=== PATIENT | female | born 1960 | race Two or more races ===

== ENCOUNTER → 2020-11-19 10:19 | Outpatient (BNVA) | payer OTHER, SELFPAY | PROVIDERS: PCP Internal Medicine Critical Care Medicine; Visit Provider Hospitalist | DX: Z76.89 Persons encountering health services in other specified circumstances (principal) ==

== ENCOUNTER 2021-01-18 14:33 | Inpatient (IN) | payer OTHER, SELFPAY ==
--- NOTE | ~2021-01-18 | CT_ITS ---
EXAMINATION: CT ABDOMEN AND PELVIS WITHOUT CONTRAST CLINICAL INFORMATION: Right flank pain. COMPARISON: Ultrasound kidneys 06/15/[address] abdomen 09/19/2018. TECHNIQUE: Multidetector volumetric imaging was performed from the superior aspect of the liver through the pubic symphysis. Sagittal and coronal reformatted images were obtained on the technologist's workstation. This CT examination was performed using dose optimization techniques as appropriate, variously including the following: *Automated exposure control *Adjustment of mA and/or kV according to patient size (this includes techniques or standardized protocols for targeted exams where dose is matched to indication/reason for exam; i.e. extremities or head) *Use of iterative reconstruction technique DLP: 749 mGy-cm FINDINGS: LUNG BASES: The lung bases are clear. The heart size is normal.. LIVER, GALLBLADDER, AND BILIARY TREE: The liver is normal in size, shape, and attenuation. No focal hepatic lesion or biliary ductal dilatation is present. The gallbladder is unremarkable with no evidence of radiopaque gallstones, gallbladder wall thickening, or obvious pericholecystic inflammatory changes. PANCREAS: Unremarkable. SPLEEN: Unremarkable. ADRENAL GLANDS: Unremarkable. KIDNEYS AND URETERS: The kidneys are normal in size, shape, and attenuation. There is bilateral multiple small radiopaque calculi in the range of 2 to 3 mm in the upper mid and lower pole right kidney and mid and lower pole left kidney. There is a 4 mm right distal ureter calculi with mild hydroureteronephrosis. The left ureter is normal. BLADDER: The bladder is decompressed. GASTROINTESTINAL TRACT: There is scattered stool, diverticuli and gas seen throughout the colon without distention. The small bowel loops are normal caliber. Appendix is normal caliber. ABDOMINAL WALL: There is a small umbilical hernia containing fat. LYMPH NODES: Normal. VASCULAR: Unremarkable. PELVIC VISCERA: The uterus is anteverted. There is 2.7 cm solid lesion with surrounding hypoechoic circumferential area likely a polyp within the endometrial canal. A submucosal fibroid is not excluded. It is almost same size as previous study. OSSEOUS STRUCTURES: There are degenerative disc changes and spondylosis throughout lumbar spine. No acute fracture or lytic process seen. There is moderate spondylosis/bridging osteophyte at L2-L3 and L3-L4 disc levels. CT/CT abdomen pelvis wo con IMPRESSION: Bilateral left or lithiasis. There is a 4 mm right UVJ obstructive stone with hydroureteronephrosis. Small umbilical hernia containing fat. Stable uterine lesion likely endometrial polyp or a submucosal fibroid. Correlate with history sonogram if clinically indicated.
--- NOTE | ~2021-01-18 | FL_ITS ---
EXAMINATION: XR FLUOROSCOPY WITH IMAGES CLINICAL INFORMATION: Urinary tract calculi COMPARISON: CT abdomen and pelvis noncontrast 01/18/2021 TECHNIQUE: Fluoroscopy performed by Dr. Stanley Duran. Fluoroscopy time: 0.47 minutes Total dose: 15.79 mGy Images: 1 FINDINGS: There is a stent in the right ureter and bladder. FL/FL guidance in OR IMPRESSION: Fluoroscopy for urologic procedure.
[2021-01-18 14:51] VITALS: BP 151/81; PULSE 83; RESP 18; TEMP 36.9; O2SAT 97; BMI 39.8
[2021-01-18] MEDS: ondansetron HCL 4 MG/2 ML VIAL IVPUSH (15:16)
[2021-01-18] MEDS: HYDROmorphone HCl 1 MG/ML SYRINGE IVPUSH ×2 (15:16→17:41)
[2021-01-18] MEDS: 0.9 % Sodium Chloride 1,000 ML 999 ML IV (15:16)
[2021-01-18 15:17] LABS: Basophils Absolute Auto 0.1 X10*3/uL (0.0-0.2); Basophils Percent Auto 0.9 % (0-2); Eosinophils Absolute Auto 0.5 X10*3/uL (0.0-0.4); Eosinophils Percent Auto 6.3 % (0-4); Hematocrit 38.9 % (37-47); Hemoglobin 12.8 g/dl (12.0-16.0); Imm Gran Abs Auto 0.01 X10*3/uL (0.00-0.03); Imm Gran Pct Auto 0.1 % (0.0-0.4); Lymphocytes Absolute Auto 3.6 X10*3/uL (1.2-4.9); Lymphocytes Percent Auto 43.9 % (20-40); MANUAL DIFF FLAG NO; Mean Corpuscular HGB Conc 32.9 g/dl (31.0-35.0); Mean Corpuscular Hemoglobin 30.7 pg (27.0-33.0); Mean Corpuscular Volume 93.3 fL (80-98); Mean Platelet Volume 10.2 fL (9.4-12.3); Monocytes Absolute Auto 0.9 X10*3/uL (0.1-1.2); Monocytes Percent Auto 10.5 % (2-11); Neutrophils Absolute Auto 3.1 X10*3/uL (2.0-8.3); Neutrophils Percent Auto 38.3 % (45-73); Platelet Count 331 X10*3/uL (160-400); Red Blood Count 4.17 X10*6/uL (4.20-5.50); Red Cell Distribution Width 13.8 % (11.0-16.0); White Blood Count 8.1 X10*3/uL (4.8-10.8)
--- NOTE | 2021-01-18 15:18 | ED_ITS ---
HPI - General Adult General Chief complaint: General Medical Stated complaint: flank pain Time Seen by Provider: 01/18/21 14:47 Source: patient Mode of arrival: ambulatory History of Present Illness HPI narrative: 60 y.o. F with PMH of asthma, KEVIN, obesity, renal stones presenting to the ED with right flank pain since noon. Pt. states she developed right flank pain since noon and progressively worsening. Pt. states pain is pulsating. She report similar feeling pain with her prior renal stones. SHe had a BM today. Hx of prior delivery and stent placement for her renal stone. SHe denies fevers, CP, SOB, vomiting, diarrhea, dysuria, hematuria. Location: abdomen (right flank ) Radiation: non-radiation Severity: severe Quality: other (pulsating ) Pain Consistency: constant Treatments prior to arrival: none Related Data Home Medications Medication Instructions Recorded Confirmed albuterol sulfate 90 mcg/actuation 2 puff INHALATION Q4H PRN 11/19/20 11/19/20 aerosol inhaler atorvastatin 40 mg tablet 40 mg PO DAILY 11/19/20 11/19/20 fluoxetine 20 mg capsule 60 mg PO DAILY 11/19/20 11/19/20 fluticasone propionate 50 spray INTRANASAL 11/19/20 11/19/20 mcg/actuation nasal spray,suspension hydrochlorothiazide 25 mg tablet 25 mg PO DAILY 11/19/20 11/19/20 levothyroxine 50 mcg tablet 50 mcg PO DAILY 11/19/20 11/19/20 omeprazole 20 mg capsule,delayed 20 mg PO DAILY 11/19/20 11/19/20 release verapamil 100 mg capsule 24hr 100 mg PO BEDTIME 11/19/20 11/19/[address],ext.release Previous Rx's Medication Instructions Recorded fluticasone furoate 200 1 inh INHALATION DAILY #60 ea 09/15/20 mcg-vilanterol 25 mcg/dose inhalation powder modafinil 200 mg tablet 200 mg PO DAILY #30 tab 09/24/20 tiotropium bromide 2.5 2 puff INHALATION DAILY #4 g 11/06/20 mcg/actuation mist for inhalation dexamethasone 6 mg tablet 6 mg PO DAILY 10 Days #10 tab 11/19/20 doxycycline hyclate 100 mg capsule 100 mg PO BID 10 Days #20 cap 11/19/20 Allergies Allergy/AdvReac Type Severity Reaction Status Date / Time acetaminophen [Percocet] Allergy Severe Rash and Verified 11/19/20 18:47 Hives amlodipine Allergy Severe Rash and Verified 11/19/20 18:47 Hives aspirin Allergy Severe Rash and Verified 11/19/20 18:47 Hives benzonatate Allergy Severe Rash and Verified 11/19/20 18:47 Hives fexofenadine Allergy Severe Rash and Verified 11/19/20 18:47 Hives hydroxyzine Allergy Severe Rash and Verified 11/19/20 18:47 Hives lisinopril Allergy Severe Rash and Verified 11/19/20 18:47 Hives meperidine [Demerol] Allergy Severe Rash and Verified 11/19/20 18:47 Hives morphine Allergy Severe Rash and Verified 11/19/20 18:47 Hives naproxen [Aleve] Allergy Severe Rash and Verified 11/19/20 18:47 Hives oxycodone [From PERCOCET] Allergy Severe SWELLING Verified 11/19/20 18:47 penicillin G Allergy Severe Rash and Verified 11/19/20 18:47 Hives Sulfa (Sulfonamide Allergy Severe Rash and Verified 11/19/20 18:47 Antibiotics) Hives valsartan Allergy Severe Rash and Verified 11/19/20 18:47 Hives codeine [CODEINE] Allergy Intermediate RASH Verified 11/19/20 18:47 ibuprofen [From MOTRIN] Allergy Intermediate RASH Verified 11/19/20 18:47 montelukast [From SINGULAIR] Allergy Intermediate HIVES Verified 11/19/20 18:47 sulfamethoxazole Allergy Intermediate HIVES Verified 11/19/20 18:47 [From BACTRIM] tramadol [TRAMADOL] Allergy Intermediate SWELLING, Verified 11/19/20 18:47 RASH loratadine [From CLARITIN] Allergy Mild HIVES Verified 11/19/20 18:47 ranitidine [From ZANTAC] Allergy Mild HIVES Verified 11/19/20 18:47 Hydrocet Allergy Severe Rash and Uncoded 11/19/20 18:47 Hives Lorazepam Allergy Severe Rash and Uncoded 11/19/20 18:47 Hives Zantac Allergy Severe Rash and Uncoded 11/19/20 18:47 Hives Review of Systems Constitutional: Constitutional: Denies fever(s) Eyes: Eyes: Reports no additional eye complaints ENT: Denies dizziness and Denies sore throat Cardiovascular: Cardiovascular: Denies chest pain and Denies dyspnea Respiratory: Respiratory: Denies dyspnea Gastrointestinal: Gastrointestinal: Denies constipation, Denies diarrhea, Reports nausea and Denies vomiting Genitourinary: Genitourinary: Denies hematuria, Denies dysuria and Reports flank pain Musculoskeletal: Musculoskeletal: Reports no additional musculoskeletal complaints Neurologic: Denies dizziness Hematologic/Lymphatic: Hematologic/Lymphatic: Denies easy bleeding and Denies easy bruising Allergic/Immunologic: Allergic/Immunologic: Reports no additional allergic/immunologic complaints [facility] Past Medical History Medical History Asthma COVID-19 KEVIN on CPAP Social History Social History Smoking Status: Never smoker Smoked in Last 30 Days: No Use of substances other than those prescribed or required for medical reasons: No Advance Directives: No Advance Directives Information Provided: Yes Physical Exam Vital Signs: Vital Signs: Last Vital Signs Temp 98.5 F 01/18/21 14:51 Pulse 76 01/18/21 15:47 Resp 18 01/18/21 15:47 BP 136/75 01/18/21 15:47 Pulse Ox 97 01/18/21 14:51 Body Mass Index 39.8 Const: Other: laying supine in the stretcher, appears uncomfortable HENMT: Head: Yes atraumatic Eyes: Pupils: Equal, round and reactive pupils present Neck: Neck: Yes trachea midline and Yes supple Resp: Effort & Inspection: normal respiratory effort and able to speak in com plete sentences Auscultation: clear to auscultation bilaterally Cardio: Rate: regular rate Rhythm: regular rhythm GI: Inspection: No distended and Yes obesity Palpation (GI): Soft to palpation, nontender and no guarding : Other: right flank tenderness Back/Spine/Pelvis: Other: no midline tenderness to thoracic or lumbar spine Skin: Other: warm Rashes: no rashes Neuro: Other: A&O x4 Cranial nerves: Yes Equal, round and reactive pupils present Extrem: General: Yes full ROM Psych: Other: cooperative Course Reevaluation(s) Reevaluation #1: Pt. appears uncomfortable, states the pain is returning. Dilaudid did provide relief for approximately 30 minutes. Since pt. is allergic to many different medications will plan to admit for pain control. Will discuss with urology. Time: 16:15 Reevaluation #2: Spoke with Dr. Duran from urology who is aware pt. will be admitted for pain control, no further recommendations. Time: 16:36 Reevaluation #3: Spoke with DANIELA almendarez, who is the hospitalist who agrees to admit the pt. but would like to get the UA first. Time: 16:41 Additional Reevaluation(s): UA appears to have been cancelled, however I spoke with the lab and faxed down a record (at 17:27) of the UA with micro still pending, shows yellow ruine, negative for nitrates, leuk esterases, 3+ blood. With this UA and no leukocytosis or fever doubt this is an infected stone. Will proceed with an admission. Medical Decision Making MDM Narrative Medical decision making narrative: 60 y.o> F presenting to the ED with right flank pain VS significant for HTN 151/81, not toxic appearing, hemodynamically stable WIll plan for basic labs. WIll check LFTs, lipase. Will check UA for infectious source. Will evaluate CT to r/o renal stone since pt. reports this feels similar. No focal RUQ tenderness to suggest acute cholecystitis, no focal RLQ tenderness to suggest acute appendicitis. No LLQ tenderness to suggest acute diverticulitis. DOubt AAA, no central abdominal pain, will evaluate with CT. No infectious symptoms to suggest gastroenteritis. No report of CP or SOB. No fall or injury to suggest underlying fx or organ injury. WIll provide IV fluids, IV dilaudid since pt. is allergic to many different med ication. Lab Data Result diagrams: 01/18/21 15:11 01/18/21 15:11 Labs: Lab Results 01/18/21 01/18/21 01/18/21 Range/Units 15:11 15:11 16:52 WBC 8.1 (4.8-10.8) X10*3/uL RBC 4.17 L (4.20-5.50) X10*6/uL Hgb 12.8 (12.0-16.0) g/dl Hct 38.9 (37-47) % MCV 93.3 (80-98) fL MCH 30.7 (27.0-33.0) pg MCHC 32.9 (31.0-35.0) g/dl RDW 13.8 (11.0-16.0) % Plt Count 331 (160-400) X10*3/uL MPV 10.2 (9.4-12.3) fL Immature Gran % (Auto) 0.1 (0.0-0.4) % Neut % (Auto) 38.3 L (45-73) % Lymph % (Auto) 43.9 H (20-40) % Jay % (Auto) 10.5 (2-11) % Eos % (Auto) 6.3 H (0-4) % Baso % (Auto) 0.9 (0-2) % Lymph # (Auto) 3.6 (1.2-4.9) X10*3/uL Jay # (Auto) 0.9 (0.1-1.2) X10*3/uL Eos # (Auto) 0.5 H (0.0-0.4) X10*3/uL Baso # (Auto) 0.1 (0.0-0.2) X10*3/uL Abs Immat Gran (auto) 0.01 (0.00-0.03) X10*3/uL Absolute Neuts (auto) 3.1 (2.0-8.3) X10*3/uL Absolute Nucleated RBC 0.000 (0.0-0.012) X10*3/uL Nucleated RBC % (auto) 0.0 (0.0-0.2) /100WBC Sodium 140 (135-145) mmol/L Potassium 3.9 (3.3-5.1) mmol/L Chloride 102 (96-108) mmol/L Carbon Dioxide 29 (22-29) mmol/L Anion Gap 13 (12-20) BUN 17 H (9-16) mg/dL Creatinine 0.81 (0.5-1.4) mg/dL Estim Creat Clear Calc 65.0 Estimated GFR > 60 Random Glucose 97 (60-115) mg/dL Calcium 9.6 (8.4-10.2) mg/dL Total Bilirubin 0.8 (0.0-1.0) mg/dL Direct Bilirubin 0.2 (0.0-0.5) mg/dL AST 40 H (5-31) U/L ALT 62 H (0-31) U/L Alkaline Phosphatase 71 (39-117) U/L Total Protein 6.9 (6.5-8.0) g/dL Albumin 4.1 (3.5-5.0) g/dL Lipase 22 (8-78) U/L Urine Color YELLOW Urine Appearance CLEAR Urine pH 6.5 (5.0-8.0) Ur Specific [place] 1.020 (1.005-1.025) Urine Protein NEG (NEG-TRACE) MG/DL Urine Glucose (UA) NEG (NEG) MG/DL Urine Ketones NEG (NEG) MG/DL Urine Blood 3+ H (NEG) Urine Nitrite NEG (NEG) Ur Leukocyte Esterase NEG (NEG) Discharge Plan Discharge Clinical Impression: Right ureteral stone Patient Disposition: Admitted as Observation
[2021-01-18 15:47] VITALS: BP 136/75; PULSE 76; RESP 18
[2021-01-18 15:50] LABS: Alanine Aminotransferase 62 U/L (0-31); Albumin Level 4.1 g/dL (3.5-5.0); Alkaline Phosphatase 71 U/L (39-117); Anion Gap 13 (12-20); Aspartate Amino Transferase 40 U/L (5-31); Bilirubin Direct 0.2 mg/dL (0.0-0.5); Bilirubin Total 0.8 mg/dL (0.0-1.0); Blood Urea Nitrogen 17 mg/dL (9-16); Calcium 9.6 mg/dL (8.4-10.2); Carbon Dioxide 29 mmol/L (22-29); Chloride 102 mmol/L (96-108); Estimated Glomerular Filt Rate > 60; Glucose Random 97 mg/dL (60-115); Lipase 22 U/L (8-78); Potassium 3.9 mmol/L (3.3-5.1); Sodium 140 mmol/L (135-145); Total Protein 6.9 g/dL (6.5-8.0)
[2021-01-18 17:12] LABS: Glucose Urine UA NEG (NEG); Leukocyte Esterase Urine NEG (NEG); Nitrite Urine NEG (NEG); PH 6.5 (5.0-8.0); Urine Blood 3+ (NEG); Urine Ketones NEG (NEG); Urine Protein NEG (NEG-TRACE)
[2021-01-18 17:14] LABS: Appearance Urine CLEAR; Color Urine YELLOW
[2021-01-18 17:40] LABS: Squamous Epithelial Cell Urine 1+ /LPF; Uric Acid Crystals Urine TRACE /LPF; WBC Urine 0-2 /HPF (0-4)
[2021-01-18] MEDS: Tamsulosin HCL 0.4 MG CAPSULE PO (17:41)
[2021-01-18 17:42] VITALS: BP 155/70; PULSE 82; RESP 20
[2021-01-18 18:16] LABS: COVID-19 Test Negative (Negative)
[2021-01-18 18:40] VITALS: BP 153/85; PULSE 79; RESP 16; TEMP 36.7; O2SAT 97
--- NOTE | 2021-01-18 18:46 | HP_ITS ---
DATE OF SERVICE: 01/18/2021 CHIEF COMPLAINT: Right flank pain and nausea. HISTORY OF PRESENTING ILLNESS: This is a 60-year-old female patient with past medical history significant for moderate persistent asthma, obstructive sleep apnea on CPAP, history of hypothyroidism, hypertension, hyperlipidemia, anxiety, depression, presented to [facility] due to gradually worsening right flank pain that started at noon time today associated with nausea. The patient denies any associated fever, chills, or rigors. She denies any lightheadedness and dizziness. Due to worsening pain, the patient decided to present to the emergency room. In the emergency room, workup including the urinalysis showed 3+ blood, no nitrites, and abdominal and pelvic CAT scan showed 4 mm right UVJ obstructive stone with hydroureteronephrosis. Emergency room physician discussed the case with Urology and recommended to admit the patient for further eval and treatment. The patient is now being admitted to [facility] due to right ureteric stone for IV hydration and pain control. PAST MEDICAL HISTORY: Significant for: 1. Hypothyroidism. 2. History of hypertension. 3. History of obstructive sleep apnea. 4. History of prior renal stone, status post stent placement. 5. History of anxiety and depression. 6. History of GERD. 7. History of moderate persistent asthma. 8. History of obstructive sleep apnea, on CPAP. 9. History of COVID-19 infection in November of 2020. PAST SURGICAL HISTORY: Status post stent placement in the past. SOCIAL HISTORY: The patient never smokes. She socially drinks alcohol. 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 FAMILY HISTORY: The patient's both parents are . No history of premature coronary artery disease in family. MEDICATIONS ON ADMISSION: Albuterol 2 puff inhaler q.4 hours as needed, Lipitor 40 mg at bedtime, fluoxetine 60 mg daily, fluticasone 1 inhalation daily, hydrochlorothiazide 25 mg daily, levothyroxine 50 mcg daily, Modafinil 200 mg by p.o. daily, omeprazole 20 mg daily, Spiriva 2 puff inhaler daily, and verapamil 100 mg p.o. at bedtime. ALLERGIES: THE PATIENT HAS MULTIPLE ALLERGIES INCLUDING TYLENOL, AMLODIPINE, ASPIRIN, BENZONATATE, FEXOFENADINE, HYDROXYZINE, LISINOPRIL, DEMEROL, MORPHINE, NAPROSYN, ALL OF THESE MEDICATIONS CAUSES RASH AND HIVES. THE PATIENT IS ALSO ALLERGIC TO PENICILLIN, SULFA, VALSARTAN, THAT ALSO CAUSES RASH AND HIVES. OXYCODONE CAUSES SWELLING. CODEINE, IBUPROFEN, SINGULAIR, BACTRIM CAUSES HIVES ALONG WITH CLARITIN AND ZANTAC. THE PATIENT IS ALSO ALLERGIC TO HYDROCET, LORAZEPAM, AND ZANTAC THAT ALSO CAUSES RASH AND HIVES. TRAMADOL CAUSES RASH AND SWELLING. REVIEW OF SYSTEMS: [employer]: The patient denies any headache, lightheadedness, or dizziness. CVS: No chest pain or palpitation. RESPIRATORY: Denies shortness of breath, cough, or wheeze. GASTROINTESTINAL: The patient complaining of nausea with no vomiting, no abdominal pain or diarrhea. : No urinary symptoms of urgency or frequency. Rest of all other systems are reviewed and are negative. PHYSICAL EXAMINATION: GENERAL: The patient is sitting comfortably in chair, does not appear to be in acute distress. VITAL SIGNS: Her vitals are BP 155/70 with a pulse of 82, respiratory rate 20, patient is afebrile. HEENT: Pupils equal, round, and reactive to light and accommodation. Extraocular muscles intact. NECK: Supple. No JVD. LUNGS: Clear to auscultation with coarse breath sounds. No wheeze or rhonchi noted. HEART: Regular rate and rhythm. ABDOMEN: Obese, soft, nontender. No CVA tenderness noticed. No right lower quadrant pain or tenderness. No rigidity or guarding noted. . NEURO: Nonfocal. The patient is alert and oriented x3. Speech clear. EXTREMITIES: Without edema. LABORATORY DATA: Showed a WBC 8.1, hematocrit 38.9, and a platelet count of 331. Sodium 140, potassium 3.9, BUN 17, and creatinine of 0.81. AST 40 with an ALT of 62, albumin 4.1. IMAGING STUDIES: As mentioned in the HPI. ASSESSMENT AND PLAN: This is a 60-year-old female patient with multiple medical issues including obstructive sleep apnea on CPAP, chronic persistent asthma, gastroesophageal reflux disease, hyperlipidemia, and hypertension, presented with gradually progressing right flank pain, diagnosed to have 4 mm right UVJ stone with hydroureteronephrosis. 1. Renal colic with 4 mm UVJ stone. The patient will be admitted to medical floor, will be placed on IV fluids and IV Dilaudid for pain control since the patient has multiple drug allergies to morphine, oxycodone, and Ultram. The patient will be kept n.p.o. at a.m. Since if she does not pass the stone, she will require cystoscopy. We will consult Urology, Dr. Rivers. The patient's renal function is stable. We will continue to follow CBC and BMP. 2. History of obstructive sleep apnea. We will continue CPAP. 3. History of hypertension. We will resume home medication. 4. History of chronic persistent asthma. Currently, there is no acute exacerbation. We will continue home inhalers. 5. History of hypothyroidism. Continue Synthroid. 6. Deep vein thrombosis prophylaxis. The patient will be placed on pneumatic compression stockings. 7. Code status: The patient is full code. MD SHANTE Quintero/LUCIA / [id number]
[2021-01-18] MEDS: 0.9 % Sodium Chloride 1,000 ML 100 ML IVCONT (19:50)
[2021-01-18] MEDS: levoFLOXacin/D5W 500 MG/100 ML PIGGYBACK 100 MG IV (19:59)
[2021-01-18] MEDS: diphenhydrAMINE HCL 50 MG/ML VIAL 25 MG IVPUSH (20:21)
[2021-01-18 21:32] VITALS: BP 104/41; PULSE 85; RESP 14; TEMP 36.1; O2SAT 95
[2021-01-18 22:21] VITALS: BP 104/41; PULSE 85
[2021-01-18] MEDS: HYDROmorphone HCl 0.5 MG/0.5 ML SYRINGE IVPUSH (22:22)
[2021-01-18] MEDS: diphenhydrAMINE HCL 25 MG TABLET PO (23:38)
[2021-01-19] VITALS (7 sets, daily range): BP systolic 106–135; BP diastolic 49–73; PULSE 69–90; RESP 18–22; TEMP 36.2–36.9; O2SAT 95–97
[2021-01-19 05:52] LABS: MANUAL DIFF FLAG NO
[2021-01-19 05:56] LABS: Basophils Absolute Auto 0.1 X10*3/uL (0.0-0.2); Basophils Percent Auto 0.9 % (0-2); Eosinophils Absolute Auto 0.5 X10*3/uL (0.0-0.4); Eosinophils Percent Auto 6.6 % (0-4); Hematocrit 34.7 % (37-47); Hemoglobin 11.4 g/dl (12.0-16.0); Imm Gran Abs Auto 0.01 X10*3/uL (0.00-0.03); Imm Gran Pct Auto 0.1 % (0.0-0.4); Lymphocytes Absolute Auto 2.8 X10*3/uL (1.2-4.9); Lymphocytes Percent Auto 35.3 % (20-40); Mean Corpuscular HGB Conc 32.9 g/dl (31.0-35.0); Mean Corpuscular Hemoglobin 31.1 pg (27.0-33.0); Mean Corpuscular Volume 94.8 fL (80-98); Mean Platelet Volume 10.4 fL (9.4-12.3); Monocytes Absolute Auto 0.9 X10*3/uL (0.1-1.2); Monocytes Percent Auto 11.1 % (2-11); Neutrophils Absolute Auto 3.7 X10*3/uL (2.0-8.3); Platelet Count 292 X10*3/uL (160-400); Red Blood Count 3.66 X10*6/uL (4.20-5.50)
[2021-01-19 06:25] LABS: Anion Gap 12 (12-20); Blood Urea Nitrogen 17 mg/dL (9-16); Calcium 8.6 mg/dL (8.4-10.2); Carbon Dioxide 29 mmol/L (22-29); Chloride 104 mmol/L (96-108); Creatinine Clr Calc Pharmacy 70.3; Estimated Glomerular Filt Rate > 60; Glucose Random 134 mg/dL (60-115); Potassium 3.8 mmol/L (3.3-5.1); Sodium 141 mmol/L (135-145)
[2021-01-19] MEDS: 0.9 % Sodium Chloride 1,000 ML 100 ML IVCONT ×2 (06:29→16:57)
[2021-01-19] MEDS: Omeprazole 20 MG CAPSULE.DR PO (06:37)
[2021-01-19] MEDS: diphenhydrAMINE HCL 25 MG TABLET PO ×3 (06:37→20:47)
[2021-01-19] MEDS: HYDROmorphone HCl 0.5 MG/0.5 ML SYRINGE IVPUSH (06:38)
[2021-01-19] MEDS: FLUoxetine HCl 20 MG CAPSULE 60 MG PO (07:51)
[2021-01-19] MEDS: Atorvastatin Calcium 40 MG TABLET PO (07:51)
[2021-01-19] MEDS: Levothyroxine Sodium 50 MCG TABLET PO (07:52)
--- NOTE | 2021-01-19 14:05 | MHC.CM.PN ---
CM MET WITH PT WHO IS BILINGUAL ([place]/CITIZEN OF [place]). 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 PT HAS NO IN HOME SERVICES AND A NEBULIZER FOR DME. 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 PT STATES SHE HAS A HCP NAMING HER CHILDREN HER AGENTS-COPY REQUESTED. PT CONFIRMS HER PCP IS ELDER ESQUIVEL. CURRENT DC PLAN IS HOME WITH NO SERVICES PT WILL SELF ARRANGE TRANSPORTATION
[2021-01-19] MEDS: HYDROmorphone HCl 0.5 MG/0.5 ML SYRINGE 1 MG IVPUSH ×2 (14:23→20:48)
--- NOTE | 2021-01-19 16:35 | P.PNIM_ITS ---
Subjective Subjective Date of Service: 01/19/21 Interval History: Patient complaining of persistent right flank pain has not passed the stone no nausea vomiting no fever chills no other acute issues overnight. ROS General no headache, no dizziness, no fever chills. CVS no chest pain, no palpitation. Respiratory no cough, no shortness of breath Gastrointestinal no nausea, no vomiting, right flank pain Physical Exam Vital Signs: Vital Signs: Last Vital Signs Temp 97.2 F 01/19/21 16:00 Pulse 78 01/19/21 16:00 Resp 20 01/19/21 16:00 BP 120/58 L 01/19/21 16:00 Pulse Ox 95 01/19/21 16:00 Body Mass Index 39.8 General no acute distress. Neck is supple no JVD. CVS regular rate rhythm, Respiratory lungs clear to auscultation, no respiratory distress, no wheeze, no rhonchi. Gastrointestinal abdomen soft, nontender, bowel sounds audible, no guarding , no rigidity, tenderness to palpation right flank. Extremities no edema. Back no CVA tenderness, Neuro nonfocal , speech clear. Skin no rash Objective Data Current Medications Generic Name Dose Route Start Last Admin Trade Name Freq PRN Reason Stop Dose Admin Albuterol Sulfate 2 puff 01/18/21 19:12 Albuterol Sulfate 90 Mcg 8 Gm Inhaler INHALE Q4H PRN wheezing Atorvastatin Calcium 40 mg 01/19/21 09:00 01/19/21 07:51 Atorvastatin Calcium 40 Mg Tablet PO 40 mg DAILY SAL Administration Diphenhydramine HCl 25 mg 01/18/21 19:12 01/19/21 14:21 Diphenhydramine Hcl 25 Mg Tablet PO 25 mg Q6H PRN Administration Itching Docusate Sodium 100 mg 01/18/21 19:12 Docusate Sodium 100 Mg Capsule PO DAILY PRN Constipation Fluoxetine HCl 60 mg 01/19/21 09:00 01/19/21 07:51 Fluoxetine Hcl 20 Mg Capsule PO 60 mg DAILY SAL Administration Fluticasone/Vilanterol 1 puff 01/19/21 09:00 01/19/21 07:42 Fluticasone/Vilanterol 200/25 Blst.W.Dev INHALE Not Given DAILY SAL Hydromorphone HCl 1 mg 01/19/21 10:11 01/19/21 14:23 Hydromorphone Hcl 0.5 Mg/0.5 Ml Syringe IVPUSH 1 mg Q4H PRN Administration Pain, Severe (Pain Scale 7-10) Sodium Chloride 1,000 mls @ 100 mls/hr 01/18/21 19:12 01/19/21 06:29 Ns IVCONT 100 mls/hr .Q10H SAL Administration Levofloxacin 500 mg in 100 mls @ 100 mls/hr 01/18/21 20:00 01/18/21 20:59 Levaquin IV Infused Q24H SAL Infusion Levothyroxine Sodium 50 mcg 01/19/21 09:00 01/19/21 07:52 Levothyroxine Sodium 50 Mcg Tablet PO 50 mcg DAILY SAL Administration Modafinil 200 mg 01/20/21 12:00 Modafinil 100 Mg Tablet PO DAILY [facility] Omeprazole 20 mg 01/19/21 06:30 01/19/21 06:37 Omeprazole 20 Mg Capsule.Dr PO 20 mg DAILY@0630 SAL Administration Ondansetron HCl 4 mg 01/18/21 19:12 Ondansetron Hcl 4 Mg/2 Ml Vial IVPUSH Q8H PRN Nausea and Vomiting Sodium Chloride 3 ml 01/19/21 00:00 01/19/21 07:52 0.9 % Sodium Chloride Flush 3 Ml Syringe IVFLUSH Not Given QSHIFT [facility] Tiotropium Brethren 2 puff 01/19/21 08:00 01/19/21 07:42 Tiotropium Brethren 18 Mcg Cap.W.Dev INHALE Not Given RDAILY [facility] Verapamil HCl 100 mg 01/18/21 21:00 01/18/21 22:21 Verapamil Hcl Sr 100 Mg Cap24h.Pct PO 100 mg BEDTIME SAL Administration Protocol Labs CBC & Chem 7: 01/19/21 05:34 01/19/21 05:34 Assessment and Plan (1) Right ureteral stone: Status: Acute (2) KEVIN on CPAP: Status: Acute (3) Asthma: Status: Acute Assessment and Plan: 60-year-old female patient with multiple medical issues including obstructive sleep apnea on CPAP, chronic persistent asthma, gastroesophagealreflux disease, hyperlipidemia, and hypertension, presented with gradually progressing right flank pain, diagnosed to have 4 mm right UVJ stone with hydroureteronephrosis. 1. Right Renal colic with 4 mm UVJ stone. Persistent right flank pain did not passed stone yet, continue IV fluids and IV Dilaudid for pain, dose of Dilaudid increase, will resume diet patient will undergo cystoscopy tomorrow , will be kept n.p.o. at a.m. will continue to follow CBC and BMP., normal renal function, slight drop in hematocrit likely dilutional, continue IV antibiotic. UA negative. 2. History of obstructive sleep apnea. continue CPAP. 3. History of hypertension. BP stable on home medication verapamil. 4. History of chronic persistent asthma. no acute exacerbation, continue home inhalers. 5. History of hypothyroidism. Continue Synthroid. 6. Deep vein thrombosis prophylaxis. pneumatic compression stockings. 7. Code status: full code.
[2021-01-19] MEDS: levoFLOXacin/D5W 500 MG/100 ML PIGGYBACK 100 MG IV (20:48)
[2021-01-20] VITALS (14 sets, daily range): BP systolic 131–161; BP diastolic 64–81; PULSE 75–91; RESP 12–20; TEMP 36.3–37.2; O2SAT 92–99; BMI 39.8
[2021-01-20] MEDS: HYDROmorphone HCl 0.5 MG/0.5 ML SYRINGE 1 MG IVPUSH ×3 (00:45→21:03)
[2021-01-20] MEDS: 0.9 % Sodium Chloride 1,000 ML 100 ML IVCONT ×2 (02:02→12:02)
[2021-01-20 06:13] LABS: MANUAL DIFF FLAG NO
[2021-01-20 06:19] LABS: Basophils Absolute Auto 0.1 X10*3/uL (0.0-0.2); Basophils Percent Auto 0.7 % (0-2); Eosinophils Absolute Auto 0.6 X10*3/uL (0.0-0.4); Eosinophils Percent Auto 8.1 % (0-4); Hematocrit 35.9 % (37-47); Hemoglobin 11.2 g/dl (12.0-16.0); Imm Gran Abs Auto 0.01 X10*3/uL (0.00-0.03); Imm Gran Pct Auto 0.1 % (0.0-0.4); Lymphocytes Absolute Auto 3.2 X10*3/uL (1.2-4.9); Lymphocytes Percent Auto 45.8 % (20-40); Mean Corpuscular HGB Conc 31.2 g/dl (31.0-35.0); Mean Corpuscular Hemoglobin 30.3 pg (27.0-33.0); Mean Platelet Volume 10.6 fL (9.4-12.3); Monocytes Absolute Auto 0.7 X10*3/uL (0.1-1.2); Monocytes Percent Auto 10.4 % (2-11); Neutrophils Absolute Auto 2.4 X10*3/uL (2.0-8.3); Neutrophils Percent Auto 34.9 % (45-73); Platelet Count 287 X10*3/uL (160-400); Red Cell Distribution Width 14.1 % (11.0-16.0); White Blood Count 6.9 X10*3/uL (4.8-10.8)
[2021-01-20] MEDS: Fluticasone/Vilanterol 200/25 BLST.W.DEV 1 PUFF INHALE (11:16)
--- NOTE | 2021-01-20 13:00 | PM.UROCN ---
History of Present Illness Consult details Consult date: 01/20/21 Narrative: Allyson is a pleasant Panamanian-speaking female Chronic stone former Admit with right-sided flank pain Small 3 mm stone shown and distal right ureteric orifice Initial recommendation to admit for trial of passage Has failed to pass stone Recommend cystoscopy, ureteroscopy, stent placement PMFSH Past Medical History Medical History Asthma COVID-19 KEVIN on CPAP Social History Social History Household Members: Spouse and Family Housing: Apartment Do you presently have visiting nurse or other home services: No Smoking Status: Never smoker Smoked in Last 30 Days: No Second Hand Smoke Exposure: No Use of substances other than those prescribed or required for medical reasons: No Currently Displaying Signs/Symptoms of Drug Intoxication Withdrawal: No Any prior treatment program specific to substance use: No Have you been hit, kicked, punched, or otherwise hurt by someone within the past year? If so, by whom?: No Do you feel safe in your current relationship?: Yes Is there a partner from a previous relationship who is making you feel unsafe now?: No Are you made to feel afraid or neglected: No Advance Directives: No Advance Directives Information Provided: Yes Do you have thoughts of harming others: None Do you have a plan to hurt others: No Plan Recently lost weight without trying: No service: No Current occupational status: employed Meds Allergies Allergy/AdvReac Type Severity Reaction Status Date / Time acetaminophen [Percocet] Allergy Severe Rash and Verified 11/19/20 18:47 Hives amlodipine Allergy Severe Rash and Verified 11/19/20 18:47 Hives aspirin Allergy Severe Rash and Verified 11/19/20 18:47 Hives benzonatate Allergy Severe Rash and Verified 11/19/20 18:47 Hives fexofenadine Allergy Severe Rash and Verified 11/19/20 18:47 Hives hydroxyzine Allergy Severe Rash and Verified 11/19/20 18:47 Hives lisinopril Allergy Severe Rash and Verified 11/19/20 18:47 Hives meperidine [Demerol] Allergy Severe Rash and Verified 11/19/20 18:47 Hives morphine Allergy Severe Rash and Verified 11/19/20 18:47 Hives naproxen [Aleve] Allergy Severe Rash and Verified 11/19/20 18:47 Hives oxycodone [From PERCOCET] Allergy Severe SWELLING Verified 11/19/20 18:47 penicillin G Allergy Severe Rash and Verified 11/19/20 18:47 Hives Sulfa (Sulfonamide Allergy Severe Rash and Verified 11/19/20 18:47 Antibiotics) Hives valsartan Allergy Severe Rash and Verified 11/19/20 18:47 Hives codeine [CODEINE] Allergy Intermediate RASH Verified 11/19/20 18:47 ibuprofen [From MOTRIN] Allergy Intermediate RASH Verified 11/19/20 18:47 montelukast [From SINGULAIR] Allergy Intermediate HIVES Verified 11/19/20 18:47 sulfamethoxazole Allergy Intermediate HIVES Verified 11/19/20 18:47 [From BACTRIM] tramadol [TRAMADOL] Allergy Intermediate SWELLING, Verified 11/19/20 18:47 RASH loratadine [From CLARITIN] Allergy Mild HIVES Verified 11/19/20 18:47 ranitidine [From ZANTAC] Allergy Mild HIVES Verified 11/19/20 18:47 Hydrocet Allergy Severe Rash and Uncoded 11/19/20 18:47 Hives Lorazepam Allergy Severe Rash and Uncoded 11/19/20 18:47 Hives Zantac Allergy Severe Rash and Uncoded 11/19/20 18:47 Hives Active Medications: Current Medications Generic Name Dose Route Start Last Admin Trade Name Freq PRN Reason Stop Dose Admin Albuterol Sulfate 2 puff 01/18/21 19:12 Albuterol Sulfate 90 Mcg 8 Gm Inhaler INHALE Q4H PRN wheezing Atorvastatin Calcium 40 mg 01/19/21 09:00 01/20/21 09:28 Atorvastatin Calcium 40 Mg Tablet PO Not Given DAILY SAL Diphenhydramine HCl 25 mg 01/18/21 19:12 01/19/21 20:47 Diphenhydramine Hcl 25 Mg Tablet PO 25 mg Q6H PRN Administration Itching Docusate Sodium 100 mg 01/18/21 19:12 Docusate Sodium 100 Mg Capsule PO DAILY PRN Constipation Fluoxetine HCl 60 mg 01/19/21 09:00 01/20/21 09:28 Fluoxetine Hcl 20 Mg Capsule PO Not Given DAILY SAL Fluticasone/Vilanterol 1 puff 01/19/21 09:00 01/20/21 11:16 Fluticasone/Vilanterol 200/25 Blst.W.Dev INHALE 1 puff DAILY SAL Administration Hydromorphone HCl 1 mg 01/19/21 10:11 01/20/21 09:21 Hydromorphone Hcl 0.5 Mg/0.5 Ml Syringe IVPUSH 1 mg Q4H PRN Administration Pain, Severe (Pain Scale 7-10) Sodium Chloride 1,000 mls @ 100 mls/hr 01/18/21 19:12 01/20/21 12:02 Ns IVCONT 100 mls/hr .Q10H SAL Administration Levofloxacin 500 mg in 100 mls @ 100 mls/hr 01/18/21 20:00 01/19/21 21:50 Levaquin IV Infused Q24H [facility] Infusion Levothyroxine Sodium 50 mcg 01/19/21 09:00 01/20/21 09:28 Levothyroxine Sodium 50 Mcg Tablet PO Not Given DAILY SAL Modafinil 200 mg 01/20/21 12:00 Modafinil 100 Mg Tablet PO DAILY [facility] Omeprazole 20 mg 01/19/21 06:30 01/20/21 06:09 Omeprazole 20 Mg Capsule.Dr PO Not Given DAILY@0630 [facility] Ondansetron HCl 4 mg 01/18/21 19:12 Ondansetron Hcl 4 Mg/2 Ml Vial IVPUSH Q8H PRN Nausea and Vomiting Sodium Chloride 3 ml 01/19/21 00:00 01/20/21 09:28 0.9 % Sodium Chloride Flush 3 Ml Syringe IVFLUSH Not Given QSHIFT [facility] Tiotropium [place] 2 puff 01/19/21 08:00 01/20/21 11:16 Tiotropium [place] 18 Mcg Cap.W.Dev INHALE 2 puff RDAILY SAL Administration Verapamil HCl 100 mg 01/18/21 21:00 01/19/21 20:47 Verapamil Hcl Sr 100 Mg Cap24h.Pct PO 100 mg BEDTIME SAL Administration Protocol Home Medications Medication Instructions Recorded Confirmed Last Taken Type albuterol sulfate 90 mcg/actuation 2 puff INHALATION Q4H PRN 11/19/20 01/18/21 Unknown History aerosol inhaler atorvastatin 40 mg tablet 40 mg PO DAILY 11/19/20 01/18/21 Unknown History fluoxetine 20 mg capsule 60 mg PO DAILY 11/19/20 01/18/21 Unknown History hydrochlorothiazide 25 mg tablet 25 mg PO DAILY 11/19/20 01/18/21 Unknown History levothyroxine 50 mcg tablet 50 mcg PO DAILY 11/19/20 01/18/21 Unknown History omeprazole 20 mg capsule,delayed 20 mg PO DAILY 11/19/20 01/18/21 Unknown History release verapamil 100 mg capsule 24hr 100 mg PO BEDTIME 11/19/20 01/18/[address],ext.release Physical Exam Vital Signs: Vital Signs: Last Vital Signs Temp 97.4 F 01/20/21 11:01 Pulse 84 01/20/21 11:01 Resp 17 01/20/21 11:01 BP 131/64 01/20/21 11:01 Pulse Ox 93 01/20/21 11:01 Body Mass Index 39.8 Const: General: cooperative, healthy appearing, comfortable and no acute distress Nutritional Appearance: average body habitus Orientation/consciousness: oriented to person, oriented to place and oriented to time Eyes: General: appearance normal, both eyes and all related structures Chest: Chest palpation & inspection: normal inspection of the chest Resp: Effort & Inspection: normal respiratory effort Cardio: Rate: regular rate GI: Inspection: Yes normal to inspection Skin: Hair: normal Neuro: General: oriented to person, oriented to place and oriented to time Extrem: General: Yes normal to inspection Results Labs Result diagrams: 01/20/21 05:53 01/19/21 05:34 Labs: Abnormal lab results 01/20/21 Range/Units 05:53 RBC 3.70 L (4.20-5.50) X10*6/uL Hgb 11.2 L (12.0-16.0) g/dl Hct 35.9 L (37-47) % Neut % (Auto) 34.9 L (45-73) % Lymph % (Auto) 45.8 H (20-40) % Eos % (Auto) 8.1 H (0-4) % Eos # (Auto) 0.6 H (0.0-0.4) X10*3/uL Short CBC 01/20/21 Range/Units 05:53 WBC 6.9 (4.8-10.8) X10*3/uL Hgb 11.2 L (12.0-16.0) g/dl Hct 35.9 L (37-47) % Plt Count 287 (160-400) X10*3/uL Urine 01/18/21 Range/Units 16:52 Urine Color YELLOW Urine Appearance CLEAR Urine pH 6.5 (5.0-8.0) Ur Specific [place] 1.020 (1.005-1.025) Urine Protein NEG (NEG-TRACE) MG/DL Urine Glucose (UA) NEG (NEG) MG/DL All other labs normal. KIDNEYS AND URETERS: The kidneys are normal in size, shape, and attenuation. There is bilateral multiple small radiopaque calculi in the range of 2 to 3 mm in the upper mid and lower pole right kidney and mid and lower pole left kidney. There is a 4 mm right distal ureter calculi with mild hydroureteronephrosis. The left ureter is normal. Assessment and Plan (1) Right ureteral stone: Status: Acute Ureteroscopy We discussed the nature of the decision and reasonable alternatives for performing the above surgery. Interventions include chemical dissolution, ESWL, ureteroscopy with laser lithotripsy and stent placement, PCNL. Options such as medical therapy were discussed. The relative uncertainties and benefits related to each alternate procedure were adequately discussed. General surgical risks including, but not limited to, pain, bleeding, infection, myocardial infarction, pulmonary embolus, deep vein thrombosis and cerebrovascular accident which may result in further hospitalization were discussed. Full disclosure of the procedure as well as all major risks, benefits and complications were discussed including but not limited to damage to the urethra, bladder and kidney infection, damage to the ureter, stent migration or malposition, scarring to the renal pelvis, remnant stone fragments, subsequent stone passage with need for secondary procedures. The overall secondary procedure rate is approximately 10-15%. The success rate of the procedure was discussed. Success of the procedure in the short-term does not necessarily guarantee that long-term success will be maintained. Suitable follow up will need to be maintained. The patient showed understanding of discussion and wishes to proceed with - cystoscopy, retrograde, ureteroscopy, possible lithotripsy/stone basketing and stent on the right side
[2021-01-20] MEDS: levoFLOXacin 500 MG TABLET PO (14:59)
--- NOTE | 2021-01-20 15:44 | HO.PM.IMPN ---
Subjective Subjective Date of Service: 01/20/21 Interval History: Patient complaining of persistent right flank pain is NPO for cystoscopy this afternoon, has not passed stone yet, no acute issues overnight, no hematuria. ROS General no headache, no dizziness, no fever chills. CVS no chest pain, no palpitation. Respiratory no cough, no shortness of breath Gastrointestinal no nausea, no vomiting, right flank pain Physical Exam Vital Signs: Vital Signs: Last Vital Signs Temp 97.4 F 01/20/21 11:01 Pulse 84 01/20/21 11:01 Resp 17 01/20/21 11:01 BP 131/64 01/20/21 11:01 Pulse Ox 93 01/20/21 11:01 Body Mass Index 39.8 General no acute distress. Neck is supple no JVD. CVS regular rate rhythm, Respiratory lungs clear to auscultation, no respiratory distress, no wheeze, no rhonchi. Gastrointestinal abdomen soft, nontender, bowel sounds audible, no guarding , no rigidity, tenderness to palpation right flank. Extremities no edema. Back no CVA tenderness, Neuro nonfocal , speech clear. Skin no rash Objective Data Current Medications Generic Name Dose Route Start Last Admin Trade Name Freq PRN Reason Stop Dose Admin Albuterol Sulfate 2 puff 01/18/21 19:12 Albuterol Sulfate 90 Mcg 8 Gm Inhaler INHALE Q4H PRN wheezing Atorvastatin Calcium 40 mg 01/19/21 09:00 01/20/21 09:28 Atorvastatin Calcium 40 Mg Tablet PO Not Given DAILY SAL Diphenhydramine HCl 25 mg 01/18/21 19:12 01/19/21 20:47 Diphenhydramine Hcl 25 Mg Tablet PO 25 mg Q6H PRN Administration Itching Docusate Sodium 100 mg 01/18/21 19:12 Docusate Sodium 100 Mg Capsule PO DAILY PRN Constipation Fluoxetine HCl 60 mg 01/19/21 09:00 01/20/21 09:28 Fluoxetine Hcl 20 Mg Capsule PO Not Given DAILY SAL Fluticasone/Vilanterol 1 puff 01/19/21 09:00 01/20/21 11:16 Fluticasone/Vilanterol 200/25 Blst.W.Dev INHALE 1 puff DAILY SAL Administration Hydromorphone HCl 1 mg 01/19/21 10:11 01/20/21 09:21 Hydromorphone Hcl 0.5 Mg/0.5 Ml Syringe IVPUSH 1 mg Q4H PRN Administration Pain, Severe (Pain Scale 7-10) Sodium Chloride 1,000 mls @ 100 mls/hr 01/18/21 19:12 01/20/21 12:02 Ns IVCONT 100 mls/hr .Q10H SAL Administration Levofloxacin 500 mg in 100 mls @ 100 mls/hr 01/18/21 20:00 01/19/21 21:50 Levaquin IV Infused Q24H SAL Infusion Levothyroxine Sodium 50 mcg 01/19/21 09:00 01/20/21 09:28 Levothyroxine Sodium 50 Mcg Tablet PO Not Given DAILY [facility] Modafinil 200 mg 01/20/21 12:00 01/20/21 13:27 Modafinil 100 Mg Tablet PO Not Given DAILY [facility] Omeprazole 20 mg 01/19/21 06:30 01/20/21 06:09 Omeprazole 20 Mg Capsule.Dr PO Not Given DAILY@0630 [facility] Ondansetron HCl 4 mg 01/18/21 19:12 Ondansetron Hcl 4 Mg/2 Ml Vial IVPUSH Q8H PRN Nausea and Vomiting Sodium Chloride 3 ml 01/19/21 00:00 01/20/21 09:28 0.9 % Sodium Chloride Flush 3 Ml Syringe IVFLUSH Not Given QSHIFT [facility] Tiotropium [place] 2 puff 01/19/21 08:00 01/20/21 11:16 Tiotropium [place] 18 Mcg Cap.W.Dev INHALE 2 puff RDAILY SAL Administration Verapamil HCl 100 mg 01/18/21 21:00 01/19/21 20:47 Verapamil Hcl Sr 100 Mg Cap24h.Pct PO 100 mg BEDTIME SAL Administration Protocol Labs CBC & Chem 7: 01/20/21 05:53 01/19/21 05:34 Assessment and Plan (1) Right ureteral stone: Status: Acute (2) KEVIN on CPAP: Status: Acute (3) Asthma: Status: Acute Assessment and Plan: 60-year-old female patient with multiple medical issues including obstructive sleep apnea on CPAP, chronic persistent asthma, gastroesophagealreflux disease, hyperlipidemia, and hypertension, presented with gradually progressing right flank pain, diagnosed to have 4 mm right UVJ stone with hydroureteronephrosis. 1. Right Renal colic with 4 mm UVJ stone. Patient has not passed stone yet, has persistent right flank pain continue IV fluids and IV Dilaudid for pain Patient is scheduled for cystoscopy , ureteroscopy and stent placement this afternoon, is n.p.o. UA negative. No hematuria hematocrit is stable. 2. History of obstructive sleep apnea. continue CPAP. 3. History of hypertension. BP stable on home medication verapamil. 4. History of chronic persistent asthma. no acute exacerbation, continue home inhalers. Stable oxygenation 93 on room air. 5. History of hypothyroidism. Continue Synthroid. 6. Deep vein thrombosis prophylaxis. pneumatic compression stockings. 7. Code status: full code.
--- NOTE | 2021-01-20 15:50 | HO.ANESPROP2 ---
[facility] Active Problems Active Problems: All Active Problems (Updated 01/18/21 @ 17:37 by DANIELA Hayward) Right ureteral stone (Acute) KEVIN on CPAP (Acute) Asthma (Acute) COVID-19 (Acute) Past Medical History Medical History Asthma COVID-19 KEVIN on CPAP Social History Social History Household Members: Spouse and Family Housing: Apartment Do you presently have visiting nurse or other home services: No Smoking Status: Never smoker Smoked in Last 30 Days: No Second Hand Smoke Exposure: No Use of substances other than those prescribed or required for medical reasons: No Currently Displaying Signs/Symptoms of Drug Intoxication Withdrawal: No Any prior treatment program specific to substance use: No Have you been hit, kicked, punched, or otherwise hurt by someone within the past year? If so, by whom?: No Do you feel safe in your current relationship?: Yes Is there a partner from a previous relationship who is making you feel unsafe now?: No Are you made to feel afraid or neglected: No Advance Directives: No Advance Directives Information Provided: Yes Do you have thoughts of harming others: None Do you have a plan to hurt others: No Plan Recently lost weight without trying: No service: No Current occupational status: employed Meds Allergies Allergy/AdvReac Type Severity Reaction Status Date / Time acetaminophen [Percocet] Allergy Severe Rash and Verified 11/19/20 18:47 Hives amlodipine Allergy Severe Rash and Verified 11/19/20 18:47 Hives aspirin Allergy Severe Rash and Verified 11/19/20 18:47 Hives benzonatate Allergy Severe Rash and Verified 11/19/20 18:47 Hives fexofenadine Allergy Severe Rash and Verified 11/19/20 18:47 Hives hydroxyzine Allergy Severe Rash and Verified 11/19/20 18:47 Hives lisinopril Allergy Severe Rash and Verified 11/19/20 18:47 Hives meperidine [Demerol] Allergy Severe Rash and Verified 11/19/20 18:47 Hives morphine Allergy Severe Rash and Verified 11/19/20 18:47 Hives naproxen [Aleve] Allergy Severe Rash and Verified 11/19/20 18:47 Hives oxycodone [From PERCOCET] Allergy Severe SWELLING Verified 11/19/20 18:47 penicillin G Allergy Severe Rash and Verified 11/19/20 18:47 Hives Sulfa (Sulfonamide Allergy Severe Rash and Verified 11/19/20 18:47 Antibiotics) Hives valsartan Allergy Severe Rash and Verified 11/19/20 18:47 Hives codeine [CODEINE] Allergy Intermediate RASH Verified 11/19/20 18:47 ibuprofen [From MOTRIN] Allergy Intermediate RASH Verified 11/19/20 18:47 montelukast [From SINGULAIR] Allergy Intermediate HIVES Verified 11/19/20 18:47 sulfamethoxazole Allergy Intermediate HIVES Verified 11/19/20 18:47 [From BACTRIM] tramadol [TRAMADOL] Allergy Intermediate SWELLING, Verified 11/19/20 18:47 RASH loratadine [From CLARITIN] Allergy Mild HIVES Verified 11/19/20 18:47 ranitidine [From ZANTAC] Allergy Mild HIVES Verified 11/19/20 18:47 Hydrocet Allergy Severe Rash and Uncoded 11/19/20 18:47 Hives Lorazepam Allergy Severe Rash and Uncoded 11/19/20 18:47 Hives Zantac Allergy Severe Rash and Uncoded 11/19/20 18:47 Hives Active Medications: Current Medications Generic Name Dose Route Start Last Admin Trade Name Freq PRN Reason Stop Dose Admin Albuterol Sulfate 2 puff 01/18/21 19:12 Albuterol Sulfate 90 Mcg 8 Gm Inhaler INHALE Q4H PRN wheezing Atorvastatin Calcium 40 mg 01/19/21 09:00 01/20/21 09:28 Atorvastatin Calcium 40 Mg Tablet PO Not Given DAILY SAL Diphenhydramine HCl 25 mg 01/18/21 19:12 01/19/21 20:47 Diphenhydramine Hcl 25 Mg Tablet PO 25 mg Q6H PRN Administration Itching Docusate Sodium 100 mg 01/18/21 19:12 Docusate Sodium 100 Mg Capsule PO DAILY PRN Constipation Fluoxetine HCl 60 mg 01/19/21 09:00 01/20/21 09:28 Fluoxetine Hcl 20 Mg Capsule PO Not Given DAILY SAL Fluticasone/Vilanterol 1 puff 01/19/21 09:00 01/20/21 11:16 Fluticasone/Vilanterol 200/25 Blst.W.Dev INHALE 1 puff DAILY SAL Administration Hydromorphone HCl 1 mg 01/19/21 10:11 01/20/21 09:21 Hydromorphone Hcl 0.5 Mg/0.5 Ml Syringe IVPUSH 1 mg Q4H PRN Administration Pain, Severe (Pain Scale 7-10) Sodium Chloride 1,000 mls @ 100 mls/hr 01/18/21 19:12 01/20/21 12:02 Ns IVCONT 100 mls/hr .Q10H SAL Administration Levofloxacin 500 mg in 100 mls @ 100 mls/hr 01/18/21 20:00 01/19/21 21:50 Levaquin IV Infused Q24H SAL Infusion Levothyroxine Sodium 50 mcg 01/19/21 09:00 01/20/21 09:28 Levothyroxine Sodium 50 Mcg Tablet PO Not Given DAILY SAL Modafinil 200 mg 01/20/21 12:00 01/20/21 13:27 Modafinil 100 Mg Tablet PO Not Given DAILY [facility] Omeprazole 20 mg 01/19/21 06:30 01/20/21 06:09 Omeprazole 20 Mg Capsule.Dr PO Not Given DAILY@0630 [facility] Ondansetron HCl 4 mg 01/18/21 19:12 Ondansetron Hcl 4 Mg/2 Ml Vial IVPUSH Q8H PRN Nausea and Vomiting Sodium Chloride 3 ml 01/19/21 00:00 01/20/21 09:28 0.9 % Sodium Chloride Flush 3 Ml Syringe IVFLUSH Not Given QSHIFT [facility] Tiotropium [place] 2 puff 01/19/21 08:00 01/20/21 11:16 Tiotropium [place] 18 Mcg Cap.W.Dev INHALE 2 puff RDAILY [facility] Administration Verapamil HCl 100 mg 01/18/21 21:00 01/19/21 20:47 Verapamil Hcl Sr 100 Mg Cap24h.Pct PO 100 mg BEDTIME SAL Administration Protocol Home Medications Medication Instructions Recorded Confirmed Last Taken Type albuterol sulfate 90 mcg/actuation 2 puff INHALATION Q4H PRN 11/19/20 01/18/21 Unknown History aerosol inhaler atorvastatin 40 mg tablet 40 mg PO DAILY 11/19/20 01/18/21 Unknown History fluoxetine 20 mg capsule 60 mg PO DAILY 11/19/20 01/18/21 Unknown History hydrochlorothiazide 25 mg tablet 25 mg PO DAILY 11/19/20 01/18/21 Unknown History levothyroxine 50 mcg tablet 50 mcg PO DAILY 11/19/20 01/18/21 Unknown History omeprazole 20 mg capsule,delayed 20 mg PO DAILY 11/19/20 01/18/21 Unknown History release verapamil 100 mg capsule 24hr 100 mg PO BEDTIME 11/19/20 01/18/[address],ext.release Exam Exam Date and Time: January 20, 2021 1550 Height,Weight and Vital Signs: Height 4 ft 9 in Weight 83.461 kg Last Vital Signs Temp 97.4 F 01/20/21 11:01 Pulse 84 01/20/21 11:01 Resp 17 01/20/21 11:01 BP 131/64 01/20/21 11:01 Pulse Ox 93 01/20/21 11:01 Pertinent Lab Results Pertinent Lab Results: Laboratory Tests 01/18/21 01/18/21 01/18/21 15:11 15:11 16:52 WBC 8.1 RBC 4.17 L Hgb 12.8 Hct 38.9 MCV 93.3 MCH 30.7 MCHC 32.9 RDW 13.8 Plt Count 331 MPV 10.2 Immature Gran % (Auto) 0.1 Neut % (Auto) 38.3 L Lymph % (Auto) 43.9 H [place] % (Auto) 10.5 Eos % (Auto) 6.3 H Baso % (Auto) 0.9 Lymph # (Auto) 3.6 [place] # (Auto) 0.9 Eos # (Auto) 0.5 H Baso # (Auto) 0.1 Abs Immat Gran (auto) 0.01 Absolute Neuts (auto) 3.1 Absolute Nucleated RBC 0.000 Nucleated RBC % (auto) 0.0 Sodium 140 Potassium 3.9 Chloride 102 Carbon Dioxide 29 Anion Gap 13 BUN 17 H Creatinine 0.81 Estim Creat Clear Calc 65.0 Estimated GFR > 60 Random Glucose 97 Calcium 9.6 Total Bilirubin 0.8 Direct Bilirubin 0.2 AST 40 H ALT 62 H Alkaline Phosphatase 71 Total Protein 6.9 Albumin 4.1 Lipase 22 Urine Color YELLOW Urine Appearance CLEAR Urine pH 6.5 Ur Specific [place] 1.020 Urine Protein NEG Urine Glucose (UA) NEG Urine Ketones NEG Urine Blood 3+ H Urine Nitrite NEG Ur Leukocyte Esterase NEG Urine RBC 10-14 H Urine WBC 0-2 Ur Squamous Epith Cells 1+ Uric Acid Crystals TRACE Urine Bacteria NONE COVID-19 (HONEY) COVID-19 Clin Com 01/18/21 01/19/21 01/19/21 17:55 05:34 05:34 WBC 8.0 RBC 3.66 L Hgb 11.4 L Hct 34.7 L MCV 94.8 MCH 31.1 MCHC 32.9 RDW 14.0 Plt Count 292 MPV 10.4 Immature Gran % (Auto) 0.1 Neut % (Auto) 46.0 Lymph % (Auto) 35.3 [place] % (Auto) 11.1 H Eos % (Auto) 6.6 H Baso % (Auto) 0.9 Lymph # (Auto) 2.8 [place] # (Auto) 0.9 Eos # (Auto) 0.5 H Baso # (Auto) 0.1 Abs Immat Gran (auto) 0.01 Absolute Neuts (auto) 3.7 Absolute Nucleated RBC 0.000 Nucleated RBC % (auto) 0.0 Sodium 141 Potassium 3.8 Chloride 104 Carbon Dioxide 29 Anion Gap 12 BUN 17 H Creatinine 0.75 Estim Creat Clear Calc 70.3 Estimated GFR > 60 Random Glucose 134 H D Calcium 8.6 D Total Bilirubin Direct Bilirubin AST ALT Alkaline Phosphatase Total Protein Albumin Lipase Urine Color Urine Appearance Urine pH Ur Specific [place] Urine Protein Urine Glucose (UA) Urine Ketones Urine Blood Urine Nitrite Ur Leukocyte Esterase Urine RBC Urine WBC Ur Squamous Epith Cells Uric Acid Crystals Urine Bacteria COVID-19 (HONEY) Negative COVID-19 Clin Com See Note 01/20/21 05:53 WBC 6.9 RBC 3.70 L Hgb 11.2 L Hct 35.9 L MCV 97.0 MCH 30.3 MCHC 31.2 RDW 14.1 Plt Count 287 MPV 10.6 Immature Gran % (Auto) 0.1 Neut % (Auto) 34.9 L Lymph % (Auto) 45.8 H [place] % (Auto) 10.4 Eos % (Auto) 8.1 H Baso % (Auto) 0.7 Lymph # (Auto) 3.2 [place] # (Auto) 0.7 Eos # (Auto) 0.6 H Baso # (Auto) 0.1 Abs Immat Gran (auto) 0.01 Absolute Neuts (auto) 2.4 Absolute Nucleated RBC 0.000 Nucleated RBC % (auto) 0.0 Sodium Potassium Chloride Carbon Dioxide Anion Gap BUN Creatinine Estim Creat Clear Calc Estimated GFR Random Glucose Calcium Total Bilirubin Direct Bilirubin AST ALT Alkaline Phosphatase Total Protein Albumin Lipase Urine Color Urine Appearance Urine pH Ur Specific [place] Urine Protein Urine Glucose (UA) Urine Ketones Urine Blood Urine Nitrite Ur Leukocyte Esterase Urine RBC Urine WBC Ur Squamous Epith Cells Uric Acid Crystals Urine Bacteria COVID-19 ([facility]ONEY) COVID-19 Clin Com Airway Mallampati Class: III TM Dist: >3cm Neck ROM: Full Heart: RRR Lungs: CTA
--- NOTE | 2021-01-20 16:10 | MHC.SHP ---
Pre-Procedural Eval Section A The patient is an INPATIENT: Yes Changes since office visit: No Cold of Flu in the past 2 weeks, No New Medical Problems, No Changes in Medication and No Patient answered all questions The History & Physical has been completed within 30 days and I have reviewed it.: Yes Section B Chief Complaint: right obstructing stone/hyronephrosis Allergies: Allergies Allergy/AdvReac Type Severity Reaction Status Date / Time acetaminophen [Percocet] Allergy Severe Rash and Verified 11/19/20 18:47 Hives amlodipine Allergy Severe Rash and Verified 11/19/20 18:47 Hives aspirin Allergy Severe Rash and Verified 11/19/20 18:47 Hives benzonatate Allergy Severe Rash and Verified 11/19/20 18:47 Hives fexofenadine Allergy Severe Rash and Verified 11/19/20 18:47 Hives hydroxyzine Allergy Severe Rash and Verified 11/19/20 18:47 Hives lisinopril Allergy Severe Rash and Verified 11/19/20 18:47 Hives meperidine [Demerol] Allergy Severe Rash and Verified 11/19/20 18:47 Hives morphine Allergy Severe Rash and Verified 11/19/20 18:47 Hives naproxen [Aleve] Allergy Severe Rash and Verified 11/19/20 18:47 Hives oxycodone [From PERCOCET] Allergy Severe SWELLING Verified 11/19/20 18:47 penicillin G Allergy Severe Rash and Verified 11/19/20 18:47 Hives Sulfa (Sulfonamide Allergy Severe Rash and Verified 11/19/20 18:47 Antibiotics) Hives valsartan Allergy Severe Rash and Verified 11/19/20 18:47 Hives codeine [CODEINE] Allergy Intermediate RASH Verified 11/19/20 18:47 ibuprofen [From MOTRIN] Allergy Intermediate RASH Verified 11/19/20 18:47 montelukast [From SINGULAIR] Allergy Intermediate HIVES Verified 11/19/20 18:47 sulfamethoxazole Allergy Intermediate HIVES Verified 11/19/20 18:47 [From BACTRIM] tramadol [TRAMADOL] Allergy Intermediate SWELLING, Verified 11/19/20 18:47 RASH loratadine [From CLARITIN] Allergy Mild HIVES Verified 11/19/20 18:47 ranitidine [From ZANTAC] Allergy Mild HIVES Verified 11/19/20 18:47 Hydrocet Allergy Severe Rash and Uncoded 11/19/20 18:47 Hives Lorazepam Allergy Severe Rash and Uncoded 11/19/20 18:47 Hives Zantac Allergy Severe Rash and Uncoded 11/19/20 18:47 Hives Plan Diagnosis/Plan: Unchanged (Right retrograde, ureteroscopy, laser lithotripsy stent) I have reviewed the history and physical and performed a pertinent physical examination on my patient. No changes have occurred unless specified.
--- NOTE | 2021-01-20 16:45 | W.PM.OPN ---
Operative Note Operative Note Date of Service: 01/20/21 Narrative: PreOperative Diagnosis: Distal right ureteric stone Post Operative Diagnosis: Distal right ureteric edema Procedure: - right cystoscopy, retrograde - ureteroscopy, - right stent placement Surgeon: Dr Stanley Duran Anesthesia: General Indications for procedure: This is a 60-year-old female. Brought through the emergency room with persistent right flank pain. CT scan showed 3 mm stone in the distal right ureter with mild to moderate hydroureteronephrosis. Phone consultation the hospital patient tells me she still has pain on the right side. Previously required procedures on left side. Says she does not passed stones well. Says she would require intervention. Based on the location of the stone this would be ureteroscopy. Risks and benefits were discussed. Procedure: After informed consent was verified patient was brought to the operating placed in supine position. Anesthesia was administered per protocol. Patient was placed in modified dorsal lithotomy position and prepped and draped in a sterile fashion. Safety pause time-out and side of surgery confirmed. Antibiotics confirmed. Twenty-two Filipino cystoscope inserted per urethra. Mild swelling noticed of the right ureteric orifice. Retrograde examination performed. No definitive filling defects seen. Sensor guidewire placed Rigid ureteral scope then the used. This was navigated alongside the wire. No stone found. Ureter examined up to the mid ureteric level. Edema seen around the right ureteric orifice which may have been the cause of her discomfort. Decision made to place 6 Filipino by 22 cm double-J ureteric stent. This was placed without difficulty under combination of fluoroscopic and direct visualization. Patient was extubated in operating room and transferred in stable condition to the recovery area. Pathology: None Drains: 6 Filipino ureteric stent
--- NOTE | 2021-01-20 16:51 | PM.OP ---
Brief Operative Note Date of Service: 01/20/21 Pre-op diagnosis: Distal right ureteric stone Post-op diagnosis: other (Distal right ureteric edema) Procedure: Cystoscopy, retrograde, ureteroscopy, stent Implants: Right stent Surgeon: Stanley Duran MD Anesthesia: GLMA Estimated blood loss (mL): 0 Pathology: none sent Condition: stable Disposition: floor
[2021-01-20] MEDS: levoFLOXacin/D5W 500 MG/100 ML PIGGYBACK 100 MG IV (21:05)
[2021-01-21 03:06] VITALS: BP 162/62; PULSE 78; RESP 18; TEMP 36.9; O2SAT 92
[2021-01-21] MEDS: HYDROmorphone HCl 0.5 MG/0.5 ML SYRINGE 1 MG IVPUSH (03:30)
[2021-01-21] MEDS: 0.9 % Sodium Chloride 1,000 ML 100 ML IVCONT (03:30)
[2021-01-21] MEDS: Omeprazole 20 MG CAPSULE.DR PO (05:43)
[2021-01-21 07:54] VITALS: BP 137/74; PULSE 92; RESP 18; TEMP 37.4; O2SAT 93
[2021-01-21] MEDS: Atorvastatin Calcium 40 MG TABLET PO (08:37)
[2021-01-21] MEDS: Levothyroxine Sodium 50 MCG TABLET PO (08:37)
[2021-01-21] MEDS: modafiniL 100 MG TABLET 200 MG PO (08:37)
[2021-01-21] MEDS: FLUoxetine HCl 20 MG CAPSULE 60 MG PO (08:38)
[2021-01-21] MEDS: Fluticasone/Vilanterol 200/25 BLST.W.DEV 1 PUFF INHALE (09:05)
[2021-01-21 09:08] VITALS: PULSE 87; O2SAT 98
[2021-01-21] MEDS: traMADoL HCL 50 MG TABLET PO (09:51)
--- NOTE | 2021-01-21 10:37 | P.DS_ITS ---
DS: Providers Provider Date of Service: 01/21/21 Date of admission: 01/18/21 18:01 Primary care physician: Inge Gordon MD DS: Diagnosis Discharge Diagnosis (1) Right ureteral stone: Status: Acute (2) KEVIN on CPAP: Status: Acute (3) Asthma: Status: Acute DS: Medications Discharge Medications Home Medications: Home Medications Medication Instructions Recorded Confirmed albuterol sulfate 90 mcg/actuation 2 puff INHALATION Q4H PRN 11/19/20 01/18/21 aerosol inhaler atorvastatin 40 mg tablet 40 mg PO DAILY 11/19/20 01/18/21 fluoxetine 20 mg capsule 60 mg PO DAILY 11/19/20 01/18/21 hydrochlorothiazide 25 mg tablet 25 mg PO DAILY 11/19/20 01/18/21 levothyroxine 50 mcg tablet 50 mcg PO DAILY 11/19/20 01/18/21 omeprazole 20 mg capsule,delayed 20 mg PO DAILY 11/19/20 01/18/21 release verapamil 100 mg capsule 24hr 100 mg PO BEDTIME 11/19/20 01/18/[address],ext.release Previous Rx's Medication Instructions Recorded fluticasone furoate 200 1 inh INHALATION DAILY #60 ea 09/15/20 mcg-vilanterol 25 mcg/dose inhalation powder modafinil 200 mg tablet 200 mg PO DAILY #30 tab 09/24/20 tiotropium bromide 2.5 2 puff INHALATION DAILY #4 g 11/06/20 mcg/actuation mist for inhalation DS: Summary Hospital Course Hospital Course: History of presenting illness CHIEF COMPLAINT: Right flank pain and nausea. HISTORY OF PRESENTING ILLNESS: This is a 60-year-old female patient with past medical history significant for moderate persistent asthma, obstructive sleep apnea on CPAP, history of hypothyroidism, hypertension, hyperlipidemia, anxiety, depression, presented to [facility] due to gradually worsening right flank pain that started at noon time today associated with nausea. The patient denies any associated fever, chills, or rigors. She denies any lightheadedness and dizziness. Due to worsening pain, the patient decided to present to the emergency room. In the emergency room, workup including the urinalysis showed 3+ blood, no nitrites, and abdominal and pelvic CAT scan showed 4 mm right UVJ obstructive stone with hydroureteronephrosis. Emergency room physician discussed the case with Urology and recommended to admit the patient for further eval and treatment. The patient is now being admitted to [facility] due to right ureteric stone for IV hydration and pain control. PAST MEDICAL HISTORY: Significant for: 1. Hypothyroidism. 2. History of hypertension. 3. History of obstructive sleep apnea. 4. History of prior renal stone, status post stent placement. 5. History of anxiety and depression. 6. History of GERD. 7. History of moderate persistent asthma. 8. History of obstructive sleep apnea, on CPAP. 9. History of COVID-19 infection in November of 2020. PAST SURGICAL HISTORY: Status post stent placement in the past. Hospital course 60-year-old female patient with multiple medical issues including obstructive sleep apnea on CPAP, chronic persistent asthma, gastroesophagealreflux disease, hyperlipidemia, and hypertension, presented with gradually progressing right flank pain, diagnosed to have 4 mm right UVJ stone with hydroureteronephrosis. 1. Patient admitted with Right Renal colic with 4 mm UVJ stone and treated with IV fluids and analgesics subsequently was seen by Dr. Stanley Duran and underwent cystoscopy on 01/20 No stone was noted but patient was noted to have edema of the right ureteric orifice causing the symptoms a stent has been placed, postprocedure patient is feeling better tolerating diet no nausea vomiting therefore being discharged home to have outpatient follow-up with Urology in next 6-8 weeks, patient urinalysis was negative and kidney function was within normal range. 2. History of obstructive sleep apnea. continue CPAP. 3. History of hypertension. Continue home medication verapamil and hydrochlorothiazide. 4. History of chronic persistent asthma. no acute exacerbation, continue home inhalers, oxygenation remains stable. 5. History of hypothyroidism. Continue Synthroid. 6. Obesity likely contributing to hypertension and obstructive sleep apnea, weight reduction recommended. Time Spent with Patient Time attestation: Total time spent providing and/or coordinating discharge services: Discharge coordination time: Greater than 30 minutes Physical Exam Vital Signs: Vital Signs: Last Vital Signs Temp 99.3 F 01/21/21 07:54 Pulse 92 01/21/21 07:54 Resp 18 01/21/21 07:54 BP 137/74 01/21/21 07:54 Pulse Ox 93 01/21/21 07:54 Body Mass Index 39.8 General no acute distress. Neck is supple no JVD. CVS regular rate rhythm, Respiratory lungs clear to auscultation, no respiratory distress, no wheeze, no rhonchi. Gastrointestinal abdomen soft, nontender, bowel sounds audible, no guarding , no rigidity Extremities no edema. Back no CVA tenderness, Neuro nonfocal , speech clear. Skin no rash Discharge Plan Discharge Patient Disposition: Home, Self-Care Referrals: Inge Gordon MD [Primary Care Provider] - 1 Week (Please call and schedule a follow up appointment.) Discharge Medications: Continued Breo Ellipta 200-25 mcg/dose blister with device 1 inh inhalation DAILY Qty: 60 RF: 3 modafinil 200 mg tablet 200 mg PO DAILY Qty: 30 RF: 3 Spiriva Respimat 2.5 mcg/actuation mist 2 puff inhalation DAILY Qty: 4 RF: 3 fluoxetine 20 mg capsule 60 mg PO DAILY RF: 0 hydrochlorothiazide 25 mg tablet 25 mg PO DAILY RF: 0 verapamil 100 mg capsule, [address] 100 mg PO BEDTIME RF: 0 omeprazole 20 mg capsule,delayed release(DR/EC) 20 mg PO DAILY RF: 0 levothyroxine 50 mcg tablet 50 mcg PO DAILY RF: 0 atorvastatin 40 mg tablet 40 mg PO DAILY RF: 0 albuterol sulfate 90 mcg/actuation HFA aerosol inhaler 2 puff inhalation Q4H PRN (Reason: wheezing) RF: 0 Discharge Orders: Discharge Order (Routine); Ordered 01/21/21 Ordered By: Gagandeep Tatum Diet: low fat, low cholesterol Activity on Discharge: As tolerated Stand Alone Forms: Patient Portal Discharge page Care Plan Goals: Continue all home medication Health Concerns: Right ureteral orifice edema status post stent placement Plan of Treatment: Outpatient follow-up with Urology Dr. Duran in 4-6 weeks, outpatient follow-up with PCP
--- NOTE | 2021-01-21 10:45 | MHC.CM.PN ---
NURSE ADVANCE SEAL DELIVERY SYSTEM MAINTAINER NOTE ELECTRONIC MEDICAL RECORD [id number] ALONG WITH CASE DISCUSSED WITH STAFF NURSE AND ON MULTIPLE DISCIP[LAINRY ROUNDS PATIENT WILL BE DISCHARGED HOME TODAY NO SERVICES (PER HOSPITALIST NO VNA IS NEEDED) PCP GABBIE KEYES PATIENT INSTRUCTED TO CALL FOR POST DISCHARGE FOLLOW UP TRANSPORTATION PATIENT WILL SELF ARRANGE
--- NOTE | 2021-01-21 12:17 | HO.POSTANES ---
Post Anesthesia Evaluation Post Anesthesia Evaluation Vital Signs: Vital Signs Temp Pulse Resp BP Pulse Ox 01/21/21 07:54 99.3 F 92 18 137/74 93 01/21/21 03:06 98.4 F 78 18 162/62 H 92 Anesthesia: General Mental Status: Awake Pain Control: Satisfactory Nausea/Vomiting: None Hydration: Adequate Anesthesia-Related Issues: No Anes. Related Issues
== END 2021-01-21 11:23 | disposition home or self-care (01) | DRG 465 ==
LOC: HO.ED 17:37 → HO.EDOVER 18:13 → HO.S3 20:31
PROVIDERS: Physician Assistant Medical; Urology; Admitting Provider Hospitalist; Emergency Provider Emergency Medicine; PCP Internal Medicine Critical Care Medicine; Visit Provider Hospitalist
PROC: 0T768DZ Dilation of Right Ureter with Intraluminal Device, Via Natural or Artificial Opening Endoscopic (ICD-10-PCS; principal; 2021-01-20 16:00)
DX: N20.1 Calculus of ureter (principal); E03.9 Hypothyroidism, unspecified; J45.909 Unspecified asthma, uncomplicated; G47.33 Obstructive sleep apnea (adult) (pediatric); Z87.442 Personal history of urinary calculi; Z86.16 Personal history of COVID-19; Z20.822 Contact with and (suspected) exposure to COVID-19; Z99.89 Dependence on other enabling machines and devices; Z79.52 Long term (current) use of systemic steroids; Z88.2 Allergy status to sulfonamides; Z88.5 Allergy status to narcotic agent; Z88.6 Allergy status to analgesic agent; Z79.890 Hormone replacement therapy; Z79.899 Other long term (current) drug therapy
CPT/HCPCS: 36415; 74176; 80048; 80076; 81001; 83690; 85025; 87635; 96374; 96375; 99285; C1769; C2617; J1170; J1200; J1885; J1956; J2250; J2405; J3010; Q0163; Q9967

== ENCOUNTER 2021-01-23 11:22 | Emergency (ER) | payer OTHER, SELFPAY ==
--- NOTE | ~2021-01-23 | US_ITS ---
EXAMINATION: US VENOUS ULTRASOUND WITH DOPPLER LOWER EXTREMITY, BILATERAL CLINICAL INFORMATION: Bilateral leg swelling COMPARISON: None TECHNIQUE: Ultrasound of the deep veins is performed from the hip to the calf with compression sonography and color and pulse Doppler assessment. Spectral analysis with color-flow imaging is performed. FINDINGS: RIGHT: There is normal venous compression and respiratory variation and augmented flow. The visualized common femoral vein, superficial femoral vein, profunda femoral vein, popliteal vein, and the trifurcation region shows no evidence of deep venous thrombosis. There is no significant popliteal fossa cyst. LEFT: There is normal venous compression and respiratory variation and augmented flow. The visualized common femoral vein, superficial femoral vein, profunda femoral vein, popliteal vein, and the trifurcation region shows no evidence of deep venous thrombosis. There is no significant popliteal fossa cyst. US/US venous duplex LE BI IMPRESSION: No DVT demonstrated in the bilateral lower extremity.
[2021-01-23 11:26] VITALS: BP 179/92; PULSE 91; RESP 20; TEMP 36.6; O2SAT 97; BMI 42.0
--- NOTE | 2021-01-23 12:17 | ED.GENADULT ---
HPI - General Adult General Chief complaint: General Medical Stated complaint: BOTH LEG SWELLING AND PAIN Time Seen by Provider: 01/23/21 11:59 Source: patient Mode of arrival: ambulatory Limitations: no limitations History of Present Illness HPI narrative: 60-year-old female who presents emergency department for evaluation of right flank pain, nausea and bilateral lower extremity swelling. The patient was recently admitted on 01/18/2021 for right flank pain secondary to a 4 mm UVJ. The patient had a right ureteral stent placed and discharged from the hospital on 01/21/2021. The patient states that since getting home, she has continued to have right flank pain. She describes the pain as an intermittent, throbbing pain which is associated with nausea but no vomiting. The pain is 9/10 at its worse and is 9/10 at the time in the emergency department. She states that she has also noticed swelling of both her lower extremities which is gotten progressively worse over the past 3 days. She denies any pain in her lower extremities. She believes that she may have had a fever when she got home from the hospital but has not had any fever or chills since then. She denies chest pain, shortness of breath, dyspnea on exertion, dysuria. She believes that she has a normal urine output. The patient did have COVID-19 and she has received both of her maternal vaccines in November of 2020 Related Data Home Medications Medication Instructions Recorded Confirmed albuterol sulfate 90 mcg/actuation 2 puff INHALATION Q4H PRN 11/19/20 01/18/21 aerosol inhaler atorvastatin 40 mg tablet 40 mg PO DAILY 11/19/20 01/18/21 fluoxetine 20 mg capsule 60 mg PO DAILY 11/19/20 01/18/21 hydrochlorothiazide 25 mg tablet 25 mg PO DAILY 11/19/20 01/18/21 levothyroxine 50 mcg tablet 50 mcg PO DAILY 11/19/20 01/18/21 omeprazole 20 mg capsule,delayed 20 mg PO DAILY 11/19/20 01/18/21 release verapamil 100 mg capsule 24hr 100 mg PO BEDTIME 11/19/20 01/18/[address],ext.release Previous Rx's Medication Instructions Recorded fluticasone furoate 200 1 inh INHALATION DAILY #60 ea 09/15/20 mcg-vilanterol 25 mcg/dose inhalation powder modafinil 200 mg tablet 200 mg PO DAILY #30 tab 09/24/20 tiotropium bromide 2.5 2 puff INHALATION DAILY #4 g 11/06/20 mcg/actuation mist for inhalation hydromorphone [Dilaudid] 2 mg PO Q6H PRN #16 tab 01/23/21 Allergies Allergy/AdvReac Type Severity Reaction Status Date / Time acetaminophen [Percocet] Allergy Severe Rash and Verified 11/19/20 18:47 Hives amlodipine Allergy Severe Rash and Verified 11/19/20 18:47 Hives aspirin Allergy Severe Rash and Verified 11/19/20 18:47 Hives benzonatate Allergy Severe Rash and Verified 11/19/20 18:47 Hives fexofenadine Allergy Severe Rash and Verified 11/19/20 18:47 Hives hydroxyzine Allergy Severe Rash and Verified 11/19/20 18:47 Hives lisinopril Allergy Severe Rash and Verified 11/19/20 18:47 Hives meperidine [Demerol] Allergy Severe Rash and Verified 11/19/20 18:47 Hives morphine Allergy Severe Rash and Verified 11/19/20 18:47 Hives naproxen [Aleve] Allergy Severe Rash and Verified 11/19/20 18:47 Hives oxycodone [From PERCOCET] Allergy Severe SWELLING Verified 11/19/20 18:47 penicillin G Allergy Severe Rash and Verified 11/19/20 18:47 Hives Sulfa (Sulfonamide Allergy Severe Rash and Verified 11/19/20 18:47 Antibiotics) Hives valsartan Allergy Severe Rash and Verified 11/19/20 18:47 Hives codeine [CODEINE] Allergy Intermediate RASH Verified 11/19/20 18:47 ibuprofen [From MOTRIN] Allergy Intermediate RASH Verified 11/19/20 18:47 montelukast [From SINGULAIR] Allergy Intermediate HIVES Verified 11/19/20 18:47 sulfamethoxazole Allergy Intermediate HIVES Verified 11/19/20 18:47 [From BACTRIM] tramadol [TRAMADOL] Allergy Intermediate SWELLING, Verified 11/19/20 18:47 RASH loratadine [From CLARITIN] Allergy Mild HIVES Verified 11/19/20 18:47 ranitidine [From ZANTAC] Allergy Mild HIVES Verified 11/19/20 18:47 Hydrocet Allergy Severe Rash and Uncoded 11/19/20 18:47 Hives Lorazepam Allergy Severe Rash and Uncoded 11/19/20 18:47 Hives Zantac Allergy Severe Rash and Uncoded 11/19/20 18:47 Hives PMFSH Past Medical History Medical History Asthma COVID-19 KEVIN on CPAP Social History Social History Household Members: Spouse and Family Housing: Apartment Smoking Status: Never smoker Second Hand Smoke Exposure: No Advance Directives: No Advance Directives Information Provided: No service: No Current occupational status: employed Physical Exam Vital Signs: Vital Signs: Last Vital Signs Temp 97.8 F 01/23/21 11:26 Pulse 69 01/23/21 12:52 Resp 18 01/23/21 12:52 BP 141/63 H 01/23/21 12:52 Pulse Ox 96 01/23/21 12:52 Body Mass Index 42.0 Course Course Course Narrative: 60-year-old female with a history of right ureteral stone status post stent placement discharged from the hospital on 01/22/2020 who returns to the emergency department for evaluation of right flank pain nausea and bilateral lower extremity leg swelling. I did order a laboratory evaluation on this patient and bilateral lower extremity Doppler ultrasounds to rule out DVT. Patient's pain was treated with Dilaudid 1 mg IV. 1456: The patient is feeling significantly better after receiving the Dilaudid, she states she is pain free. Doppler ultrasound revealed no DVT. The patient's lower extremity swelling is most likely secondary to fluid overload and I did discuss this with the patient. The patient was discharged home with printed instructions on peripheral edema. She was given a prescription for Dilaudid to help her pain. The patient was advised to keep her appointment with her urologist and return to emergency department if her symptoms get worse or she develops any new symptoms that are concerning to her. Medical Decision Making Lab Data Result diagrams: 01/23/21 12:29 01/23/21 12:29 Labs: Lab Results 01/23/21 01/23/21 01/23/21 Range/Units 12:29 12:29 12:29 WBC 8.0 (4.8-10.8) X10*3/uL RBC 4.16 L (4.20-5.50) X10*6/uL Hgb 12.9 (12.0-16.0) g/dl Hct 38.6 (37-47) % MCV 92.8 (80-98) fL MCH 31.0 (27.0-33.0) pg MCHC 33.4 (31.0-35.0) g/dl RDW 14.0 (11.0-16.0) % Plt Count 358 (160-400) X10*3/uL MPV 10.4 (9.4-12.3) fL Immature Gran % (Auto) 0.2 (0.0-0.4) % Neut % (Auto) 45.7 (45-73) % Lymph % (Auto) 36.0 (20-40) % Elliott % (Auto) 8.7 (2-11) % Eos % (Auto) 8.7 H (0-4) % Baso % (Auto) 0.7 (0-2) % Lymph # (Auto) 2.9 (1.2-4.9) X10*3/uL Elliott # (Auto) 0.7 (0.1-1.2) X10*3/uL Eos # (Auto) 0.7 H (0.0-0.4) X10*3/uL Baso # (Auto) 0.1 (0.0-0.2) X10*3/uL Abs Immat Gran (auto) 0.02 (0.00-0.03) X10*3/uL Absolute Neuts (auto) 3.7 (2.0-8.3) X10*3/uL Absolute Nucleated RBC 0.000 (0.0-0.012) X10*3/uL Nucleated RBC % (auto) 0.0 (0.0-0.2) /100WBC Sodium 143 (135-145) mmol/L Potassium 3.6 (3.3-5.1) mmol/L Chloride 102 (96-108) mmol/L Carbon Dioxide 33 H (22-29) mmol/L Anion Gap 12 (12-20) BUN 10 (9-16) mg/dL Creatinine 0.70 (0.5-1.4) mg/dL Estim Creat Clear Calc 77.7 Estimated GFR > 60 Random Glucose 136 H (60-115) mg/dL Calcium 9.8 D (8.4-10.2) mg/dL Total Bilirubin 0.7 (0.0-1.0) mg/dL AST 45 H (5-31) U/L ALT 47 H (0-31) U/L Alkaline Phosphatase 70 (39-117) U/L Total Protein 6.9 (6.5-8.0) g/dL Albumin 4.2 (3.5-5.0) g/dL Lipase 17 (8-78) U/L Urine Color YELLOW Urine Appearance HAZY Urine pH 7.5 (5.0-8.0) Ur Specific [place] 1.015 (1.005-1.025) Urine Protein NEG (NEG-TRACE) MG/DL Urine Glucose (UA) NEG (NEG) MG/DL Urine Ketones NEG (NEG) MG/DL Urine Blood 3+ H (NEG) Urine Nitrite NEG (NEG) Ur Leukocyte Esterase NEG (NEG) Urine RBC 50-75 H (0) /HPF Urine WBC 1-4 (0-4) /HPF Ur Squamous Epith Cells 1+ /LPF Urine Bacteria NONE /LPF Discharge Plan Discharge Clinical Impression: Acute right flank pain, Renal colic on right side, Edema, peripheral Patient Disposition: Home, Self-Care Instructions: Edema (ED) Additional Instructions: Your blood work was unremarkable, your kidney function is normal. Your urinalysis revealed no evidence for an infection which is reassuring. The Doppler ultrasound of your lower extremities revealed no blood clots. This swelling of your legs is secondary to being fluid overloaded, probably from the fluid that she got in the hospital and from the fact that she have not been moving around and walking very much. Keep your legs elevated. This will help reduce the swelling. Only drink fluid when you thirsty. Restricting amount of fluid the drink , will help the swelling go away faster. Take Dilaudid 2 mg pills, 1 pill every 6 hours as needed for pain. When you taking Dilaudid, take Benadryl 25 mg orally. These medications will make you sleepy, do not drive or work while taking these medications. Dilaudid is a narcotic medication and can be addicting, if you are worried about addiction, do not get this prescription filled or you can ask the pharmacy for a partial fill of the medications. Follow-up with your doctor in 2 days. Please return to the emergency department if your symptoms get worse or if you develop any symptoms that are concerning to you. Prescriptions: New hydromorphone [Dilaudid] 2 mg tablet 2 mg PO Q6H PRN (Reason: pain) Qty: 16 RF: 0 No Action Breo Ellipta 200-25 mcg/dose blister with device 1 inh inhalation DAILY Qty: 60 RF: 3 modafinil 200 mg tablet 200 mg PO DAILY Qty: 30 RF: 3 Spiriva Respimat 2.5 mcg/actuation mist 2 puff inhalation DAILY Qty: 4 RF: 3 fluoxetine 20 mg capsule 60 mg PO DAILY RF: 0 hydrochlorothiazide 25 mg tablet 25 mg PO DAILY RF: 0 verapamil 100 mg capsule, [address] 100 mg PO BEDTIME RF: 0 omeprazole 20 mg capsule,delayed release(DR/EC) 20 mg PO DAILY RF: 0 levothyroxine 50 mcg tablet 50 mcg PO DAILY RF: 0 atorvastatin 40 mg tablet 40 mg PO DAILY RF: 0 albuterol sulfate 90 mcg/actuation HFA aerosol inhaler 2 puff inhalation Q4H PRN (Reason: wheezing) RF: 0
[2021-01-23 12:41] LABS: MANUAL DIFF FLAG NO
[2021-01-23] MEDS: HYDROmorphone HCl 1 MG/ML SYRINGE IVPUSH (12:43)
[2021-01-23] MEDS: diphenhydrAMINE HCL 50 MG/ML VIAL 25 MG IVPUSH ×2 (12:43→15:24)
[2021-01-23 12:52] VITALS: BP 141/63; PULSE 69; RESP 18; O2SAT 96
[2021-01-23 12:54] LABS: Glucose Urine UA NEG (NEG); Leukocyte Esterase Urine NEG (NEG); Nitrite Urine NEG (NEG); PH 7.5 (5.0-8.0); Specific Gravity - Urine 1.015 (1.005-1.025); Urine Blood 3+ (NEG); Urine Ketones NEG (NEG); Urine Protein NEG (NEG-TRACE)
[2021-01-23 12:55] LABS: Appearance Urine HAZY; Color Urine YELLOW
[2021-01-23 13:03] LABS: Basophils Absolute Auto 0.1 X10*3/uL (0.0-0.2); Basophils Percent Auto 0.7 % (0-2); Eosinophils Absolute Auto 0.7 X10*3/uL (0.0-0.4); Eosinophils Percent Auto 8.7 % (0-4); Hematocrit 38.6 % (37-47); Hemoglobin 12.9 g/dl (12.0-16.0); Imm Gran Abs Auto 0.02 X10*3/uL (0.00-0.03); Imm Gran Pct Auto 0.2 % (0.0-0.4); Lymphocytes Absolute Auto 2.9 X10*3/uL (1.2-4.9); Mean Corpuscular HGB Conc 33.4 g/dl (31.0-35.0); Mean Corpuscular Volume 92.8 fL (80-98); Mean Platelet Volume 10.4 fL (9.4-12.3); Monocytes Absolute Auto 0.7 X10*3/uL (0.1-1.2); Monocytes Percent Auto 8.7 % (2-11); Neutrophils Absolute Auto 3.7 X10*3/uL (2.0-8.3); Neutrophils Percent Auto 45.7 % (45-73); Platelet Count 358 X10*3/uL (160-400); Red Blood Count 4.16 X10*6/uL (4.20-5.50)
[2021-01-23 13:05] LABS: Alanine Aminotransferase 47 U/L (0-31); Albumin Level 4.2 g/dL (3.5-5.0); Alkaline Phosphatase 70 U/L (39-117); Anion Gap 12 (12-20); Aspartate Amino Transferase 45 U/L (5-31); Bilirubin Total 0.7 mg/dL (0.0-1.0); Blood Urea Nitrogen 10 mg/dL (9-16); Calcium 9.8 mg/dL (8.4-10.2); Carbon Dioxide 33 mmol/L (22-29); Chloride 102 mmol/L (96-108); Creatinine Clr Calc Pharmacy 77.7; Estimated Glomerular Filt Rate > 60; Glucose Random 136 mg/dL (60-115); Lipase 17 U/L (8-78); Potassium 3.6 mmol/L (3.3-5.1); RBC Urine 50-75 /HPF (0); Sodium 143 mmol/L (135-145); Squamous Epithelial Cell Urine 1+ /LPF; Total Protein 6.9 g/dL (6.5-8.0)
== END 2021-01-23 15:33 | disposition home or self-care (01) ==
PROVIDERS: Emergency Provider Emergency Medicine Emergency Medical Services; PCP Internal Medicine
DX: R60.0 Localized edema (principal); N23 Unspecified renal colic; M79.662 Pain in left lower leg; M79.661 Pain in right lower leg; Z86.16 Personal history of COVID-19; Z87.442 Personal history of urinary calculi
CPT/HCPCS: 36415; 80053; 81001; 83690; 85025; 93970; 96374; 96375; 96376; 99283; 99284; J1170; J1200

== ENCOUNTER → 2021-01-27 08:46 | Outpatient (BNVA) | payer OTHER, SELFPAY | PROVIDERS: PCP Internal Medicine Critical Care Medicine; Visit Provider Urology | DX: N20.1 Calculus of ureter (principal) | CPT/HCPCS: 52310; 99212 ==

== ENCOUNTER → 2021-04-09 09:34 | Outpatient (BNVA) | payer OTHER, SELFPAY | PROVIDERS: PCP Internal Medicine; Visit Provider Hospitalist | DX: G47.33 Obstructive sleep apnea (adult) (pediatric) (principal); G47.10 Hypersomnia, unspecified; G47.30 Sleep apnea, unspecified; J45.40 Moderate persistent asthma, uncomplicated; J44.9 Chronic obstructive pulmonary disease, unspecified; Z99.89 Dependence on other enabling machines and devices | CPT/HCPCS: 99212 ==

== ENCOUNTER 2021-04-21 12:18 | Outpatient (REF) | payer OTHER, SELFPAY ==
--- NOTE | ~2021-04-21 | XR_ITS ---
EXAMINATION: XR ABDOMEN KUB CLINICAL INDICATION: Ureteral stone COMPARISON: Previous CT of the abdomen and pelvis January 2021 and renal ultrasound the same day TECHNIQUE: AP view of the abdomen. FINDINGS: There are small bilateral renal stones. No calcifications projecting over the expected course of the ureters are seen. There is a stable small right pelvic calcification probably representing a calcified phlebolith. Bowel gas pattern is normal. There are degenerative changes of the spine and left hip joint. XR/XR KUB IMPRESSION: Small bilateral renal stones.
--- NOTE | ~2021-04-21 | US_ITS ---
EXAMINATION: US RETROPERITONEAL LIMITED (RENAL ONLY) CLINICAL INFORMATION: Calculus of kidney. COMPARISON: KUB dated 04/21/2021 and 11/08/2018. CT abdomen and pelvis without contrast dated 01/18/2021. Renals only ultrasounds dated 06/15/2019 and 11/21/2018. TECHNIQUE: Real-time imaging of the kidneys. FINDINGS: RIGHT KIDNEY: 10.0 x 4.5 x 5.5 cm (SAG x AP x TRV). The kidney is normal in size, contour, and echogenicity. Renal cortical thickness is normal. No focal parenchymal lesions or hydronephrosis. There is an nonobstructive echogenic stone upper pole measuring 0.14 x 0.16 x 0.18 cm. LEFT KIDNEY: 11.4 x 4.7 x 4.8 cm (SAG x AP x TRV). The kidney is normal in size, contour, and echogenicity. Renal cortical thickness is normal. There is a nonobstructive echogenic stone lower pole measuring 0.17 x 0.24 x 0.19 cm. There is mild hydronephrosis. US/US renal BI IMPRESSION: Nonobstructive echogenic stones upper pole right kidney and lower pole left kidney. There is mild left hydronephrosis. On previous CT 01/18/2021, there were bilateral radiopaque renal calculi.
== END 2021-04-21 12:19 | disposition home or self-care (01) ==
LOC: HO.US 12:18
PROVIDERS: Visit Provider Urology
DX: N20.0 Calculus of kidney (principal); N20.1 Calculus of ureter
CPT/HCPCS: 74018; 76775

== ENCOUNTER → 2021-04-30 12:32 | Outpatient (BNVA) | payer OTHER, SELFPAY | PROVIDERS: PCP Internal Medicine; Visit Provider Urology | DX: N20.0 Calculus of kidney (principal) | CPT/HCPCS: 99212 ==

== ENCOUNTER → 2021-05-07 09:43 | Outpatient (BNVA) | payer OTHER, SELFPAY | PROVIDERS: PCP Internal Medicine; Visit Provider Hospitalist | DX: J44.9 Chronic obstructive pulmonary disease, unspecified (principal); G47.10 Hypersomnia, unspecified; G47.33 Obstructive sleep apnea (adult) (pediatric); Z99.89 Dependence on other enabling machines and devices | CPT/HCPCS: 99212 ==

== ENCOUNTER → 2021-09-15 10:44 | Outpatient (BNVA) | payer OTHER, SELFPAY | PROVIDERS: PCP Internal Medicine; Visit Provider Hospitalist | DX: G47.10 Hypersomnia, unspecified (principal); G47.30 Sleep apnea, unspecified; G47.33 Obstructive sleep apnea (adult) (pediatric); J44.9 Chronic obstructive pulmonary disease, unspecified; Z99.89 Dependence on other enabling machines and devices | CPT/HCPCS: 99212 ==

== ENCOUNTER 2021-10-22 10:59 | Outpatient (REF) | payer OTHER, SELFPAY ==
--- NOTE | ~2021-10-22 | US_ITS ---
EXAMINATION: US RETROPERITONEAL LIMITED (RENAL ONLY) CLINICAL INFORMATION: Calculus of kidney. COMPARISON: KUB 04/21/2021 and 11/08/2018. Renal ultrasound 04/21/2021 and 06/15/2019. CT abdomen and pelvis 01/18/2021. TECHNIQUE: Real-time imaging of the kidneys. FINDINGS: RIGHT KIDNEY: 10.3 x 4.1 x 5.8 cm (SAG x AP x TRV). The kidney is normal in size, contour, and echogenicity. Renal cortical thickness is normal. No focal parenchymal lesions or hydronephrosis. Multiple nonobstructing renal calculi, the largest of which is at the lower pole and measures 0.5 x 0.4 x 0.4 cm. LEFT KIDNEY: 11.0 x 4.8 x 5.0 cm (SAG x AP x TRV). The kidney is normal in size, contour, and echogenicity. Renal cortical thickness is normal. No focal parenchymal lesions. 2 small nonobstructing renal calculi are seen, the largest of which measures 0.3 x 0.3 x 0.2 cm. Similar-appearing mild pelviectasis. US/US renal BI IMPRESSION: 1. Similar-appearing left-sided mild pelviectasis. 2. Bilateral tiny nonobstructing renal calculi, similar to the prior ultrasound.
== END 2021-10-22 11:00 | disposition home or self-care (01) ==
LOC: HO.HMGCX 10:59
PROVIDERS: PCP Internal Medicine; Visit Provider Urology
DX: N20.0 Calculus of kidney (principal)
CPT/HCPCS: 76775

== ENCOUNTER → 2021-10-27 10:29 | Outpatient (BNVA) | payer OTHER, SELFPAY | PROVIDERS: PCP Internal Medicine; Visit Provider Nurse Practitioner Family | DX: M47.27 Other spondylosis with radiculopathy, lumbosacral region (principal); M53.9 Dorsopathy, unspecified | CPT/HCPCS: 99202 ==

== ENCOUNTER → 2021-10-29 10:35 | Outpatient (BNVA) | payer OTHER, SELFPAY | PROVIDERS: PCP Internal Medicine; Visit Provider Urology ==

== ENCOUNTER 2021-12-04 10:12 | Outpatient (REF) | payer OTHER, SELFPAY ==
--- NOTE | ~2021-12-04 | MR_ITS ---
EXAMINATION: MR LUMBAR SPINE WITHOUT CONTRAST CLINICAL INFORMATION: Back pain. COMPARISON: None TECHNIQUE: MRI of the lumbar spine was obtained using routine sequences without contrast. FINDINGS: VERTEBRAL BODIES AND PARASPINAL STRUCTURES: The marrow signal is within normal limits. Multilevel anterior endplate spurring noted at the lower thoracic and mid lumbar levels. There are no compression fractures or significant disc space narrowing. Mild endplate edematous changes noted at the L3-L4 level. The paraspinal soft tissues are unremarkable. The imaged bony pelvis appears normal. CONUS MEDULLARIS AND CAUDA EQUINA: Normal, terminating at the level of L1. No lower cord signal abnormality is seen. The cauda equina nerve roots are normal. SPINAL LEVELS: L1-L2: No disc pathology. Mild facet arthrosis, more so on the right side without central canal stenosis or foraminal narrowing. L2-L3: Focal left paracentral disc protrusion contacting the left L3 nerve root in the subarticular zone. Mild facet arthropathy and slight narrowing of the central canal with an underlying disc bulge and endplate spurring. Mild left foraminal narrowing. Lateralized bulging disc and endplate spurring impress upon the extraforaminal right L2 nerve root. L3-L4: Broad-based disc bulge and shallow right paracentral disc protrusion with hypertrophic facet arthropathy resulting in mild central canal stenosis. Disc protrusion contacts the right L4 nerve root in the subarticular zone. Osseous spurring and bulging disc result in mild right and moderate left foraminal encroachment. Bulging disc contacts the extraforaminal L3 nerve roots bilaterally. L4-L5: Diffuse disc bulge and moderate facet arthropathy with mild central canal stenosis. Facet spurring distorts the exiting left L4 nerve root with significant encroachment. Moderate right foraminal narrowing. L5-S1: Disc bulge and endplate spurring present with hypertrophic facet arthropathy. No central canal stenosis. Facet spurring abuts the left S1 nerve root. Moderate right foraminal narrowing with disc abutting the exiting right L5 nerve root. Broad-based left posterolateral disc protrusion and facet spurring with severe left foraminal encroachment and compression of the exiting left L5 nerve root. MR/MR lumbar spine wo con IMPRESSION: Multilevel, multifactorial degenerative disc disease and facet arthropathy. No high-grade central canal stenosis. Left paracentral disc protrusion at L2-L3 contacting the left L3 nerve root. Mild narrowing of the central canal with lateralized bulging disc and endplate spurring impressing upon the right L2 nerve root. Diffuse disc bulge and right paracentral disc protrusion with facet arthropathy at L3-L4 resulting in mild central canal stenosis. Disc contacts the right L4 nerve root in the subarticular zone. Moderate left foraminal narrowing. Diffuse bulging disc abutting both L3 nerve roots laterally. Facet spurring distorting the exiting left L4 nerve root at the L4-L5 level with severe left foraminal encroachment. Moderate right foraminal narrowing and mild central canal stenosis. Broad-based left posterolateral disc protrusion and facet spurring at L5-S1 with severe left foraminal encroachment and compression of the left L5 nerve root.
== END 2021-12-04 10:13 | disposition home or self-care (01) ==
LOC: HO.MRI 10:12
PROVIDERS: Visit Provider Nurse Practitioner Family
DX: M47.27 Other spondylosis with radiculopathy, lumbosacral region (principal); M53.9 Dorsopathy, unspecified
CPT/HCPCS: 72148

== ENCOUNTER → 2021-12-16 09:46 | Outpatient (BNVA) | payer OTHER, SELFPAY | PROVIDERS: PCP Internal Medicine; Visit Provider Nurse Practitioner Family | DX: M47.27 Other spondylosis with radiculopathy, lumbosacral region (principal); M53.9 Dorsopathy, unspecified | CPT/HCPCS: 99212 ==

== ENCOUNTER 2022-01-19 10:48 | Outpatient (REF) | payer OTHER, SELFPAY ==
--- NOTE | 2022-01-19 17:25 | PFT_ITS ---
INDICATION: Dyspnea. SPIROMETRY: FEV1 to FVC of 82% with an FEV1 of 1.64 L, which is 90% predicted. FVC of 2.01 L, which is 84% predicted. No significant response to bronchodilators noted. To note, the FEF 25/75 decreased to 72% consistent with history of asthma. LUNG VOLUMES: Total lung capacity 85% predicted with an expiratory reserve volume of 26% predicted. DIFFUSION CAPACITY: DLCO 112% predicted. COMPARISONS: None available. INTERPRETATION: No obstructive nor restrictive ventilatory defects identified. No significant response to bronchodilators noted again. Again, there is evidence of small airways disease, likely from asthma. Lung volumes are within normal limits except for decrease in the expiratory reserve volume secondary to an elevated BMI and diffusing capacity is within normal limits. Clinical correlation warranted. Holland Arias MD MR/MODL / [id number]
== END 2022-01-19 10:49 | disposition home or self-care (01) ==
LOC: HO.RESP 10:48
PROVIDERS: PCP Internal Medicine; Visit Provider Hospitalist
DX: J44.9 Chronic obstructive pulmonary disease, unspecified (principal)
CPT/HCPCS: 94060; 94727; 94729; 99212

== ENCOUNTER 2022-03-11 13:31 | Outpatient (REF) | payer OTHER, SELFPAY ==
--- NOTE | ~2022-03-11 | US_ITS ---
EXAMINATION: US RETROPERITONEAL LIMITED (RENAL ONLY) CLINICAL INFORMATION: Calculus of kidney. COMPARISON: US retroperitoneal limited (renal only) 10/22/2021, 04/21/2021 06/15/2019 and 11/21/2018. XR abdomen KUB 04/21/2021 and 11/08/2018. CT abdomen and pelvis 01/18/2021. TECHNIQUE: Real-time imaging of the kidneys. FINDINGS: RIGHT KIDNEY: 10.2 x 4.7 x 5.2 cm (SAG x AP x TRV). The kidney is normal in size, contour, and echogenicity. Renal cortical thickness is normal. No focal parenchymal lesions or hydronephrosis. There is a 0.3 cm calculus in the lower pole and 2 calculi in the upper pole measuring 0.2 cm and 0.4 cm. This calculi do not appear to be significantly changed compared to last ultrasound of 10/22/2021. LEFT KIDNEY: 10.9 x 4.7 x 4.3 cm (SAG x AP x TRV). The kidney is normal in size, contour, and echogenicity. Renal cortical thickness is normal. A 0.3 cm calculus in the mid kidney and 0.3 cm calculus in the lower pole are noted. A simple cortical cyst is noted in the lower pole measuring 0.6 x 0.4 x 0.6 cm. Mild fullness of the left renal pelvis and lower pole collecting system is a stable finding since previous ultrasound of 06/15/2019. US/US renal BI IMPRESSION: Multiple bilateral renal calculi as described above. No right hydronephrosis. Mild prominence of the left renal pelvis and lower pole collecting system is a stable finding since previous ultrasound of 06/15/2019.
== END 2022-03-11 13:32 | disposition home or self-care (01) ==
LOC: HO.US 13:31
PROVIDERS: Visit Provider Urology
DX: N20.0 Calculus of kidney (principal)
CPT/HCPCS: 76775

== ENCOUNTER 2022-04-12 07:02 | Emergency (ER) | payer OTHER, SELFPAY ==
--- NOTE | ~2022-04-12 | XR_ITS ---
EXAMINATION: XR CHEST CLINICAL INFORMATION: Cough and shortness of breath COMPARISON: Chest x-ray 05/14/2020 TECHNIQUE: 2 views of the chest were obtained. FINDINGS: The cardiac silhouette is mildly enlarged. Atherosclerotic aortic arch. The lungs are well aerated. There is no lobar consolidation. No pleural effusion or pneumothorax. Moderate degenerative changes of the spine. XR/XR chest 2V IMPRESSION: No acute pulmonary pathology.
[2022-04-12 07:08] VITALS: BP 175/88; PULSE 100; RESP 20; TEMP 36.8; O2SAT 97; BMI 36.9
[2022-04-12 08:12] LABS: Influenza A PCR NEGATIVE (Negative); Influenza B PCR NEGATIVE (Negative); Resp Syncy Virus RNA Qual PCR NEGATIVE (Negative); SARS COV2 PCR INHOUSE NEGATIVE (Negative)
--- NOTE | 2022-04-12 08:54 | ED_ITS ---
HPI - General Adult General Chief complaint: Upper Respiratory Symptoms Stated complaint: cough, back pain, cold symptoms Time Seen by Provider: 04/12/22 08:54 Source: patient Mode of arrival: ambulatory History of Present Illness HPI narrative: 61-year-old female with history of asthma presents with body aches, fevers, cough and congestion at home and feels like she may flu or COVID. Related Data Home Medications Medication Instructions Recorded Confirmed albuterol sulfate 90 mcg/actuation 2 puff INHALATION Q4H PRN 11/19/20 12/16/21 aerosol inhaler atorvastatin 40 mg tablet 40 mg PO DAILY 11/19/20 12/16/21 hydrochlorothiazide 25 mg tablet 25 mg PO DAILY 11/19/20 12/16/21 levothyroxine 50 mcg tablet 50 mcg PO DAILY 11/19/20 12/16/21 omeprazole 20 mg capsule,delayed 20 mg PO DAILY 11/19/20 12/16/21 release verapamil 100 mg capsule 24hr 100 mg PO BEDTIME 11/19/20 12/16/[address],ext.release duloxetine 30 mg capsule,delayed 30 mg PO DAILY 04/30/21 12/16/21 release Previous Rx's Medication Instructions Recorded beclomethasone dipropionate 80 1 inh INHALATION BID 30 Days #10.6 04/09/21 mcg/actuation HFA breath activated g aerosol (Qvar RediHaler) benzonatate 200 mg capsule 200 mg PO BID PRN 30 Days #60 cap 05/07/21 roflumilast 500 mcg tablet 500 mcg PO DAILY 30 Days #30 tab 05/07/21 (Daliresp) allopurinol 100 mg tablet 100 mg PO DAILY #90 tab 10/29/21 pyridoxine (vitamin B6) 100 mg 100 mg PO DAILY #90 tab 10/29/21 tablet fluticasone furoate 200 1 inh INHALATION DAILY #60 ea 03/26/22 mcg-vilanterol 25 mcg/dose inhalation powder (Breo Ellipta) tiotropium bromide 2.5 2 puff INHALATION DAILY #4 g 03/26/22 mcg/actuation mist for inhalation (Spiriva Respimat) modafinil 200 mg tablet 200 mg PO DAILY #30 tab 03/29/22 Allergies Allergy/AdvReac Type Severity Reaction Status Date / Time acetaminophen [Percocet] Allergy Severe Rash and Verified 01/19/22 11:36 Hives amlodipine Allergy Severe Rash and Verified 01/19/22 11:36 Hives aspirin Allergy Severe Rash and Verified 01/19/22 11:36 Hives benzonatate Allergy Severe Rash and Verified 01/19/22 11:36 Hives fexofenadine Allergy Severe Rash and Verified 01/19/22 11:36 Hives hydroxyzine Allergy Severe Rash and Verified 01/19/22 11:36 Hives lisinopril Allergy Severe Rash and Verified 01/19/22 11:36 Hives meperidine [Demerol] Allergy Severe Rash and Verified 01/19/22 11:36 Hives morphine Allergy Severe Rash and Verified 01/19/22 11:36 Hives naproxen [Aleve] Allergy Severe Rash and Verified 01/19/22 11:36 Hives oxycodone [From PERCOCET] Allergy Severe SWELLING Verified 01/19/22 11:36 penicillin G Allergy Severe Rash and Verified 01/19/22 11:36 Hives Sulfa (Sulfonamide Allergy Severe Rash and Verified 01/19/22 11:36 Antibiotics) Hives valsartan Allergy Severe Rash and Verified 01/19/22 11:36 Hives codeine [CODEINE] Allergy Intermediate RASH Verified 01/19/22 11:36 ibuprofen [From MOTRIN] Allergy Intermediate RASH Verified 01/19/22 11:36 montelukast [From SINGULAIR] Allergy Intermediate HIVES Verified 01/19/22 11:36 sulfamethoxazole Allergy Intermediate HIVES Verified 01/19/22 11:36 [From BACTRIM] tramadol [TRAMADOL] Allergy Intermediate SWELLING, Verified 01/19/22 11:36 RASH loratadine [From CLARITIN] Allergy Mild HIVES Verified 01/19/22 11:36 ranitidine [From ZANTAC] Allergy Mild HIVES Verified 01/19/22 11:36 Hydrocet Allergy Severe Rash and Uncoded 01/19/22 11:36 Hives Lorazepam Allergy Severe Rash and Uncoded 01/19/22 11:36 Hives Review of Systems Review of Systems: Pertinent positives and negatives as stated in HPI 10 point review of systems is otherwise negative. PMFSH Past Medical History Source: nursing notes reviewed Medical History Asthma Asthma Asthma-COPD overlap syndrome COVID-19 Hypersomnia with sleep apnea KEVIN on CPAP Social History Social History Household Members: Spouse and Family Housing: Apartment Are you a primary healthcare technician to a significant other at home: No Do you presently have visiting nurse or other home services: No Alcohol intake: current Alcohol intake frequency: holidays/special occasions only Patient Tobacco Use Status: Never used Tobacco Second Hand Smoke Exposure: No Use of substances other than those prescribed or required for medical reasons: No Advance Directives: No Advance Directives Information Provided: Yes Patient : No service: No Current occupational status: employed Physical Exam ED Vital Signs: Vital Signs - 24 hr 04/12/22 07:08 04/12/22 09:03 04/12/22 09:05 Temperature 98.2 F 99.4 F Pulse Rate 100 83 Respiratory Rate 20 18 Blood Pressure 175/88 H 140/84 H Pulse Oximetry 97 97 97 04/12/22 09:30 04/12/22 13:21 04/12/22 13:36 Temperature Pulse Rate 78 84 86 Respiratory Rate 11 L 14 12 Blood Pressure 130/71 129/68 Pulse Oximetry 95 96 BMI result Body Mass Index 36.9 VITAL SIGNS: Reviewed. GENERAL: Elevated BMI, Well developed, well nourished, in no acute distress. HEAD: Normocephalic/atraumatic EYES: PERRLA, EOMI EARS: Ext canals without abnormality, TMs non-bulging and non-erythematous NOSE: Nares patent bilateral OROPHARYNX: no oral lesions noted, posterior pharynx clear and non-erythematous without noted tonsillar enlargement/erythema/exudates NECK: Supple, no adenopathy LUNGS: Good inspiratory effort, coarse rhonchi noted with scattered expiratory wheeze. SpO2<97> CARDIOVASCULAR: Regular rate and rhythm without noted murmurs ABDOMEN: Soft, non-tender, non-distended with bowel sounds. MUSCULOSKELETAL: No tenderness, deformities, or effusions noted on gross inspection. EXTREMITIES: No cyanosis, clubbing or edema. SKIN: Inspection of the skin reveals no rashes NEUROLOGIC: Alert and oriented x 4. Strength and sensation to light touch were grossly intact x 4. Course Course Course Narrative: 61-year-old female with history and clinical presentation suggestive of possible viral syndrome, asthma, possible pneumonia. On review of all investigations chest x-ray is within normal limits, viral testing is negative and patient is known to be allergic to Tylenol as well as ibuprofen but states that she can tolerate this medication as long as she is treated with Benadryl as well. Patient received steroids, albuterol treatment. On re-evaluation patient complains of body aches and will be treated with Tylenol and ibuprofen as well as Benadryl. Basic labs were ordered as well. Review of all investigations without acute findings to further explain patient's presentation on re-evaluation she reports some improvement. She was encouraged to continue with Tylenol and ibuprofen at home with Benadryl. Medical Decision Making Lab Data Result diagrams: 04/12/22 11:45 04/12/22 11:45 Labs: Lab Results 04/12/22 04/12/22 04/12/22 Range/Units 07:11 11:45 11:45 WBC 8.6 (4.8-10.8) X10*3/uL RBC 4.24 (4.20-5.50) X10*6/uL Hgb 12.6 (12.0-16.0) g/dl Hct 38.9 (37.0-47.0) % MCV 91.7 (80.0-98.0) fL MCH 29.7 (27.0-33.0) pg MCHC 32.4 (31.0-35.0) g/dl RDW 14.1 (11.0-16.0) % Plt Count 357 (160-400) X10*3/uL MPV 9.6 (9.4-12.3) fL Immature Gran % (Auto) 0.3 (0.0-0.4) % Neut % (Auto) 73.2 H (45-73) % Lymph % (Auto) 19.6 L (20-40) % [place] % (Auto) 3.9 (2-11) % Eos % (Auto) 2.4 (0-4) % Baso % (Auto) 0.6 (0-2) % Lymph # (Auto) 1.7 (1.2-4.9) X10*3/uL [place] # (Auto) 0.3 (0.1-1.2) X10*3/uL Eos # (Auto) 0.2 (0.0-0.4) X10*3/uL Baso # (Auto) 0.1 (0.0-0.2) X10*3/uL Abs Immat Gran (auto) 0.03 (0.00-0.03) X10*3/uL Absolute Neuts (auto) 6.3 (2.0-8.3) x10*3/uL Absolute Nucleated RBC 0.000 (0.0-0.012) X10*3/uL Nucleated RBC % (auto) 0.0 (0.0-0.2) /100WBC Sodium 143 (135-145) mmol/L Potassium 3.6 (3.3-5.1) mmol/L Chloride 104 (96-108) mmol/L Carbon Dioxide 27 (22-29) mmol/L Anion Gap 16 (12-20) BUN 12 (9-16) mg/dL Creatinine 0.72 (0.5-1.4) mg/dL Estim Creat Clear Calc 75.6 Estimated GFR > 60 Random Glucose 129 H (60-115) mg/dL Calcium 9.6 (8.4-10.2) mg/dL Total Bilirubin 0.5 (0.0-1.0) mg/dL AST 50 H (5-31) U/L ALT 58 H (0-31) U/L Alkaline Phosphatase 95 D (39-117) U/L Troponin I High Sens (<3.5-17.0) ng/L B-Natriuretic Peptide (<100) pg/mL Total Protein 7.1 (6.5-8.0) g/dL Albumin 4.1 (3.5-5.0) g/dL Influenza Type A (PCR) NEGATIVE (Negative) Influenza Type B (PCR) NEGATIVE (Negative) RSV RNA Qual (PCR) NEGATIVE (Negative) SARS-CoV-2 RNA (RT-PCR) NEGATIVE (Negative) 04/12/22 Range/Units 11:45 WBC (4.8-10.8) X10*3/uL RBC (4.20-5.50) X10*6/uL Hgb (12.0-16.0) g/dl Hct (37.0-47.0) % MCV (80.0-98.0) fL MCH (27.0-33.0) pg MCHC (31.0-35.0) g/dl RDW (11.0-16.0) % Plt Count (160-400) X10*3/uL MPV (9.4-12.3) fL Immature Gran % (Auto) (0.0-0.4) % Neut % (Auto) (45-73) % Lymph % (Auto) (20-40) % [place] % (Auto) (2-11) % Eos % (Auto) (0-4) % Baso % (Auto) (0-2) % Lymph # (Auto) (1.2-4.9) X10*3/uL [place] # (Auto) (0.1-1.2) X10*3/uL Eos # (Auto) (0.0-0.4) X10*3/uL Baso # (Auto) (0.0-0.2) X10*3/uL Abs Immat Gran (auto) (0.00-0.03) X10*3/uL Absolute Neuts (auto) (2.0-8.3) x10*3/uL Absolute Nucleated RBC (0.0-0.012) X10*3/uL Nucleated RBC % (auto) (0.0-0.2) /100WBC Sodium (135-145) mmol/L Potassium (3.3-5.1) mmol/L Chloride (96-108) mmol/L Carbon Dioxide (22-29) mmol/L Anion Gap (12-20) BUN (9-16) mg/dL Creatinine (0.5-1.4) mg/dL Estim Creat Clear Calc Estimated GFR Random Glucose (60-115) mg/dL Calcium (8.4-10.2) mg/dL Total Bilirubin (0.0-1.0) mg/dL AST (5-31) U/L ALT (0-31) U/L Alkaline Phosphatase (39-117) U/L Troponin I High Sens 3.7 (<3.5-17.0) ng/L B-Natriuretic Peptide < 10 (<100) pg/mL Total Protein (6.5-8.0) g/dL Albumin (3.5-5.0) g/dL Influenza Type A (PCR) (Negative) Influenza Type B (PCR) (Negative) RSV RNA Qual (PCR) (Negative) SARS-CoV-2 RNA (RT-PCR) (Negative) ECG Data Attestation: I personally reviewed and interpreted this ECG as follows: Prior ECG tracings: available for review Interpretation: Normal sinus rhythm, RBBB, HR-80, no STEMI, ID within normal limits. Discharge Plan Discharge Clinical Impression: Viral syndrome, Asthma Patient Disposition: Home, Self-Care Instructions: Asthma (ED), Viral Syndrome (ED) Additional Instructions: 1. Reanudar todos los medicamentos caseros seg?n lo prescrito. 2. Le recomiendo que tome Tylenol ibuprofeno junto con Benadryl para controlar los jaen corporales y la fiebre. 3. Yoly un seguimiento con dang proveedor de atenci?n primaria llamando a la oficina esta ma?art. Regrese a la daquan de emergencias si los s?ntomas empeoran. Prescriptions: No Action pyridoxine (vitamin B6) 100 mg tablet 100 mg PO DAILY Qty: 90 1RF Breo Ellipta 200-25 mcg/dose blister with device 1 inh inhalation DAILY Qty: 60 3RF Spiriva Respimat 2.5 mcg/actuation mist 2 puff inhalation DAILY Qty: 4 3RF modafinil 200 mg tablet 200 mg PO DAILY Qty: 30 3RF hydrochlorothiazide 25 mg tablet 25 mg PO DAILY 0RF verapamil 100 mg capsule, [address] 100 mg PO BEDTIME 0RF omeprazole 20 mg capsule,delayed release(DR/EC) 20 mg PO DAILY 0RF levothyroxine 50 mcg tablet 50 mcg PO DAILY 0RF atorvastatin 40 mg tablet 40 mg PO DAILY 0RF albuterol sulfate 90 mcg/actuation HFA aerosol inhaler 2 puff inhalation Q4H PRN (Reason: wheezing) 0RF allopurinol 100 mg tablet 100 mg PO DAILY Qty: 90 3RF duloxetine 30 mg capsule,delayed release(DR/EC) 30 mg PO DAILY 0RF Qvar RediHaler 80 mcg/actuation HFA aerosol breath activated 1 inh inhalation BID 30 Days Qty: 10.6 3RF benzonatate 200 mg capsule 200 mg PO BID PRN (Reason: cough) 30 Days Qty: 60 6RF Daliresp 500 mcg tablet 500 mcg PO DAILY 30 Days Qty: 30 12RF Referrals: Janine Villeda MD [Primary Care Provider] -
[2022-04-12 09:03] VITALS: BP 140/84; PULSE 83; RESP 18; TEMP 37.4; O2SAT 97
[2022-04-12 09:05] VITALS: O2SAT 97
[2022-04-12] MEDS: Albuterol Sulfate (0.083%) 2.5 MG/3 ML VIAL.NEB 10 MG INHALE (09:27)
[2022-04-12 09:30] VITALS: PULSE 78; RESP 11; O2SAT 96
[2022-04-12] MEDS: methylPREDNISolone Sod Succ 125 MG/2 ML VIAL IVPUSH (09:59)
[2022-04-12] MEDS: Ketorolac Tromethamine 30 MG/ML VIAL 15 MG IVPUSH (11:41)
[2022-04-12] MEDS: diphenhydrAMINE HCL 50 MG/ML VIAL 25 MG IVPUSH (11:42)
[2022-04-12] MEDS: Acetaminophen 325 MG TABLET 975 MG PO (11:42)
[2022-04-12 11:50] LABS: MANUAL DIFF FLAG NO
[2022-04-12 11:53] LABS: Basophils Absolute Auto 0.1 X10*3/uL (0.0-0.2); Basophils Percent Auto 0.6 % (0-2); Eosinophils Absolute Auto 0.2 X10*3/uL (0.0-0.4); Eosinophils Percent Auto 2.4 % (0-4); Hematocrit 38.9 % (37.0-47.0); Hemoglobin 12.6 g/dl (12.0-16.0); Imm Gran Abs Auto 0.03 X10*3/uL (0.00-0.03); Imm Gran Pct Auto 0.3 % (0.0-0.4); Lymphocytes Absolute Auto 1.7 X10*3/uL (1.2-4.9); Lymphocytes Percent Auto 19.6 % (20-40); Mean Corpuscular HGB Conc 32.4 g/dl (31.0-35.0); Mean Corpuscular Hemoglobin 29.7 pg (27.0-33.0); Mean Corpuscular Volume 91.7 fL (80.0-98.0); Mean Platelet Volume 9.6 fL (9.4-12.3); Monocytes Absolute Auto 0.3 X10*3/uL (0.1-1.2); Monocytes Percent Auto 3.9 % (2-11); Neutrophils Absolute Auto 6.3 x10*3/uL (2.0-8.3); Neutrophils Percent Auto 73.2 % (45-73); Platelet Count 357 X10*3/uL (160-400); Red Blood Count 4.24 X10*6/uL (4.20-5.50); Red Cell Distribution Width 14.1 % (11.0-16.0); White Blood Count 8.6 X10*3/uL (4.8-10.8)
[2022-04-12 12:17] LABS: Alanine Aminotransferase 58 U/L (0-31); Albumin Level 4.1 g/dL (3.5-5.0); Alkaline Phosphatase 95 U/L (39-117); Anion Gap 16 (12-20); Aspartate Amino Transferase 50 U/L (5-31); Bilirubin Total 0.5 mg/dL (0.0-1.0); Blood Urea Nitrogen 12 mg/dL (9-16); Calcium 9.6 mg/dL (8.4-10.2); Carbon Dioxide 27 mmol/L (22-29); Chloride 104 mmol/L (96-108); Creatinine Clr Calc Pharmacy 75.6; Estimated Glomerular Filt Rate > 60; Glucose Random 129 mg/dL (60-115); Potassium 3.6 mmol/L (3.3-5.1); Sodium 143 mmol/L (135-145); Total Protein 7.1 g/dL (6.5-8.0)
[2022-04-12 13:21] VITALS: BP 130/71; PULSE 84; RESP 14; O2SAT 95
--- NOTE | 2022-04-12 13:23 | ECG_ITS ---
Test Reason : WEAKNESS Blood Pressure : / mmHG Vent. Rate : 080 BPM Atrial Rate : 080 BPM P-R Int : 154 ms QRS Dur : 132 ms QT Int : 444 ms P-R-T Axes : 053 039 060 degrees QTc Int : 512 ms Normal sinus rhythm Right bundle branch block Abnormal ECG When compared with ECG of 14-MAY-2020 19:00, No significant change was found Referred By: Mariella Darden Electronically Signed By:JASKARAN PARSONS
[2022-04-12 13:36] VITALS: BP 129/68; PULSE 86; RESP 12; O2SAT 96
[2022-04-12 13:42] LABS: B Type Natriuretic Peptide < 10 pg/mL (<100); Troponin-I High Sensitivity 3.7 ng/L (<3.5-17.0)
== END 2022-04-12 14:28 | disposition home or self-care (01) ==
PROVIDERS: Emergency Provider Student in an Organized Health Care Education/Training Program; PCP Internal Medicine
DX: B34.9 Viral infection, unspecified (principal); J45.909 Unspecified asthma, uncomplicated; Z20.822 Contact with and (suspected) exposure to COVID-19; R50.9 Fever, unspecified
CPT/HCPCS: 0241U; 36415; 71046; 80053; 83880; 84484; 85025; 93005; 94640; 94644; 96374; 96375; 99284; 99285; J1200; J1885; J2930

== ENCOUNTER → 2022-04-14 13:04 | Outpatient (BNVA) | payer OTHER, SELFPAY | PROVIDERS: PCP Internal Medicine; Visit Provider Internal Medicine Pulmonary Disease | DX: J45.40 Moderate persistent asthma, uncomplicated (principal) | CPT/HCPCS: 99212 ==

== ENCOUNTER 2022-04-16 14:03 | Inpatient (IN) | payer OTHER, SELFPAY ==
--- NOTE | ~2022-04-16 | XR_ITS ---
EXAMINATION: XR CHEST CLINICAL INFORMATION: Asthma COMPARISON: 04/12/2022 TECHNIQUE: Frontal view of the chest was obtained. FINDINGS: There is a small area of opacity in the mid to upper lung zone laterally on the left. Findings suggest small area of atelectasis or infiltrate. Underlying nodularity cannot be excluded Otherwise the lung chapin are felt to be comparable to previous. There is no effusion. The cardiac silhouette is within normal limits. The hilar regions do not appear pathologically enlarged. XR/XR chest 1V IMPRESSION: Mild left upper lung lateral opacity may represent a small area of atelectasis or infiltrate. Follow-up films are recommended after treatment to assess for resolution and establish this patient's baseline. 4-6 weeks film.
[2022-04-16 14:10] VITALS: BP 157/94; PULSE 110; RESP 18; TEMP 36.9; O2SAT 96; BMI 35.5
[2022-04-16 18:42] VITALS: BP 144/91; PULSE 96; RESP 20; O2SAT 97
--- NOTE | 2022-04-16 19:08 | ED_ITS ---
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 She still notes cough, wheezing, resolved fevers but feels no better and states her breathing and wheezing is not improving despite 2 days of treatment. MD complaint: asthma attack , shortness of breath and wheezing Onset (ago): day(s) (5) Severity: moderate and worse than usual Context: recent URI Associated symptoms: productive cough and fever Asthma History: childhood onset Treatments Prior to Arrival: inhaled bronchodilator and other (oral steroids, zpak) Related Data Home Medications Medication Instructions Recorded Confirmed albuterol sulfate 90 mcg/actuation 2 puff inhalation Q4H PRN wheezing 11/19/20 04/16/22 aerosol inhaler atorvastatin 40 mg tablet 40 mg PO DAILY 11/19/20 04/16/22 hydrochlorothiazide 25 mg tablet 25 mg PO DAILY 11/19/20 04/16/22 levothyroxine 50 mcg tablet 50 mcg PO DAILY 11/19/20 04/16/22 omeprazole 20 mg capsule,delayed 20 mg PO DAILY 11/19/20 04/16/22 release verapamil 100 mg capsule 24hr 100 mg PO BEDTIME 11/19/20 04/16/[address],ext.release duloxetine 30 mg capsule,delayed 30 mg PO DAILY 04/30/21 04/16/22 release azithromycin 250 mg tablet 250 mg PO DAILY 04/16/22 04/16/22 loratadine 10 mg tablet 1 tab PO DAILY 04/16/22 04/16/22 Previous Rx's Medication Instructions Recorded beclomethasone dipropionate 80 1 inh inhalation BID 30 days #10.6 04/09/21 mcg/actuation HFA breath activated grams aerosol (Qvar RediHaler) benzonatate 200 mg capsule 200 mg PO BID PRN cough 30 days 05/07/21 #60 caps roflumilast 500 mcg tablet 500 mcg PO DAILY 30 days #30 tabs 05/07/21 (Daliresp) allopurinol 100 mg tablet 100 mg PO DAILY #90 tabs 10/29/21 pyridoxine (vitamin B6) 100 mg 100 mg PO DAILY #90 tabs 10/29/21 tablet fluticasone furoate 200 1 inh inhalation DAILY #60 ea 03/26/22 mcg-vilanterol 25 mcg/dose inhalation powder (Breo Ellipta) tiotropium bromide 2.5 2 puff inhalation DAILY #4 grams 03/26/22 mcg/actuation mist for inhalation (Spiriva Respimat) modafinil 200 mg tablet 200 mg PO DAILY #30 tabs 03/29/22 ipratropium 0.5 mg-albuterol 3 mg 3 ml inhalation Q6-8H PRN wheezing 04/14/22 (2.5 mg base)/3 mL nebulization 30 days #180 mL soln methylprednisolone 32 mg tablet 32 mg PO DAILY 7 days #7 tabs 04/14/22 Allergies Allergy/AdvReac Type Severity Reaction Status Date / Time acetaminophen [Percocet] Allergy Severe Rash and Verified 04/16/22 14:10 Hives amlodipine Allergy Severe Rash and Verified 04/16/22 14:10 Hives aspirin Allergy Severe Rash and Verified 04/16/22 14:10 Hives benzonatate Allergy Severe Rash and Verified 04/16/22 14:10 Hives fexofenadine Allergy Severe Rash and Verified 04/16/22 14:10 Hives hydroxyzine Allergy Severe Rash and Verified 04/16/22 14:10 Hives lisinopril Allergy Severe Rash and Verified 04/16/22 14:10 Hives meperidine [Demerol] Allergy Severe Rash and Verified 04/16/22 14:10 Hives morphine Allergy Severe Rash and Verified 04/16/22 14:10 Hives naproxen [Aleve] Allergy Severe Rash and Verified 04/16/22 14:10 Hives oxycodone [From PERCOCET] Allergy Severe SWELLING Verified 04/16/22 14:10 penicillin G Allergy Severe Rash and Verified 04/16/22 14:10 Hives Sulfa (Sulfonamide Allergy Severe Rash and Verified 04/16/22 14:10 Antibiotics) Hives valsartan Allergy Severe Rash and Verified 04/16/22 14:10 Hives codeine [CODEINE] Allergy Intermediate RASH Verified 04/16/22 14:10 ibuprofen [From MOTRIN] Allergy Intermediate RASH Verified 04/16/22 14:10 montelukast [From SINGULAIR] Allergy Intermediate HIVES Verified 04/16/22 14:10 sulfamethoxazole Allergy Intermediate HIVES Verified 04/16/22 14:10 [From BACTRIM] tramadol [TRAMADOL] Allergy Intermediate SWELLING, Verified 04/16/22 14:10 RASH loratadine [From CLARITIN] Allergy Mild HIVES Verified 04/16/22 14:10 ranitidine [From ZANTAC] Allergy Mild HIVES Verified 04/16/22 14:10 Hydrocet Allergy Severe Rash and Uncoded 04/16/22 14:10 Hives Lorazepam Allergy Severe Rash and Uncoded 04/16/22 14:10 Hives Review of Systems 2 Review of Systems: Constitutional : pos Fever, pos Chills ENT/Mouth : No sore throat, No Rhinorrhea, No Swallowing Difficulty Eyes: No Eye Pain, No Swelling, No Redness Cardiovascular : No Chest Pain, positive SOB, No Orthopnea, positive Edema Respiratory : pos Cough, pos Sputum, pos Wheezing, positive dyspnea Gastrointestinal : No Nausea, No Vomiting, No Diarrhea, No abdominal Pain, No Hematochezia, No Melena Genitourinary : No Dysuria, No Urinary Frequency, No Hematuria Musculoskeletal : No joint pain, pos Myalgias Skin : No Skin Lesions, No rash Neuro : No Weakness, No Numbness, No Dizziness, No Headache Psych : No Anxiety/Panic, No Depression Heme/Lymph: No Bruising, No Lymphadenopathy Endocrine : No Polyuria, No Polydipsia All other systems reviewed and are negative PMFSH Past Medical History Attestation statement: The following information was validated with the patient. Medical History Asthma Asthma Asthma-COPD overlap syndrome COVID-19 Hypersomnia with sleep apnea KEVIN on CPAP Social History Social History Household Members: Spouse and Family Housing: Apartment Are you a primary acute care clinical nurse specialist to a significant other at home: No Do you presently have visiting nurse or other home services: No Alcohol intake: current Alcohol intake frequency: holidays/special occasions only Patient Tobacco Use Status: Never used Tobacco Second Hand Smoke Exposure: No Advance Directives: Yes Advance Directives Information Provided: Yes Advance Directives on File: No service: No Current occupational status: employed Physical Exam Vital Signs: Vital Signs: Last Vital Signs Temp 99.1 F 04/16/22 20:47 Pulse 82 04/16/22 22:31 Resp 18 04/16/22 20:47 BP 155/68 H 04/16/22 20:47 Pulse Ox 96 04/16/22 22:31 O2 Del Method 04/16/22 22:31 BMI result Body Mass Index 35.5 Appearance: Alert. Oriented X3. No acute distress. Eyes: Pupils equal, round and reactive to light. ENT: Pharynx normal. Neck: Normal inspection. Neck supple. CVS: Normal heart rate and rhythm. Pulses normal. Respiratory: No respiratory distress. Breath sounds very coarse with diffuse wheezing noted Abdomen: Soft and non-tender. Skin: Skin warm and dry. Normal skin color. Normal skin turgor. Extremities: No lower extremity edema. No calf ttp Neuro: Oriented X 3. No motor deficit. No sensory deficit. Course Course Course Narrative: still tight and wheezy at this time, planned admit lactic acid increased due to albuterol use and not due to infection or severe sepsis MDM - Asthma MDM Narrative Medical decision making narrative: 61 yo female with hx of asthma, KEVIN, COPD overlap here with 5 days of cough, fevers, on steroids and zpak x 48 hours with worsening symptoms and wheezing - at this time will obtain labs, CXR shows JS pneumonia - culture lactic acid - IV rocephin/doxy. IV steroids/magnesium and 5mg neb ordered - if no improvement will admit for inpatient management Lab Data Result diagrams: 04/16/22 19:27 04/16/22 19:27 Labs: Lab Results 04/16/22 04/16/22 04/16/22 Range/Units 19:27 19:27 19:27 WBC 12.9 H (4.8-10.8) X10*3/uL RBC 4.64 (4.20-5.50) X10*6/uL Hgb 13.9 (12.0-16.0) g/dl Hct 41.7 (37.0-47.0) % MCV 89.9 (80.0-98.0) fL MCH 30.0 (27.0-33.0) pg MCHC 33.3 (31.0-35.0) g/dl RDW 13.6 (11.0-16.0) % Plt Count 475 H D (160-400) X10*3/uL MPV 9.5 (9.4-12.3) fL Immature Gran % (Auto) 0.6 H (0.0-0.4) % Neut % (Auto) 71.1 (45-73) % Lymph % (Auto) 24.7 (20-40) % [place] % (Auto) 3.5 (2-11) % Eos % (Auto) 0.0 (0-4) % Baso % (Auto) 0.1 (0-2) % Lymph # (Auto) 3.2 (1.2-4.9) X10*3/uL [place] # (Auto) 0.5 (0.1-1.2) X10*3/uL Eos # (Auto) 0.0 (0.0-0.4) X10*3/uL Baso # (Auto) 0.0 (0.0-0.2) X10*3/uL Abs Immat Gran (auto) 0.08 H (0.00-0.03) X10*3/uL Absolute Neuts (auto) 9.1 H (2.0-8.3) x10*3/uL Absolute Nucleated RBC 0.000 (0.0-0.012) X10*3/uL Nucleated RBC % (auto) 0.0 (0.0-0.2) /100WBC Sodium 141 (135-145) mmol/L Potassium 4.4 D (3.3-5.1) mmol/L Chloride 104 (96-108) mmol/L Carbon Dioxide 25 (22-29) mmol/L Anion Gap 16 (12-20) BUN 17 H (9-16) mg/dL Creatinine 0.75 (0.5-1.4) mg/dL Estim Creat Clear Calc 74.0 Estimated GFR > 60 Random Glucose 150 H (60-115) mg/dL Lactic Acid (0.5-2.0) mmol/L Calcium 10.6 H D (8.4-10.2) mg/dL Total Bilirubin 0.5 (0.0-1.0) mg/dL Direct Bilirubin 0.2 (0.0-0.5) mg/dL AST 48 H (5-31) U/L ALT 82 H (0-31) U/L Alkaline Phosphatase 108 (39-117) U/L Total Protein 7.9 (6.5-8.0) g/dL Albumin 4.5 (3.5-5.0) g/dL Lipase 20 (8-78) U/L COVID-19 (HONEY) Negative (Negative) COVID-19 Clin Com See Note 04/16/22 Range/Units 19:27 WBC (4.8-10.8) X10*3/uL RBC (4.20-5.50) X10*6/uL Hgb (12.0-16.0) g/dl Hct (37.0-47.0) % MCV (80.0-98.0) fL MCH (27.0-33.0) pg MCHC (31.0-35.0) g/dl RDW (11.0-16.0) % Plt Count (160-400) X10*3/uL MPV (9.4-12.3) fL Immature Gran % (Auto) (0.0-0.4) % Neut % (Auto) (45-73) % Lymph % (Auto) (20-40) % [place] % (Auto) (2-11) % Eos % (Auto) (0-4) % Baso % (Auto) (0-2) % Lymph # (Auto) (1.2-4.9) X10*3/uL [place] # (Auto) (0.1-1.2) X10*3/uL Eos # (Auto) (0.0-0.4) X10*3/uL Baso # (Auto) (0.0-0.2) X10*3/uL Abs Immat Gran (auto) (0.00-0.03) X10*3/uL Absolute Neuts (auto) (2.0-8.3) x10*3/uL Absolute Nucleated RBC (0.0-0.012) X10*3/uL Nucleated RBC % (auto) (0.0-0.2) /100WBC Sodium (135-145) mmol/L Potassium (3.3-5.1) mmol/L Chloride (96-108) mmol/L Carbon Dioxide (22-29) mmol/L Anion Gap (12-20) BUN (9-16) mg/dL Creatinine (0.5-1.4) mg/dL Estim Creat Clear Calc Estimated GFR Random Glucose (60-115) mg/dL Lactic Acid 2.1 H* (0.5-2.0) mmol/L Calcium (8.4-10.2) mg/dL Total Bilirubin (0.0-1.0) mg/dL Direct Bilirubin (0.0-0.5) mg/dL AST (5-31) U/L ALT (0-31) U/L Alkaline Phosphatase (39-117) U/L Total Protein (6.5-8.0) g/dL Albumin (3.5-5.0) g/dL Lipase (8-78) U/L COVID-19 (HONEY) (Negative) COVID-19 Clin Com Discharge Plan Discharge Clinical Impression: Asthma with acute exacerbation, Pneumonia, Acidosis, lactic Patient Disposition: Admitted As Inpatient
[2022-04-16] MEDS: Albuterol Sulfate (0.083%) 2.5 MG/3 ML VIAL.NEB 5 MG INHALE (19:23)
[2022-04-16 19:24] VITALS: PULSE 85; RESP 16; O2SAT 95
[2022-04-16 19:34] LABS: MANUAL DIFF FLAG NO
[2022-04-16 19:38] LABS: Basophils Percent Auto 0.1 % (0-2); Hematocrit 41.7 % (37.0-47.0); Hemoglobin 13.9 g/dl (12.0-16.0); Imm Gran Abs Auto 0.08 X10*3/uL (0.00-0.03); Imm Gran Pct Auto 0.6 % (0.0-0.4); Lymphocytes Absolute Auto 3.2 X10*3/uL (1.2-4.9); Lymphocytes Percent Auto 24.7 % (20-40); Mean Corpuscular HGB Conc 33.3 g/dl (31.0-35.0); Mean Corpuscular Volume 89.9 fL (80.0-98.0); Mean Platelet Volume 9.5 fL (9.4-12.3); Monocytes Absolute Auto 0.5 X10*3/uL (0.1-1.2); Monocytes Percent Auto 3.5 % (2-11); Neutrophils Absolute Auto 9.1 x10*3/uL (2.0-8.3); Neutrophils Percent Auto 71.1 % (45-73); Platelet Count 475 X10*3/uL (160-400); Red Blood Count 4.64 X10*6/uL (4.20-5.50); Red Cell Distribution Width 13.6 % (11.0-16.0); White Blood Count 12.9 X10*3/uL (4.8-10.8)
[2022-04-16 19:49] LABS: COVID-19 Test Negative (Negative); IDNOW Serial# 16C4AD1C
[2022-04-16 19:53] LABS: Alanine Aminotransferase 82 U/L (0-31); Albumin Level 4.5 g/dL (3.5-5.0); Alkaline Phosphatase 108 U/L (39-117); Anion Gap 16 (12-20); Aspartate Amino Transferase 48 U/L (5-31); Bilirubin Direct 0.2 mg/dL (0.0-0.5); Bilirubin Total 0.5 mg/dL (0.0-1.0); Blood Urea Nitrogen 17 mg/dL (9-16); Calcium 10.6 mg/dL (8.4-10.2); Carbon Dioxide 25 mmol/L (22-29); Chloride 104 mmol/L (96-108); Estimated Glomerular Filt Rate > 60; Glucose Random 150 mg/dL (60-115); Lactic Acid 2.1 mmol/L (0.5-2.0); Lipase 20 U/L (8-78); Potassium 4.4 mmol/L (3.3-5.1); Sodium 141 mmol/L (135-145); Total Protein 7.9 g/dL (6.5-8.0)
--- NOTE | 2022-04-16 20:00 | PC.NURSE ---
20G IV inserted in right AC
--- NOTE | 2022-04-16 20:12 | PHA.MEDREC ---
Pharmacy Consult ? Medication Reconciliation Pharmacy has completed the medication reconciliation. Patient confirmed medications. Ana Luisa Bateman, MeiD
[2022-04-16 20:47] VITALS: BP 155/68; PULSE 91; RESP 18; TEMP 37.3; O2SAT 99
[2022-04-16] MEDS: Magnesium Sulfate/H2O 2 GM/50 ML PIGGYBACK IV (20:48)
[2022-04-16] MEDS: methylPREDNISolone Sod Succ 125 MG/2 ML VIAL IVPUSH (21:20)
[2022-04-16] MEDS: 0.9 % Sodium Chloride 500 ML IV (21:24)
[2022-04-16 21:31] LABS: Reflex Lactate? Lactic Acid Added
[2022-04-16] MEDS: cefTRIAXone sodium 1 GM in 0.9 % Sodium Chloride 50 ML IV (22:22)
[2022-04-16 22:31] VITALS: PULSE 82; O2SAT 96
--- NOTE | 2022-04-16 23:06 | P.HPHOSP_ITS ---
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 She was given methylprednisone and Z-Vijay. But she continued to have the symptoms hence decided to come to the ER today with the chief complaint of worsening shortness of breath. Patient reports that she feels congested in the chest, has been having coughing, posttussive abdominal discomfort; mentioned that she is not able to bring up any phlegm; reports subjective chills. Denies any chest pain or palpitations. Denies any nausea vomiting or diarrhea. Review of all other systems is negative except mentioned above ER course: Per ER team noted to have bilateral wheezing; saturating 97%; not in respiratory distress; chest x-ray showed left upper lobe pneumonia; patient was given IV Rocephin and doxycycline. Also received IV Solu-Medrol and magnesium. Admitted to the hospital for further management PMFSH Medical History Asthma Asthma Asthma-COPD overlap syndrome COVID-19 Hypersomnia with sleep apnea KEVIN on CPAP Social History Household Members: Spouse and Family Housing: Apartment Are you a primary child care nurse to a significant other at home: No Do you presently have visiting nurse or other home services: No Alcohol intake: current Alcohol intake frequency: holidays/special occasions only Patient Tobacco Use Status: Never used Tobacco Second Hand Smoke Exposure: No Advance Directives: Yes Advance Directives Information Provided: Yes Advance Directives on File: No service: No Current occupational status: employed Meds Allergies Allergy/AdvReac Type Severity Reaction Status Date / Time acetaminophen [Percocet] Allergy Severe Rash and Verified 04/16/22 14:10 Hives amlodipine Allergy Severe Rash and Verified 04/16/22 14:10 Hives aspirin Allergy Severe Rash and Verified 04/16/22 14:10 Hives benzonatate Allergy Severe Rash and Verified 04/16/22 14:10 Hives fexofenadine Allergy Severe Rash and Verified 04/16/22 14:10 Hives hydroxyzine Allergy Severe Rash and Verified 04/16/22 14:10 Hives lisinopril Allergy Severe Rash and Verified 04/16/22 14:10 Hives meperidine [Demerol] Allergy Severe Rash and Verified 04/16/22 14:10 Hives morphine Allergy Severe Rash and Verified 04/16/22 14:10 Hives naproxen [Aleve] Allergy Severe Rash and Verified 04/16/22 14:10 Hives oxycodone [From PERCOCET] Allergy Severe SWELLING Verified 04/16/22 14:10 penicillin G Allergy Severe Rash and Verified 04/16/22 14:10 Hives Sulfa (Sulfonamide Allergy Severe Rash and Verified 04/16/22 14:10 Antibiotics) Hives valsartan Allergy Severe Rash and Verified 04/16/22 14:10 Hives codeine [CODEINE] Allergy Intermediate RASH Verified 04/16/22 14:10 ibuprofen [From MOTRIN] Allergy Intermediate RASH Verified 04/16/22 14:10 montelukast [From SINGULAIR] Allergy Intermediate HIVES Verified 04/16/22 14:10 sulfamethoxazole Allergy Intermediate HIVES Verified 04/16/22 14:10 [From BACTRIM] tramadol [TRAMADOL] Allergy Intermediate SWELLING, Verified 04/16/22 14:10 RASH loratadine [From CLARITIN] Allergy Mild HIVES Verified 04/16/22 14:10 ranitidine [From ZANTAC] Allergy Mild HIVES Verified 04/16/22 14:10 Hydrocet Allergy Severe Rash and Uncoded 04/16/22 14:10 Hives Lorazepam Allergy Severe Rash and Uncoded 04/16/22 14:10 Hives Active Medications: Current Medications Albuterol/Ipratropium (Albuterol/Iprat 2.5/0.5mg 3 Ml Ampul.Neb) 3 ml INHALE R Q4H WHILE AWAKE SAL Albuterol/Ipratropium (Albuterol/Iprat 2.5/0.5mg 3 Ml Ampul.Neb) 3 ml INHALE RQ4H PRN PRN Reason: Shortness of Breath/Wheezing Doxycycline Hyclate (Doxycycline Hyclate 100 Mg Tablet) 100 mg PO Q12H SAL Enoxaparin Sodium (Enoxaparin Sodium 40 Mg/0.4 Ml Syringe) 40 mg SUBCUT Q24H [facility] Ceftriaxone Sodium 1 gm/ (Sodium Chloride) 100 mls @ 200 mls/hr IV Q24H [facility] Melatonin (Melatonin 3 Mg Tablet) 6 mg PO BEDTIME PRN PRN Reason: Insomnia Methylprednisolone Sodium Succinate (Methylprednisolone Sod Succ 40 Mg/Ml Vial) 40 mg IVPUSH Q6H [facility] Pharmacy Consult (Consult Rx Perform Med Rec) 1 each MISCELLANE ONCE PRN PRN Reason: Consult order Senna (Sennosides 8.6 Mg Tablet) 17.2 mg PO BEDTIME PRN PRN Reason: Constipation Sodium Chloride (0.9 % Sodium Chloride Flush 3 Ml Syringe) 3 ml IVFLUSH QSHIFT [facility] Home Medications Medication Instructions Recorded Confirmed Last Taken Type albuterol sulfate 90 mcg/actuation 2 puff inhalation Q4H PRN wheezing 11/19/20 04/16/22 Unknown History aerosol inhaler atorvastatin 40 mg tablet 40 mg PO DAILY 11/19/20 04/16/22 04/16/22 History hydrochlorothiazide 25 mg tablet 25 mg PO DAILY 11/19/20 04/16/22 04/16/22 History levothyroxine 50 mcg tablet 50 mcg PO DAILY 11/19/20 04/16/22 04/16/22 History omeprazole 20 mg capsule,delayed 20 mg PO DAILY 11/19/20 04/16/22 04/16/22 History release verapamil 100 mg capsule 24hr 100 mg PO BEDTIME 11/19/20 04/16/22 04/15/[address],ext.release duloxetine 30 mg capsule,delayed 30 mg PO DAILY 04/30/21 04/16/22 04/16/22 History release azithromycin 250 mg tablet 250 mg PO DAILY 04/16/22 04/16/22 04/16/22 History loratadine 10 mg tablet 1 tab PO DAILY 04/16/22 04/16/22 04/16/22 History Physical Exam Vital Signs and Narrative: Vital Signs: Last Vital Signs Temp 99.1 F 04/16/22 20:47 Pulse 82 04/16/22 22:31 Resp 18 04/16/22 20:47 BP 155/68 H 04/16/22 20:47 Pulse Ox 96 04/16/22 22:31 O2 Del Method 06/10/22 22:31 BMI result Body Mass Index 35.5 Gen: Appears be in no acute distress; breathing comfortably on room air. Speaks in full sentences. HEENT: NCAT, Moist mucosa. Pulmonary: Coarse breath sounds with bilateral wheezing noted. CVS: Normal S1-S2 Abdomen: BS+, Soft, Nontender Extremities: Warm well perfused Neuro: Alert and awake. Results Labs CBC and Chem 7: 04/16/22 19:27 04/16/22 19:27 Labs: Laboratory Results - last 24 hr 04/16/22 04/16/22 04/16/22 19:27 19:27 19:27 MCV 89.9 MCH 30.0 MCHC 33.3 RDW 13.6 Plt Count 475 H D MPV 9.5 Immature Gran % (Auto) 0.6 H Neut % (Auto) 71.1 Lymph % (Auto) 24.7 [place] % (Auto) 3.5 Eos % (Auto) 0.0 Baso % (Auto) 0.1 Lymph # (Auto) 3.2 [place] # (Auto) 0.5 Eos # (Auto) 0.0 Baso # (Auto) 0.0 Abs Immat Gran (auto) 0.08 H Absolute Neuts (auto) 9.1 H Absolute Nucleated RBC 0.000 Nucleated RBC % (auto) 0.0 Anion Gap 16 Estim Creat Clear Calc 74.0 Estimated GFR > 60 Random Glucose 150 H Lactic Acid Calcium 10.6 H D Total Bilirubin 0.5 Direct Bilirubin 0.2 AST 48 H ALT 82 H Alkaline Phosphatase 108 Total Protein 7.9 Albumin 4.5 Lipase 20 COVID-19 (HONEY) Negative COVID-19 Clin Com See Note 04/16/22 19:27 MCV MCH MCHC RDW Plt Count MPV Immature Gran % (Auto) Neut % (Auto) Lymph % (Auto) [place] % (Auto) Eos % (Auto) Baso % (Auto) Lymph # (Auto) [place] # (Auto) Eos # (Auto) Baso # (Auto) Abs Immat Gran (auto) Absolute Neuts (auto) Absolute Nucleated RBC Nucleated RBC % (auto) Anion Gap Estim Creat Clear Calc Estimated GFR Random Glucose Lactic Acid 2.1 H* Calcium Total Bilirubin Direct Bilirubin AST ALT Alkaline Phosphatase Total Protein Albumin Lipase COVID-19 (HONEY) COVID-19 Clin Com Imaging Radiologist's Impressions: Impressions Chest X-Ray 04/16/22 14:22 IMPRESSION: Mild left upper lung lateral opacity may represent a small area of atelectasis or infiltrate. Follow-up films are recommended after treatment to assess for resolution and establish this patient's baseline. 4-6 weeks film. Assessment and Plan (1) Asthma with acute exacerbation: Qualifiers: Asthma persistence: persistent Asthma severity: moderate Qualified Code(s): J45.41 - Moderate persistent asthma with (acute) exacerbation Status: Acute (2) Pneumonia: Qualifiers: Laterality: left Lung location: upper lobe of lung Pneumonia type: due to unspecified organism Qualified Code(s): J18.9 - Pneumonia, unspecified organism Status: Acute Plan 61-year-old female with a past medical history hypertension, hyperlipidemia, gout, KEVIN on CPAP, asthma/COPD-not on home oxygen, GERD, hypothyroidism; presented to the hospital with a chief complaint of cough and shortness of breath. Noted to be in acute asthma exacerbation/pneumonia. Patient failed outpatient therapy. Admitted for further management. Acute asthma exacerbation: Will give the patient on Solu-Medrol IV q.i.d. DuoNeb standing and p.r.n. Continue home inhalers Supplemental oxygen p.r.n. Will consult patient's primary machined parts metal sprayer. Pneumonia: Patient was on Z-Vijay as outpatient. With no significant improvement. Chest x-ray showed left upper lobe pneumonia. Will give the patient on IV ceftriaxone and doxycycline. History of hypertension/hyperlipidemia: Hold home hydrochlorothiazide for now. Continue home statin. History of hypothyroidism: Continue home levothyroxine History of KEVIN: Continue home CPAP DVT prophylaxis: Lovenox Code status: Full code Quality Stroke Does the patient have a stroke diagnosis?: No VTE Prior VTE?: No VTE Risk Level:: Medical - moderate - high VTE Device Contraindication: Treatment Not Indicated VTE Drug Contraindication: N/A - Med Ordered
[2022-04-16] MEDS: Doxycycline Hyclate 100 MG in 0.9 % Sodium Chloride 250 ML 166.67 MG IV (23:30)
[2022-04-16 23:41] LABS: ~Lactic Acid-LAB USE ONLY 3.4 mmol/L (0.5-2.0)
[2022-04-17] VITALS (11 sets, daily range): BP systolic 124–156; BP diastolic 58–81; PULSE 75–107; RESP 16–20; TEMP 36.1–37.1; O2SAT 95–99
[2022-04-17] MEDS: Enoxaparin Sodium 40 MG/0.4 ML SYRINGE SUBCUT ×2 (00:37→20:17)
--- NOTE | 2022-04-17 00:45 | PC.NURSE ---
This RN did not administer Doxycycline to this Pt at 23:30 on 04/16. This med was administered by the RN who had this Pt prior to this RN Janey Le
[2022-04-17 01:24] LABS: Reflex Lactate? 2 Y
[2022-04-17 02:06] LABS: ~Lactic Acid-LAB USE ONLY 3.6 mmol/L (0.5-2.0)
[2022-04-17] MEDS: 0.9 % Sodium Chloride 1,000 ML 50 ML IVCONT ×2 (02:31→20:15)
[2022-04-17] MEDS: Levothyroxine Sodium 50 MCG TABLET PO (05:36)
[2022-04-17] MEDS: methylPREDNISolone Sod Succ 40 MG/ML VIAL IVPUSH ×3 (05:36→18:03)
[2022-04-17 06:22] LABS: MANUAL DIFF FLAG NO
[2022-04-17 06:36] LABS: Basophils Percent Auto 0.1 % (0-2); Hematocrit 39.6 % (37.0-47.0); Hemoglobin 13.2 g/dl (12.0-16.0); Imm Gran Abs Auto 0.15 X10*3/uL (0.00-0.03); Lymphocytes Absolute Auto 3.7 X10*3/uL (1.2-4.9); Lymphocytes Percent Auto 25.5 % (20-40); Mean Corpuscular HGB Conc 33.3 g/dl (31.0-35.0); Mean Corpuscular Hemoglobin 30.3 pg (27.0-33.0); Mean Corpuscular Volume 90.8 fL (80.0-98.0); Mean Platelet Volume 9.7 fL (9.4-12.3); Monocytes Absolute Auto 0.4 X10*3/uL (0.1-1.2); Monocytes Percent Auto 2.7 % (2-11); Neutrophils Absolute Auto 10.3 x10*3/uL (2.0-8.3); Neutrophils Percent Auto 70.7 % (45-73); Platelet Count 487 X10*3/uL (160-400); Red Blood Count 4.36 X10*6/uL (4.20-5.50); Red Cell Distribution Width 13.7 % (11.0-16.0); White Blood Count 14.6 X10*3/uL (4.8-10.8)
[2022-04-17 06:58] LABS: Anion Gap 12 (12-20); Blood Urea Nitrogen 17 mg/dL (9-16); Calcium 9.9 mg/dL (8.4-10.2); Carbon Dioxide 24 mmol/L (22-29); Chloride 108 mmol/L (96-108); Creatinine Clr Calc Pharmacy 76.1; Estimated Glomerular Filt Rate > 60; Glucose Random 147 mg/dL (60-115); Potassium 4.3 mmol/L (3.3-5.1); Sodium 140 mmol/L (135-145)
[2022-04-17] MEDS: Albuterol/Iprat 2.5/0.5MG 3 ML AMPUL.NEB INHALE ×4 (08:40→19:50)
[2022-04-17] MEDS: Omeprazole 20 MG CAPSULE.DR PO (09:09)
[2022-04-17] MEDS: modafiniL 100 MG TABLET 200 MG PO (09:09)
[2022-04-17] MEDS: hydroCHLOROthiazide 25 MG TABLET PO (09:09)
[2022-04-17] MEDS: Atorvastatin Calcium 40 MG TABLET PO (09:09)
[2022-04-17] MEDS: DULoxetine HCl 30 MG CAPSULE.DR PO (09:09)
[2022-04-17] MEDS: allopurinoL 100 MG TABLET PO (09:09)
--- NOTE | 2022-04-17 10:33 | HO.PM.IMPN ---
Subjective Subjective Date of Service: 04/17/22 Review of Systems Follow up asthma exacerbation Still feeling some shortness of breath with wheezing and dry cough Out of bed to the bathroom Physical Exam Vital Signs: Vital Signs: Last Vital Signs Temp 97.7 F 04/17/22 07:57 Pulse 76 04/17/22 08:42 Resp 18 04/17/22 08:42 BP 140/81 H 04/17/22 07:57 Pulse Ox 95 04/17/22 07:57 O2 Del Method 04/17/22 07:57 BMI result Body Mass Index 35.5 Appearing in no acute distress lung sounds expiratory wheezing heart regular rate rhythm, clear S1, S2 positive bowel sounds, abdomen is soft, nontender neuro patient is alert x3, no focal deficits Objective Data Active Medications Albuterol Sulfate (Albuterol Sulfate 90 Mcg 8 Gm Inhaler) 2 puff INHALE Q4H PRN PRN Reason: wheezing Albuterol/Ipratropium (Albuterol/Iprat 2.5/0.5mg 3 Ml Ampul.Neb) 3 ml INHALE RQ4H WHILE AWAKE [facility] Last Admin: 04/17/22 08:40 Dose: 3 ml Documented By: STEPHANIE Albuterol/Ipratropium (Albuterol/Iprat 2.5/0.5mg 3 Ml Ampul.Neb) 3 ml INHALE RQ4H PRN PRN Reason: Shortness of Breath/Wheezing Allopurinol (Allopurinol 100 Mg Tablet) 100 mg PO DAILY [facility] Last Admin: 04/17/22 09:09 Dose: 100 mg Documented By: SHELDON Atorvastatin Calcium (Atorvastatin Calcium 40 Mg Tablet) 40 mg PO DAILY [facility] Last Admin: 04/17/22 09:09 Dose: 40 mg Documented By: SHELDON Benzonatate (Benzonatate 100 Mg Capsule) 200 mg PO BID PRN PRN Reason: cough Doxycycline Hyclate (Doxycycline Hyclate 100 Mg Tablet) 100 mg PO Q12H [facility] Last Admin: 04/17/22 09:09 Dose: 100 mg Documented By: SHELDON Duloxetine HCl (Duloxetine Hcl 30 Mg Capsule.) 30 mg PO DAILY [facility] Last Admin: 04/17/22 09:09 Dose: 30 mg Documented By: SHELDON Enoxaparin Sodium (Enoxaparin Sodium 40 Mg/0.4 Ml Syringe) 40 mg SUBCUT BEDTIME [facility] Last Admin: 04/17/22 00:37 Dose: 40 mg Documented By: BRADEN Fluticasone/Vilanterol (Fluticasone/Vilanterol 200/25 Blst.W.Dev) 1 puff INHALE DAILY [facility] Last Admin: 04/17/22 08:40 Dose: Not Given Documented By: STEPHANIE Non-Admin Reason: Med Not Available Hydrochlorothiazide (Hydrochlorothiazide 25 Mg Tablet) 25 mg PO DAILY [facility]; Protocol Last Admin: 04/17/22 09:09 Dose: 25 mg Documented By: SHELDON Ceftriaxone Sodium 1 gm/ (Sodium Chloride) 100 mls @ 200 mls/hr IV Q24H [facility] Sodium Chloride (Ns) 1,000 mls @ 50 mls/hr IVCONT .Q20H [facility] Last Admin: 04/17/22 02:31 Dose: 50 mls/hr Documented By: SARAH Levothyroxine Sodium (Levothyroxine Sodium 50 Mcg Tablet) 50 mcg PO DAILY@0630 [facility] Last Admin: 04/17/22 05:36 Dose: 50 mcg Documented By: SARAH Melatonin (Melatonin 3 Mg Tablet) 6 mg PO BEDTIME PRN PRN Reason: Insomnia Methylprednisolone Sodium Succinate (Methylprednisolone Sod Succ 40 Mg/Ml Vial) 40 mg IVPUSH Q6H [facility] Last Admin: 04/17/22 05:36 Dose: 40 mg Documented By: SARAH Modafinil (Modafinil 100 Mg Tablet) 200 mg PO DAILY [facility] Last Admin: 04/17/22 09:09 Dose: 200 mg Documented By: SHELDON Non-Formulary Medication (Roflumilast [Daliresp]) 500 mcg PO DAILY [facility] Omeprazole (Omeprazole 20 Mg Capsule.Dr) 20 mg PO DAILY [facility] Last Admin: 04/17/22 09:09 Dose: 20 mg Documented By: SHELDON Pharmacy Consult (Consult Rx Perform Med Rec) 1 each MISCELLANE ONCE PRN PRN Reason: Consult order Senna (Sennosides 8.6 Mg Tablet) 17.2 mg PO BEDTIME PRN PRN Reason: Constipation Sodium Chloride (0.9 % Sodium Chloride Flush 3 Ml Syringe) 3 ml IVFLUSH QSHIFT [facility] Last Admin: 04/17/22 09:09 Dose: Not Given Documented By: SHELDON Non-Admin Reason: IV Running Verapamil HCl (Verapamil Hcl Sr 100 Mg Cap24h.Pct) 100 mg PO BEDTIME [facility]; Protocol Labs CBC & Chem 7: 04/17/22 05:52 04/17/22 05:52 Labs: Laboratory Results - last 24 hr 04/16/22 04/16/22 04/16/22 19:27 19:27 19:27 MCV 89.9 MCH 30.0 MCHC 33.3 RDW 13.6 Plt Count 475 H D MPV 9.5 Immature Gran % (Auto) 0.6 H Neut % (Auto) 71.1 Lymph % (Auto) 24.7 Lea % (Auto) 3.5 Eos % (Auto) 0.0 Baso % (Auto) 0.1 Lymph # (Auto) 3.2 Lea # (Auto) 0.5 Eos # (Auto) 0.0 Baso # (Auto) 0.0 Abs Immat Gran (auto) 0.08 H Absolute Neuts (auto) 9.1 H Absolute Nucleated RBC 0.000 Nucleated RBC % (auto) 0.0 Anion Gap 16 Estim Creat Clear Calc 74.0 Estimated GFR > 60 Random Glucose 150 H Lactic Acid Lactic Acid F/U @ 2Hr Lactic Acid F/U @ 4Hr Calcium 10.6 H D Total Bilirubin 0.5 Direct Bilirubin 0.2 AST 48 H ALT 82 H Alkaline Phosphatase 108 Total Protein 7.9 Albumin 4.5 Lipase 20 COVID-19 ([facility]) Negative COVID-19 Clin Com See Note 04/16/22 04/16/22 04/17/22 19:27 23:18 01:37 MCV MCH MCHC RDW Plt Count MPV Immature Gran % (Auto) Neut % (Auto) Lymph % (Auto) Lea % (Auto) Eos % (Auto) Baso % (Auto) Lymph # (Auto) Lea # (Auto) Eos # (Auto) Baso # (Auto) Abs Immat Gran (auto) Absolute Neuts (auto) Absolute Nucleated RBC Nucleated RBC % (auto) Anion Gap Estim Creat Clear Calc Estimated GFR Random Glucose Lactic Acid 2.1 H* Lactic Acid F/U @ 2Hr 3.4 H* Lactic Acid F/U @ 4Hr 3.6 H* Calcium Total Bilirubin Direct Bilirubin AST ALT Alkaline Phosphatase Total Protein Albumin Lipase COVID-19 ([facility]) COVID-19 [employer] 04/17/22 04/17/22 05:52 05:52 MCV 90.8 MCH 30.3 MCHC 33.3 RDW 13.7 Plt Count 487 H MPV 9.7 Immature Gran % (Auto) 1.0 H Neut % (Auto) 70.7 Lymph % (Auto) 25.5 Lea % (Auto) 2.7 Eos % (Auto) 0.0 Baso % (Auto) 0.1 Lymph # (Auto) 3.7 Lea # (Auto) 0.4 Eos # (Auto) 0.0 Baso # (Auto) 0.0 Abs Immat Gran (auto) 0.15 H Absolute Neuts (auto) 10.3 H Absolute Nucleated RBC 0.000 Nucleated RBC % (auto) 0.0 Anion Gap 12 Estim Creat Clear Calc 76.1 Estimated GFR > 60 Random Glucose 147 H Lactic Acid Lactic Acid F/U @ 2Hr Lactic Acid F/U @ 4Hr Calcium 9.9 D Total Bilirubin Direct Bilirubin AST ALT Alkaline Phosphatase Total Protein Albumin Lipase COVID-19 ([facility]) COVID-19 Clin Com Assessment and Plan (1) Right ureteral stone: Status: Resolved (2) KEVIN on CPAP: Status: Acute (3) Asthma: Status: Inactive Plan 61-year-old female with a past medical history hypertension, hyperlipidemia, gout, KEVIN on CPAP, asthma/COPD-not on home oxygen, GERD, hypothyroidism; presented to the hospital with a chief complaint of cough and shortness of breath.? Noted to be in acute asthma exacerbation/pneumonia.? Patient failed outpatient therapy.? Admitted for further management.? Acute asthma exacerbation Solu-Medrol IV q.i.d. DuoNeb standing and p.r.n. Continue home inhalers Supplemental oxygen p.r.n. Mucinex for dry cough Pneumonia Patient was on Z-Vijay as outpatient.? With no significant improvement.? Chest x-ray showed left upper lobe pneumonia.? IV ceftriaxone and doxycycline.? History of hypertension/hyperlipidemia Hold home hydrochlorothiazide for now.? Continue home statin. History of hypothyroidism Continue home levothyroxine History of KEVIN Continue home CPAP Obesity. BMI 35.5 Discussed importance of weight management as this may be contributing to worsening of other comorbidities DVT prophylaxis:? Lovenox Attending Dr. Roche Code status: Full code Continue hospitalization for treatment of acute asthma exacerbation necessitating IV steroids and scheduled updraft treatments Quality Stroke Does the patient have a stroke diagnosis?: No VTE Prior VTE?: No VTE Risk Level:: Medical - moderate - high VTE Device Contraindication: Treatment Not Indicated VTE Drug Contraindication: N/A - Med Ordered
--- NOTE | 2022-04-17 14:07 | MHC.CM.PN ---
Addendum entered by Sumi Gonsales 04/17/22 14:14: COPY OF HCP REQUESTED FOR MEDICAL RECORD Original Note: PATIENT LIVES WITH FAMILY. 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 SHE DOES HAVE INHALERS AND A CPAP SHE WAS HOPING TO DC TODAY BUT IS AWARE OF RECOMMENDATIONS TO STAY. PATIENT IS ASKING FOR A RETURN TO WORK NOTE AT DISCHARGE. CASE MANAGEMENT FOLLOWING
[2022-04-17] MEDS: guaiFENesin LA 600 MG TAB.ER.12H PO (16:13)
[2022-04-17] MEDS: cefTRIAXone sodium 1 GM in 0.9 % Sodium Chloride 100 ML IV (20:15)
[2022-04-18] VITALS (10 sets, daily range): BP systolic 128–144; BP diastolic 62–70; PULSE 68–100; RESP 15–20; TEMP 36.2–37; O2SAT 93–98
[2022-04-18] MEDS: methylPREDNISolone Sod Succ 40 MG/ML VIAL IVPUSH ×5 (00:37→23:58)
[2022-04-18] MEDS: Levothyroxine Sodium 50 MCG TABLET PO (05:37)
[2022-04-18] MEDS: Albuterol/Iprat 2.5/0.5MG 3 ML AMPUL.NEB INHALE ×4 (08:11→19:40)
[2022-04-18] MEDS: Fluticasone/Vilanterol 200/25 BLST.W.DEV 1 PUFF INHALE (08:11)
[2022-04-18] MEDS: DULoxetine HCl 30 MG CAPSULE.DR PO (08:59)
[2022-04-18] MEDS: modafiniL 100 MG TABLET 200 MG PO (08:59)
[2022-04-18] MEDS: hydroCHLOROthiazide 25 MG TABLET PO (08:59)
[2022-04-18] MEDS: guaiFENesin LA 600 MG TAB.ER.12H PO (08:59)
[2022-04-18] MEDS: Omeprazole 20 MG CAPSULE.DR PO (08:59)
[2022-04-18] MEDS: allopurinoL 100 MG TABLET PO (08:59)
[2022-04-18] MEDS: Atorvastatin Calcium 40 MG TABLET PO (08:59)
--- NOTE | 2022-04-18 09:14 | P.PNIM_ITS ---
Subjective Subjective Date of Service: 04/18/22 Review of Systems Follow up asthma exacerbation Still feeling some shortness of breath with wheezing and dry cough Now with nasal congestion and watery eyes Out of bed to the bathroom Physical Exam Vital Signs: Vital Signs: Last Vital Signs Temp 98.2 F 04/18/22 07:35 Pulse 94 04/18/22 08:13 Resp 20 04/18/22 08:13 BP 139/70 04/18/22 07:35 Pulse Ox 97 04/18/22 07:35 O2 Del Method 04/18/22 07:35 BMI result Body Mass Index 35.5 Appearing in no acute distress lung sounds are clear to auscultation heart regular rate rhythm, clear S1, S2 positive bowel sounds, abdomen is soft, nontender neuro patient is alert x3, no focal deficits Objective Data Active Medications Acetaminophen (Acetaminophen 325 Mg Tablet) 650 mg PO Q6H PRN PRN Reason: headache Albuterol Sulfate (Albuterol Sulfate 90 Mcg 8 Gm Inhaler) 2 puff INHALE Q4H PRN PRN Reason: wheezing Albuterol/Ipratropium (Albuterol/Iprat 2.5/0.5mg 3 Ml Ampul.Neb) 3 ml INHALE RQ4H WHILE AWAKE [facility] Last Admin: 04/18/22 08:11 Dose: 3 ml Documented By: LUCIA Albuterol/Ipratropium (Albuterol/Iprat 2.5/0.5mg 3 Ml Ampul.Neb) 3 ml INHALE RQ4H PRN PRN Reason: Shortness of Breath/Wheezing Allopurinol (Allopurinol 100 Mg Tablet) 100 mg PO DAILY [facility] Last Admin: 04/18/22 08:59 Dose: 100 mg Documented By: SHELDON Atorvastatin Calcium (Atorvastatin Calcium 40 Mg Tablet) 40 mg PO DAILY [facility] Last Admin: 04/18/22 08:59 Dose: 40 mg Documented By: SHELDON Benzonatate (Benzonatate 100 Mg Capsule) 200 mg PO BID PRN PRN Reason: cough Doxycycline Hyclate (Doxycycline Hyclate 100 Mg Tablet) 100 mg PO Q12H [facility] Last Admin: 04/18/22 08:59 Dose: 100 mg Documented By: SHELDON Duloxetine HCl (Duloxetine Hcl 30 Mg Capsule.) 30 mg PO DAILY [facility] Last Admin: 04/18/22 08:59 Dose: 30 mg Documented By: SHELDON Enoxaparin Sodium (Enoxaparin Sodium 40 Mg/0.4 Ml Syringe) 40 mg SUBCUT BEDTIME [facility] Last Admin: 04/17/22 20:17 Dose: 40 mg Documented By: SARAH Fluticasone/Vilanterol (Fluticasone/Vilanterol 200/25 Blst.W.Dev) 1 puff INHALE DAILY [facility] Last Admin: 04/18/22 08:11 Dose: 1 puff Documented By: LUCIA Guaifenesin (Guaifenesin La 600 Mg Tab.Er.12h) 600 mg PO BID [facility] Last Admin: 04/18/22 08:59 Dose: 600 mg Documented By: SHELDON Hydrochlorothiazide (Hydrochlorothiazide 25 Mg Tablet) 25 mg PO DAILY [facility]; Protocol Last Admin: 04/18/22 08:59 Dose: 25 mg Documented By: SHELDON Ceftriaxone Sodium 1 gm/ (Sodium Chloride) 100 mls @ 200 mls/hr IV Q24H [facility] Last Infusion: 04/17/22 20:47 Dose: 0 mls/hr Documented By: SARAH Sodium Chloride (Ns) 1,000 mls @ 50 mls/hr IVCONT .Q20H [facility] Last Admin: 04/17/22 20:15 Dose: 50 mls/hr Documented By: SARAH Levothyroxine Sodium (Levothyroxine Sodium 50 Mcg Tablet) 50 mcg PO DAILY@0630 [facility] Last Admin: 04/18/22 05:37 Dose: 50 mcg Documented By: SARAH Melatonin (Melatonin 3 Mg Tablet) 6 mg PO BEDTIME PRN PRN Reason: Insomnia Methylprednisolone Sodium Succinate (Methylprednisolone Sod Succ 40 Mg/Ml Vial) 40 mg IVPUSH Q6H [facility] Last Admin: 04/18/22 05:37 Dose: 40 mg Documented By: SARAH Modafinil (Modafinil 100 Mg Tablet) 200 mg PO DAILY [facility] Last Admin: 04/18/22 08:59 Dose: 200 mg Documented By: SHELDON Non-Formulary Medication (Roflumilast [Daliresp]) 500 mcg PO DAILY [facility] Omeprazole (Omeprazole 20 Mg Capsule.) 20 mg PO DAILY [facility] Last Admin: 04/18/22 08:59 Dose: 20 mg Documented By: SHELDON Pharmacy Consult (Consult Rx Perform Med Rec) 1 each MISCELLANE ONCE PRN PRN Reason: Consult order Senna (Sennosides 8.6 Mg Tablet) 17.2 mg PO BEDTIME PRN PRN Reason: Constipation Sodium Chloride (0.9 % Sodium Chloride Flush 3 Ml Syringe) 3 ml IVFLUSH QSHIFT [facility] Last Admin: 04/18/22 08:55 Dose: Not Given Documented By: SHELDON Non-Admin Reason: IV Running Verapamil HCl (Verapamil Hcl Sr 100 Mg Cap24h.Pct) 100 mg PO BEDTIME [facility]; Protocol Last Admin: 04/17/22 20:17 Dose: 100 mg Documented By: SARAH Labs CBC & Chem 7: 04/17/22 05:52 04/17/22 05:52 Microbiology Microbiology Results: Microbiology 04/16/22 20:03 Blood Culture - Preliminary Blood - Venous No growth after 24 hours. 04/16/22 19:27 Blood Culture - Preliminary Blood - Venous No growth after 24 hours. Assessment and Plan (1) Right ureteral stone: Status: Resolved (2) KEVIN on CPAP: Status: Acute (3) Asthma: Status: Inactive Plan 61-year-old female with a past medical history hypertension, hyperlipidemia, gout, KEVIN on CPAP, asthma/COPD-not on home oxygen, GERD, hypothyroidism; pres ented to the hospital with a chief complaint of cough and shortness of breath.? Noted to be in acute asthma exacerbation/pneumonia.? Patient failed outpatient therapy.? Admitted for further management.? Acute asthma exacerbation slowly improving Solu-Medrol IV q.i.d. DuoNeb standing and p.r.n. Continue home inhalers Supplemental oxygen p.r.n. Mucinex for dry cough more congestion today, check RPP CAP Chest x-ray showed left upper lobe pneumonia.? IV ceftriaxone and doxycycline.? History of hypertension/hyperlipidemia Hold home hydrochlorothiazide for now due to soft BP Continue home statin. History of hypothyroidism Continue home levothyroxine History of KEVIN Continue home CPAP Obesity. BMI 35.5 Discussed importance of weight management as this may be contributing to worsening of other comorbidities DVT prophylaxis:? Lovenox Attending Dr. Mlapah Code status: Full code Continue hospitalization for treatment of acute asthma exacerbation necessitating IV steroids and scheduled updraft treatments Quality Stroke Does the patient have a stroke diagnosis?: No VTE Prior VTE?: No VTE Risk Level:: Medical - moderate - high VTE Device Contraindication: Treatment Not Indicated VTE Drug Contraindication: N/A - Med Ordered
[2022-04-18] MEDS: Acetaminophen 325 MG TABLET 650 MG PO (13:00)
[2022-04-18] MEDS: diphenhydrAMINE HCL 25 MG TABLET PO (13:00)
[2022-04-18 14:30] LABS: Adenovirus PCR Not Detected (Not Detect.); Bordetella parapertussis PCR Not Detected (Not Detect.); Bordetella pertussis PCR Not Detected (Not Detect.); Chlamydia pneumoniae PCR Not Detected (Not Detect.); Coronavirus 229E PCR Not Detected (Not Detect.); Coronavirus HKU1 PCR Not Detected (Not Detect.); Human metapneumovirus PCR Detected (Not Detect.)
[2022-04-18 14:31] LABS: Coronavirus NL63 PCR Not Detected (Not Detect.); Coronavirus OC43 PCR Not Detected (Not Detect.); Influenza A PCR Not Detected (Not Detect.); Influenza B PCR Not Detected (Not Detect.); Mycoplasma pneumoniae PCR Not Detected (Not Detect.); Parainfluenza 1 PCR Not Detected (Not Detect.); Parainfluenza 2 PCR Not Detected (Not Detect.); Parainfluenza 3 PCR Not Detected (Not Detect.); Parainfluenza 4 PCR Not Detected (Not Detect.); RSV PCR Not Detected (Not Detect.); Rhino/Enterovirus PCR Not Detected (Not Detect.); SARS-CoV-2 PCR Not Detected (Not Detect.)
[2022-04-18] MEDS: 0.9 % Sodium Chloride 1,000 ML 50 ML IVCONT (19:03)
[2022-04-18] MEDS: Enoxaparin Sodium 40 MG/0.4 ML SYRINGE SUBCUT (21:48)
[2022-04-18] MEDS: guaiFENesin LA 600 MG TAB.ER.12H 1200 MG PO (21:49)
[2022-04-18] MEDS: cefTRIAXone sodium 1 GM in 0.9 % Sodium Chloride 100 ML IV (21:55)
[2022-04-18] MEDS: 0.9 % Sodium Chloride Flush 3 ML SYRINGE IVFLUSH (23:58)
[2022-04-19] VITALS (10 sets, daily range): BP systolic 131–161; BP diastolic 65–82; PULSE 72–111; RESP 14–20; TEMP 35.9–37.2; O2SAT 95–99
[2022-04-19] MEDS: methylPREDNISolone Sod Succ 40 MG/ML VIAL IVPUSH ×4 (05:48→23:55)
[2022-04-19] MEDS: Levothyroxine Sodium 50 MCG TABLET PO (05:48)
[2022-04-19] MEDS: Fluticasone/Vilanterol 200/25 BLST.W.DEV 1 PUFF INHALE (08:16)
[2022-04-19] MEDS: Albuterol/Iprat 2.5/0.5MG 3 ML AMPUL.NEB INHALE ×4 (08:16→20:06)
[2022-04-19] MEDS: modafiniL 100 MG TABLET 200 MG PO (08:51)
[2022-04-19] MEDS: hydroCHLOROthiazide 25 MG TABLET PO (08:51)
[2022-04-19] MEDS: guaiFENesin LA 600 MG TAB.ER.12H 1200 MG PO ×2 (08:51→20:50)
[2022-04-19] MEDS: Atorvastatin Calcium 40 MG TABLET PO (08:51)
[2022-04-19] MEDS: allopurinoL 100 MG TABLET PO (08:52)
[2022-04-19] MEDS: Omeprazole 20 MG CAPSULE.DR PO (08:52)
[2022-04-19] MEDS: DULoxetine HCl 30 MG CAPSULE.DR PO (08:52)
[2022-04-19] MEDS: 0.9 % Sodium Chloride Flush 3 ML SYRINGE IVFLUSH ×3 (08:55→23:51)
[2022-04-19] MEDS: Benzonatate 100 MG CAPSULE 200 MG PO ×2 (09:11→20:52)
--- NOTE | 2022-04-19 10:03 | P.PNIM_ITS ---
Subjective Subjective Date of Service: 04/19/22 Review of Systems Follow up asthma exacerbation Still feeling some shortness of breath with wheezing and dry cough Now with nasal congestion and watery eyes Out of bed to the bathroom Physical Exam Vital Signs: Vital Signs: Last Vital Signs Temp 97.9 F 04/19/22 08:00 Pulse 77 04/19/22 08:16 Resp 18 04/19/22 08:16 BP 142/77 H 04/19/22 08:00 Pulse Ox 97 04/19/22 08:00 O2 Del Method 04/19/22 08:00 BMI result Body Mass Index 35.5 Appearing in no acute distress lung sounds dim heart regular rate rhythm, clear S1, S2 positive bowel sounds, abdomen is soft, nontender neuro patient is alert x3, no focal deficits Objective Data Active Medications Acetaminophen (Acetaminophen 325 Mg Tablet) 650 mg PO Q6H PRN PRN Reason: headache Last Admin: 04/18/22 13:00 Dose: 650 mg Documented By: SHELDON Albuterol Sulfate (Albuterol Sulfate 90 Mcg 8 Gm Inhaler) 2 puff INHALE Q4H PRN PRN Reason: wheezing Albuterol/Ipratropium (Albuterol/Iprat 2.5/0.5mg 3 Ml Ampul.Neb) 3 ml INHALE RQ4H WHILE AWAKE [facility] Last Admin: 04/19/22 08:16 Dose: 3 ml Documented By: MARILIA Albuterol/Ipratropium (Albuterol/Iprat 2.5/0.5mg 3 Ml Ampul.Neb) 3 ml INHALE RQ4H PRN PRN Reason: Shortness of Breath/Wheezing Allopurinol (Allopurinol 100 Mg Tablet) 100 mg PO DAILY [facility] Last Admin: 04/19/22 08:52 Dose: 100 mg Documented By: JAMES Atorvastatin Calcium (Atorvastatin Calcium 40 Mg Tablet) 40 mg PO DAILY [facility] Last Admin: 04/19/22 08:51 Dose: 40 mg Documented By: JAMES Benzonatate (Benzonatate 100 Mg Capsule) 200 mg PO BID PRN PRN Reason: cough Last Admin: 04/19/22 09:11 Dose: 200 mg Documented By: JAMES Diphenhydramine HCl (Diphenhydramine Hcl 25 Mg Tablet) 25 mg PO Q4H PRN PRN Reason: allergy Last Admin: 04/18/22 13:00 Dose: 25 mg Documented By: SHELDON Doxycycline Hyclate (Doxycycline Hyclate 100 Mg Tablet) 100 mg PO Q12H [facility] Last Admin: 04/19/22 08:52 Dose: 100 mg Documented By: JAMES Duloxetine HCl (Duloxetine Hcl 30 Mg Capsule.Dr) 30 mg PO DAILY [facility] Last Admin: 04/19/22 08:52 Dose: 30 mg Documented By: JAMES Enoxaparin Sodium (Enoxaparin Sodium 40 Mg/0.4 Ml Syringe) 40 mg SUBCUT BEDTIME [facility] Last Admin: 04/18/22 21:48 Dose: 40 mg Documented By: LUX Fluticasone/Vilanterol (Fluticasone/Vilanterol 200/25 Blst.W.Dev) 1 puff INHALE DAILY [facility] Last Admin: 04/19/22 08:16 Dose: 1 puff Documented By: MARILIA Guaifenesin (Guaifenesin La 600 Mg Tab.Er.12h) 1,200 mg PO BID [facility] Last Admin: 04/19/22 08:51 Dose: 1,200 mg Documented By: JAMES Hydrochlorothiazide (Hydrochlorothiazide 25 Mg Tablet) 25 mg PO DAILY [facility]; Protocol Last Admin: 04/19/22 08:51 Dose: 25 mg Documented By: JAMES Ceftriaxone Sodium 1 gm/ (Sodium Chloride) 100 mls @ 200 mls/hr IV Q24H [facility] Last Infusion: 04/18/22 22:58 Dose: 0 mls/hr Documented By: LUX Levothyroxine Sodium (Levothyroxine Sodium 50 Mcg Tablet) 50 mcg PO DAILY@0630 [facility] Last Admin: 04/19/22 05:48 Dose: 50 mcg Documented By: REGINA Melatonin (Melatonin 3 Mg Tablet) 6 mg PO BEDTIME PRN PRN Reason: Insomnia Methylprednisolone Sodium Succinate (Methylprednisolone Sod Succ 40 Mg/Ml Vial) 40 mg IVPUSH Q6H [facility] Last Admin: 04/19/22 05:48 Dose: 40 mg Documented By: REGINA Modafinil (Modafinil 100 Mg Tablet) 200 mg PO DAILY [facility] Last Admin: 04/19/22 08:51 Dose: 200 mg Documented By: JAMES Non-Formulary Medication (Roflumilast [Daliresp]) 500 mcg PO DAILY [facility] Omeprazole (Omeprazole 20 Mg Capsule.Dr) 20 mg PO DAILY [facility] Last Admin: 04/19/22 08:52 Dose: 20 mg Documented By: JAMES Pharmacy Consult (Consult Rx Perform Med Rec) 1 each MISCELLANE ONCE PRN PRN Reason: Consult order Senna (Sennosides 8.6 Mg Tablet) 17.2 mg PO BEDTIME PRN PRN Reason: Constipation Sodium Chloride (0.9 % Sodium Chloride Flush 3 Ml Syringe) 3 ml IVFLUSH QSHIFT [facility] Last Admin: 04/19/22 08:55 Dose: 3 ml Documented By: JAMES Verapamil HCl (Verapamil Hcl Sr 100 Mg Cap24h.Pct) 100 mg PO BEDTIME [facility]; Protocol Last Admin: 04/18/22 21:49 Dose: 100 mg Documented By: LUX Labs CBC & Chem 7: 04/17/22 05:52 04/17/22 05:52 Labs: Laboratory Results - last 24 hr 04/18/22 13:00 Respiratory Panel [facility] See Note Adenovirus (Rapid PCR) Not Detected B.pert (TEM-PCR) Not Detected B.parapertussis DNA PCR Not Detected C. pneumoniae DNA (PCR) Not Detected Coronavirus OC43 (PCR) Not Detected Coronavirus HKU1 (PCR) Not Detected Coronavirus 229E (PCR) Not Detected Coronavirus NL63 (PCR) Not Detected Human Metapneumovir PCR Detected A Influenza A (RT-PCR) Not Detected Influenza B (RT-PCR) Not Detected M. pneumoniae (PCR) Not Detected Parainfluenza 1 (PCR) Not Detected Parainfluenza 2 (PCR) Not Detected Parainfluenza 3 (PCR) Not Detected Parainfluenza 4 (PCR) Not Detected RSV (PCR) Not Detected Entero/Rhino (PCR) Not Detected SARS-CoV-2 RNA (RT-PCR) Not Detected Microbiology Microbiology Results: Microbiology 04/16/22 20:03 Blood Culture - Preliminary Blood - Venous No growth after 48 hours. 04/16/22 19:27 Blood Culture - Preliminary Blood - Venous No growth after 48 hours. Assessment and Plan (1) Right ureteral stone: Status: Resolved (2) KEVIN on CPAP: Status: Acute (3) Asthma: Status: Inactive Plan 61-year-old female with a past medical history hypertension, hyperlipidemia, gout, KEVIN on CPAP, asthma/COPD-not on home oxygen, GERD, hypothyroidism; presented to the hospital with a chief complaint of cough and shortness of breath.? Noted to be in acute asthma exacerbation/pneumonia.? Patient failed o utpatient therapy.? Admitted for further management.? Acute asthma exacerbation slowly improving Solu-Medrol IV q.i.d., change to prednisone tomorrow DuoNeb standing and p.r.n. Continue home inhalers Supplemental oxygen p.r.n. Mucinex for dry cough RPP showed human metapneumovirus CAP Chest x-ray showed left upper lobe pneumonia.? IV ceftriaxone and doxycycline.? neg blood cx after 48hrs History of hypertension/hyperlipidemia Hold home hydrochlorothiazide for now due to soft BP Continue home statin. History of hypothyroidism Continue home levothyroxine History of KEVIN Continue home CPAP Obesity. BMI 35.5 Discussed importance of weight management as this may be contributing to wors ening of other comorbidities DVT prophylaxis:? Lovenox Attending Dr. Lakhani Code status: Full code Continue hospitalization for treatment of acute asthma exacerbation necessitating IV steroids and scheduled updraft treatments Quality Stroke Does the patient have a stroke diagnosis?: No VTE Prior VTE?: No VTE Risk Level:: Medical - moderate - high VTE Device Contraindication: Treatment Not Indicated VTE Drug Contraindication: N/A - Med Ordered
--- NOTE | 2022-04-19 13:27 | P.CDIC_ITS ---
CDI Concurrent Query Documentation Clarification: PHYSICIAN'S DOCUMENTATION REQUEST Date of Query: 04/19/22 1328 Patient Name: Allyson Salamanca Admit Date: 04/16/22 Dear Doctor, Please review the following and provide your response in the progress notes. Clinical Indicators: The diagnosis of asthma was documented in the record on 04/16/22. Additional clinical indicators from the record include: Risk Factors/Clinical Indicators/Treatments Childhood onset Asthma, chest congestion Asthma with Acute Exac Based on the above, please clarify in the Progress Notes further specificity regarding the type and acuity of the asthma: Type: * Mild intermittent - less than 2x/week * Mild persistent - more than 2x/week but not daily * Moderate persistent - daily and may restrict physical activity * Severe persistent - throughout the day with frequent attacks, limiting activities * Exercise induced * Chronic obstructive asthma and indicate if with acute lower respiratory infection * Asthma with underlying COPD and indicate if with acute lower respiratory infection * Other ? please specify * Unable to determine Acuity: * With acute exacerbation * With status asthmaticus * Uncomplicated * Unable to determine Use of terms such as suspected, likely, concern for, or probable (associated with a specific diagnosis that is being evaluated, monitored, or treated as if it exists) are acceptable and can be coded in the inpatient setting, when documented at the time of discharge. Thank you, Suha Phelps RN Extension: [phone] Please use your independent medical judgment in providing your response. THIS QUERY IS PART OF THE PERMANENT MEDICAL RECORD Other Diagnosis: mild interm
--- NOTE | 2022-04-19 13:27 | MHC.CDI.CONC ---
CDI Concurrent Query Documentation Clarification: PHYSICIAN'S DOCUMENTATION REQUEST Date of Query: 04/19/22 1328 Patient Name: Allyson Salamanca Admit Date: 04/16/22 Dear Doctor, Please review the following and provide your response in the progress notes. Clinical Indicators: The diagnosis of asthma was documented in the record on 04/16/22. Additional clinical indicators from the record include: Risk Factors/Clinical Indicators/Treatments Childhood onset Asthma, chest congestion Asthma with Acute Exac Based on the above, please clarify in the Progress Notes further specificity regarding the type and acuity of the asthma: Type: Mild intermittent - less than 2x/week Mild persistent - more than 2x/week but not daily Moderate persistent - daily and may restrict physical activity Severe persistent - throughout the day with frequent attacks, limiting activities Exercise induced Chronic obstructive asthma and indicate if with acute lower respiratory infection Asthma with underlying COPD and indicate if with acute lower respiratory infection Other ? please specify Unable to determine Acuity: With acute exacerbation With status asthmaticus Uncomplicated Unable to determine Use of terms such as suspected, likely, concern for, or probable (associated with a specific diagnosis that is being evaluated, monitored, or treated as if it exists) are acceptable and can be coded in the inpatient setting, when documented at the time of discharge. Thank you, Suha Phelps RN Extension: [phone] Please use your independent medical judgment in providing your response. THIS QUERY IS PART OF THE PERMANENT MEDICAL RECORD Other Diagnosis: mild interm
[2022-04-19] MEDS: Enoxaparin Sodium 40 MG/0.4 ML SYRINGE SUBCUT (20:50)
[2022-04-19] MEDS: cefTRIAXone sodium 1 GM in 0.9 % Sodium Chloride 100 ML IV (20:51)
[2022-04-20 04:00] VITALS: BP 153/77; PULSE 72; RESP 20; TEMP 36.8; O2SAT 96
[2022-04-20] MEDS: Levothyroxine Sodium 50 MCG TABLET PO (05:43)
[2022-04-20] MEDS: methylPREDNISolone Sod Succ 40 MG/ML VIAL IVPUSH (05:43)
[2022-04-20] MEDS: Fluticasone/Vilanterol 200/25 BLST.W.DEV 1 PUFF INHALE (08:04)
[2022-04-20] MEDS: Albuterol/Iprat 2.5/0.5MG 3 ML AMPUL.NEB INHALE (08:04)
--- NOTE | 2022-04-20 08:05 | PM.DS ---
DS: Providers Provider Date of Service: 04/20/22 Date of admission: 04/16/22 22:59 Primary care physician: Janine Villeda MD Attending physician on discharge: Chau Lakhani Discharging clinician: Alis Arias DS: Diagnosis Discharge Diagnosis (1) Right ureteral stone: Status: Resolved (2) KEVIN on CPAP: Status: Acute (3) Asthma: DS: Summary Hospital Course Hospital Course: HP as per admitting provider 61-year-old female with a past medical history of asthma/COPD, KEVIN on CPAP presented to the hospital initially on 04/12 with viral syndrome and concern for asthma exacerbation; subsequently patient was discharged from the ER; 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 She was given methylprednisone and Z-Vijay.? But she continued to have the symptoms hence decided to come to the ER today with the chief complaint of worsening shortness of breath.?Patient reports that she feels congested in the chest, has been having coughing, posttussive abdominal discomfort; mentioned that she is not able to bring up any phlegm; reports subjective chills.?Denies any chest pain or palpitations.?Denies any nausea vomiting or diarrhea.?Review of all other systems is negative except mentioned above ER course: Per ER team noted to have bilateral wheezing; saturating 97%; not in respiratory distress; chest x-ray showed left upper lobe pneumonia; patient was given IV Rocephin and doxycycline.? Also received IV Solu-Medrol and magnesium.? Admitted to the hospital for further management Acute asthma exacerbation Treated with Solu-Medrol IV q.i.d., DuoNeb standing and p.r.n. home inhalers continued Supplemental oxygen p.r.n. Mucinex for dry cough RPP showed human metapneumovirus Home with prednisone taper CAP Chest x-ray showed left upper lobe pneumonia.? Treated with IV ceftriaxone and doxycycline.? neg blood cx after 48hrs completed course of abx History of hypertension/hyperlipidemia Continue home medications History of hypothyroidism Continue home levothyroxine History of KEVIN Continue home CPAP Obesity.? BMI 35.5 Discussed importance of weight management as this may be contributing to worsening of other comorbidities Time Spent with Patient Time attestation: Total time spent providing and/or coordinating discharge services: Discharge coordination time: Greater than 30 minutes Quality: Safe Use of Opioids Does Pt have an Active Cancer Diagnosis on the Problem List?: No Quality: Stroke Does the patient have a stroke diagnosis?: No Physical Exam Vital Signs: Vital Signs: Last Vital Signs Temp 98.3 F 04/20/22 04:00 Pulse 72 04/20/22 04:00 Resp 20 04/20/22 04:00 BP 153/77 H 04/20/22 04:00 Pulse Ox 96 04/20/22 04:00 O2 Del Method 04/20/22 04:00 BMI result Body Mass Index 35.5 Appearing in no acute distress head is normocephalic atraumatic eyes pupils are PERRLA sclera is anicteric mouth throat mucous membranes are intact and moist neck is supple no lymphadenopathy, no JVD noted lung sounds are clear to auscultation heart regular rate rhythm, clear S1, S2 positive bowel sounds, abdomen is soft, nontender neuro patient is alert x3, no focal deficits DS: Data Data Completed and Pending Completed studies during hospitalization [Text1]: Procedures Dilation of Right Ureter with Intraluminal Device, Via Natural or Artificial Opening Endoscopic (01/18/21) Fluoroscopy of Right Kidney, Ureter and Bladder (01/18/21) Labs on day of discharge: Preliminary micro results at discharge 04/16/22 20:03 Blood Culture - Preliminary Blood - Venous No growth after 48 hours. 04/16/22 19:27 Blood Culture - Preliminary Blood - Venous No growth after 48 hours. Discharge Plan Discharge Anticipated Discharge Date/Time: 04/20/22 08:05 Patient Disposition: Home, Self-Care Discharge Diagnosis: Acute asthma exacerbation CAP Referrals: Janine Villeda MD [Primary Care Provider] - 1 Week Discharge Medications: New prednisone 10 mg tablet See Taper PO DAILY Qty: 30 0RF Taper: Prednisone 40 mg daily for 3 Days and 0 Hour 30 mg daily for 3 Days and 0 Hour 20 mg daily for 3 Days and 0 Hour 10 mg daily for 3 Days and 0 Hour Continued pyridoxine (vitamin B6) 100 mg tablet 100 mg PO DAILY Qty: 90 1RF Breo Ellipta 200-25 mcg/dose blister with device 1 inh inhalation DAILY Qty: 60 3RF Spiriva Respimat 2.5 mcg/actuation mist 2 puff inhalation DAILY Qty: 4 3RF modafinil 200 mg tablet 200 mg PO DAILY Qty: 30 3RF loratadine 10 mg tablet 1 tab PO DAILY hydrochlorothiazide 25 mg tablet 25 mg PO DAILY verapamil 100 mg capsule, [address] 100 mg PO BEDTIME omeprazole 20 mg capsule,delayed release(DR/EC) 20 mg PO DAILY levothyroxine 50 mcg tablet 50 mcg PO DAILY atorvastatin 40 mg tablet 40 mg PO DAILY albuterol sulfate 90 mcg/actuation HFA aerosol inhaler 2 puff inhalation Q4H PRN (Reason: wheezing) allopurinol 100 mg tablet 100 mg PO DAILY Qty: 90 3RF duloxetine 30 mg capsule,delayed release(DR/EC) 30 mg PO DAILY Qvar RediHaler 80 mcg/actuation HFA aerosol breath activated 1 inh inhalation BID 30 Days Qty: 10.6 3RF benzonatate 200 mg capsule 200 mg PO BID PRN (Reason: cough) 30 Days Qty: 60 6RF Daliresp 500 mcg tablet 500 mcg PO DAILY 30 Days Qty: 30 12RF ipratropium-albuterol 0.5 mg-3 mg(2.5 mg base)/3 mL solution for nebulization 3 ml inhalation Q6-8H PRN (Reason: wheezing) 30 Days Qty: 180 6RF methylprednisolone 32 mg tablet 32 mg PO DAILY 7 Days Qty: 7 0RF Discontinued azithromycin 250 mg tablet 250 mg PO DAILY Rx Instructions: For 250 mg dose pack: take 500 mg today (day 1), then 250 mg for 4 days (days 2-5) PO Diet: advance to usual diet Activity on Discharge: As tolerated Stand Alone Forms: Patient Portal Discharge page Care Plan Goals: Resolution of symptoms Health Concerns: Acute asthma exacerbation CAP Plan of Treatment: Follow up with your primary care provider as needed take all medications as prescribed Assessment: See discharge summary
[2022-04-20 08:07] VITALS: PULSE 68; RESP 20; O2SAT 96
[2022-04-20] MEDS: hydroCHLOROthiazide 25 MG TABLET PO (08:46)
[2022-04-20] MEDS: DULoxetine HCl 30 MG CAPSULE.DR PO (08:46)
[2022-04-20] MEDS: modafiniL 100 MG TABLET 200 MG PO (08:46)
[2022-04-20] MEDS: Omeprazole 20 MG CAPSULE.DR PO (08:46)
[2022-04-20] MEDS: Benzonatate 100 MG CAPSULE 200 MG PO (08:46)
[2022-04-20] MEDS: guaiFENesin LA 600 MG TAB.ER.12H 1200 MG PO (08:46)
[2022-04-20] MEDS: Atorvastatin Calcium 40 MG TABLET PO (08:46)
[2022-04-20] MEDS: 0.9 % Sodium Chloride Flush 3 ML SYRINGE IVFLUSH (08:47)
[2022-04-20] MEDS: allopurinoL 100 MG TABLET PO (08:47)
--- NOTE | 2022-04-20 11:13 | MHC.CM.PN ---
PATIENT IS DC HOME WITH FAMILY. RN AWARE OF PLAN
== END 2022-04-20 10:49 | disposition home or self-care (01) | DRG 139 ==
LOC: HO.ED 20:02 → HO.EDOVER 23:07 → HO.S3 04-17 00:14
PROVIDERS: Admitting Provider Hospitalist; Emergency Provider Emergency Medicine; PCP Internal Medicine; Responsible Provider Nurse Practitioner Acute Care; Visit Provider Family Medicine
DX: J12.3 Human metapneumovirus pneumonia (principal); E87.2 Acidosis; J45.41 Moderate persistent asthma with (acute) exacerbation; N20.1 Calculus of ureter; I10 Essential (primary) hypertension; E03.9 Hypothyroidism, unspecified; G47.33 Obstructive sleep apnea (adult) (pediatric); E66.9 Obesity, unspecified; Z68.35 Body mass index [BMI] 35.0-35.9, adult; Z20.822 Contact with and (suspected) exposure to COVID-19; Z79.51 Long term (current) use of inhaled steroids; Z88.0 Allergy status to penicillin; Z88.2 Allergy status to sulfonamides; Z88.5 Allergy status to narcotic agent; Z88.6 Allergy status to analgesic agent; Z88.8 Allergy status to other drugs, medicaments and biological substances; Z79.890 Hormone replacement therapy; Z79.899 Other long term (current) drug therapy
CPT/HCPCS: 36415; 71045; 80048; 80076; 83605; 83690; 85025; 87040; 87633; 87635; 94640; 96365; 96366; 96375; 99218; 99285; J0696; J1650; J2920; J2930; J3475; Q0163

== ENCOUNTER → 2022-05-05 09:21 | Outpatient (BNVA) | payer OTHER, SELFPAY | PROVIDERS: PCP Internal Medicine; Visit Provider Urology | DX: N20.0 Calculus of kidney (principal) | CPT/HCPCS: 99212 ==

== ENCOUNTER → 2022-07-16 14:12 | Outpatient (BNVA) | payer OTHER, SELFPAY | PROVIDERS: PCP Internal Medicine; Visit Provider Hospitalist | DX: Z01.811 Encounter for preprocedural respiratory examination (principal); J45.40 Moderate persistent asthma, uncomplicated; G47.10 Hypersomnia, unspecified; G47.33 Obstructive sleep apnea (adult) (pediatric); Z79.899 Other long term (current) drug therapy; Z99.89 Dependence on other enabling machines and devices | CPT/HCPCS: 99212 ==

== ENCOUNTER 2022-10-26 12:44 | Outpatient (REF) | payer OTHER, SELFPAY ==
--- NOTE | ~2022-10-26 | US_ITS ---
EXAMINATION: US RETROPERITONEAL LIMITED (RENAL ONLY) CLINICAL INFORMATION: Calculus of kidney. COMPARISON: Ultrasound retroperitoneal limited (renal only) 03/11/2022 TECHNIQUE: Real-time imaging of the kidneys. FINDINGS: RIGHT KIDNEY: 10.0 x 4.8 x 5.6 cm (SAG x AP x TRV). The kidney is normal in size, contour, and echogenicity. Renal cortical thickness is normal. No focal parenchymal lesions or hydronephrosis. 6 mm nonobstructing upper pole renal stone and 5 mm nonobstructing upper pole renal stone, increased from prior previously 4 mm and 2 mm. A previously seen lower pole stone was not identified. LEFT KIDNEY: 10.0 x 4.0 x 3.9 cm (SAG x AP x TRV). The kidney is normal in size, contour, and echogenicity. Renal cortical thickness is normal. No focal parenchymal lesions or hydronephrosis. 3 mm nonobstructing lower pole renal stone similar to prior previously 3 mm. US/US renal BI IMPRESSION: Bilateral nonobstructing renal stones measuring up to 6 mm in the right upper pole as detailed above..
== END 2022-10-26 12:45 | disposition home or self-care (01) ==
LOC: HO.US 12:44
PROVIDERS: Visit Provider Urology
DX: N20.0 Calculus of kidney (principal)
CPT/HCPCS: 76775

== ENCOUNTER → 2022-11-02 10:23 | Outpatient (BNVA) | payer OTHER, SELFPAY | PROVIDERS: PCP Internal Medicine; Visit Provider Urology | DX: Z13.89 Encounter for screening for other disorder (principal) ==

== ENCOUNTER → 2022-11-16 13:44 | Outpatient (BNVA) | payer OTHER, SELFPAY | PROVIDERS: PCP Internal Medicine; Visit Provider Hospitalist | DX: Z23 Encounter for immunization (principal); G47.30 Sleep apnea, unspecified; J45.40 Moderate persistent asthma, uncomplicated; G47.10 Hypersomnia, unspecified | CPT/HCPCS: 90471; 90677; 99212 ==

== ENCOUNTER 2023-03-28 09:37 | Day surgery (SDC) | payer OTHER, SELFPAY ==
[2023-03-23 09:19] VITALS: BMI 39.2
--- NOTE | 2023-03-25 08:34 | MHC.SHP ---
Pre-Procedural Eval Section A Date of Service: 03/25/23 The patient is an INPATIENT: No Changes since office visit: No Cold of Flu in the past 2 weeks, No New Medical Problems, No Changes in Medication and No Patient answered all questions The History & Physical has been completed within 30 days and I have reviewed it.: Yes Section B Chief Complaint: Age-related nuclear cataract, left eye Allergies: Allergies Allergy/AdvReac Type Severity Reaction Status Date / Time acetaminophen [Percocet] Allergy Severe Rash and Verified 11/16/22 14:07 Hives amlodipine Allergy Severe Rash and Verified 11/16/22 14:07 Hives aspirin Allergy Severe Rash and Verified 11/16/22 14:07 Hives benzonatate Allergy Severe Rash and Verified 11/16/22 14:07 Hives fexofenadine Allergy Severe Rash and Verified 11/16/22 14:07 Hives hydroxyzine Allergy Severe Rash and Verified 11/16/22 14:07 Hives lisinopril Allergy Severe Rash and Verified 11/16/22 14:07 Hives meperidine [Demerol] Allergy Severe Rash and Verified 11/16/22 14:07 Hives morphine Allergy Severe Rash and Verified 11/16/22 14:07 Hives naproxen [Aleve] Allergy Severe Rash and Verified 11/16/22 14:07 Hives oxycodone [From PERCOCET] Allergy Severe SWELLING Verified 11/16/22 14:07 penicillin G Allergy Severe Rash and Verified 11/16/22 14:07 Hives Sulfa (Sulfonamide Allergy Severe Rash and Verified 11/16/22 14:07 Antibiotics) Hives valsartan Allergy Severe Rash and Verified 11/16/22 14:07 Hives codeine [CODEINE] Allergy Intermediate RASH Verified 11/16/22 14:07 ibuprofen [From MOTRIN] Allergy Intermediate RASH Verified 11/16/22 14:07 montelukast [From SINGULAIR] Allergy Intermediate HIVES Verified 11/16/22 14:07 sulfamethoxazole Allergy Intermediate HIVES Verified 11/16/22 14:07 [From BACTRIM] tramadol [TRAMADOL] Allergy Intermediate SWELLING, Verified 11/16/22 14:07 RASH loratadine [From CLARITIN] Allergy Mild HIVES Verified 11/16/22 14:07 ranitidine [From ZANTAC] Allergy Mild HIVES Verified 11/16/22 14:07 diphenhydramine Allergy Swelling Verified 03/23/23 09:14 [From Tylenol PM] fluticasone furoate Allergy Unknown Verified 03/23/23 09:13 [From Trelegy Ellipta] umeclidinium Allergy Unknown Verified 03/23/23 09:13 [From Trelegy Ellipta] vilanterol Allergy Unknown Verified 03/23/23 09:13 [From Trelegy Ellipta] Hydrocet Allergy Severe Rash and Uncoded 11/16/22 14:07 Hives Lorazepam Allergy Severe Rash and Uncoded 11/16/22 14:07 Hives Plan Diagnosis/Plan: Unchanged I have reviewed the history and physical and performed a pertinent physical examination on my patient. No changes have occurred unless specified. Time Spent With Patient Time: Total time managing care of this patient today ____ minutes.
--- NOTE | 2023-03-25 09:42 | HO.ANESPROP2 ---
HPI - Anesthesia Eval Consult details Narrative: 62yo F for Left Cataract Extraction IOL Insertion PCP cleared No previous cataract PMFSH Active Problems Active Problems: All Active Problems (Updated 03/23/23 @ 08:33 by Migdalia Castellon RN) Bilateral nephrolithiasis (Acute) Spondylosis of lumbosacral spine with radiculopathy (Acute) Multilevel degenerative disc disease (Acute) Pre-op chest exam (Acute) Asthma (Acute) Hypersomnia with sleep apnea (Acute) Asthma-COPD overlap syndrome (Acute) COVID-19 (Acute) Past Medical History Medical History (Updated 03/23/23 @ 08:33 by Migdalia Castellon RN) Abnormal LFTs (liver function tests) Anxiety Asthma Asthma-COPD overlap syndrome COVID-19 Diabetes GERD (gastroesophageal reflux disease) HTN (hypertension) Hx of ectopic Hypersomnia with sleep apnea Hypothyroidism Kidney stone Lumbar radiculopathy Microalbuminuria Microhematuria Mixed hyperlipidemia Multiple pulmonary nodules WADE (nonalcoholic steatohepatitis) KEVIN on CPAP Surgical History Surgical History (Updated 03/23/23 @ 08:38 by Migdalia Castellon RN) H/O colonoscopy History of ankle surgery History of back surgery History of placement of ear tubes History of surgical removal of ganglion cyst Hx of bilateral breast reduction surgery Hx of section Hx of endoscopy Social History Social History Household Members: Family Housing: Apartment Are you a primary care support representative to a significant other at home: No Do you presently have visiting nurse or other home services: No Alcohol intake: current Alcohol intake frequency: does not drink Patient Tobacco Use Status: Never used Tobacco Second Hand Smoke Exposure: No Are you DNR?: No Advance Directives: No Advance Directives Information Provided: Yes Advance Directives Date on File: 04/17/22 Nutrition Risks: No Nutritional Risk service: No Current occupational status: employed Meds Allergies Allergy/AdvReac Type Severity Reaction Status Date / Time acetaminophen [Percocet] Allergy Severe Rash and Verified 11/16/22 14:07 Hives amlodipine Allergy Severe Rash and Verified 11/16/22 14:07 Hives aspirin Allergy Severe Rash and Verified 11/16/22 14:07 Hives benzonatate Allergy Severe Rash and Verified 11/16/22 14:07 Hives fexofenadine Allergy Severe Rash and Verified 11/16/22 14:07 Hives hydroxyzine Allergy Severe Rash and Verified 11/16/22 14:07 Hives lisinopril Allergy Severe Rash and Verified 11/16/22 14:07 Hives meperidine [Demerol] Allergy Severe Rash and Verified 11/16/22 14:07 Hives morphine Allergy Severe Rash and Verified 11/16/22 14:07 Hives naproxen [Aleve] Allergy Severe Rash and Verified 11/16/22 14:07 Hives oxycodone [From PERCOCET] Allergy Severe SWELLING Verified 11/16/22 14:07 penicillin G Allergy Severe Rash and Verified 11/16/22 14:07 Hives Sulfa (Sulfonamide Allergy Severe Rash and Verified 11/16/22 14:07 Antibiotics) Hives valsartan Allergy Severe Rash and Verified 11/16/22 14:07 Hives codeine [CODEINE] Allergy Intermediate RASH Verified 11/16/22 14:07 ibuprofen [From MOTRIN] Allergy Intermediate RASH Verified 11/16/22 14:07 montelukast [From SINGULAIR] Allergy Intermediate HIVES Verified 11/16/22 14:07 sulfamethoxazole Allergy Intermediate HIVES Verified 11/16/22 14:07 [From BACTRIM] tramadol [TRAMADOL] Allergy Intermediate SWELLING, Verified 11/16/22 14:07 RASH loratadine [From CLARITIN] Allergy Mild HIVES Verified 11/16/22 14:07 ranitidine [From ZANTAC] Allergy Mild HIVES Verified 11/16/22 14:07 diphenhydramine Allergy Swelling Verified 03/23/23 09:14 [From Tylenol PM] fluticasone furoate Allergy Unknown Verified 03/23/23 09:13 [From Trelegy Ellipta] umeclidinium Allergy Unknown Verified 03/23/23 09:13 [From Trelegy Ellipta] vilanterol Allergy Unknown Verified 03/23/23 09:13 [From Trelegy Ellipta] Hydrocet Allergy Severe Rash and Uncoded 11/16/22 14:07 Hives Lorazepam Allergy Severe Rash and Uncoded 11/16/22 14:07 Hives Home Medications Medication Instructions Recorded Confirmed Last Taken Type atorvastatin 40 mg tablet 40 mg PO DAILY 11/19/20 03/23/23 04/16/22 History hydrochlorothiazide 25 mg tablet 25 mg PO DAILY 11/19/20 03/23/23 04/16/22 History levothyroxine 50 mcg tablet 50 mcg PO DAILY 11/19/20 03/23/23 04/16/22 History omeprazole 20 mg capsule,delayed 20 mg PO DAILY 11/19/20 03/23/23 04/16/22 History release verapamil 100 mg capsule 24hr 100 mg PO BEDTIME 11/19/20 03/23/23 04/15/[address],ext[address]release duloxetine 30 mg capsule,delayed 30 mg PO DAILY 04/30/21 03/23/23 04/16/22 History release nebulizers 11/16/22 Unknown History albuterol sulfate 2.5 mg/3 mL 1 inhalation Q4-5H PRN Wheezing 03/23/23 Unknown History (0.083 %) solution for nebulization albuterol sulfate 90 mcg/actuation 2 puff inhalation Q4-6H PRN 03/23/23 03/23/23 Unknown History aerosol inhaler (ProAir HFA) Wheezing budesonide 0.5 mg/2 mL suspension 0.5 mg inhalation DAILY 03/23/23 03/23/23 Unknown History for nebulization fluticasone 113 mcg-salmeterol 14 1 inh inhalation BID 03/23/23 03/23/23 Unknown History mcg/actuation breath activated powdr (AirDuo RespiClick) loratadine 10 mg tablet 10 mg PO DAILY 03/23/23 03/23/23 Unknown History roflumilast 500 mcg tablet 500 mcg PO Q OTHER DAY 03/23/23 03/23/23 Unknown History (Barbara) Exam Exam Date and Time: March 25, 2023 0942 Height,Weight and Vital Signs: Height 4 ft 9 in Weight 82.1 kg Assessment and Plan Assessment Anesthesia Assessment: Chart Reviewed
[2023-03-28 10:33] VITALS: BP 138/79; PULSE 78; RESP 20; TEMP 36.2; O2SAT 97
[2023-03-28] MEDS: Tropicamide 1 % Ophth Sol 3 ML BTL 1 DROP EYE-LEFT ×3 (10:37→10:38)
[2023-03-28] MEDS: Cyclopentolate 1 % Ophth Sol 2 ML DRPBTL 1 DROP EYE-LEFT ×3 (10:37→10:38)
[2023-03-28] MEDS: Tetracaine HCl/PF 0.5% Oph Sol 4 ML DROPS 1 DROP EYE-LEFT (10:37)
[2023-03-28] MEDS: Phenylephrine HCL 2.5% Oph SoL 2 ML BOTTLE 1 DROP EYE-LEFT ×3 (10:37→10:38)
[2023-03-28] MEDS: Lactated Ringers 500 ML 50 ML IV (10:37)
[2023-03-28] MEDS: Ketorolac Tromethamine 0.5% Op 5 ML DROPS 1 DROP EYE-LEFT ×3 (10:38→10:40)
--- NOTE | 2023-03-28 12:12 | HO.PNOPHT ---
Ophthalmology Procedure Procedure Date of Service: 03/28/23 Ophthalmology Viscoelastic: Healbyron Ramost Dual Pack Pro Ophthalmology Lenses: TECKHALIF [id number] (22.5) Procedure Notes: PREOPERATIVE DIAGNOSIS: Decreased visual acuity left eye secondary to cataract POSTOPERATIVE DIAGNOSIS: Same PROCEDURE: Left cataract extraction with intraocular lens insertion SURGEON: Gregorio Wilson M.D. ANESTHESIA: Topical/MAC ESTIMATED BLOOD LOSS: None COMPLICATIONS: None After obtaining informed consent, the patient was brought to the operation room suite and placed in the supine position. After adequate sedation per anesthesia, topical drops of Tetracaine were given to the left eye. The eye was then prepped and draped in the usual sterile fashion. The operating room microscope was then positioned over the operative eye and a lid speculum placed. A paracentesis was created. Viscoelastic was then instilled into the anterior chamber. A three plane incision was then created temporally, utilizing a 2.85 mm keratome. Capsulotomy forceps were then utilized to create a circular tear capsulotomy. Hydrodissection and hydrodelineation were carried out until adequate mobilization of the nucleus occurred. Phacoemulsification was then utilized to remove the dense central nucleus followed by removal of the cortical material utilizing the automated aspiration irrigation unit. Viscoat elastic was instilled into the posterior capsular bag followed by placement of a posterior chamber intraocular lens without difficulty. The residual Viscoat elastic was then removed utilizing the automated IA machine. The wound was check and found to be watertight. The patient tolerated the procedure well and the lid speculum was removed. Intracameral injection of Vigamox 0.1 mL followed by a subtenon injection of Kenalog-40 0.2 mL were administered. The patient will be seen in the a.m.
[2023-03-28 12:41] VITALS: BP 156/80; PULSE 72; RESP 16; TEMP 37; O2SAT 98
== END 2023-03-28 12:54 | disposition home or self-care (01) ==
PROVIDERS: PCP Internal Medicine; Visit Provider Ophthalmology
PROC: (CPT 66985; principal; 2023-03-28 12:40)
DX: H25.12 Age-related nuclear cataract, left eye (principal); H54.7 Unspecified visual loss; J45.40 Moderate persistent asthma, uncomplicated; H35.033 Hypertensive retinopathy, bilateral; I10 Essential (primary) hypertension; E11.36 Type 2 diabetes mellitus with diabetic cataract; E78.2 Mixed hyperlipidemia; G47.10 Hypersomnia, unspecified; F41.9 Anxiety disorder, unspecified; R80.9 Proteinuria, unspecified; G47.33 Obstructive sleep apnea (adult) (pediatric); Z79.899 Other long term (current) drug therapy; Z99.89 Dependence on other enabling machines and devices; Z79.51 Long term (current) use of inhaled steroids
CPT/HCPCS: 66984; J2250; J3301; V2632

== ENCOUNTER 2023-04-29 09:06 | Outpatient (REF) | payer OTHER, SELFPAY ==
--- NOTE | ~2023-04-29 | XR_ITS ---
EXAMINATION: XR ABDOMEN KUB CLINICAL INDICATION: Calculus of kidney COMPARISON: Renal ultrasound 10/29/2022, x-ray abdomen 04/24/2021 TECHNIQUE: 2 AP views of the abdomen. FINDINGS: Nonobstructive bowel gas pattern. Moderate amount of stool in the colon. Degenerative changes in the imaged thoracolumbar spine. Small pelvic calcifications are likely phleboliths. Multiple small calcifications project over the right kidney measuring up to 3 mm. Multiple tiny calcifications projecting over the left kidney measuring up to 2 mm. Visualization of bilateral kidneys is limited due to overlying bowel. XR/XR KUB IMPRESSION: Bilateral renal calculi.
== END 2023-04-29 09:07 | disposition home or self-care (01) ==
LOC: HO.XRAY 09:06
PROVIDERS: PCP Internal Medicine; Visit Provider Urology
DX: N20.0 Calculus of kidney (principal)
CPT/HCPCS: 74018

== ENCOUNTER 2023-05-17 13:30 | Outpatient (AMB) | payer OTHER, SELFPAY ==
--- NOTE | 2023-05-17 13:56 | MHC.OFFVIS ---
Intake Vital Signs 05/17/23 13:57 Height 4 ft 9 in Weight 180 lb 15.992 oz BMI 39.2 Pulse 81 Pulse Source Pulse Oximeter Pulse Oximetry (%) 96 Oxygen Delivery Method Room Air Intake Visit Reasons: COPD Passenger Service Manager Required: No Allergies acetaminophen [Percocet] Allergy (Severe, Verified 05/17/23 13:58) Rash and Hives amlodipine Allergy (Severe, Verified 05/17/23 13:58) Rash and Hives aspirin Allergy (Severe, Verified 05/17/23 13:58) Rash and Hives benzonatate Allergy (Severe, Verified 05/17/23 13:58) Rash and Hives fexofenadine Allergy (Severe, Verified 05/17/23 13:58) Rash and Hives hydroxyzine Allergy (Severe, Verified 05/17/23 13:58) Rash and Hives lisinopril Allergy (Severe, Verified 05/17/23 13:58) Rash and Hives meperidine [Demerol] Allergy (Severe, Verified 05/17/23 13:58) Rash and Hives morphine Allergy (Severe, Verified 05/17/23 13:58) Rash and Hives naproxen [Aleve] Allergy (Severe, Verified 05/17/23 13:58) Rash and Hives oxycodone [From PERCOCET] Allergy (Severe, Verified 05/17/23 13:58) SWELLING penicillin G Allergy (Severe, Verified 05/17/23 13:58) Rash and Hives Sulfa (Sulfonamide Antibiotics) Allergy (Severe, Verified 05/17/23 13:58) Rash and Hives valsartan Allergy (Severe, Verified 05/17/23 13:58) Rash and Hives codeine [CODEINE] Allergy (Intermediate, Verified 05/17/23 13:58) RASH ibuprofen [From MOTRIN] Allergy (Intermediate, Verified 05/17/23 13:58) RASH montelukast [From SINGULAIR] Allergy (Intermediate, Verified 05/17/23 13:58) HIVES sulfamethoxazole [From BACTRIM] Allergy (Intermediate, Verified 05/17/23 13:58) HIVES tramadol [TRAMADOL] Allergy (Intermediate, Verified 05/17/23 13:58) SWELLING, RASH loratadine [From CLARITIN] Allergy (Mild, Verified 05/17/23 13:58) HIVES ranitidine [From ZANTAC] Allergy (Mild, Verified 05/17/23 13:58) HIVES diphenhydramine [From Tylenol PM] Allergy (Verified 05/17/23 13:58) Swelling fluticasone furoate [From Trelegy Ellipta] Allergy (Verified 05/17/23 13:58) Unknown umeclidinium [From Trelegy Ellipta] Allergy (Verified 05/17/23 13:58) Unknown vilanterol [From Trelegy Ellipta] Allergy (Verified 05/17/23 13:58) Unknown Hydrocet Allergy (Severe, Uncoded 05/17/23 13:58) Rash and Hives Lorazepam Allergy (Severe, Uncoded 05/17/23 13:58) Rash and Hives HPI HPI Comments History of Present Illness Details The patient is a 62-year-old woman with known moderate persistent asthma and obstructive sleep apnea on CPAP. pt says the cough is worse at night and she has to take out her emergency inhaler. pt continues to take inhalers as usual. Her cough tends to be dry and worse at night time. Moderate severity. Denies any reflux symptoms. Denies any significant postnasal drip or nasal congestion at this time. In the meantime she has been using the CPAP. The CPAP therapy continues to be effective in beneficial. She does get supplies through [facility]. Will send another prescription to [facility] to make sure that she is getting the proper mask which is the P 10. 11/16/2022 the patient is here for a pulmonary follow-up visit. The patient overall has been doing well. She still have episodes of chest tightness and wheezing. Has been having to use her rescue inhaler more than twice a week. She also continues with her respiratory regimen. Denies any sick contacts. She has been on Breo and also Spiriva. I do believe that she will do better on Trelegy inhaler. I will request that at the pharmacy. Like to maximize her respiratory therapy with the synergistic affect. In addition to that she should continue with her allergy medicine. She continues uses CPAP. CPAP therapy continues to be affecting beneficial. She also benefits from using the gabapentin at nighttime. This has been helpful. She should continue for now. She is also using Provigil in the morning. Will going to see about trying to decrease the dose to 100 once she completes her current prescription. If the patient has complaints of daytime drowsiness with the lower dose she will call and I will resend the higher dose to the pharmacy. I am hopeful that we can try to simplify her medical regimen at this time. 05/17/2023 the patient is here for pulmonary follow-up visit. Recently she did have a brief exacerbation. She did call the office. We did send her prednisone antibiotics and she did recover. She has been having difficulties getting her inhalers. Initially she had a reaction to the Trelegy so she stopped it. She has to get Breo. I do believe that we can send her Symbicort instead as it may be more effective for her. In the meantime she continues uses CPAP at nighttime. CPAP therapy continues to be affecting beneficial. She does use it for more than 4 hours a night. She also is dependent on the modafinil. This has been very effective for her. We are hoping to decrease her dose down to 100 mg but for some reason she is still on 200 mg. Will decrease it during the next visit. [facility] Medical History (Updated 03/23/23 @ 08:33 by Migdalia Castellon RN) Abnormal LFTs (liver function tests) Anxiety Asthma Asthma-COPD overlap syndrome COVID-19 Diabetes GERD (gastroesophageal reflux disease) HTN (hypertension) Hx of ectopic Hypersomnia with sleep apnea Hypothyroidism Kidney stone Lumbar radiculopathy Microalbuminuria Microhematuria Mixed hyperlipidemia Multiple pulmonary nodules WADE (nonalcoholic steatohepatitis) KEVIN on CPAP Surgical History (Updated 03/23/23 @ 08:38 by Migdalia Castellon RN) H/O colonoscopy History of ankle surgery History of back surgery History of placement of ear tubes History of surgical removal of ganglion cyst Hx of bilateral breast reduction surgery Hx of section Hx of endoscopy Social History Household Members: Family Housing: Apartment Are you a primary district manager primary care sales to a significant other at home: No Do you presently have visiting nurse or other home services: No Alcohol intake: current Alcohol intake frequency: does not drink Patient Tobacco Use Status: Never used Tobacco Second Hand Smoke Exposure: No Advance Directives Date on File: 04/17/22 service: No Current occupational status: employed Review of Systems Const Denies chills and Denies fever(s) ENT Denies change in voice, Denies lip swelling, Denies mouth pain, Reports nasal congestion, Reports nasal discharge and Denies tongue swelling Card Reports no additional complaints, Denies syncope and Reports dyspnea on exertion Resp Reports cough, Reports dyspnea on exertion and Reports wheezing GI Denies abdominal pain and Denies heartburn Musc Reports back pain Neuro Denies syncope Paul/Lymph Denies easy bleeding and Denies lymphadenopathy Aller/Immun Denies lip swelling, Denies tongue swelling and Reports wheezing Physical Exam Vital Signs: Last Vital Signs Pulse 81 05/17/23 13:57 Pulse Ox 96 05/17/23 13:57 Oxygen Delivery Method Room Air 05/17/23 13:57 BMI result Body Mass Index 39.2 Const General: alert Neck Neck: Yes normal visual inspection, Yes full ROM and Yes no lymphadenopathy Chest Chest palpation & inspection: normal inspection of the chest Resp Auscultation: no wheezes and diminished lung sounds Cardio Rate: regular rate Rhythm: regular rhythm Heart sounds: S1 normal heart sound present and S2 normal heart sound present GI Palpation (GI): Soft to palpation and nontender Auscultation: normal bowel sounds Skin General skin exam: rashes and/or lesions noted Assessment & Plan Assessment & Plan (1) Hypersomnia with sleep apnea: Code(s): G47.10 - Hypersomnia, unspecified; G47.30 - Sleep apnea, unspecified (2) Asthma: Code(s): J45.909 - Unspecified asthma, uncomplicated Qualifiers: Asthma complication type: uncomplicated Asthma persistence: persistent Asthma severity: moderate Qualified Code(s): J45.40 - Moderate persistent asthma, uncomplicated Plan stopped Trelegy 200-adverse reaction Continue Daliresp 500 mcg daily continue Gabapentin for sleep continue CPAP therapy continue Provigil 200, plan to decrease dose during the next visit CXR follow-up in 6-8 months Orders: Orders XR chest 2V Today J45.909 - Unspecified asthma, uncomplicated Medications: New budesonide-formoterol 160-4.5 mcg/actuation (Symbicort) 2 puffs inhalation BID 30 days 10.2 grams 11RF J44.9 - Chronic obstructive pulmonary disease, unspecified Changed From albuterol sulfate 90 mcg/actuation (ProAir HFA) 2 puffs inhalation Q4-6H PRN Wheezing To albuterol sulfate 90 mcg/actuation (ProAir HFA) 2 puffs inhalation Q4-6H 30 days PRN 8.5 grams 11RF Wheezing Refilled modafinil 200 mg PO DAILY 90 days 90 tabs 3RF Discontinued roflumilast 500 mcg PO DAILY 30 days 30 tabs 12RF fluticasone furoate-vilanterol 200-25 mcg/dose (Breo Ellipta) Discontinued Reason: Doctor's Order 1 inh inhalation DAILY 30 days 60 ea 11RF Coding Level of Care Code Est Pt Level 4 (80697) Diagnoses Hypersomnia with sleep apnea G47.10; G47.30 Asthma J45.40 Asthma complication type: uncomplicated Asthma persistence: persistent Asthma severity: moderate Time Spent (min) 18
[2023-05-17 13:57] VITALS: PULSE 81; O2SAT 96; BMI 39.2
== END 2023-05-17 14:12 | disposition home or self-care (01) ==
PROVIDERS: PCP Internal Medicine; Visit Provider Hospitalist
DX: G47.10 Hypersomnia, unspecified (principal); G47.30 Sleep apnea, unspecified; J45.40 Moderate persistent asthma, uncomplicated
CPT/HCPCS: 99214

== ENCOUNTER → 2023-05-17 13:30 | Outpatient (BNVA) | payer OTHER, SELFPAY | PROVIDERS: PCP Internal Medicine; Visit Provider Hospitalist | DX: J45.40 Moderate persistent asthma, uncomplicated (principal); G47.10 Hypersomnia, unspecified; G47.30 Sleep apnea, unspecified; Z79.899 Other long term (current) drug therapy; Z99.89 Dependence on other enabling machines and devices | CPT/HCPCS: 99212 ==

== ENCOUNTER 2023-06-02 09:40 | Outpatient (REF) | payer OTHER, SELFPAY ==
--- NOTE | ~2023-06-02 | XR_ITS ---
EXAMINATION: XR CHEST CLINICAL INFORMATION: Asthma COMPARISON: 04/16/2022 TECHNIQUE: 2 views of the chest were obtained. FINDINGS: Heart, mediastinum and pulmonary vessels within normal limits. Stable vague left mid/upper peripheral opacity, likely scarring/atelectasis. No consolidations or effusions. Flowing osteophytes and demineralization. XR/XR chest 2V IMPRESSION: No acute cardiopulmonary disease or interval change.
== END 2023-06-02 09:41 | disposition home or self-care (01) ==
LOC: HO.XRAY 09:40
PROVIDERS: PCP Internal Medicine; Visit Provider Hospitalist
DX: J45.909 Unspecified asthma, uncomplicated (principal)
CPT/HCPCS: 71046

== ENCOUNTER 2023-08-03 10:33 | Outpatient (AMB) | payer OTHER, SELFPAY ==
--- NOTE | 2023-08-03 11:13 | MHC.OFFVIS ---
Intake Intake Visit Reasons: 6M KUB(set) Intake Note: Patient is Present for Follow Up Ultrasound Urology Medication: Vitamins B6 Antibiotic Allergies: Sulfa, Penicillin, Blood Thinners:None Pharmacy: [facility] Allergies acetaminophen [Percocet] Allergy (Severe, Verified 08/03/23 11:18) Rash and Hives amlodipine Allergy (Severe, Verified 08/03/23 11:18) Rash and Hives aspirin Allergy (Severe, Verified 08/03/23 11:18) Rash and Hives benzonatate Allergy (Severe, Verified 08/03/23 11:18) Rash and Hives fexofenadine Allergy (Severe, Verified 08/03/23 11:18) Rash and Hives hydroxyzine Allergy (Severe, Verified 08/03/23 11:18) Rash and Hives lisinopril Allergy (Severe, Verified 08/03/23 11:18) Rash and Hives meperidine [Demerol] Allergy (Severe, Verified 08/03/23 11:18) Rash and Hives morphine Allergy (Severe, Verified 08/03/23 11:18) Rash and Hives naproxen [Aleve] Allergy (Severe, Verified 08/03/23 11:18) Rash and Hives oxycodone [From PERCOCET] Allergy (Severe, Verified 08/03/23 11:18) SWELLING penicillin G Allergy (Severe, Verified 08/03/23 11:18) Rash and Hives Sulfa (Sulfonamide Antibiotics) Allergy (Severe, Verified 08/03/23 11:18) Rash and Hives valsartan Allergy (Severe, Verified 08/03/23 11:18) Rash and Hives codeine [CODEINE] Allergy (Intermediate, Verified 08/03/23 11:18) RASH ibuprofen [From MOTRIN] Allergy (Intermediate, Verified 08/03/23 11:18) RASH montelukast [From SINGULAIR] Allergy (Intermediate, Verified 08/03/23 11:18) HIVES sulfamethoxazole [From BACTRIM] Allergy (Intermediate, Verified 08/03/23 11:18) HIVES tramadol [TRAMADOL] Allergy (Intermediate, Verified 08/03/23 11:18) SWELLING, RASH loratadine [From CLARITIN] Allergy (Mild, Verified 08/03/23 11:18) HIVES ranitidine [From ZANTAC] Allergy (Mild, Verified 08/03/23 11:18) HIVES diphenhydramine [From Tylenol PM] Allergy (Verified 08/03/23 11:18) Swelling fluticasone furoate [From Trelegy Ellipta] Allergy (Verified 08/03/23 11:18) Unknown umeclidinium [From Trelegy Ellipta] Allergy (Verified 08/03/23 11:18) Unknown vilanterol [From Trelegy Ellipta] Allergy (Verified 08/03/23 11:18) Unknown Hydrocet Allergy (Severe, Uncoded 08/03/23 11:18) Rash and Hives Lorazepam Allergy (Severe, Uncoded 08/03/23 11:18) Rash and Hives Medication List - Last Reconciled 08/03/23 by Stanley Duran MD albuterol sulfate 1 inhalation Q4-5H PRN albuterol sulfate 90 mcg/actuation (ProAir HFA) 2 puffs inhalation Q4-6H PRN 30 days allopurinol 100 mg PO DAILY atorvastatin 40 mg PO DAILY azithromycin 500 mg PO DAILY 3 days budesonide 0.5 mg inhalation DAILY budesonide-formoterol 160-4.5 mcg/actuation (Symbicort) 2 puffs inhalation BID 30 days duloxetine 30 mg PO DAILY fexofenadine 180 mg PO DAILY gabapentin 300 mg PO BEDTIME 30 days hydrochlorothiazide 25 mg PO DAILY ipratropium-albuterol 0.5 mg-3 mg(2.5 mg base)/3 mL 3 mL inhalation Q6-8H PRN 30 days levothyroxine 50 mcg PO DAILY loratadine 10 mg PO DAILY modafinil 200 mg PO DAILY 90 days nebulizers As directed omeprazole 20 mg PO DAILY prednisone 20 mg PO DAILY 10 days pyridoxine (vitamin B6) 50 mg PO DAILY 90 days roflumilast (Daliresp) 500 mcg PO DAILY tiotropium bromide 2.5 mcg/actuation (Spiriva Respimat) 2 puffs inhalation DAILY 30 days verapamil ER 100 mg PO BEDTIME HPI HPI Comments History of Present Illness Details Allyson is a pleasant female. She is a patient of Dr. Villeda. She seen for the following urologic condition - nephrolithiasis Small stones bilateral on KUB Minimal change since last visit Continue with allopurinol and vitamin B6 Six month follow-up renal ultrasound Reported as borderline calcium Had borderline PTH last year Repeat lab work in 6 months Nephrolithiasis They are here for - ongoing evaluation of recurrence stones Urolithiasis was diagnosed - a number of years ago The patient previously had kidney stones whose composition w - unknown Laboratory investigations include - January 2021 calcium 9.8, 04/28 Ca 9.9 Mg 2.5, PTH 68 Vit D 11, 04/28 Ca 9.9 24 Hour urine evaluation - none on file Prior treatment(s) include - January 2021 right ureteroscopy Prior imaging includes - January [address] - stone protocol 4 mm distal right ureteric stone, bilateral 2-3 mm nephrolithiasis - 04/27 renal ultrasound 2 mm stone bilateral - 10/27 renal ultrasound bilateral 2 mm stones, 04/28 renal ultrasound small stones bilateral, 10/28 renal ultrasound 5 mm stone x2 on right side, left 3 mm - 04/29 KUB small stones bilateral UA today shows - Current therapeutic plan will be -continue fluid intake with lemon water, imaging surveillance, allopurinol and vitamin B6 PFSH Medical History (Updated 03/23/23 @ 08:33 by Migdalia Castellon RN) Hx of ectopic Multiple pulmonary nodules Kidney stone Microhematuria WADE (nonalcoholic steatohepatitis) Abnormal LFTs (liver function tests) Hypothyroidism Mixed hyperlipidemia Lumbar radiculopathy GERD (gastroesophageal reflux disease) HTN (hypertension) Microalbuminuria Anxiety Diabetes Asthma 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 KEVIN on CPAP COVID-19 Surgical History (Updated 03/23/23 @ 08:38 by Migdalia Castellon RN) Hx of endoscopy History of back surgery History of surgical removal of ganglion cyst Hx of bilateral breast reduction surgery History of placement of ear tubes H/O colonoscopy Hx of section History of ankle surgery Social History Household Members: Family Housing: Apartment Are you a primary career technical counselor to a significant other at home: No Do you presently have visiting nurse or other home services: No Alcohol intake: current Alcohol intake frequency: does not drink Patient Tobacco Use Status: Never used Tobacco Second Hand Smoke Exposure: No Advance Directives Date on File: 04/17/22 service: No Current occupational status: employed Review of Systems Const Denies chills and Denies fever(s) Card Reports no additional complaints and Denies syncope Resp Denies cough GI Denies abdominal pain and Denies heartburn Reports as per HPI and Denies change in libido Neuro Denies syncope Psych Denies change in libido Endo Denies change in libido Physical Exam Const General: cooperative, healthy appearing, comfortable and no acute distress Orientation/consciousness: patient oriented x3 HEENT Face and sinus: Yes normal facial exam Mouth: moist mucous membranes Neck Neck: Yes normal visual inspection, Yes full ROM and Yes trachea midline Chest Chest palpation & inspection: normal inspection of the chest Resp Effort & Inspection: normal respiratory effort, able to speak in complete sentences and no respiratory distress GI Inspection: Yes normal to inspection Back/Spine/Pelvis Cervical Spine: normal cervical lordosis Thoracic/Lumbar Spine: thoracic and lumbar spine normal to inspection Skin General skin exam: no rashes or lesions noted Neuro General: patient oriented x3, gait normal, tone normal and moves all extremities Extrem General: Yes normal to inspection and Yes capillary refill normal Assessment & Plan Assessment & Plan (1) Asthma: Code(s): J45.909 - Unspecified asthma, uncomplicated Qualifiers: Asthma severity: moderate Asthma persistence: persistent Asthma complication type: uncomplicated Qualified Code(s): J45.40 - Moderate persistent asthma, uncomplicated Plan Six month imaging and labs Orders: Orders US renal BI 6 Months N20.0 - Calculus of kidney Calcium 6 Months N20.0 - Calculus of kidney Magnesium 6 Months N20.0 - Calculus of kidney PTHI 6 Months N20.0 - Calculus of kidney Uric Acid 6 Months N20.0 - Calculus of kidney Vitamin D 25-OH Total 6 Months N20.0 - Calculus of kidney Patient Instructions: Imaging studies, laboratory and physical exam results were discussed and reviewed in detail. No major barriers to patient understanding were identified. An opportunity to ask questions regarding the treatment plan was provided. All questions were answered. The patient expressed understanding and agreement with the above treatment plan. The patient is aware they should contact our office by phone for worsening of their current condition or the appearance of new urologic symptoms. Compliance is encouraged with any medications and followup testing that is ordered. It is a privilege to participate in the urologic care of your patient. If you have any questions or concerns regarding treatment for the above conditions, or other urologic issues, please do not hesitate to contact me. The office telephone contact is [phone]. This note is constructed using voice recognition software. While every effort has been made to ensure accuracy brewery worker errors may have been included. Yours sincerely, Dr Stanley Duran MD, [facility] - Urology Providers of Expert, Compassionate Care for the Genitourinary System Coding Level of Care Code Est Pt Level 4 (19143) Diagnoses Moderate persistent asthma without complication J45.40 Asthma severity: moderate Asthma persistence: persistent Asthma complication type: uncomplicated
== END 2023-08-03 11:32 | disposition home or self-care (01) ==
PROVIDERS: PCP Internal Medicine; Visit Provider Urology
DX: J45.40 Moderate persistent asthma, uncomplicated (principal)
CPT/HCPCS: 99214

== ENCOUNTER → 2023-08-03 10:33 | Outpatient (BNVA) | payer OTHER, SELFPAY | PROVIDERS: Visit Provider Urology | DX: N20.0 Calculus of kidney (principal); R80.9 Proteinuria, unspecified; R31.29 Other microscopic hematuria; J45.40 Moderate persistent asthma, uncomplicated | CPT/HCPCS: 99212 ==

== ENCOUNTER 2023-09-26 14:09 | Outpatient (AMB) | payer OTHER, SELFPAY ==
--- NOTE | 2023-09-26 14:25 | MHC.OFFVIS ---
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 Required: No Allergies acetaminophen [Percocet] Allergy (Severe, Verified 09/26/23 14:27) Rash and Hives amlodipine Allergy (Severe, Verified 09/26/23 14:27) Rash and Hives aspirin Allergy (Severe, Verified 09/26/23 14:27) Rash and Hives benzonatate Allergy (Severe, Verified 09/26/23 14:27) Rash and Hives fexofenadine Allergy (Severe, Verified 09/26/23 14:27) Rash and Hives hydroxyzine Allergy (Severe, Verified 09/26/23 14:27) Rash and Hives lisinopril Allergy (Severe, Verified 09/26/23 14:27) Rash and Hives meperidine [Demerol] Allergy (Severe, Verified 09/26/23 14:27) Rash and Hives morphine Allergy (Severe, Verified 09/26/23 14:27) Rash and Hives naproxen [Aleve] Allergy (Severe, Verified 09/26/23 14:27) Rash and Hives oxycodone [From PERCOCET] Allergy (Severe, Verified 09/26/23 14:27) SWELLING penicillin G Allergy (Severe, Verified 09/26/23 14:27) Rash and Hives Sulfa (Sulfonamide Antibiotics) Allergy (Severe, Verified 09/26/23 14:27) Rash and Hives valsartan Allergy (Severe, Verified 09/26/23 14:27) Rash and Hives codeine [CODEINE] Allergy (Intermediate, Verified 09/26/23 14:27) RASH ibuprofen [From MOTRIN] Allergy (Intermediate, Verified 09/26/23 14:27) RASH montelukast [From SINGULAIR] Allergy (Intermediate, Verified 09/26/23 14:27) HIVES sulfamethoxazole [From BACTRIM] Allergy (Intermediate, Verified 09/26/23 14:27) HIVES tramadol [TRAMADOL] Allergy (Intermediate, Verified 09/26/23 14:27) SWELLING, RASH loratadine [From CLARITIN] Allergy (Mild, Verified 09/26/23 14:27) HIVES ranitidine [From ZANTAC] Allergy (Mild, Verified 09/26/23 14:27) HIVES diphenhydramine [From Tylenol PM] Allergy (Verified 09/26/23 14:27) Swelling fluticasone furoate [From Trelegy Ellipta] Allergy (Verified 09/26/23 14:27) Unknown umeclidinium [From Trelegy Ellipta] Allergy (Verified 09/26/23 14:27) Unknown vilanterol [From Trelegy Ellipta] Allergy (Verified 09/26/23 14:27) Unknown Hydrocet Allergy (Severe, Uncoded 09/26/23 14:27) Rash and Hives Lorazepam Allergy (Severe, Uncoded 09/26/23 14:27) Rash and Hives HPI HPI Comments History of Present Illness Details The patient is a 63-year-old woman with known moderate persistent asthma and obstructive sleep apnea on CPAP. pt says the cough is worse at night and she has to take out her emergency inhaler. pt continues to take inhalers as usual. Her cough tends to be dry and worse at night time. Moderate severity. Denies any reflux symptoms. Denies any significant postnasal drip or nasal congestion at this time. In the meantime she has been using the CPAP. The CPAP therapy continues to be effective in beneficial. She does get supplies through [facility]. Will send another prescription to [facility] to make sure that she is getting the proper mask which is the P 10. 11/16/2022 the patient is here for a pulmonary follow-up visit. The patient overall has been doing well. She still have episodes of chest tightness and wheezing. Has been having to use her rescue inhaler more than twice a week. She also continues with her respiratory regimen. Denies any sick contacts. She has been on Breo and also Spiriva. I do believe that she will do better on Trelegy inhaler. I will request that at the pharmacy. Like to maximize her respiratory therapy with the synergistic affect. In addition to that she should continue with her allergy medicine. She continues uses CPAP. CPAP therapy continues to be affecting beneficial. She also benefits from using the gabapentin at nighttime. This has been helpful. She should continue for now. She is also using Provigil in the morning. Will going to see about trying to decrease the dose to 100 once she completes her current prescription. If the patient has complaints of daytime drowsiness with the lower dose she will call and I will resend the higher dose to the pharmacy. I am hopeful that we can try to simplify her medical regimen at this time. 05/17/2023 the patient is here for pulmonary follow-up visit. Recently she did have a brief exacerbation. She did call the office. We did send her prednisone antibiotics and she did recover. She has been having difficulties getting her inhalers. Initially she had a reaction to the Trelegy so she stopped it. She has to get Breo. I do believe that we can send her Symbicort instead as it may be more effective for her. In the meantime she continues uses CPAP at nighttime. CPAP therapy continues to be affecting beneficial. She does use it for more than 4 hours a night. She also is dependent on the modafinil. This has been very effective for her. We are hoping to decrease her dose down to 100 mg but for some reason she is still on 200 mg. Will decrease it during the next visit. 09/26/2023 the patient is here for a pulmonary follow-up visit. the patient is doing well from a respiratory status. She is responding well to the current respiratory regimen. She is been off prednisone since we last spoke. The patient continues on the Symbicort inhaler. This has been affecting beneficial. Has not had to use her rescue inhaler. She continues also on Daliresp. This also has improved her chronic bronchitis. She is been on modafinil now for some time at the 200 mg dose. The patient is is feeling better so it is a good opportunity to try to decrease the medication down to 100 mg. The patient becomes more symptomatic she can always call we can increase it. I did request that she can try for a month to make sure she gives enough time to try to adjust to the lower dose. She is not using her CPAP. She is sleeping with positional therapy on her side. She denies any significant daytime drowsiness. Casanova score is low elevated it over 24. she is working on weight loss. She continues to lose weight and hopefully will consider repeating the sleep study in the near future to make sure that she does not need her CPAP. [facility], [facility] Medical History (Updated 03/23/23 @ 08:33 by Migdalia Castellon RN) Hx of ectopic Multiple pulmonary nodules Kidney stone Microhematuria WADE (nonalcoholic steatohepatitis) Abnormal LFTs (liver function tests) Hypothyroidism Mixed hyperlipidemia Lumbar radiculopathy GERD (gastroesophageal reflux disease) HTN (hypertension) Microalbuminuria Anxiety Diabetes Asthma 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 KEVIN on CPAP COVID-19 Surgical History (Updated 03/23/23 @ 08:38 by Migdalia Castellon RN) Hx of endoscopy History of back surgery History of surgical removal of ganglion cyst Hx of bilateral breast reduction surgery History of placement of ear tubes H/O colonoscopy Hx of section History of ankle surgery Social History Household Members: Family Housing: Apartment Are you a primary healthcare social worker to a significant other at home: No Do you presently have visiting nurse or other home services: No Alcohol intake: current Alcohol intake frequency: does not drink Patient Tobacco Use Status: Never used Tobacco Second Hand Smoke Exposure: No Advance Directives Date on File: 04/17/22 service: No Current occupational status: employed Review of Systems Const Denies chills, Denies daytime sleepiness, Denies fever(s) and Reports weight loss ENT Denies change in voice, Denies lip swelling, Denies mouth pain, Reports nasal congestion, Reports nasal discharge and Denies tongue swelling Card Reports no additional complaints, Denies syncope and Reports dyspnea on exertion Resp Reports cough, Reports dyspnea on exertion and Denies wheezing GI Denies abdominal pain and Denies heartburn Musc Reports back pain Neuro Denies syncope Paul/Lymph Denies easy bleeding and Denies lymphadenopathy Aller/Immun Denies lip swelling, Denies tongue swelling and Denies wheezing Physical Exam Vital Signs: Last Vital Signs Pulse 81 09/26/23 14:26 Pulse Ox 97 09/26/23 14:26 Oxygen Delivery Method Room Air 09/26/23 14:26 BMI result Body Mass Index 38.1 Const General: alert Neck Neck: Yes normal visual inspection, Yes full ROM and Yes no lymphadenopathy Chest Chest palpation & inspection: normal inspection of the chest Resp Auscultation: no wheezes and diminished lung sounds Cardio Rate: regular rate Rhythm: regular rhythm Heart sounds: S1 normal heart sound present and S2 normal heart sound present GI Palpation (GI): Soft to palpation and nontender Auscultation: normal bowel sounds Skin General skin exam: rashes and/or lesions noted Assessment & Plan Assessment & Plan (1) Hypersomnia with sleep apnea: Code(s): G47.10 - Hypersomnia, unspecified; G47.30 - Sleep apnea, unspecified (2) Asthma: Code(s): J45.909 - Unspecified asthma, uncomplicated Qualifiers: Asthma complication type: uncomplicated Asthma persistence: persistent Asthma severity: moderate Qualified Code(s): J45.40 - Moderate persistent asthma, uncomplicated Plan Continue Daliresp 500 mcg daily continue Gabapentin for sleep holding CPAP therapy, positional therapy ?repeat home sleep study decrease Provigil 100mg follow-up in 6-8 months Medications: New modafinil 100 mg PO DAILY 30 days 30 tabs 3RF Coding Level of Care Code Est Pt Level 4 (96133) Diagnoses Hypersomnia with sleep apnea G47.10; G47.30 Moderate persistent asthma without complication J45.40 Asthma complication type: uncomplicated Asthma persistence: persistent Asthma severity: moderate Time Spent (min) 16
[2023-09-26 14:26] VITALS: PULSE 81; O2SAT 97; BMI 38.1
== END 2023-09-26 14:48 | disposition home or self-care (01) ==
PROVIDERS: PCP Internal Medicine; Visit Provider Hospitalist
DX: G47.10 Hypersomnia, unspecified (principal); G47.30 Sleep apnea, unspecified; J45.40 Moderate persistent asthma, uncomplicated
CPT/HCPCS: 99214

== ENCOUNTER → 2023-09-26 14:09 | Outpatient (BNVA) | payer OTHER, SELFPAY | PROVIDERS: PCP Internal Medicine; Visit Provider Hospitalist | DX: J45.40 Moderate persistent asthma, uncomplicated (principal); G47.10 Hypersomnia, unspecified; G47.30 Sleep apnea, unspecified | CPT/HCPCS: 99212 ==

== ENCOUNTER 2024-01-26 10:07 | Outpatient (AMB) | payer OTHER, SELFPAY ==
--- NOTE | 2024-01-26 10:07 | A.OFFVIS_ITS ---
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 Allergies acetaminophen [Percocet] Allergy (Severe, Verified 01/26/24 10:11) Rash and Hives amlodipine Allergy (Severe, Verified 01/26/24 10:11) Rash and Hives aspirin Allergy (Severe, Verified 01/26/24 10:11) Rash and Hives benzonatate Allergy (Severe, Verified 01/26/24 10:11) Rash and Hives fexofenadine Allergy (Severe, Verified 01/26/24 10:11) Rash and Hives hydrocodone Allergy (Severe, Verified 01/26/24 10:11) Rash and Hives hydroxyzine Allergy (Severe, Verified 01/26/24 10:11) Rash and Hives lisinopril Allergy (Severe, Verified 01/26/24 10:11) Rash and Hives lorazepam Allergy (Severe, Verified 01/26/24 10:11) Rash and Hives meperidine [Demerol] Allergy (Severe, Verified 01/26/24 10:11) Rash and Hives morphine Allergy (Severe, Verified 01/26/24 10:11) Rash and Hives naproxen [Aleve] Allergy (Severe, Verified 01/26/24 10:11) Rash and Hives oxycodone [From PERCOCET] Allergy (Severe, Verified 01/26/24 10:11) SWELLING penicillin G Allergy (Severe, Verified 01/26/24 10:11) Rash and Hives Sulfa (Sulfonamide Antibiotics) Allergy (Severe, Verified 01/26/24 10:11) Rash and Hives valsartan Allergy (Severe, Verified 01/26/24 10:11) Rash and Hives codeine [CODEINE] Allergy (Intermediate, Verified 01/26/24 10:11) RASH ibuprofen [From MOTRIN] Allergy (Intermediate, Verified 01/26/24 10:11) RASH montelukast [From SINGULAIR] Allergy (Intermediate, Verified 01/26/24 10:11) HIVES sulfamethoxazole [From BACTRIM] Allergy (Intermediate, Verified 01/26/24 10:11) HIVES tramadol [TRAMADOL] Allergy (Intermediate, Verified 01/26/24 10:11) SWELLING, RASH loratadine [From CLARITIN] Allergy (Mild, Verified 01/26/24 10:11) HIVES ranitidine [From ZANTAC] Allergy (Mild, Verified 01/26/24 10:11) HIVES diphenhydramine [From Tylenol PM] Allergy (Verified 01/26/24 10:11) Swelling fluticasone furoate [From Trelegy Ellipta] Allergy (Verified 01/26/24 10:11) Unknown umeclidinium [From Trelegy Ellipta] Allergy (Verified 01/26/24 10:11) Unknown vilanterol [From Trelegy Ellipta] Allergy (Verified 01/26/24 10:11) Unknown HPI Comments Details: Allyson is a pleasant female. She is a patient of Dr. Villeda. She see n for the following urologic condition - nephrolithiasis Telemedicine Evaluation 15 min Consultation Doximity Desirae Video attaempted Minimal change since last visit Continue with allopurinol and vitamin B6 Twelve months follow-up renal ultrasound Nephrolithiasis They are here for - ongoing evaluation of recurrence stones Urolithiasis was diagnosed - a number of years ago The patient previously had kidney stones whose composition w - unknown Laboratory investigations include - January 2021 calcium 9.8, 04/28 Ca 9.9 Mg 2.5, PTH 68 Vit D 11, 04/28 Ca 9.9 24 Hour urine evaluation - none on file Prior treatment(s) include - January 2021 right ureteroscopy Prior imaging includes - January [address] - stone protocol 4 mm distal right ureteric stone, bilateral 2 -3 mm nephrolithiasis - 04/27 renal ultrasound 2 mm stone bilateral - 10/27 renal ultrasound bilateral 2 mm stones, 04/28 renal ultrasound small stones bilateral, 10/28 renal ultrasound 5 mm stone x2 on right side, left 3 mm - 04/29 KUB small stones bilateral UA today shows - Current therapeutic plan will be -continue fluid intake with lemon water, imaging surveillance, allopurinol and vitamin B6 PFSH Medical History Hx of ectopic Multiple pulmonary nodules Kidney stone Microhematuria WADE (nonalcoholic steatohepatitis) Abnormal LFTs (liver function tests) Hypothyroidism Mixed hyperlipidemia Lumbar radiculopathy GERD (gastroesophageal reflux disease) HTN (hypertension) Microalbuminuria Anxiety Diabetes Asthma 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 sleeping Patient Tobacco Use Status: Never used Tobacco Second Hand Smoke Exposure: No Advance Directives Date on File: 04/17/22 service: No Current occupational status: employed Review of Systems Const All systems reviewed & are unremarkable except as noted in HPI and below Reports no additional complaints Resp Reports no additional complaints GI Reports no additional complaints Reports as per HPI Musc Reports no additional complaints Physical Exam Telemedicine evaluation Appropriate responses Regular breathing rate and rhythm HEENT Head: Yes normal to inspection Ears: hearing grossly normal bilaterally Eyes General: appearance normal, both eyes and all related structures Neck Neck: Yes normal visual inspection Chest Chest palpation & inspection: normal inspection of the chest Resp Effort & Inspection: normal respiratory effort and able to speak in complete sentences Telehealth Telehealth Location of provider rendering services: practice address Location of patient: address on file Patient Identification confirmed using: Name, : Yes Telehealth method: video Patient verbally consented to treatment: Yes Patient verbally consented to billing insurance company: Yes Patient informed of any privacy concerns related to visit: Yes Assessment & Plan Assessment & Plan (1) Bilateral nephrolithiasis: Code(s): N20.0 - Calculus of kidney Category: Medical Plan 12 month follow-up imaging Orders: Orders US renal BI 12 Months N20.0 - Calculus of kidney Medications: Refilled allopurinol 100 mg PO DAILY 90 tabs 3RF N20.1 - Calculus of ureter, N20.0 - Calculus of kidney pyridoxine (vitamin B6) 50 mg PO DAILY 90 tabs 3RF 90 days N20.0 - Calculus of kidney Patient Instructions: Imaging studies, laboratory and physical exam results were discussed and reviewed in detail. No major barriers to patient understanding were identified. An opportunity to ask questions regarding the treatment plan was provided. All questions were answered. The patient expressed understanding and agreement with the above treatment plan. The patient is aware they should contact our office by phone for worsening of their current condition or the appearance of new urologic symptoms. Compliance is encouraged with any medications and followup testing that is ordered. It is a privilege to participate in the urologic care of your patient. If you have any questions or concerns regarding treatment for the above conditions, or other urologic issues, please do not hesitate to contact me. The office telephone contact is [phone]. This note is constructed using voice recognition software. While every effort has been made to ensure accuracy manager of construction errors may have been included. Yours sincerely, Dr Stanley Duran MD, [facility] - Urology Providers of Expert, Compassionate Care for the Genitourinary System
== END 2024-01-26 12:08 | disposition home or self-care (01) ==
LOC: HO.HUSH 10:07
PROVIDERS: PCP Internal Medicine; Visit Provider Urology
DX: N20.0 Calculus of kidney (principal)
CPT/HCPCS: 99213

== ENCOUNTER → 2024-01-26 10:07 | Outpatient (BNVA) | payer OTHER, SELFPAY | PROVIDERS: PCP Internal Medicine; Visit Provider Urology ==

== ENCOUNTER 2024-03-22 13:45 | Outpatient (AMB) | payer OTHER, SELFPAY ==
--- NOTE | 2024-03-22 13:54 | A.OFFVIS_ITS ---
Vital Signs 03/22/24 13:55 Height 4 ft 9 in Weight 169 lb BMI 36.6 Pulse 86 Pulse Source Pulse Oximeter Pulse Oximetry (%) 96 Oxygen Delivery Method Room Air Intake Visit Reasons: COPD Scientific Research Associate Required: No Allergies acetaminophen [Percocet] Allergy (Severe, Verified 03/22/24 13:56) Rash and Hives amlodipine Allergy (Severe, Verified 03/22/24 13:56) Rash and Hives aspirin Allergy (Severe, Verified 03/22/24 13:56) Rash and Hives benzonatate Allergy (Severe, Verified 03/22/24 13:56) Rash and Hives fexofenadine Allergy (Severe, Verified 03/22/24 13:56) Rash and Hives hydrocodone Allergy (Severe, Verified 03/22/24 13:56) Rash and Hives hydroxyzine Allergy (Severe, Verified 03/22/24 13:56) Rash and Hives lisinopril Allergy (Severe, Verified 03/22/24 13:56) Rash and Hives lorazepam Allergy (Severe, Verified 03/22/24 13:56) Rash and Hives meperidine [Demerol] Allergy (Severe, Verified 03/22/24 13:56) Rash and Hives morphine Allergy (Severe, Verified 03/22/24 13:56) Rash and Hives naproxen [Aleve] Allergy (Severe, Verified 03/22/24 13:56) Rash and Hives oxycodone [From PERCOCET] Allergy (Severe, Verified 03/22/24 13:56) SWELLING penicillin G Allergy (Severe, Verified 03/22/24 13:56) Rash and Hives Sulfa (Sulfonamide Antibiotics) Allergy (Severe, Verified 03/22/24 13:56) Rash and Hives valsartan Allergy (Severe, Verified 03/22/24 13:56) Rash and Hives codeine [CODEINE] Allergy (Intermediate, Verified 03/22/24 13:56) RASH ibuprofen [From MOTRIN] Allergy (Intermediate, Verified 03/22/24 13:56) RASH montelukast [From SINGULAIR] Allergy (Intermediate, Verified 03/22/24 13:56) HIVES sulfamethoxazole [From BACTRIM] Allergy (Intermediate, Verified 03/22/24 13:56) HIVES tramadol [TRAMADOL] Allergy (Intermediate, Verified 03/22/24 13:56) SWELLING, RASH loratadine [From CLARITIN] Allergy (Mild, Verified 03/22/24 13:56) HIVES ranitidine [From ZANTAC] Allergy (Mild, Verified 03/22/24 13:56) HIVES diphenhydramine [From Tylenol PM] Allergy (Verified 03/22/24 13:56) Swelling fluticasone furoate [From Trelegy Ellipta] Allergy (Verified 03/22/24 13:56) Unknown umeclidinium [From Trelegy Ellipta] Allergy (Verified 03/22/24 13:56) Unknown vilanterol [From Trelegy Ellipta] Allergy (Verified 03/22/24 13:56) Unknown HPI Comments Details: The patient is a 63-year-old woman with known moderate persistent asthma and obstructive sleep apnea on CPAP. pt says the cough is worse at night and she has to take out her emergency inhaler. pt continues to take inhalers as usual. Her cough tends to be dry and worse at night time. Moderate severity. Denies any reflux symptoms. Denies any significant postnasal drip or nasal congestion at this time. In the meantime she has been using the CPAP. The CPAP therapy continues to be effective in beneficial. She does get supplies through [facility]. Will send another prescription to [facility] to make sure that she is getting the proper mask which is the P 10. 11/16/2022 the patient is here for a pulmonary follow-up visit. The patient overall has been doing well. She still have episodes of chest tightness and wheezing. Has been having to use her rescue inhaler more than twice a week. She also continues with her respiratory regimen. Denies any sick contacts. She has been on Breo and also Spiriva. I do believe that she will do better on Trelegy inhaler. I will request that at the pharmacy. Like to maximize her respiratory therapy with the synergistic affect. In addition to that she should continue with her allergy medicine. She continues uses CPAP. CPAP therapy continues to be affecting beneficial. She also benefits from using the gabapentin at nighttime. This has been helpful. She should continue for now. She is also using Provigil in the morning. Will going to see about trying to decrease the dose to 100 once she completes her current prescription. If the patient has complaints of daytime drowsiness with the lower dose she will call and I will resend the higher dose to the pharmacy. I am hopeful that we can try to simplify her medical regimen at this time. 05/17/2023 the patient is here for pulmonary follow-up visit. Recently she did have a brief exacerbation. She did call the office. We did send her prednisone antibiotics and she did recover. She has been having difficulties getting her inhalers. Initially she had a reaction to the Trelegy so she stopped it. She has to get Breo. I do believe that we can send her Symbicort instead as it may be more effective for her. In the meantime she continues uses CPAP at nighttime. CPAP therapy continues to be affecting beneficial. She does use it for more than 4 hours a night. She also is dependent on the modafinil. This has been very effective for her. We are hoping to decrease her dose down to 100 mg but for some reason she is still on 200 mg. Will decrease it during the next visit. 09/26/2023 the patient is here for a pulmonary follow-up visit. the patient is doing well from a respiratory status. She is responding well to the current respiratory regimen. She is been off prednisone since we last spoke. The patient continues on the Symbicort inhaler. This has been affecting beneficial. Has not had to use her rescue inhaler. She continues also on Daliresp. This also has improved her chronic bronchitis. She is been on modafinil now for some time at the 200 mg dose. The patient is is feeling better so it is a good opportunity to try to decrease the medication down to 100 mg. The patient becomes more symptomatic she can always call we can increase it. I did request that she can try for a month to make sure she gives enough time to try to adjust to the lower dose. She is not using her CPAP. She is sleeping with positional therapy on her side. She denies any significant daytime drowsiness. [place] score is low elevated it over 24. she is working on weight loss. She continues to lose weight and hopefully will consider repeating the sleep study in the near future to make sure that she does not need her CPAP.\ 03/22/2024 the patient is here for a pulmonary follow-up visit. She is struggles with breathing. She has had issues with asthma symptoms and she feels is related to stress. She has been having to use her rescue inhaler more regularly. In addition to that she has been having hard time sleeping. She has been using her CPAP at nighttime. It has been helpful. Although right now she has not getting supplies from the [facility]. She will need another sleep study. She will consider that in the future. Right now her elevated [place] score is at 11/24. She does respond to the Provigil. We did try to decrease it down to the 100 mg dose but she became more symptomatic. Therefore, will go ahead and increase it again to 200 mg dose. The patient also is having significant stress because of her apartment situation. She has a 2 bedroom apartment for her . She does need a separate room because of her significant asthma and sleep apnea. Will provide her a letter to document the necessity. Specially with worsening respiratory symptoms she needs that separate space. [facility] Medical History Hx of ectopic Multiple pulmonary nodules Kidney stone Microhematuria WADE (nonalcoholic steatohepatitis) Abnormal LFTs (liver function tests) Hypothyroidism Mixed hyperlipidemia Lumbar radiculopathy GERD (gastroesophageal reflux disease) HTN (hypertension) Microalbuminuria Anxiety Diabetes Asthma 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 KEVIN on CPAP COVID-19 Surgical History Hx of endoscopy History of back surgery History of surgical removal of ganglion cyst Hx of bilateral breast reduction surgery History of placement of ear tubes H/O colonoscopy Hx of section History of ankle surgery Social History Household Members: Family Housing: Apartment Are you a primary long term acute care registered nurse to a significant other at home: No Do you presently have visiting nurse or other home services: No Alcohol intake: current Alcohol intake frequency: does not drink Comment: Pt. sleeping Patient Tobacco Use Status: Never used Tobacco Second Hand Smoke Exposure: No Advance Directives Date on File: 04/17/22 service: No Current occupational status: employed Review of Systems Const Denies chills, Denies daytime sleepiness, Denies fever(s) and Reports weight loss ENT Denies change in voice, Denies lip swelling, Denies mouth pain, Reports nasal congestion, Reports nasal discharge and Denies tongue swelling Card Reports no additional complaints, Denies syncope and Reports dyspnea on exertion Resp Reports cough, Reports dyspnea on exertion and Denies wheezing GI Denies abdominal pain and Denies heartburn Musc Reports back pain Neuro Denies syncope Paul/Lymph Denies easy bleeding and Denies lymphadenopathy Aller/Immun Denies lip swelling, Denies tongue swelling and Denies wheezing Physical Exam Vital Signs: Last Vital Signs Pulse 86 03/22/24 13:55 Pulse Ox 96 03/22/24 13:55 Oxygen Delivery Method Room Air 03/22/24 13:55 BMI result Body Mass Index 36.6 Const General: alert Neck Neck: Yes normal visual inspection, Yes full ROM and Yes no lymphadenopathy Chest Chest palpation & inspection: normal inspection of the chest Resp Auscultation: no wheezes and diminished lung sounds Cardio Rate: regular rate Rhythm: regular rhythm Heart sounds: S1 normal heart sound present and S2 normal heart sound present GI Palpation (GI): Soft to palpation and nontender Auscultation: normal bowel sounds Skin General skin exam: rashes and/or lesions noted Assessment & Plan Assessment & Plan (1) Hypersomnia with sleep apnea: Code(s): G47.10 - Hypersomnia, unspecified; G47.30 - Sleep apnea, unspecified Category: Medical (2) Asthma: Code(s): J45.909 - Unspecified asthma, uncomplicated Category: Medical Qualifiers: Asthma complication type: uncomplicated Asthma persistence: persistent Asthma severity: moderate Qualified Code(s): J45.40 - Moderate persistent asthma, uncomplicated Plan Continue Daliresp 500 mcg daily continue Gabapentin for sleep using CPAP therapy, positional therapy ?repeat home sleep study continue Provigil 200mg daily follow-up in 6-8 months Medications: Discontinued modafinil Discontinued Reason: Doctor's Order 100 mg PO DAILY 30 days 30 tabs 3RF Coding Level of Care Code Est Pt Level 4 (55430) Diagnoses Hypersomnia with sleep apnea G47.10; G47.30 Moderate persistent asthma without complication J45.40 Asthma complication type: uncomplicated Asthma persistence: persistent Asthma severity: moderate Time Spent (min) 17
[2024-03-22 13:55] VITALS: PULSE 86; O2SAT 96; BMI 36.6
== END 2024-03-22 14:13 | disposition home or self-care (01) ==
PROVIDERS: PCP Internal Medicine; Visit Provider Hospitalist
DX: G47.10 Hypersomnia, unspecified (principal); G47.30 Sleep apnea, unspecified; J45.40 Moderate persistent asthma, uncomplicated
CPT/HCPCS: 99214

== ENCOUNTER → 2024-03-22 13:45 | Outpatient (BNVA) | payer OTHER, SELFPAY | PROVIDERS: PCP Internal Medicine; Visit Provider Hospitalist | DX: G47.10 Hypersomnia, unspecified (principal); G47.30 Sleep apnea, unspecified; J45.40 Moderate persistent asthma, uncomplicated | CPT/HCPCS: 99212 ==

== ENCOUNTER 2024-04-10 09:55 | Outpatient (AMB) | payer OTHER, SELFPAY ==
[2024-04-10 10:02] VITALS: PULSE 92; O2SAT 98; BMI 36.5
--- NOTE | 2024-04-10 10:02 | A.OFFVIS_ITS ---
Vital Signs 04/10/24 10:02 Height 4 ft 9 in Weight 168 lb 13.985 oz BMI 36.5 Pulse 92 Pulse Source Pulse Oximeter Pulse Oximetry (%) 98 Oxygen Delivery Method Room Air Intake Visit Reasons: Asthma Sandblaster Supervisor Required: No Allergies acetaminophen [Percocet] Allergy (Severe, Verified 04/10/24 10:03) Rash and Hives amlodipine Allergy (Severe, Verified 04/10/24 10:03) Rash and Hives aspirin Allergy (Severe, Verified 04/10/24 10:03) Rash and Hives benzonatate Allergy (Severe, Verified 04/10/24 10:03) Rash and Hives fexofenadine Allergy (Severe, Verified 04/10/24 10:03) Rash and Hives hydrocodone Allergy (Severe, Verified 04/10/24 10:03) Rash and Hives hydroxyzine Allergy (Severe, Verified 04/10/24 10:03) Rash and Hives lisinopril Allergy (Severe, Verified 04/10/24 10:03) Rash and Hives lorazepam Allergy (Severe, Verified 04/10/24 10:03) Rash and Hives meperidine [Demerol] Allergy (Severe, Verified 04/10/24 10:03) Rash and Hives morphine Allergy (Severe, Verified 04/10/24 10:03) Rash and Hives naproxen [Aleve] Allergy (Severe, Verified 04/10/24 10:03) Rash and Hives oxycodone [From PERCOCET] Allergy (Severe, Verified 04/10/24 10:03) SWELLING penicillin G Allergy (Severe, Verified 04/10/24 10:03) Rash and Hives Sulfa (Sulfonamide Antibiotics) Allergy (Severe, Verified 04/10/24 10:03) Rash and Hives valsartan Allergy (Severe, Verified 04/10/24 10:03) Rash and Hives codeine [CODEINE] Allergy (Intermediate, Verified 04/10/24 10:03) RASH ibuprofen [From MOTRIN] Allergy (Intermediate, Verified 04/10/24 10:03) RASH montelukast [From SINGULAIR] Allergy (Intermediate, Verified 04/10/24 10:03) HIVES sulfamethoxazole [From BACTRIM] Allergy (Intermediate, Verified 04/10/24 10:03) HIVES tramadol [TRAMADOL] Allergy (Intermediate, Verified 04/10/24 10:03) SWELLING, RASH loratadine [From CLARITIN] Allergy (Mild, Verified 04/10/24 10:03) HIVES ranitidine [From ZANTAC] Allergy (Mild, Verified 04/10/24 10:03) HIVES diphenhydramine [From Tylenol PM] Allergy (Verified 04/10/24 10:03) Swelling fluticasone furoate [From Trelegy Ellipta] Allergy (Verified 04/10/24 10:03) Unknown umeclidinium [From Trelegy Ellipta] Allergy (Verified 04/10/24 10:03) Unknown vilanterol [From Trelegy Ellipta] Allergy (Verified 04/10/24 10:03) Unknown HPI Comments Details: The patient is a 63-year-old woman with known moderate persistent asthma and obstructive sleep apnea on CPAP. pt says the cough is worse at night and she has to take out her emergency inhaler. pt continues to take inhalers as usual. Her cough tends to be dry and worse at night time. Moderate severity. Denies any reflux symptoms. Denies any significant postnasal drip or nasal congestion at this time. In the meantime she has been using the CPAP. The CPAP therapy continues to be effective in beneficial. She does get supplies through [facility]. Will send another prescription to [facility] to make sure that she is getting the proper mask which is the P 10. 11/16/2022 the patient is here for a pulmonary follow-up visit. The patient overall has been doing well. She still have episodes of chest tightness and wheezing. Has been having to use her rescue inhaler more than twice a week. She also continues with her respiratory regimen. Denies any sick contacts. She has been on Breo and also Spiriva. I do believe that she will do better on Trelegy inhaler. I will request that at the pharmacy. Like to maximize her respiratory therapy with the synergistic affect. In addition to that she should continue with her allergy medicine. She continues uses CPAP. CPAP therapy continues to be affecting beneficial. She also benefits from using the gabapentin at nighttime. This has been helpful. She should continue for now. She is also using Provigil in the morning. Will going to see about trying to decrease the dose to 100 once she completes her current prescription. If the patient has complaints of daytime drowsiness with the lower dose she will call and I will resend the higher dose to the pharmacy. I am hopeful that we can try to simplify her medical regimen at this time. 05/17/2023 the patient is here for pulmonary follow-up visit. Recently she did have a brief exacerbation. She did call the office. We did send her prednisone antibiotics and she did recover. She has been having difficulties getting her inhalers. Initially she had a reaction to the Trelegy so she stopped it. She has to get Breo. I do believe that we can send her Symbicort instead as it may be more effective for her. In the meantime she continues uses CPAP at nighttime. CPAP therapy continues to be affecting beneficial. She does use it for more than 4 hours a night. She also is dependent on the modafinil. This has been very effective for her. We are hoping to decrease her dose down to 100 mg but for some reason she is still on 200 mg. Will decrease it during the next visit. 09/26/2023 the patient is here for a pulmonary follow-up visit. the patient is doing well from a respiratory status. She is responding well to the current respiratory regimen. She is been off prednisone since we last spoke. The patient continues on the Symbicort inhaler. This has been affecting beneficial. Has not had to use her rescue inhaler. She continues also on Daliresp. This also has improved her chronic bronchitis. She is been on modafinil now for some time at the 200 mg dose. The patient is is feeling better so it is a good opportunity to try to decrease the medication down to 100 mg. The patient becomes more symptomatic she can always call we william mariee. I did request that she can try for a month to make sure she gives enough time to try to adjust to the lower dose. She is not using her CPAP. She is sleeping with positional therapy on her side. She denies any significant daytime drowsiness. [place] score is low elevated it over 24. she is working on weight loss. She continues to lose weight and hopefully will consider repeating the sleep study in the near future to make sure that she does not need her CPAP.\ 03/22/2024 the patient is here for a pulmonary follow-up visit. She is struggles with breathing. She has had issues with asthma symptoms and she feels is related to stress. She has been having to use her rescue inhaler more regularly. In addition to that she has been having hard time sleeping. She has been using her CPAP at nighttime. It has been helpful. Although right now she has not getting supplies from the [facility]. She will need another sleep study. She will consider that in the future. Right now her elevated [place] score is at 11/24. She does respond to the Provigil. We did try to decrease it down to the 100 mg dose but she became more symptomatic. Therefore, will go ahead and increase it again to 200 mg dose. The patient also is having significant stress because of her apartment situation. She has a 2 bedroom apartment for her . She does need a separate room because of her significant asthma and sleep apnea. Will provide her a letter to document the necessity. Specially with worsening respiratory symptoms she needs that separate space. 04/10/2024 the patient is here for a sick visit. The patient started developing worsening respiratory symptoms for last week. Krishna of chest tightness she had then taking her inhalers and respiratory therapy to see if she could improve her symptoms. However seem to be getting worse. Moderate severity. She has congested cough but difficult to expectorate. She feels significant chest tightness. She did call we did call in a prescription for prednisone 40 mg that she started yesterday. The patient denies any fevers or chills. Not sure about sick contacts. She has significant wheezing on examination. We did give her Solu-Medrol 125 mg IM x1. She is going to start antibiotics and also continue the prednisone taper. If the patient does not improve she has to call the office. If she worsens she needs to go to the hospital. Meantime she continues use her respiratory therapy as prescribed. [facility] Medical History Hx of ectopic Multiple pulmonary nodules Kidney stone Microhematuria WADE (nonalcoholic steatohepatitis) Abnormal LFTs (liver function tests) Hypothyroidism Mixed hyperlipidemia Lumbar radiculopathy GERD (gastroesophageal reflux disease) HTN (hypertension) Microalbuminuria Anxiety Diabetes Asthma 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 KEVIN on CPAP COVID-19 Surgical History Hx of endoscopy History of back surgery History of surgical removal of ganglion cyst Hx of bilateral breast reduction surgery History of placement of ear tubes H/O colonoscopy Hx of section History of ankle surgery Social History Household Members: Family Housing: Apartment Are you a primary care management specialist to a significant other at home: No Do you presently have visiting nurse or other home services: No Alcohol intake: current Alcohol intake frequency: does not drink Comment: Pt. sleeping Patient Tobacco Use Status: Never used Tobacco Second Hand Smoke Exposure: No Advance Directives Date on File: 04/17/22 service: No Current occupational status: employed Review of Systems Const Denies chills, Denies daytime sleepiness, Reports fatigue, Denies fever(s) and Reports weight loss ENT Denies change in voice, Denies lip swelling, Denies mouth pain, Reports nasal c ongestion, Reports nasal discharge and Denies tongue swelling Card Reports no additional complaints, Denies syncope and Reports dyspnea on exertion Resp Reports chest congestion, Reports cough, Reports dyspnea on exertion and Reports wheezing GI Denies abdominal pain and Denies heartburn Musc Reports back pain Neuro Denies syncope Endo Reports fatigue Paul/Lymph Denies easy bleeding and Denies lymphadenopathy Aller/Immun Denies lip swelling, Denies tongue swelling and Reports wheezing Physical Exam Vital Signs: Last Vital Signs Pulse 92 04/10/24 10:02 Pulse Ox 98 04/10/24 10:02 Oxygen Delivery Method Room Air 04/10/24 10:02 BMI result Body Mass Index 36.5 Const General: alert Neck Neck: Yes normal visual inspection, Yes full ROM and Yes no lymphadenopathy Chest Chest palpation & inspection: normal inspection of the chest Resp Auscultation: wheezes and diminished lung sounds Cardio Rate: regular rate Rhythm: regular rhythm Heart sounds: S1 normal heart sound present and S2 normal heart sound present GI Palpation (GI): Soft to palpation and nontender Auscultation: normal bowel sounds Skin General skin exam: rashes and/or lesions noted Office Meds methylprednisolone sod suc(PF) 125 mg/2 mL solution for injection Performing Provider: Holland Arias MD Performing Location: [facility] Administered by: Gay Parikh LPN on 04/10/24 10:23 Dose Route Admin Location Dispensed Lot Number Expiration Date [facility] Registered Travel Nurse 125 mg IM L deltoid 2 ea [id number] 11/06/25 [id number] [employer] [place] [employer] Comments: 125mg/2ml given in the L deltoid per patient request Assessment & Plan Assessment & Plan (1) Hypersomnia with sleep apnea: Code(s): G47.10 - Hypersomnia, unspecified; G47.30 - Sleep apnea, unspecified Category: Medical (2) Asthma: Code(s): J45.909 - Unspecified asthma, uncomplicated Category: Medical Qualifiers: Asthma severity: moderate Asthma persistence: persistent Asthma complication type: uncomplicated Qualified Code(s): J45.40 - Moderate persistent asthma, uncomplicated Plan solumedrol 125mg IM X1 start Doxycycline prednisone taper Continue Daliresp 500 mcg daily continue Gabapentin for sleep using CPAP therapy, positional therapy ?repeat home sleep study continue Provigil 200mg daily follow-up in 6-8 months Orders: Orders AMB Methylprednisolone Sod Succ Injection Today J44.9 - Chronic obstructive pulmonary disease, unspecified Medications: New doxycycline hyclate 100 mg PO BID 10 days 20 caps 0RF Coding Level of Care Code Est Pt Level 4 (94739) Diagnoses Hypersomnia with sleep apnea G47.10; G47.30 Moderate persistent asthma without complication J45.40 Asthma severity: moderate Asthma persistence: persistent Asthma complication type: uncomplicated Time Spent (min) 16
== END 2024-04-10 10:36 | disposition home or self-care (01) ==
PROVIDERS: PCP Internal Medicine; Visit Provider Hospitalist
DX: G47.10 Hypersomnia, unspecified (principal); G47.30 Sleep apnea, unspecified; J45.40 Moderate persistent asthma, uncomplicated; J44.9 Chronic obstructive pulmonary disease, unspecified
CPT/HCPCS: 99214

== ENCOUNTER → 2024-04-10 09:55 | Outpatient (BNVA) | payer OTHER, SELFPAY | PROVIDERS: PCP Internal Medicine; Visit Provider Hospitalist | DX: G47.10 Hypersomnia, unspecified (principal); G47.30 Sleep apnea, unspecified; J45.40 Moderate persistent asthma, uncomplicated | CPT/HCPCS: 96372; 99212; J2919 ==

== ENCOUNTER 2024-05-03 07:41 | Emergency (ER) | payer OTHER, SELFPAY ==
--- NOTE | ~2024-05-03 | CT_ITS ---
EXAMINATION: CT ABDOMEN AND PELVIS WITHOUT CONTRAST CLINICAL INFORMATION: Rule out kidney stone COMPARISON: 01/18/2021 TECHNIQUE: Multidetector volumetric imaging was performed from the superior aspect of the liver through the pubic symphysis. Sagittal and coronal reformatted images were obtained on the technologist's workstation. This CT examination was performed using dose optimization techniques as appropriate, variously including the following: *Automated exposure control *Adjustment of mA and/or kV according to patient size (this includes techniques or standardized protocols for targeted exams where dose is matched to indication/reason for exam; i.e. extremities or head) *Use of iterative reconstruction technique DLP: 472 mGy-cm FINDINGS: LUNG BASES: The visualized lung bases are unremarkable. LIVER, GALLBLADDER, AND BILIARY TREE: The liver is normal in size, shape, and attenuation. No focal hepatic lesion or biliary ductal dilatation is present. The gallbladder is unremarkable with no evidence of radiopaque gallstones, gallbladder wall thickening, or obvious pericholecystic inflammatory changes. PANCREAS: Unremarkable. SPLEEN: Unremarkable. ADRENAL GLANDS: Unremarkable. KIDNEYS AND URETERS: Right kidney revealed multiple punctate calculi mild perinephric stranding but no hydroureteronephrosis left kidney demonstrate less punctate calcifications and no hydroureteronephrosis. BLADDER: Unremarkable. GASTROINTESTINAL TRACT: The small and large bowel are unremarkable. The appendix is not seen. ABDOMINAL WALL: There is fat-containing umbilical hernia. LYMPH NODES: Normal. VASCULAR: Unremarkable. PELVIC VISCERA: There is stable since previous study uterine mass most likely fibroid, correlate with pelvic ultrasound the mass measured 3.1 x 3.1 cm no fluid in cul-de-sac. OSSEOUS STRUCTURES: Unremarkable. CT/CT abdomen pelvis wo IV con IMPRESSION: 1. Bilateral nephrolithiasis without hydroureteronephrosis. 2. Stable uterine mass most likely fibroid. Correlate with pelvic ultrasound 3. Fat-containing umbilical hernia. Fleischner guidelines were followed.
[2024-05-03 07:56] VITALS: BP 145/81; PULSE 87; RESP 7; TEMP 36.6; O2SAT 97; BMI 37.0
--- NOTE | 2024-05-03 08:31 | ECG_ITS ---
Test Reason : EKG ASSESSMENT Blood Pressure : / mmHG Vent. Rate : 085 BPM Atrial Rate : 085 BPM P-R Int : 158 ms QRS Dur : 126 ms QT Int : 416 ms P-R-T Axes : 043 020 021 degrees QTc Int : 495 ms Normal sinus rhythm Right bundle branch block Abnormal ECG When compared with ECG of 12-APR-2022 13:26, Nonspecific T wave abnormality no longer evident in Lateral leads Referred By: Shane Peterson Electronically Signed By:ESTELLE DAVIS MD
--- NOTE | 2024-05-03 08:31 | ED.GENADULT ---
HPI - General Adult General Chief complaint: General Medical Stated complaint: side pain Time Seen by Provider: 05/03/24 08:30 History of Present Illness ED Provider: Kristen OSORIO narrative: 63-year-old female with past medical history of nephrolithiasis, degenerative disc disease, asthma, COPD presenting for right flank pain radiating to her right abdominal lower quadrant. Patient states that she has been experiencing 2-3 days of worsening right flank pain and had difficulty sleeping last night. Pain is worse with movement however she states it is constant and sharp in nature. She denies hematuria, dysuria, fevers, chills, chest pain, shortness of breath. She does endorse nausea however denies vomiting, diarrhea. She thinks that this feels similar to her prior kidney stones however can not completely remember. Onset (ago): day(s) Location: back (Right flank pain) Related Data Home Medications ?Medication ?Instructions ?Recorded ?Confirmed atorvastatin 40 mg tablet 40 mg PO DAILY 11/19/20 08/03/23 hydrochlorothiazide 25 mg tablet 25 mg PO DAILY 11/19/20 08/03/23 levothyroxine 50 mcg tablet 50 mcg PO DAILY 11/19/20 08/03/23 omeprazole 20 mg capsule,delayed 20 mg PO DAILY 11/19/20 08/03/23 release verapamil 100 mg capsule 24hr 100 mg PO BEDTIME 11/19/20 08/03/[address],ext.release duloxetine 30 mg capsule,delayed 30 mg PO DAILY 04/30/21 08/03/23 release nebulizers 11/16/22 08/03/23 albuterol sulfate 2.5 mg/3 mL 1 inhalation Q4-5H PRN Wheezing 03/23/23 08/03/23 (0.083 %) solution for nebulization budesonide 0.5 mg/2 mL suspension 0.5 mg inhalation DAILY 03/23/23 08/03/23 for nebulization loratadine 10 mg tablet 10 mg PO DAILY 03/23/23 08/03/23 fexofenadine 180 mg tablet 180 mg PO DAILY 05/17/23 08/03/23 Previous Rx's ?Medication ?Instructions ?Recorded tiotropium bromide 2.5 2 puff inhalation DAILY 30 days #4 01/05/23 mcg/actuation mist for inhalation grams (Spiriva Respimat) albuterol sulfate 90 mcg/actuation 2 puff inhalation Q4-6H PRN 05/17/23 aerosol inhaler (ProAir HFA) Wheezing 30 days #8.5 grams budesonide-formoterol HFA 160 2 puff inhalation BID 30 days 05/17/23 mcg-4.5 mcg/actuation aerosol #10.2 grams inhaler (Symbicort) gabapentin 300 mg capsule 300 mg PO BEDTIME 30 days #30 caps 09/26/23 allopurinol 100 mg tablet 100 mg PO DAILY #90 tabs 01/26/24 pyridoxine (vitamin B6) 50 mg 50 mg PO DAILY 90 days #90 tabs 01/26/24 tablet roflumilast 500 mcg tablet 500 mcg PO DAILY #90 tabs 03/26/24 modafinil 200 mg tablet 200 mg PO DAILY 90 days #90 tabs 04/03/24 ipratropium 0.5 mg-albuterol 3 mg 3 ml inhalation Q6H PRN wheezing 04/09/24 (2.5 mg base)/3 mL nebulization 30 days #180 mL soln prednisone 20 mg tablet 20 mg PO DAILY 10 days #15 tabs 04/09/24 doxycycline hyclate 100 mg capsule 100 mg PO BID 10 days #20 caps 04/10/24 Allergies Allergy/AdvReac Type Severity Reaction Status Date / Time acetaminophen [Percocet] Allergy Severe Rash and Verified 05/03/24 07:58 Hives amlodipine Allergy Severe Rash and Verified 05/03/24 07:58 Hives aspirin Allergy Severe Rash and Verified 05/03/24 07:58 Hives benzonatate Allergy Severe Rash and Verified 05/03/24 07:58 Hives fexofenadine Allergy Severe Rash and Verified 05/03/24 07:58 Hives hydrocodone Allergy Severe Rash and Verified 05/03/24 07:58 Hives hydroxyzine Allergy Severe Rash and Verified 05/03/24 07:58 Hives lisinopril Allergy Severe Rash and Verified 05/03/24 07:58 Hives lorazepam Allergy Severe Rash and Verified 05/03/24 07:58 Hives meperidine [Demerol] Allergy Severe Rash and Verified 05/03/24 07:58 Hives morphine Allergy Severe Rash and Verified 05/03/24 07:58 Hives naproxen [Aleve] Allergy Severe Rash and Verified 05/03/24 07:58 Hives oxycodone [From PERCOCET] Allergy Severe SWELLING Verified 05/03/24 07:58 penicillin G Allergy Severe Rash and Verified 05/03/24 07:58 Hives Sulfa (Sulfonamide Allergy Severe Rash and Verified 05/03/24 07:58 Antibiotics) Hives valsartan Allergy Severe Rash and Verified 05/03/24 07:58 Hives codeine [CODEINE] Allergy Intermediate RASH Verified 05/03/24 07:58 ibuprofen [From MOTRIN] Allergy Intermediate RASH Verified 05/03/24 07:58 montelukast [From SINGULAIR] Allergy Intermediate HIVES Verified 05/03/24 07:58 sulfamethoxazole Allergy Intermediate HIVES Verified 05/03/24 07:58 [From BACTRIM] tramadol [TRAMADOL] Allergy Intermediate SWELLING, Verified 05/03/24 07:58 RASH loratadine [From CLARITIN] Allergy Mild HIVES Verified 05/03/24 07:58 ranitidine [From ZANTAC] Allergy Mild HIVES Verified 05/03/24 07:58 diphenhydramine Allergy Swelling Verified 05/03/24 07:58 [From Tylenol PM] fluticasone furoate Allergy Unknown Verified 05/03/24 07:58 [From Trelegy Ellipta] umeclidinium Allergy Unknown Verified 05/03/24 07:58 [From Trelegy Ellipta] vilanterol Allergy Unknown Verified 05/03/24 07:58 [From Trelegy Ellipta] PMFSH Past Medical History Medical History Hx of ectopic Multiple pulmonary nodules Kidney stone Microhematuria WADE (nonalcoholic steatohepatitis) Abnormal LFTs (liver function tests) Hypothyroidism Mixed hyperlipidemia Lumbar radiculopathy GERD (gastroesophageal reflux disease) HTN (hypertension) Microalbuminuria Anxiety Diabetes Asthma 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 KEVIN on CPAP COVID-19 Surgical History Hx of endoscopy History of back surgery History of surgical removal of ganglion cyst Hx of bilateral breast reduction surgery History of placement of ear tubes H/O colonoscopy Hx of section History of ankle surgery Social History Social History (Reviewed 03/21/24 @ 10:11 by MEREDITH Agarwal Household Members: Family Housing: Apartment Are you a primary manager care management to a significant other at home: No Do you presently have visiting nurse or other home services: No Alcohol intake: current Alcohol intake frequency: does not drink Comment: Pt. sleeping Patient Tobacco Use Status: Never used Tobacco Second Hand Smoke Exposure: No Advance Directives: Yes Advance Directives Information Provided: Yes Advance Directives on File: No Advance Directives Date on File: 04/17/22 service: No Current occupational status: employed Physical Exam ED Vital Signs: Vital Signs - 24 hr 05/03/24 07:56 05/03/24 08:33 05/03/24 11:26 Temperature 98 F 97.9 F Pulse Rate 87 68 Respiratory Rate 7 L 17 16 Blood Pressure 145/81 H 144/63 H Pulse Oximetry 97 98 Oxygen Delivery Method Room Air Room Air BMI result Body Mass Index 37.0 Appearance: Alert. Oriented X3. No acute distress. Eyes: Pupils equal, round and reactive to light. ENT: Pharynx normal. Neck: Normal inspection. Neck supple. CVS: Normal heart rate and rhythm. Pulses normal. Respiratory: No respiratory distress. Breath sounds normal. Abdomen: Right CVA and Right lower quadrant tenderness to palpation; abdomen otherwise soft, nondistended Skin: Skin warm and dry. Normal skin color. Normal skin turgor. Extremities: No lower extremity edema. No calf ttp Neuro: Oriented X 3. No motor deficit. No sensory deficit. Course Course Course Narrative: Labs, imaging and analgesics ordered On reassessment patient reports improvement in symptoms Medications Administered Discontinued Medications Generic Name Dose Route Start Last Admin Trade Name Deshawn PRN Reason Stop Dose Admin Diphenhydramine HCl 25 mg 05/03/24 09:51 05/03/24 10:05 Diphenhydramine Hcl 50 Mg/Ml Vial IVPUSH 05/03/24 09:52 25 mg ONCE ONE Administration Sodium Chloride 1,000 mls @ 999 mls/hr 05/03/24 09:15 05/03/24 10:45 Ns IV 05/03/24 10:15 0 mls/hr .Q1H1M SAL Infusion Ketorolac Tromethamine 15 mg 05/03/24 09:51 05/03/24 10:16 Ketorolac Tromethamine 15 Mg/Ml Vial IVPUSH 05/03/24 09:52 15 mg ONCE ONE Administration Medical Decision Making Medical Decision Making [facility] Narrative: I am concerned that patient may have a kidney stone as she has history of this and is presenting with symptoms indicative of nephrolithiasis. However considering UTI, pyelonephritis Urine positive for blood Given patient's workup her symptoms are likely secondary to nephrolithiasis. Her CT showed multiple punctate calculi in her right kidney with mild perinephric stranding. I do not believe that this is related to infection. Patient most likely passed stone and perinephric stranding as result of minor local trauma/irritation. She does not have dirty urine nor does she has systemic symptoms. For this reason I do not believe she has pyelonephritis CT abdomen pelvis negative for significant hydro on my read; radiologist's report reads bilateral nephrolithiasis without hydroureteronephrosis, stable uterine mass most likely fibroid Patient's pain is mostly located right flank and her uterine mass is less likely a cause of this however I notified her and recommended outpatient OB visit and ultrasound. I also instructed her to follow up with her urologist gave him return precautions Differential Diagnosis Differential Diagnoses: The differential diagnosis associated with the presentation includes I am concerned with the following diagnoses; nephrolithiasis, UTI, pyelonephritis, muscular pain, diverticulitis Given patient's history and physical exam her symptoms are less likely secondary to SBO/surgical abdomen, ectopic Lab Data 05/03/24 09:01 05/03/24 09:01 Labs: Lab Results 05/03/24 Range/Units 09:01 WBC 9.4 (4.8-10.8) X10*3/uL RBC 4.08 L (4.20-5.50) X10*6/uL Hgb 12.4 (12.0-16.0) g/dl Hct 36.9 L (37.0-47.0) % MCV 90.4 (80.0-98.0) fL MCH 30.4 (27.0-33.0) pg MCHC 33.6 (31.0-35.0) g/dl RDW 14.6 (11.0-16.0) % Plt Count 377 (160-400) X10*3/uL MPV 9.3 L (9.4-12.3) fL Immature Gran % (Auto) 0.2 (0.0-0.4) % Neut % (Auto) 46.9 (45-73) % Lymph % (Auto) 37.1 (20-40) % Kane % (Auto) 9.2 (2-11) % Eos % (Auto) 6.0 H (0-4) % Baso % (Auto) 0.6 (0-2) % Lymph # (Auto) 3.5 (1.2-4.9) X10*3/uL Kane # (Auto) 0.9 (0.1-1.2) X10*3/uL Eos # (Auto) 0.6 H (0.0-0.4) X10*3/uL Baso # (Auto) 0.1 (0.0-0.2) X10*3/uL Abs Immat Gran (auto) 0.02 (0.00-0.03) X10*3/uL Absolute Neuts (auto) 4.4 (2.0-8.3) x10*3/uL Absolute Nucleated RBC 0.000 (0.0-0.012) X10*3/uL Nucleated RBC % (auto) 0.0 (0.0-0.2) /100WBC Sodium 144 (135-145) mmol/L Potassium 3.7 (3.3-5.1) mmol/L Chloride 107 (96-108) mmol/L Carbon Dioxide 26 (22-29) mmol/L Anion Gap 15 (12-20) BUN 12 (9-16) mg/dL Creatinine 0.63 (0.5-1.4) mg/dL Estim Creat Clear Calc 77.1 Estimated GFR > 60 Random Glucose 87 (60-115) mg/dL Lactic Acid 1.2 (0.5-2.0) mmol/L Calcium 10.3 H (8.4-10.2) mg/dL Total Bilirubin 0.4 (0.0-1.0) mg/dL Direct Bilirubin 0.1 (0.0-0.5) mg/dL AST 40 H (5-31) U/L ALT 40 H (0-31) U/L Alkaline Phosphatase 86 (39-117) U/L Total Protein 7.7 (6.5-8.0) g/dL Albumin 4.0 (3.5-5.0) g/dL Lipase 20 (8-78) U/L Urine Color Yellow Urine Appearance Clear Urine pH 6.5 (5.0-9.0) Ur Specific [place] <= 1.005 (1.005-1.025) Urine Protein Negative (Neg-Trace) mg/dL Urine Glucose (UA) Negative (Negative) mg/dL Urine Ketones Negative (Negative) mg/dL Urine Blood Small (1+) H (Negative) Urine Nitrite Negative (Negative) Ur Leukocyte Esterase Negative (Negative) Urine RBC 0-2 (0-2) /HPF Urine WBC 0-5 (0-5) /HPF Ur Squamous Epith Cells 0-2 (0-2) /HPF Urine Bacteria None Seen (None Seen) Hyaline Casts 0-2 (0-2) /LPF Urine Test NEGATIVE (NEGATIVE) Discharge Plan Discharge Clinical Impression: Nephrolithiasis, Acute right flank pain Patient Disposition: Home, Self-Care Instructions: Kidney Stones (ED) Additional Instructions: This is your CT report: IMPRESSION: 1. Bilateral nephrolithiasis without hydroureteronephrosis. 2. Stable uterine mass most likely fibroid. Correlate with pelvic ultrasound 3. Fat-containing umbilical hernia. Please schedule an appointment with your cumulative effects analyst to further evaluate uterine mass that is likely a fibroid. You will most likely need an ultrasound Make sure you remain well hydrated. You can try Lidoderm patches for pain relief Please contact and schedule an appointment with your urologist Dr. Stanley Duran If you develop any new or worsening symptoms such as severe nausea, vomiting, fevers, chills please seek immediate medical attention or return to this emergency department Prescriptions: No Action Spiriva Respimat 2.5 mcg/actuation mist 2 puff inhalation DAILY 30 Days Qty: 4 11RF gabapentin 300 mg capsule 300 mg PO BEDTIME 30 Days Qty: 30 6RF roflumilast 500 mcg tablet 500 mcg PO DAILY Qty: 90 0RF modafinil 200 mg tablet 200 mg PO DAILY 90 Days Qty: 90 3RF ipratropium-albuterol 0.5 mg-3 mg(2.5 mg base)/3 mL solution for nebulization 3 ml inhalation Q6H PRN (Reason: wheezing) 30 Days Qty: 180 6RF prednisone 20 mg tablet 20 mg PO DAILY 10 Days Qty: 15 0RF Rx Instructions: Take 2 tabs daily x 5 days, then 1 tablet daily x 5 days loratadine 10 mg Tablet 10 mg PO DAILY budesonide 0.5 mg/2 mL Suspension For Nebulization 0.5 mg INHALATION DAILY albuterol sulfate [Proventil] 2.5 mg /3 mL (0.083 %) Solution For Nebulization 1 inhalation Q4-5H PRN (Reason: Wheezing) hydrochlorothiazide 25 mg tablet 25 mg PO DAILY verapamil 100 mg capsule, [address] 100 mg PO BEDTIME omeprazole 20 mg capsule,delayed release(DR/EC) 20 mg PO DAILY levothyroxine 50 mcg tablet 50 mcg PO DAILY atorvastatin 40 mg tablet 40 mg PO DAILY duloxetine 30 mg capsule,delayed release(DR/EC) 30 mg PO DAILY (DME) nebulizers Misc See Rx Instructions .Route Rx Instructions: As directed fexofenadine 180 mg tablet 180 mg PO DAILY albuterol sulfate [ProAir HFA] 90 mcg/actuation HFA aerosol inhaler 2 puff INHALATION Q4-6H PRN (Reason: Wheezing) 30 Days Qty: 8.5 11RF budesonide-formoterol [Symbicort] 160-4.5 mcg/actuation HFA aerosol inhaler 2 puff inhalation BID 30 Days Qty: 10.2 11RF doxycycline hyclate 100 mg capsule 100 mg PO BID 10 Days Qty: 20 0RF pyridoxine (vitamin B6) 50 mg tablet 50 mg PO DAILY 90 Days Qty: 90 3RF allopurinol 100 mg tablet 100 mg PO DAILY Qty: 90 3RF Referrals: Stanley Duran MD [Physician] - 1 week (Nephrolithiasis) Print Language: Citizen [place]
[2024-05-03 08:33] VITALS: RESP 17
[2024-05-03 09:16] LABS: MANUAL DIFF FLAG NO
[2024-05-03 09:18] LABS: Basophils Absolute Auto 0.1 X10*3/uL (0.0-0.2); Basophils Percent Auto 0.6 % (0-2); Eosinophils Absolute Auto 0.6 X10*3/uL (0.0-0.4); Hematocrit 36.9 % (37.0-47.0); Hemoglobin 12.4 g/dl (12.0-16.0); Imm Gran Abs Auto 0.02 X10*3/uL (0.00-0.03); Imm Gran Pct Auto 0.2 % (0.0-0.4); Lymphocytes Absolute Auto 3.5 X10*3/uL (1.2-4.9); Lymphocytes Percent Auto 37.1 % (20-40); Mean Corpuscular HGB Conc 33.6 g/dl (31.0-35.0); Mean Corpuscular Hemoglobin 30.4 pg (27.0-33.0); Mean Corpuscular Volume 90.4 fL (80.0-98.0); Mean Platelet Volume 9.3 fL (9.4-12.3); Monocytes Absolute Auto 0.9 X10*3/uL (0.1-1.2); Monocytes Percent Auto 9.2 % (2-11); Neutrophils Absolute Auto 4.4 x10*3/uL (2.0-8.3); Neutrophils Percent Auto 46.9 % (45-73); Platelet Count 377 X10*3/uL (160-400); Red Blood Count 4.08 X10*6/uL (4.20-5.50); Red Cell Distribution Width 14.6 % (11.0-16.0); White Blood Count 9.4 X10*3/uL (4.8-10.8)
[2024-05-03 09:22] LABS: UPreg QC Valid YES; Urine Pregnancy NEGATIVE (NEGATIVE)
[2024-05-03 09:24] LABS: Appearance Urine Clear; Color Urine Yellow; Glucose Urine UA Negative (Negative); Leukocyte Esterase Urine Negative (Negative); Nitrite Urine Negative (Negative); PH 6.5 (5.0-9.0); Specific Gravity - Urine <= 1.005 (1.005-1.025); UMIC TRIGGER UACC YES; Urine Blood Small (1+) (Negative); Urine Ketones Negative (Negative); Urine Protein Negative (Neg-Trace)
[2024-05-03 09:36] LABS: Bacteria Urine None Seen (None Seen); Hyaline Casts Urine 0-2 /LPF (0-2); RBC Urine 0-2 /HPF (0-2); Squamous Epithelial Cell Urine 0-2 /HPF (0-2); WBC Urine 0-5 /HPF (0-5)
[2024-05-03 09:41] LABS: Lactic Acid 1.2 mmol/L (0.5-2.0)
[2024-05-03 09:46] LABS: Alanine Aminotransferase 40 U/L (0-31); Alkaline Phosphatase 86 U/L (39-117); Anion Gap 15 (12-20); Aspartate Amino Transferase 40 U/L (5-31); Bilirubin Direct 0.1 mg/dL (0.0-0.5); Bilirubin Total 0.4 mg/dL (0.0-1.0); Blood Urea Nitrogen 12 mg/dL (9-16); Calcium 10.3 mg/dL (8.4-10.2); Carbon Dioxide 26 mmol/L (22-29); Chloride 107 mmol/L (96-108); Creatinine Clr Calc Pharmacy 77.1; Estimated Glomerular Filt Rate > 60; Glucose Random 87 mg/dL (60-115); Lipase 20 U/L (8-78); Potassium 3.7 mmol/L (3.3-5.1); Sodium 144 mmol/L (135-145); Total Protein 7.7 g/dL (6.5-8.0)
[2024-05-03] MEDS: 0.9 % Sodium Chloride 1,000 ML 999 ML IV (09:49)
[2024-05-03] MEDS: diphenhydrAMINE HCL 50 MG/ML VIAL 25 MG IVPUSH (10:05)
[2024-05-03] MEDS: Ketorolac Tromethamine 15 MG/ML VIAL IVPUSH (10:16)
[2024-05-03 11:26] VITALS: BP 144/63; PULSE 68; RESP 16; TEMP 36.6; O2SAT 98
[2024-05-03 12:35] VITALS: BP 144/63; PULSE 68; RESP 16; TEMP 36.6; O2SAT 98
== END 2024-05-03 12:35 | disposition home or self-care (01) ==
PROVIDERS: Physician Assistant Medical; Emergency Provider Student in an Organized Health Care Education/Training Program; PCP Internal Medicine
DX: N20.0 Calculus of kidney (principal); R10.9 Unspecified abdominal pain; E11.9 Type 2 diabetes mellitus without complications; I10 Essential (primary) hypertension; E78.2 Mixed hyperlipidemia; J45.909 Unspecified asthma, uncomplicated; Z87.442 Personal history of urinary calculi; Z79.02 Long term (current) use of antithrombotics/antiplatelets; Z79.899 Other long term (current) drug therapy
CPT/HCPCS: 36415; 74176; 80048; 80076; 81001; 81025; 83605; 83690; 85025; 93005; 96361; 96374; 96375; 99284; J1200; J1885

== ENCOUNTER → 2024-05-03 08:31 | Outpatient (BNV) | payer OTHER, SELFPAY | PROVIDERS: Emergency Provider Student in an Organized Health Care Education/Training Program; PCP Internal Medicine; Visit Provider Internal Medicine Cardiovascular Disease | DX: R94.31 Abnormal electrocardiogram [ECG] [EKG] (principal) | CPT/HCPCS: 93010 ==

== ENCOUNTER 2024-09-13 13:03 | Outpatient (AMB) | payer OTHER, SELFPAY ==
--- NOTE | 2024-09-13 13:09 | MHC.OFFVIS ---
Vital Signs 09/13/24 13:11 Height 4 ft 9 in Weight 173 lb BMI 37.4 BP 136/70 Blood Pressure Location Lt brachial Position Sitting Pulse 92 Pulse Source Pulse Oximeter Pulse Oximetry (%) 97 Oxygen Delivery Method Room Air Intake Visit Reasons: COPD Recordak Operator Required: No Engine Emission Technician: Engine Emission Technician offered & declined Accompanied by: Self / Same As Patient Allergies acetaminophen [Percocet] Allergy (Severe, Verified 09/13/24 13:15) Rash and Hives amlodipine Allergy (Severe, Verified 09/13/24 13:15) Rash and Hives aspirin Allergy (Severe, Verified 09/13/24 13:15) Rash and Hives benzonatate Allergy (Severe, Verified 09/13/24 13:15) Rash and Hives fexofenadine Allergy (Severe, Verified 09/13/24 13:15) Rash and Hives hydrocodone Allergy (Severe, Verified 09/13/24 13:15) Rash and Hives hydroxyzine Allergy (Severe, Verified 09/13/24 13:15) Rash and Hives lisinopril Allergy (Severe, Verified 09/13/24 13:15) Rash and Hives lorazepam Allergy (Severe, Verified 09/13/24 13:15) Rash and Hives meperidine [Demerol] Allergy (Severe, Verified 09/13/24 13:15) Rash and Hives morphine Allergy (Severe, Verified 09/13/24 13:15) Rash and Hives naproxen [Aleve] Allergy (Severe, Verified 09/13/24 13:15) Rash and Hives oxycodone [From PERCOCET] Allergy (Severe, Verified 09/13/24 13:15) SWELLING penicillin G Allergy (Severe, Verified 09/13/24 13:15) Rash and Hives Sulfa (Sulfonamide Antibiotics) Allergy (Severe, Verified 09/13/24 13:15) Rash and Hives valsartan Allergy (Severe, Verified 09/13/24 13:15) Rash and Hives codeine [CODEINE] Allergy (Intermediate, Verified 05/03/24 07:58) RASH ibuprofen [From MOTRIN] Allergy (Intermediate, Verified 09/13/24 13:15) RASH montelukast [From SINGULAIR] Allergy (Intermediate, Verified 09/13/24 13:15) HIVES sulfamethoxazole [From BACTRIM] Allergy (Intermediate, Verified 09/13/24 13:15) HIVES tramadol [TRAMADOL] Allergy (Intermediate, Verified 09/13/24 13:15) SWELLING, RASH loratadine [From CLARITIN] Allergy (Mild, Verified 09/13/24 13:15) HIVES ranitidine [From ZANTAC] Allergy (Mild, Verified 09/13/24 13:15) HIVES diphenhydramine [From Tylenol PM] Allergy (Verified 09/13/24 13:15) Swelling fluticasone furoate [From Trelegy Ellipta] Allergy (Verified 09/13/24 13:15) Unknown umeclidinium [From Trelegy Ellipta] Allergy (Verified 09/13/24 13:15) Unknown vilanterol [From Trelegy Ellipta] Allergy (Verified 09/13/24 13:15) Unknown Medication List - Last Reconciled 09/13/24 by Jaida Goldman LPN albuterol sulfate 1 inhalation Q4-5H PRN albuterol sulfate 90 mcg/actuation (ProAir HFA) 2 puffs inhalation Q4-6H PRN 30 days allopurinol 100 mg PO DAILY atorvastatin 40 mg PO DAILY budesonide 0.5 mg inhalation DAILY budesonide-formoterol 160-4.5 mcg/actuation (Symbicort) 2 puffs inhalation BID 30 days doxycycline hyclate 100 mg PO BID 10 days duloxetine 30 mg PO DAILY fexofenadine 180 mg PO DAILY gabapentin 300 mg PO BEDTIME 30 days hydrochlorothiazide 25 mg PO DAILY ipratropium-albuterol 0.5 mg-3 mg(2.5 mg base)/3 mL 3 mL inhalation Q6H PRN 30 days levothyroxine 50 mcg PO DAILY loratadine 10 mg PO DAILY modafinil 200 mg PO DAILY 90 days nebulizers As directed omeprazole 20 mg PO DAILY prednisone 20 mg PO DAILY 10 days pyridoxine (vitamin B6) 50 mg PO DAILY 90 days roflumilast 500 mcg PO DAILY tiotropium bromide 2.5 mcg/actuation (Spiriva Respimat) 2 puffs inhalation DAILY 30 days verapamil ER 100 mg PO BEDTIME HPI Comments Details: The patient is a 64-year-old woman with known moderate persistent asthma and obstructive sleep apnea on CPAP. pt says the cough is worse at night and she has to take out her emergency inhaler. pt continues to take inhalers as usual. Her cough tends to be dry and worse at night time. Moderate severity. Denies any reflux symptoms. Denies any significant postnasal drip or nasal congestion at this time. In the meantime she has been using the CPAP. The CPAP therapy continues to be effective in beneficial. She does get supplies through [facility]. Will send another prescription to [facility] to make sure that she is getting the proper mask which is the P 10. 11/16/2022 the patient is here for a pulmonary follow-up visit. The patient overall has been doing well. She still have episodes of chest tightness and wheezing. Has been having to use her rescue inhaler more than twice a week. She also continues with her respiratory regimen. Denies any sick contacts. She has been on Breo and also Spiriva. I do believe that she will do better on Trelegy inhaler. I will request that at the pharmacy. Like to maximize her respiratory therapy with the synergistic affect. In addition to that she should continue with her allergy medicine. She continues uses CPAP. CPAP therapy continues to be affecting beneficial. She also benefits from using the gabapentin at nighttime. This has been helpful. She should continue for now. She is also using Provigil in the morning. Will going to see about trying to decrease the dose to 100 once she completes her current prescription. If the patient has complaints of daytime drowsiness with the lower dose she will call and I will resend the higher dose to the pharmacy. I am hopeful that we can try to simplify her medical regimen at this time. 05/17/2023 the patient is here for pulmonary follow-up visit. Recently she did have a brief exacerbation. She did call the office. We did send her prednisone antibiotics and she did recover. She has been having difficulties getting her inhalers. Initially she had a reaction to the Trelegy so she stopped it. She has to get Breo. I do believe that we can send her Symbicort instead as it may be more effective for her. In the meantime she continues uses CPAP at nighttime. CPAP therapy continues to be affecting beneficial. She does use it for more than 4 hours a night. She also is dependent on the modafinil. This has been very effective for her. We are hoping to decrease her dose down to 100 mg but for some reason she is still on 200 mg. Will decrease it during the next visit. 09/26/2023 the patient is here for a pulmonary follow-up visit. the patient is doing well from a respiratory status. She is responding well to the current respiratory regimen. She is been off prednisone since we last spoke. The patient continues on the Symbicort inhaler. This has been affecting beneficial. Has not had to use her rescue inhaler. She continues also on Daliresp. This also has improved her chronic bronchitis. She is been on modafinil now for some time at the 200 mg dose. The patient is is feeling better so it is a good opportunity to try to decrease the medication down to 100 mg. The patient becomes more symptomatic she can always call we can increase it. I did request that she can try for a month to make sure she gives enough time to try to adjust to the lower dose. She is not using her CPAP. She is sleeping with positional therapy on her side. She denies any significant daytime drowsiness. [place] score is low elevated it over 24. she is working on weight loss. She continues to lose weight and hopefully will consider repeating the sleep study in the near future to make sure that she does not need her CPAP.\ 03/22/2024 the patient is here for a pulmonary follow-up visit. She is struggles with breathing. She has had issues with asthma symptoms and she feels is related to stress. She has been having to use her rescue inhaler more regularly. In addition to that she has been having hard time sleeping. She has been using her CPAP at nighttime. It has been helpful. Although right now she has not getting supplies from the [employer]. She will need another sleep study. She will consider that in the future. Right now her elevated [place] score is at 11/24. She does respond to the Provigil. We did try to decrease it down to the 100 mg dose but she became more symptomatic. Therefore, will go ahead and increase it again to 200 mg dose. The patient also is having significant stress because of her apartment situation. She has a 2 bedroom apartment for her . She does need a separate room because of her significant asthma and sleep apnea. Will provide her a letter to document the necessity. Specially with worsening respiratory symptoms she needs that separate space. 11/10/2023 the patient is here for a sick visit. The patient started developing worsening respiratory symptoms for last week. Krishna of chest tightness she had then taking her inhalers and respiratory therapy to see if she could improve her symptoms. However seem to be getting worse. Moderate severity. She has congested cough but difficult to expectorate. She feels significant chest tightness. She did call we did call in a prescription for prednisone 40 mg that she started yesterday. The patient denies any fevers or chills. Not sure about sick contacts. She has significant wheezing on examination. We did give her Solu-Medrol 125 mg IM x1. She is going to start antibiotics and also continue the prednisone taper. If the patient does not improve she has to call the office. If she worsens she needs to go to the hospital. Meantime she continues use her respiratory therapy as prescribed. 09/13/2024 the patient is here for a pulmonary follow-up visit. The patient overall has been doing okay from a breathing standpoint. The respiratory regimen right now is working well for her. The patient has not required any additional steroids. She also continues to use the Provigil during the daytime this also appears to be working well for her. She is not using her CPAP any longer but she is continuing positional therapy and she is waking up rested which is reassuring. As far as imaging studies she did have a CT scan of the abdomen pelvis which demonstrated normal lung bases. Also had a chest x-ray back in 2022 demonstrating no acute disease. No additional imaging warranted at this time. [facility] Medical History Hx of ectopic Multiple pulmonary nodules Kidney stone Microhematuria WADE (nonalcoholic steatohepatitis) Abnormal LFTs (liver function tests) Hypothyroidism Mixed hyperlipidemia Lumbar radiculopathy GERD (gastroesophageal reflux disease) HTN (hypertension) Microalbuminuria Anxiety Diabetes Asthma 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 KEVIN on CPAP COVID-19 Surgical History Hx of endoscopy History of back surgery History of surgical removal of ganglion cyst Hx of bilateral breast reduction surgery History of placement of ear tubes H/O colonoscopy Hx of section History of ankle surgery Social History (Updated 09/13/24 @ 13:17 by Jaida Goldman LPN) Household Members: Family Housing: Apartment Are you a primary healthcare administrator to a significant other at home: No Do you presently have visiting nurse or other home services: No Alcohol intake: current Alcohol intake frequency: does not drink Comment: Pt. sleeping Patient Tobacco Use Status: Never used Tobacco Second Hand Smoke Exposure: No Advance Directives Date on File: 04/17/22 service: No Current occupational status: employed Review of Systems Const Denies chills, Denies daytime sleepiness, Reports fatigue, Denies fever(s) and Reports weight loss ENT Denies change in voice, Denies lip swelling, Denies mouth pain, Reports nasal congestion, Reports nasal discharge and Denies tongue swelling Card Reports no additional complaints, Denies syncope and Reports dyspnea on exertion Resp Denies chest congestion, Reports cough, Reports dyspnea on exertion and Reports wheezing GI Denies abdominal pain and Denies heartburn Musc Reports back pain Neuro Denies syncope Endo Reports fatigue Paul/Lymph Denies easy bleeding and Denies lymphadenopathy Aller/Immun Denies lip swelling, Denies tongue swelling and Reports wheezing Physical Exam Vital Signs: Last Vital Signs Pulse 92 09/13/24 13:11 BP 136/70 09/13/24 13:11 Pulse Ox 97 09/13/24 13:11 Oxygen Delivery Method Room Air 09/13/24 13:11 BMI result Body Mass Index 37.4 Const General: alert Neck Neck: Yes normal visual inspection, Yes full ROM and Yes no lymphadenopathy Chest Chest palpation & inspection: normal inspection of the chest Resp Effort & Inspection: normal respiratory effort Auscultation: no wheezes and diminished lung sounds Cardio Rate: regular rate Rhythm: regular rhythm Heart sounds: S1 normal heart sound present and S2 normal heart sound present GI Palpation (GI): Soft to palpation and nontender Auscultation: normal bowel sounds Skin General skin exam: rashes and/or lesions noted Assessment & Plan Assessment & Plan (1) Hypersomnia with sleep apnea: Code(s): G47.10 - Hypersomnia, unspecified; G47.30 - Sleep apnea, unspecified Category: Medical (2) Asthma: Code(s): J45.909 - Unspecified asthma, uncomplicated Category: Medical Qualifiers: Asthma complication type: uncomplicated Asthma persistence: persistent Asthma severity: moderate Qualified Code(s): J45.40 - Moderate persistent asthma, uncomplicated Plan Continue Daliresp 500 mcg daily continue Gabapentin for sleep not using CPAP therapy, continue positional therapy ?repeat home sleep study continue Provigil 200mg daily follow-up in 6-8 months Coding Level of Care Code Est Pt Level 4 (26408) Diagnoses Hypersomnia with sleep apnea G47.10; G47.30 Moderate persistent asthma without complication J45.40 Asthma complication type: uncomplicated Asthma persistence: persistent Asthma severity: moderate Time Spent (min) 16
[2024-09-13 13:11] VITALS: BP 136/70; PULSE 92; O2SAT 97; BMI 37.4
== END 2024-09-13 13:34 | disposition home or self-care (01) ==
LOC: HO.HPS 13:03
PROVIDERS: PCP Internal Medicine; Visit Provider Hospitalist
DX: G47.10 Hypersomnia, unspecified (principal); G47.30 Sleep apnea, unspecified; J45.40 Moderate persistent asthma, uncomplicated
CPT/HCPCS: 99214

== ENCOUNTER → 2024-09-13 13:03 | Outpatient (BNVA) | payer OTHER, SELFPAY | PROVIDERS: PCP Internal Medicine; Visit Provider Hospitalist | DX: J45.40 Moderate persistent asthma, uncomplicated (principal); G47.33 Obstructive sleep apnea (adult) (pediatric); G47.30 Sleep apnea, unspecified; G47.10 Hypersomnia, unspecified | CPT/HCPCS: 99212 ==

== ENCOUNTER 2025-01-21 11:18 | Outpatient (REF) | payer MEDICARE, SELFPAY ==
--- NOTE | ~2025-01-21 | US_ITS ---
CLINICAL HISTORY: N20.0 - Calculus of kidney US Renal Comparison: US/CA/SR - US RENAL BI - 10/26/22 12:58 EST Findings: Right kidney normal size and echotexture, 10.8 cm length. Left kidney normal size and echotexture, 10.8 cm length. 4 mm calculus within the upper pole of the right kidney. 3 mm calculus within the lower pole of the left kidney. Possible additional tiny calculi bilaterally. There is mild hydronephrosis of the left kidney. There is no hydronephrosis of the right kidney. IMPRESSION: 1. Small nonobstructive calculi within the bilateral kidneys. 2. Mild hydronephrosis of the left kidney. Similar appearance on the prior exam. This document has been electronically signed by: Nayeli Abraham MD on 01/22/2025 15:03:19
--- OUTSIDE RECORDS SUMMARY | 2025-01-21 13:29 | XMS_ITS | Clinical Summary ---
Author Organization [address] Address [address] [place] [phone] Phone Care Team Providers Care Hair Baler Name Role Phone Janine Villeda MD Primary Care Provider [phone] Allergies Active Allergy Reactions Criticality Noted Date Comments Amlodipine Itching 03/04/2020 Anx Hives High 07/23/2016 Aspirin Hives,Itching,Swelli n g 12/10/2010 Benzonatate Hives,Wheezing 10/07/2006 Codeine Itching,Rash,Swelling 01/06/2006 Cortisone Rash High 02/05/2022 And prednisone Diphenhydramine-Acetamin ophen Itching,Swelling 05/06/2009 Gjlenqtvmly-Grlslptzw-Zf lanter 01/20/2023 Hydrocodone-Acetaminophe n Itching,Rash,Swelling 01/06/2006 Ibuprofen Itching,Swelling 10/07/2006 Lisinopril Cough,Itching 03/04/2020 Lorazepam Hives 07/23/2016 Meperidine Hcl Hives,Itching 10/07/2006 Montelukast Rash 05/29/2015 Morphine Sulfate Hives,Itching,Swelli n g 12/10/2010 Naproxen Sodium Hives,Itching 10/07/2006 Oxycodone-Acetaminophen Itching,Rash,Swelling 0 01/06/2006 Penicillins Hives,Itching,Swelli n g 12/10/2010 Sulfamethoxazole-Trimeth oprim Hives High 02/17/2016 Tramadol Hcl Itching,Rash,Swelling 01/06/2006 Valsartan Itching 02/08/2020 Medications FREESTYLE LANCETS MISC Test blood sugar once a day prior to breakfast 2 Active blood sugar diagnostic (FreeStyle Lite Strips) test strip Test blood sugar once a day prior to breakfast 2 Active albuterol 2.5 mg /3 mL (0.083 %) nebulizer solution Take 3 mL (2.5 mg total) by nebulization every 4 (four) hours if needed for wheezing. for up to 30 days 9 Active allopurinoL (ZYLOPRIM) 100 mg tablet Take 1 tablet (100 mg total) by mouth 1 (one) time each day. 4 Active budesonide (PULMICORT) 0.5 mg/2 mL nebulizer solution Take 2 mL (0.5 mg total) by nebulization 1 (one) time each day. 9 Active fluticasone propion-salmete roL (AIRDUO RESPICLICK) 113-14 mcg/actuation aerosol powdr breath activated inhaler Inhale 1 puff by mouth 2 (two) times a day. for 30 days 9 Active gabapentin (NEURONTIN) 300 mg capsule Take 1 capsule (300 mg total) by mouth at bedtime. 2 Active ipratropium-alb uteroL (DUONEB) 0.5-2.5 mg/3 mL nebulizer solution Take 3 mL by nebulization. 6 TO 8 HOURS NEEDED FOR WHEEZING 2 Active modafiniL (PROVIGIL) 200 mg tablet Take 1 tablet (200 mg total) by mouth 1 (one) time each day. for 30 days 9 Active pyridoxine (B-6) 100 mg tablet Take 1 tablet (100 mg total) by mouth 1 (one) time each day. 1 Active roflumilast (Daliresp) 500 mcg tablet Take 1 tablet (500 mcg total) by mouth every other day. 1 Active albuterol HFA (PROAIR HFA ; PROVENTIL HFA ; VENTOLIN HFA) 90 mcg/actuation inhaler Inhale 2 puffs by mouth every 6 (six) hours if needed (Cough or Wheezing). 6.7 g 5 Active atorvastatin (LIPITOR) 40 mg tablet TAKE ONE TABLET BY MOUTH DAILY AT BEDTIME 90 tablet 1 5 Active DULoxetine (CYMBALTA) [address] capsule TAKE ONE CAPSULE BY MOUTH EVERY DAY 90 capsule 1 5 Active hydroCHLOROthia zide (HYDRODIURIL) 25 mg tablet TAKE ONE TABLET BY MOUTH EVERY DAY 90 tablet 1 5 Active levothyroxine (SYNTHROID, LEVOTHROID) 50 mcg tablet TAKE ONE TABLET BY MOUTH EVERY MORNING BEFORE BREAKFAST 90 tablet 1 5 Active omeprazole (PriLOSEC) [address] capsule TAKE ONE CAPSULE BY MOUTH EVERY MORNING BEFORE BREAKFAST 90 capsule 1 5 Active verapamil ER (VERELAN PM) 100 mg 24 hr capsule TAKE ONE CAPSULE BY MOUTH DAILY AT BEDTIME 90 capsule 1 5 Active Allergy Relief, loratadine, 10 mg tablet TAKE ONE TABLET BY MOUTH EVERY DAY 90 tablet 1 5 Active Active Problems Problem Noted Date Diagnosed Date Type 2 diabetes mellitus with cataract 3 Anxiety 11/11/2021 History of COVID-19 11/15/2020 Overview (10/09/2024): November 2020 Seasonal allergic rhinitis 03/11/2020 Hypertension 01/24/2020 Microalbuminuria 10/01/2019 Type II diabetes mellitus with renal manifestati ons 06/29/2019 Hypersomnia 06/07/2019 Multiple pulmonary nodules 11/15/2017 Overview (08/24/2024): [facility] (Dr. Arias) Kidney stone 10/11/2013 Microhematuria 10/11/2013 WADE (nonalcoholic steatohepatitis) 03/31/2010 Obstructive sleep apnea 12/04/2009 Overview (08/24/2024): On CPAP; [facility] (Dr. Arias) LFTs abnormal 07/29/2009 Hypothyroidism 04/13/2006 Mixed hyperlipidemia 04/13/2006 Asthma 01/06/2006 Overview (08/24/2024): [facility] (Dr. Arias) Gastroesophageal reflux disease without esophagi tis 01/06/2006 Lumbar radiculopathy 01/06/2006 Overview (10/09/2024): left L5-S1 decompression and foraminotomy. Fatty liver Encounters Date Type Department Care Team Description 01/15/2025 Telephone Adult Medicine [address] [phone] Janine Villeda MD Prior Authorization (verapamil ER (VERELAN PM) 100 mg 24 hr capsule) 11/21/2024 9:45 AM EST Office Visit Adult [address] [phone] Janine Villeda MD Type 2 diabetes mellitus with stage 3 chronic kidney disease, without long-term current use of insulin, unspecified whether stage 3a or 3b CKD (CMS/HCC) (Primary Dx); Primary hypertension; Mild intermittent asthma without complication; Hypothyroidism due to acquired atrophy of thyroid; Mixed hyperlipidemia; Menopause; Skin nodule; Hearing loss, unspecified hearing loss type, unspecified laterality from Last 3 Months Immunizations Name Administration Dates Next Due H1N1 Inj Preservative Free 09/24/2009 Influenza trivalent, 0.5mL, preservative free (Fluarix; FluLaval; Fluzone) ages 6mo and older (Afluria) 3 years and older 08/12/2021,08/12/2016,07/30/2013,09/03,08/11/2011,07/16/2010 Influenza, Unspecified 07/16/2023,09/07/2022, Pfizer (ages 12 & older) Biv alent, COVID-19 09/09/2022 Pfizer SARS-CoV-2 COVID-19, mRNA, LNP-S, preservative free 05/30/2022,09/17/2021,12/02/2020,11/11 Pneumococcal conjugate 20 va lent (Prevnar 20, PCV 20) 2mo and older 11/16/2022 Pneumococcal polysaccharide 23 valent (Pneumovax 23) 2yo and older 06/07/2019,01/24/2014 Td Tetanus diptheria (Tdvax) 7yo and older 10/01/2019 Tdap Tetanus diptheria acell ular pertussis (Boostrix; Adacel) 7yo and older 01/02/2008 Zoster recombinant (Shingrix ) 19yo and older 05/13/2020,01/07/2020 Surgical History Surgery Date Site/Laterality Comments SECTION 1999 : times 3 TYMPANOSTOMY TUBE PLACEMENT Left ear WRIST MASS EXCISION 2010 Left wrist - Rashi Jovel MD - [facility] ANKLE SURGERY 2010 : bilateral ankles - [facility] ECTOPIC SURGERY x2 COLONOSCOPY 10/05/2011 normal; repeat in ten yrs BREAST REDUCTION 2007 Bilateral UPPER GASTROINTESTINAL ENDOSCOPY 08/07/2020 : normal on PPI rx. COLONOSCOPY 12/03/2021 rectal tubular adenoma OTHER SURGICAL HISTORY 07/22/2022 Left L5-S1 decompression, Dr. Pierson CATARACT EXTRACTION Medical History Medical History Date Comments Unspecified asthma(493.90) Pure hypercholesterolemia Mixed hyperlipidemia 04/13/2006 Esophageal reflux Unspecified hypothyroidism 04/13/2006 Chronic back pain 01/06/2006 History of kidney stones Fatty liver HTN (hypertension) Type 2 diabetes mellitus with cataract ([facility]/HCC) 03/16/2023 Type II diabetes mellitus with renal manifestati ons ([facility]/HCC) 06/29/2019 Family History Medical History Relation Name Comments Hypertension Brother s/p stent Stroke Father Heart attack Maternal Grandfather Heart attack Maternal Grandmother Heart attack Mother Hypertension Mother Cataracts Sister Breast cancer Neg Hx Colon cancer Neg Hx Relation Name Status Comments Brother Alive Father Maternal Grandfather Maternal Grandmother Mother Paternal Grandfather unknown Paternal Grandmother unknown Sister Alive Social History Tobacco Use Types Packs/Day Years Used Date Smoking Tobacco: Never Smokeless Tobacco: Never Tobacco Cessation:Counseling Given: Not Answered Alcohol Use Standard Drinks/Week Comments Not Currently 0 (1 standard drink = 0.6 oz pur e alcohol) Comments Unknown Sex and Gender Information Value Date Recorded Sex Assigned at Not on file Legal Sex Female 1:02 AM EST Gender Identity Not on file Sexual Orientation Not on file Obstetrics History Last Filed Vital Signs Vital Sign Reading Time Taken Comments Blood Pressure 126/68 11/21/2024 9:43 AM EST Pulse 91 11/21/2024 9:43 AM EST Temperature 36.3 ??C (97.4 ??F) 11/21/2024 9:43 AM ES T Respiratory Rate 16 11/21/2024 9:43 AM EST Oxygen Saturation 99% 11/21/2024 9:43 AM EST Inhaled Oxygen Concentration - - Weight 81.8 kg (180 lb 6.4 oz) 11/21/2024 9:43 A M EST Height 146.7 cm (4' 9.75 ) 11/21/2024 9:43 AM ES T Body Mass Index 38.03 11/21/2024 9:43 AM EST Plan of Treatment Upcoming Encounters Date Type Department Care Team (Late st Contact Info) Description 03/07/2025 10:00 AM EDT Appointment Bone Density - [address] [phone] 05/21/2025 8:15 AM EDT Office Visit Adult [facility] - [address] [phone] Janine Villeda MD [address] [place] [address] 05/30/2025 1:00 PM EDT Appointment Radiology Department - [address] [phone] Health Maintenance Due Date Last Done Comments Diabetes: Annual Foot Exam 1970 Cervical Cancer Screening: Pap Smear 06/23/2020 06/23/2017, 06/23/2017 Medicare Annual Wellness Visit 10/16/2022 Osteoporosis Screening (Bone Density Screening) 10/16/2022 Social Influencers of Health Screening 10/16/2022 COVID-19 Vaccine ( season) 2024 09/09/2022, 05/30/2022, 09/17/2021, Additional history exists Falls Risk Assessment 2024 Depression Screening 05/17/2025 05/17/2024 Diabetes: Blood Sugar Control Test (HGBA1C) 05/21/2025 11/21/2024, 05/17/2024, 05/17/2024 Diabetes: Annual Retina Eye Exam 06/05/2025 06/05/2024 Diabetes: Annual Urine Albumin-Creatinine Ratio (uACR) 11/21/2025 11/21/2024, 09/15/2023 Diabetes: Annual GFR (Glomerular Filtration Rate) 11/21/2025 11/21/2024, 05/17/2024, 05/17/2024 Hypertension/CHF/CAD Annual BMP Blood Test 11/21/2025 11/21/2024, 05/17/2024, 05/17/2024 Breast Cancer Screening 05/24/2026 05/24/20 24, 05/24/2024, 02/10/2023, Additional history exists Colorectal Cancer Screening: Colonoscopy 12/03/2026 12/03/2021 DTaP,Tdap,and Td Vaccines (3 - Td or Tdap) 10/01/2029 10/01/2019, 01/02/2008 Cholesterol Screening (Lipid Panel) 11/21/2029 11/21/2024, 09/15/2023 Zoster Vaccines Completed 05/13/2020, 01/07/2020 Hepatitis C Screening Completed 11/28/2020 Pneumococcal Vaccine: 50+ Years Completed 11/16/2022, 06/07/2019, 01/24/2014 Pneumococcal Vaccine: Pediatrics (0 to 5 Years) and At-Risk Patients (6 to 64 Years) Completed 11/16/2022, 06/07/2019, 01/24/2014 Influenza Vaccine Completed 08/01/2024, , 07/16/2023, Additional history exists RSV Immunization Patients 60+ Years Old Completed 10/03/2024 HIB Vaccines Aged Out No longer eligi ble based on patient's age to complete this topic HPV Vaccines Aged Out No longer eligi ble based on patient's age to complete this topic Hepatitis A Vaccines Aged Out No long er eligible based on patient's age to complete this topic Hepatitis B Vaccines Aged Out No long er eligible based on patient's age to complete this topic IPV Vaccines Aged Out No longer eligi ble based on patient's age to complete this topic MMR Vaccines Aged Out No longer eligi ble based on patient's age to complete this topic Meningococcal ACWY Vaccine Aged Out N o longer eligible based on patient's age to complete this topic Meningococcal B Vacine Aged Out No lo nger eligible based on patient's age to complete this topic RSV Immunization Patients Under 20 months Aged Out No longer eligible based on patient's age to complete this topic Varicella Vaccines Aged Out No longer eligible based on patient's age to complete this topic Procedures Procedure Name Priority Date/Time Associated Diagnosis Comments COMPREHENSIVE METABOLIC PANEL Routine 11/21/2024 10:15 AM EST Type 2 diabetes mellitus with stage 3 chronic kidney disease, without long-term current use of insulin, unspecified whether stage 3a or 3b CKD (CMS/HCC) Primary hypertension HEMOGLOBIN A1C Routine 11/21/2024 10:15 AM EST Type 2 diabetes mellitus with stage 3 chronic kidney disease, without long-term current use of insulin, unspecified whether stage 3a or 3b CKD (CMS/HCC) LIPID PANEL WITH REFLEX TO DIRECT LDL Routine 11/21/2024 10:15 AM EST Mixed hyperlipidemia MICROALBUMIN CREATININE URINE RATIO Routine 11/21/2024 10:15 AM EST Type 2 diabetes mellitus with stage 3 chronic kidney disease, without long-term current use of insulin, unspecified whether stage 3a or 3b CKD (CMS/HCC) THYROID STIMULATING HORMONE Routine 11/21/2024 10:15 AM EST Hypothyroidism due to acquired atrophy of thyroid DIABETES EYE EXAM Routine 06/05/2024 SCREENING MAMMOGRAPHY BI 2-VIEW BREAST INC CAD Routine 05/24/2024 1:04 PM EDT Encounter for screening mammogram for malignant neoplasm of breast DEPRESSION SCREENING Routine 05/17/2024 COLONOSCOPY Routine 12/03/2021 HEPATITIS C SCREENING Routine 11/28/2020 HPV Routine 06/23/2017 from Last 3 Months or Most Recently Relevant to Health Maintenance Results * (ABNORMAL) Lipid panel with reflex to direct LDL (11/21/2024 10:15 AM EST) Cholesterol 210(H) 0 - 200 mg/dL LAB CHEMISTRY METHOD 11/21/2024 12:11 PM EST [facility] Triglycerides 147 0 - 150 mg/dL LAB CHEMISTRY METHOD 11/21/2024 12:11 PM [facility] HDL 54 >=40 mg/dL LAB CHEMISTRY METHOD 11/21/2024 12:11 PM [facility] LDL Calculated 127(H) 0 - 100 mg/dL LAB CHEMISTRY METHOD 11/21/2024 12:11 PM [facility] VLDL Cholesterol Stephen 29.4 mg/dL LAB CHEMISTRY METHOD 11/21/2024 12:11 PM [facility] Non HDL Chol. (LDL+VLDL) 156(H) <145 mg/dL LAB CHEMISTRY METHOD 11/21/2024 12:11 PM [facility] Chol/HDL Ratio 3.9 0.0 - 4.4 LAB CHEMISTRY METHOD 11/21/2024 12:11 PM [facility] Blood Venous blood specimen / Unknown Venipuncture / Unknown 11/21/2024 10:15 AM EST 11/21/2024 10:15 AM EST us Janine Villeda MD LAB BLOOD ORDERABLES Final Resul t [facility] [address] [place] [address], * (ABNORMAL) Microalbumin creatinine urine ratio (11/21/2024 10:15 AM EST) Creatinine, Urine 22.0 mg/dL LAB CHEMISTRY METHOD 11/21/2024 1:21 PM [facility] Microalb, Ur 19.5 0.0 - 29.0 mg/L LAB CHEMISTRY METHOD 11/21/2024 1:21 PM [facility] Microalb/Creat Ratio 89(H) <30 mg/g creat LAB CHEMISTRY METHOD 11/21/2024 1:21 PM [facility] Urine Urine specimen obtained by clean catch procedure / Unknown Non-blood Collection / Unknown 11/21/2024 10:15 AM EST 11/21/2024 10:15 AM EST us Janine Villeda MD LAB URINE ORDERABLES Final Resul t Performing Organization Address City/[facility]/ZIP Co de Phone Number [facility] [address] [place] [address], [place] [phone] * Thyroid stimulating hormone (11/21/2024 10:15 AM EST) Pathologist [facility] TSH 1.42 0.40 - 4.00 mcIU/mL LAB CHEMISTRY METHOD 11/21/2024 12:17 PM EST [facility] Blood Venous blood specimen / Unknown Venipuncture / Unknown 11/21/2024 10:15 AM EST 11/21/2024 10:15 AM EST us Janine Villeda MD LAB BLOOD ORDERABLES Final Resul t Performing Organization Address [facility]/ZIP Co de Phone Number [facility] [address] [place] [address], [place] [phone] * Hemoglobin A1c (11/21/2024 10:15 AM EST) [facility] Hemoglobin A1C 6.2 <6.5 % LAB CHEMISTRY METHOD 11/21/2024 2:05 PM EST [facility] Mean Bld Glu Estim. 131 mg/dL LAB CHEMISTRY METHOD 11/21/2024 2:05 PM EST [facility] Blood Venous blood specimen / Unknown Venipuncture / Unknown 11/21/2024 10:15 AM EST 11/21/2024 10:15 AM EST us Janine Villeda MD LAB BLOOD ORDERABLES Final Resul t Performing Organization Address [facility]/ZIP Co de Phone Number [facility] [address] [place] [address], [place] [phone] * (ABNORMAL) Comprehensive metabolic panel (11/21/2024 10:15 AM EST) Sodium 140 133 - 145 mmol/L LAB CHEMISTRY METHOD 11/21/2024 12:11 PM [facility] Potassium 4.5 3.5 - 5.5 mmol/L LAB CHEMISTRY METHOD 11/21/2024 12:11 PM [facility] Chloride 104 96 - 110 mmol/L LAB CHEMISTRY METHOD 11/21/2024 12:11 PM [facility] CO2 33(H) 21 - 32 mmol/L LAB CHEMISTRY METHOD 11/21/2024 12:11 PM [facility] Anion Gap 3 3 - 11 LAB CHEMISTRY METHOD 11/21/2024 12:11 PM [facility] Glucose 96 70 - 100 mg/dL LAB CHEMISTRY METHOD 11/21/2024 12:11 PM [facility] BUN 16 5 - 25 mg/dL LAB CHEMISTRY METHOD 11/21/2024 12:11 PM [facility] Creatinine 0.76 0.50 - 1.10 mg/dL LAB CHEMISTRY METHOD 11/21/2024 12:11 PM [facility] eGFR 87 >=60 mL/min/1. 73m2 LAB CHEMISTRY METHOD 11/21/2024 12:11 PM [facility] Comment:Calculation based on the??Chronic Kidney Disease Epidemiology Collaboration (CKD-EPI) equation refit??without adjustment for race. BUN/Creatinine Ratio 21.1 LAB CHEMISTRY METHOD 11/21/2024 12:11 PM [facility] Calcium 10.3 8.5 - 10.5 mg/dL LAB CHEMISTRY METHOD 11/21/2024 12:11 PM [facility] AST (SGOT) 40 10 - 42 unit/L LAB CHEMISTRY METHOD 11/21/2024 12:11 PM [facility] ALT (SGPT) 53 10 - 60 unit/L LAB CHEMISTRY METHOD 11/21/2024 12:11 PM [facility] Alkaline Phosphatase 102 42 - 121 unit/L LAB CHEMISTRY METHOD 11/21/2024 12:11 PM EST [facility] Total Protein 7.6 6.0 - 8.0 g/dL LAB CHEMISTRY METHOD 11/21/2024 12:11 PM EST [facility] Albumin 3.9 3.2 - 5.0 g/dL LAB CHEMISTRY METHOD 11/21/2024 12:11 PM [facility] Total Bilirubin 0.5 0.0 - 1.4 mg/dL LAB CHEMISTRY METHOD 11/21/2024 12:11 PM [facility] Blood Venous blood specimen / Unknown Venipuncture / Unknown 11/21/2024 10:15 AM EST 11/21/2024 10:15 AM EST Janine Villeda MD LAB BLOOD ORDERABLES Final Resul t [facility] [address] [place] [address], [place] [phone] * Diabetes Eye Exam (06/05/2024) Diabetes: Annual Retina Eye Exam Abstracted [facility] Provider HEALTH MAINTENANCE Final Result * SCREENING MAMMOGRAPHY BI 2-VIEW BREAST INC CAD (05/24/2024 1:04 PM EDT) Anatomical Region Laterality Modality Radiographic Sarah ging 02/10/2023 1:07 PM EDT Narrative 05/25/2024 9:10 AM EDT This is a summary report. The complete report is available in the patient's medical record. If you cannot access the medical record, please contact the sending organization for a detailed fax or copy. Full field digital screening tomosynthesis mammography, reviewed with CAD and compared to previous. The breast tissue is heterogeneously dense, limiting sensitivity. No suspicious mass, architectural distortion or suspicious calcifications are identified. Stable bilateral postsurgical changes from reduction mammoplasty. IMPRESSION: : Dense breast tissue, limiting the sensitivity of mammography. No mammographic evidence of malignancy. BIRADS 2- Benign 5 year breast cancer risk assessment 1.4 % Lifetime breast cancer risk assessment 6.2 % Breast cancer risk category Low (<15%) Procedure Note Sharla Carbone MD - 08/22/2024 This is a summary report. The complete report is available in thepatient's medical record. If you cannot access the medical record, pleasecontact the sending organization for a detailed fax or copy. Full field digital screening tomosynthesis mammography, reviewed with CADand compared to previous. The breast tissue is heterogeneously dense,limiting sensitivity. No suspicious mass, architectural distortion orsuspicious calcifications are identified. Stable bilateral postsurgicalchanges from reduction mammoplasty. IMPRESSION: : Dense breast tissue, limiting the sensitivity of mammography. Nomammographic evidence of malignancy. BIRADS 2- Benign 5 year breast cancer risk assessment 1.4 % Lifetime breast cancer risk assessment 6.2 % Breast cancer risk category Low (<15%) Result [facility] Janine Villeda MD IMG XR PROCEDURES Final Result * Depression Screening (05/17/2024) [facility] Depression Screening Abstracted Result [facility] Provider HEALTH MAINTENANCE Final Result * Colonoscopy (12/03/2021) [facility] Colonoscopy No interpretation , abstracted Anatomical Region Laterality Modality Other Result [facility] Provider HEALTH MAINTENANCE Final Result * Hepatitis C Screening (11/28/2020) [facility] Hepatitis C Screening Abstracted Result [facility] Provider HEALTH MAINTENANCE Final Result * Cervical Cancer Screening: HPV (06/23/2017) [facility] Cervical Cancer Screening: HPV Negative, abstracted [facility] Provider HEALTH MAINTENANCE Final Result from Last 3 Months or Most Recently Relevant to Health Maintenance Insurance MEDICARE Care Teams Hair Baler Relationship Specialty Start Date End Date Janine Villeda MD [address] [place] [phone] PCP - General Internal Medicine 05/14/20
--- OUTSIDE RECORDS SUMMARY | 2025-01-21 13:29 | XMS_ITS | Encounter Summary ---
Author Organization [facility] Address [address] [place] [address] Care Team Providers Care Application Systems Architect Name Role Phone Janine Villeda MD Primary Care Provider [phone] Reason for Visit * Reason Onset Date Comments Prior Authorization 01/15/2025 verapamil ER (VERELAN PM) 100 mg 24 hr capsule Encounter Details Date Type Department Care Team (Late st Contact Info) Description 01/15/2025 Telephone Adult Medicine [facility] [address] [place] [address] Janine Villeda MD [address] [place] [address] Prior Authorization (verapamil ER (VERELAN PM) 100 mg 24 hr capsule) Social History Tobacco Use Types Packs/Day Years Used Date Smoking Tobacco: Never Smokeless Tobacco: Never Alcohol Use Standard Drinks/Week Comments Not Currently 0 (1 standard drink = 0.6 oz pur e alcohol) Comments Unknown Sex and Gender Information Value Date Recorded Sex Assigned at Not on file Legal Sex Female 1:02 AM EST Gender Identity Not on file Sexual Orientation Not on file documented as of this encounter Progress Notes * Mandi Flores - 01/16/2025 10:07 AM EDT Patient calling to check on request * Hue Arthur - 01/15/2025 4:48 PM EDT Prior Authorization for Medication-do not complete and send this encounter unless you have the fax from the pharmacy. Is this a Cover My Meds request: Yes -- Gross Code BRPTECUT Name of Medication verapamil ER (VERELAN PM) 100 mg 24 hr capsule Dose of Medication 100mg What is the RX # from the faxed refill? How does patient take this med? TAKE ONE CAPSULE BY MOUTH DAILY AT BEDTIME What Pharmacy did the fax come from: [facility] fax #: [phone] [employer] Party Information from fax: What Prescription Plan does the patient have? BIN/PCN if applicable: Cardholder ID: Person Code: Relationship Code: Help desk phone: documented in this encounter Plan of Treatment Upcoming Encounters Date Type Department Care Team (Late st Contact Info) Description 03/07/2025 10:00 AM EDT Appointment Bone Density - [address] [phone] 05/21/2025 8:15 AM EDT Office Visit Adult Medicine [address] [phone] Janine Villeda MD [address] [place] [address] 05/30/2025 1:00 PM EDT Appointment Radiology Department - [address] [phone] documented as of this encounter Visit Diagnoses Not on filedocumented in this encounter Care Teams Application Systems Architect Relationship Specialty Start Date End Date Janine Villeda MD [address] [place] [address] PCP - General Internal Medicine 05/14/20 documented as of this encounter
== END 2025-01-21 11:19 | disposition home or self-care (01) ==
LOC: HO.US 11:18
PROVIDERS: PCP Internal Medicine; Visit Provider Urology
DX: N20.0 Calculus of kidney (principal)
CPT/HCPCS: 76775

== ENCOUNTER → 2025-01-21 11:20 | Outpatient (BNV) | payer MEDICARE, SELFPAY | PROVIDERS: PCP Internal Medicine; Visit Provider Radiology Diagnostic Radiology | DX: N20.0 Calculus of kidney (principal); N13.2 Hydronephrosis with renal and ureteral calculous obstruction | CPT/HCPCS: 76775 ==

== ENCOUNTER 2025-01-24 13:25 | Outpatient (AMB) | payer MEDICARE, MEDICAID, SELFPAY ==
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
== END 2025-01-24 13:54 | disposition home or self-care (01) ==
PROVIDERS: PCP Internal Medicine; Visit Provider Nurse Practitioner Family
DX: N20.0 Calculus of kidney (principal)
CPT/HCPCS: 99213; G2211

== ENCOUNTER 2025-01-24 18:03 | Emergency (ER) | payer MEDICARE, SELFPAY ==
--- NOTE | ~2025-01-24 | XR_ITS ---
CLINICAL HISTORY: pain 3 views lumbar spine Comparison: None Findings: Normal heights of 5 lumbar type vertebrae without acute compression fracture. Grade 1 anterolisthesis at L4-L5. Mild retrolisthesis of the L2-L3. Degenerative changes include imaged thoracic intervertebral discs, L4-L5, and L5-S1, with disc height losses. Dorsal ligament calcification also noted at L3-L4 with posterior disc wedge appearance. Multifocal moderate to severe facet arthropathy . Sacrum and SI joints are partly obscured with moderate stool burden. Phleboliths are noted in the pelvis. Degenerative changes include the partially imaged hips. Vascular calcifications noted. IMPRESSION: 1. Multifocal degenerative disc changes including disc height loss at L4-L5 and L5-S1. 2. Marked facet arthropathy by radiographs. This document has been electronically signed by: Sorin Knapp MD on 01/24/2025 19:26:10
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
[2025-01-24 19:00] VITALS: BP 140/75; PULSE 87; RESP 18; TEMP 36.4; O2SAT 97; BMI 38.1
[2025-01-24 22:32] VITALS: BP 138/76; PULSE 88; RESP 19; TEMP 36.6; O2SAT 98
[2025-01-24 23:16] VITALS: BP 138/76; PULSE 88; RESP 19; TEMP 36.6; O2SAT 98
== END 2025-01-24 23:17 | disposition home or self-care (01) ==
PROVIDERS: Emergency Provider Emergency Medicine; PCP Internal Medicine
DX: M54.16 Radiculopathy, lumbar region (principal); S39.012A Strain of muscle, fascia and tendon of lower back, initial encounter; V43.52XA Car driver injured in collision with other type car in traffic accident, initial encounter; Y93.89 Activity, other specified; Y92.410 Unspecified street and highway as the place of occurrence of the external cause; Y99.9 Unspecified external cause status
CPT/HCPCS: 72100; 99282; 99283

== ENCOUNTER → 2025-01-24 19:05 | Outpatient (BNV) | payer MEDICARE, MEDICAID, SELFPAY | PROVIDERS: Visit Provider Radiology Neuroradiology | DX: M51.360 Other intervertebral disc degeneration, lumbar region with discogenic back pain only (principal) | CPT/HCPCS: 72100 ==

== ENCOUNTER 2025-02-11 13:13 | Outpatient (AMB) | payer MEDICARE, MEDICAID, SELFPAY ==
[2025-02-11 13:22] VITALS: BP 146/98; PULSE 113; O2SAT 97; BMI 38.4
--- NOTE | 2025-02-11 13:22 | A.OFFVIS_ITS ---
Vital Signs 02/11/25 13:22 Height 4 ft 9 in Weight 177 lb 7.554 oz BMI 38.4 BP 146/98 H Blood Pressure Location Rt brachial Position Sitting Pulse 113 H Pulse Source Pulse Oximeter Pulse Oximetry (%) 97 Oxygen Delivery Method Room Air Intake Visit Reasons: SOB, wheezing and chest tightness. Allergies acetaminophen [Percocet] Allergy (Severe, Verified 02/11/25 13:26) Rash and Hives amlodipine Allergy (Severe, Verified 02/11/25 13:26) Rash and Hives aspirin Allergy (Severe, Verified 02/11/25 13:26) Rash and Hives benzonatate Allergy (Severe, Verified 02/11/25 13:26) Rash and Hives fexofenadine Allergy (Severe, Verified 02/11/25 13:26) Rash and Hives hydrocodone Allergy (Severe, Verified 02/11/25 13:26) Rash and Hives hydroxyzine Allergy (Severe, Verified 02/11/25 13:26) Rash and Hives lisinopril Allergy (Severe, Verified 02/11/25 13:26) Rash and Hives lorazepam Allergy (Severe, Verified 02/11/25 13:26) Rash and Hives meperidine [Demerol] Allergy (Severe, Verified 02/11/25 13:26) Rash and Hives morphine Allergy (Severe, Verified 02/11/25 13:26) Rash and Hives naproxen [Aleve] Allergy (Severe, Verified 02/11/25 13:26) Rash and Hives oxycodone [From PERCOCET] Allergy (Severe, Verified 02/11/25 13:26) SWELLING penicillin G Allergy (Severe, Verified 02/11/25 13:26) Rash and Hives Sulfa (Sulfonamide Antibiotics) Allergy (Severe, Verified 02/11/25 13:26) Rash and Hives valsartan Allergy (Severe, Verified 02/11/25 13:26) Rash and Hives codeine [CODEINE] Allergy (Intermediate, Verified 02/11/25 13:26) RASH ibuprofen [From MOTRIN] Allergy (Intermediate, Verified 02/11/25 13:26) RASH montelukast [From SINGULAIR] Allergy (Intermediate, Verified 02/11/25 13:26) HIVES sulfamethoxazole [From BACTRIM] Allergy (Intermediate, Verified 02/11/25 13:26) HIVES tramadol [TRAMADOL] Allergy (Intermediate, Verified 02/11/25 13:26) SWELLING, RASH loratadine [From CLARITIN] Allergy (Mild, Verified 02/11/25 13:26) HIVES ranitidine [From ZANTAC] Allergy (Mild, Verified 02/11/25 13:26) HIVES diphenhydramine [From Tylenol PM] Allergy (Verified 02/11/25 13:26) Swelling fluticasone furoate [From Trelegy Ellipta] Allergy (Verified 02/11/25 13:26) Unknown umeclidinium [From Trelegy Ellipta] Allergy (Verified 02/11/25 13:26) Unknown vilanterol [From Trelegy Ellipta] Allergy (Verified 02/11/25 13:26) Unknown HPI Comments Details: The patient is a 64-year-old woman with known moderate persistent asthma and obstructive sleep apnea on CPAP. pt says the cough is worse at night and she has to take out her emergency inhaler. pt continues to take inhalers as usual. Her cough tends to be dry and worse at night time. Moderate severity. Denies any reflux symptoms. Denies any significant postnasal drip or nasal congestion at this time. In the meantime she has been using the CPAP. The CPAP therapy continues to be effective in beneficial. She does get supplies through [facility]. Will send another prescription to [facility] to make sure that she is getting the proper mask which is the P 10. 11/16/2022 the patient is here for a pulmonary follow-up visit. The patient overall has been doing well. She still have episodes of chest tightness and wheezing. Has been having to use her rescue inhaler more than twice a week. She also continues with her respiratory regimen. Denies any sick contacts. She has been on Breo and also Spiriva. I do believe that she will do better on Trelegy inhaler. I will request that at the pharmacy. Like to maximize her respiratory therapy with the synergistic affect. In addition to that she should continue with her allergy medicine. She continues uses CPAP. CPAP therapy continues to be affecting beneficial. She also benefits from using the gabap entin at nighttime. This has been helpful. She should continue for now. She is also using Provigil in the morning. Will going to see about trying to decrease the dose to 100 once she completes her current prescription. If the patient has complaints of daytime drowsiness with the lower dose she will call and I will resend the higher dose to the pharmacy. I am hopeful that we can try to simplify her medical regimen at this time. 05/17/2023 the patient is here for pulmonary follow-up visit. Recently she did have a brief exacerbation. She did call the office. We did send her prednisone antibiotics and she did recover. She has been having difficulties getting her inhalers. Initially she had a reaction to the Trelegy so she stopped it. She has to get Breo. I do believe that we can send her Symbicort instead as it may be more effective for her. In the meantime she continues uses CPAP at nighttime. CPAP therapy continues to be affecting beneficial. She does use it for more than 4 hours a night. She also is dependent on the modafinil. This has been very effective for her. We are hoping to decrease her dose down to 100 mg but for some reason she is still on 200 mg. Will decrease it during the next visit. 09/26/2023 the patient is here for a pulmonary follow-up visit. the patient is doing well from a respiratory status. She is responding well to the current respiratory regimen. She is been off prednisone since we last spoke. The patient continues on the Symbicort inhaler. This has been affecting beneficial. Has not had to use her rescue inhaler. She continues also on Daliresp. This also has improved her chronic bronchitis. She is been on modafinil now for some time at the 200 mg dose. The patient is is feeling better so it is a good opportunity to try to decrease the medication down to 100 mg. The patient becomes more symptomatic she can always call we can increase it. I did request that she can try for a month to make sure she gives enough time to try to adjust to the lower dose. She is not using her CPAP. She is sleeping with positional therapy on her side. She denies any significant daytime drowsiness. [place] score is low elevated it over 24. she is working on weight loss. She continues to lose weight and hopefully will consider repeating the sleep study in the near future to make sure that she does not need her CPAP.\ 03/22/2024 the patient is here for a pulmonary follow-up visit. She is struggles with breathing. She has had issues with asthma symptoms and she feels is related to stress. She has been having to use her rescue inhaler more regularly. In addition to that she has been having hard time sleeping. She has been using her CPAP at nighttime. It has been helpful. Although right now she has not getting supplies from the [facility]. She will need another sleep study. She will consider that in the future. Right now her elevated [place] score is at 11. She does respond to the Provigil. We did try to decrease it down to the 100 mg dose but she became more symptomatic. Therefore, will go ahead and increase it again to 200 mg dose. The patient also is having significant stress because of her apartment situation. She has a 2 bedroom apartment for her . She does need a separate room because of her significant asthma and sleep apnea. Will provide her a letter to document the necessity. Specially with worsening respiratory symptoms she needs that separate space. 11/10/2023 the patient is here for a sick visit. The patient started developing worsening respiratory symptoms for last week. Krishna of chest tightness she had then taking her inhalers and respiratory therapy to see if she could improve her symptoms. However seem to be getting worse. Moderate severity. She has congested cough but difficult to expectorate. She feels significant chest tightness. She did call we did call in a prescription for prednisone 40 mg that she started yesterday. The patient denies any fevers or chills. Not sure about sick contacts. She has significant wheezing on examination. We did give her Solu-Medrol 125 mg IM x1. She is going to start antibiotics and also continue the prednisone taper. If the patient does not improve she has to call the office. If she worsens she needs to go to the hospital. Meantime she continues use her respiratory therapy as prescribed. 09/13/2024 the patient is here for a pulmonary follow-up visit. The patient overall has been doing okay from a breathing standpoint. The respiratory regimen right now is working well for her. The patient has not required any additional steroids. She also continues to use the Provigil during the daytime this also appears to be working well for her. She is not using her CPAP any longer but she is continuing positional therapy and she is waking up rested which is reassuring. As far as imaging studies she did have a CT scan of the abdomen pelvis which demonstrated normal lung bases. Also had a chest x-ray back in 2022 demonstrating no acute disease. No additional imaging warranted at this time. 02/11/2025 the patient is here for a sick visit. She started developing worsening respiratory symptoms last week. Ultimately had some fevers and chills. Sore throat. Cough. Over the weekend she started developing worsening chest tightness and wheezing. She has been using her nebulizer often. He still coughing difficult to expectorate. Moderate in severity. He has not been able to sleep well. Today on exam she does have significant rhonchi and wheezing bilaterally. No crackles appreciated. The patient may have early pneumonia though. Will go ahead and treat her as if she was having community-acquired pneumonia. Because her significant wheezing she will receive Solu-Medrol today. Then after that she can start of prednisone taper. She will start antibiotics for the lower respiratory infection. She will continue with current respiratory therapy and will provide her with additional nebulized medicine. If he has any worsening symptoms or she is no better in 48 hours she may need to seek additional medical evaluation. [facility] Medical History Hx of ectopic Multiple pulmonary nodules Kidney stone Microhematuria WADE (nonalcoholic steatohepatitis) Abnormal LFTs (liver function tests) Hypothyroidism Mixed hyperlipidemia Lumbar radiculopathy GERD (gastroesophageal reflux disease) HTN (hypertension) Microalbuminuria Anxiety Diabetes Asthma 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 KEVIN on CPAP COVID-19 Surgical History Hx of endoscopy History of back surgery History of surgical removal of ganglion cyst Hx of bilateral breast reduction surgery History of placement of ear tubes H/O colonoscopy Hx of section History of ankle surgery Social History Household Members: Family Housing: Apartment Are you a primary nurse behavioral health care to a significant other at home: No Do you presently have visiting nurse or other home services: No Alcohol intake: current Alcohol intake frequency: does not drink Comment: Pt. sleeping Patient Tobacco Use Status: Never used Tobacco Second Hand Smoke Exposure: No Advance Directives Date on File: 04/17/22 service: No Current occupational status: employed [employer] Reports chills, Denies daytime sleepiness, Reports fatigue, Reports fever(s) and Reports weight loss ENT Denies change in voice, Denies lip swelling, Denies mouth pain, Reports nasal congestion, Reports nasal discharge and Denies tongue swelling Card Reports no additional complaints, Denies syncope and Reports dyspnea on exertion Resp Denies chest congestion, Reports cough, Reports dyspnea on exertion and Reports wheezing GI Denies abdominal pain and Denies heartburn Musc Reports back pain Neuro Denies syncope Endo Reports fatigue Paul/Lymph Denies easy bleeding and Denies lymphadenopathy Aller/Immun Denies lip swelling, Denies tongue swelling and Reports wheezing Physical Exam Vital Signs: Last Vital Signs Pulse 113 H 02/11/25 13:22 BP 146/98 H 02/11/25 13:22 Pulse Ox 97 02/11/25 13:22 Oxygen Delivery Method Room Air 02/11/25 13:22 BMI result Body Mass Index 38.4 Const General: alert Neck Neck: Yes normal visual inspection, Yes full ROM and Yes no lymphadenopathy Chest Chest palpation & inspection: normal inspection of the chest Resp Effort & Inspection: normal respiratory effort Auscultation: rhonchi, wheezes and diminished lung sounds Cardio Rate: regular rate Rhythm: regular rhythm Heart sounds: S1 normal heart sound present and S2 normal heart sound present GI Palpation (GI): Soft to palpation and nontender Auscultation: normal bowel sounds Skin General skin exam: rashes and/or lesions noted Office Meds methylprednisolone sod suc(PF) 125 mg/2 mL solution for injection Performing Provider: Holland Arias MD Performing Location: [facility] Administered by: Jaida Goldman LPN on 02/11/25 14:01 Dose Route Admin Location Dispensed Lot Number Expiration Date [facility] Take Up Operator 125 mg IM 1 ea [id number] 11/06/26 8725-7815-34 [employer] Assessment & Plan Assessment & Plan (1) Hypersomnia with sleep apnea: Code(s): G47.10 - Hypersomnia, unspecified; G47.30 - Sleep apnea, unspecified Category: Medical (2) Asthma: Code(s): J45.909 - Unspecified asthma, uncomplicated Category: Medical Qualifiers: Asthma severity: moderate Asthma persistence: persistent Asthma complication type: with acute exacerbation Qualified Code(s): J45.41 - Moderate persistent asthma with (acute) exacerbation (3) Bronchopneumonia: Code(s): J18.0 - Bronchopneumonia, unspecified organism Category: Medical Plan solumedrol IM x 1, then prednisone taper start Doxy/vantin continue Nebs Continue Daliresp 500 mcg daily continue Gabapentin for sleep not using CPAP therapy, continue positional therapy ?repeat home sleep study continue Provigil 200mg daily follow-up in 6-8 months. Will need to go to the ED if worsens or no better Orders: Orders AMB Methylprednisolone Sod Succ Injection Today J44.9 - Chronic obstructive pulmonary disease, unspecified Medications: New albuterol sulfate 2.5 mg (3 mL) inhalation Q6H 30 days PRN 180 mL 11RF shortness of breath or wheezing prednisone PO daily; Take 6 tabs daily x 2 days, then 5 tabs x 2 days, then 4 tabs x 2 days, then 3 tabs x 2 days, then 2 tabs daily x 2 days, then 1 tab x 2 days to complete. 42 tabs 0RF 12 days doxycycline hyclate 100 mg PO BID 20 caps 0RF 10 days cefpodoxime must administer with a meal/food 200 mg PO BID 16 tabs 0RF 8 days Coding Level of Care Code Est Pt Level 4 (79222) Diagnoses Hypersomnia with sleep apnea G47.10; G47.30 Moderate persistent asthma with acute exacerbation J45.41 Asthma severity: moderate Asthma persistence: persistent Asthma complication type: with acute exacerbation Bronchopneumonia J18.0 Time Spent (min) 16
--- OUTSIDE RECORDS SUMMARY | 2025-02-11 15:41 | XMS_ITS | Encounter Summary ---
Author Organization [facility] Address [address] [place] [address] Care Team Providers Care Underground Utility Locator Name Role Phone Janine Villeda MD Primary Care Provider [phone] Reason for Visit * Reason Onset Date Comments Prior Authorization 01/15/2025 verapamil ER (VERELAN PM) 100 mg 24 hr capsule Encounter Details Date Type Department Care Team (Late st Contact Info) Description 01/15/2025 Telephone Adult Medicine [facility] [address], [place] [phone] Janine Villeda MD [address], [place] Prior Authorization (verapamil ER (VERELAN PM) 100 [...] of this encounter Progress Notes * Mandi Crawford MA - 01/31/2025 9:11 AM EDT Prior authorization for the verapamil was completed today on cmm Dx I10 hypertension Continuation of therapy * Mandi Flores - 01/16/2025 10:07 AM [...] from: [facility] fax #: [phone] [employer] Information from fax: What Prescription Plan does the patient have? BIN/PCN if applicable: Cardholder ID: Person Code: Relationship Code: Help desk phone: documented in this encounter Plan of Treatment Upcoming Encounters Date Type Department Care Team (Late st Contact Info) Description 03/07/2025 10:00 AM EDT Appointment Bone Density - [address] [phone] 05/21/2025 8:15 AM EDT Office Visit Adult Medicine [facility] - [address] [phone] Janine Villeda MD [address] [place] [address] 05/30/2025 1:00 PM EDT Appointment Radiology Department - [address] [phone] documented as of this encounter Visit Diagnoses Not on filedocumented in this encounter Care Teams Underground Utility Locator Relationship Specialty Start Date End Date Janine Villeda MD [address] [place] [address] PCP - General Internal Medicine 05/14/20 documented as of this encounter
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
== END 2025-02-11 14:41 | disposition home or self-care (01) ==
LOC: HO.HPS 13:14
PROVIDERS: PCP Internal Medicine; Visit Provider Hospitalist
DX: G47.10 Hypersomnia, unspecified (principal); G47.30 Sleep apnea, unspecified; J45.41 Moderate persistent asthma with (acute) exacerbation; J18.0 Bronchopneumonia, unspecified organism; J44.9 Chronic obstructive pulmonary disease, unspecified
CPT/HCPCS: 99214

== ENCOUNTER → 2025-02-11 13:13 | Outpatient (BNVA) | payer MEDICARE, MEDICAID, SELFPAY | PROVIDERS: PCP Internal Medicine; Visit Provider Hospitalist | DX: J44.9 Chronic obstructive pulmonary disease, unspecified (principal); J45.41 Moderate persistent asthma with (acute) exacerbation; J18.0 Bronchopneumonia, unspecified organism; G47.33 Obstructive sleep apnea (adult) (pediatric); G47.10 Hypersomnia, unspecified; Z99.89 Dependence on other enabling machines and devices | CPT/HCPCS: 96372; 99212; J2919 ==

== ENCOUNTER 2025-02-16 13:16 | Inpatient (IN) | payer MEDICARE, OTHER, SELFPAY ==
[2025-02-16] VITALS (7 sets, daily range): BP systolic 97–160; BP diastolic 57–78; PULSE 80–111; RESP 16–26; TEMP 36.6–37; O2SAT 95–97; BMI 39.0
--- NOTE | ~2025-02-16 | XR_ITS ---
EXAMINATION: XR CHEST 1 VIEW HISTORY: worsening cough COMPARISON: Comparison is made with the prior examination dated 02/16/2025. FINDINGS: A single AP portable view of the chest performed at 9:12 AM is submitted. The lungs are expanded and clear. There is no pleural effusion, pneumothorax, or pulmonary vascular congestion. The heart is normal in size. There is degenerative disc disease of the spine. XR/XR chest 1V IMPRESSION: No acute cardiopulmonary abnormality. Electronically signed by: Saravanan Randhawa MD 02/19/2025 09:39 AM EDT
--- NOTE | ~2025-02-16 | XR_ITS ---
CLINICAL HISTORY: shortness of breath Two views of the chest. COMPARISON: XR chest dated 06/02/23 at 09:52 EDT FINDINGS: Normal heart size. Atherosclerotic thoracic aorta. No consolidation. Nipple shadow along the right lung base. No pleural effusion or pneumothorax. Moderate spondylosis. No acute fracture identified. IMPRESSION: 1. No consolidation. This document has been electronically signed by: Efraín Thornton MD on 02/16/2025 14:38:19
--- NOTE | 2025-02-16 13:54 | ED_ITS ---
HPI - General Adult General Chief complaint: Upper Respiratory Symptoms Stated complaint: asthma sent from urgent care Time Seen by Provider: 02/16/25 14:02 Source: patient and old records reviewed Mode of arrival: ambulatory Limitations: no limitations History of Present Illness ED Provider: RAY OSORIO narrative: 64 yo female with PMH of asthma-COPD overlap syndrome, kidney stones, bronchopneumonia, HLD, HTN she just saw Dr. Arias on 02/11 and he started her on prednisone taper and doxy/vantin she comes in today with c/o persistent wheezing, dyspnea, chest congestion and not getting better. She is on 40mg prednisone now of her taper. She states she is coughing she wheezes and is short of breath when she walks. She has not improved in 5 days. She has no chest pain. She states she is overall not feeling better. She came due to lack of improvement. MD complaint: asthma Onset (ago): day(s) (10) Location: chest Radiation: non-radiation Severity: moderate Relieving factors: rest Exacerbating factors: movement Associated symptoms: cough, malaise, shortness of breath and weakness Treatments prior to arrival: other Related Data Home Medications ?Medication ?Instructions ?Recorded ?Confirmed atorvastatin 40 mg tablet 40 mg PO DAILY 11/19/20 09/13/24 hydrochlorothiazide 25 mg tablet 25 mg PO DAILY 11/19/20 09/13/24 levothyroxine 50 mcg tablet 50 mcg PO DAILY 11/19/20 09/13/24 omeprazole 20 mg capsule,delayed 20 mg PO DAILY 11/19/20 09/13/24 release verapamil 100 mg capsule 24hr 100 mg PO BEDTIME 11/19/20 09/13/[address],ext.release duloxetine 30 mg capsule,delayed 30 mg PO DAILY 04/30/21 09/13/24 release nebulizers 11/16/22 08/03/23 albuterol sulfate 2.5 mg/3 mL 1 inhalation Q4-5H PRN Wheezing 03/23/23 09/13/24 (0.083 %) solution for nebulization budesonide 0.5 mg/2 mL suspension 0.5 mg inhalation DAILY 03/23/23 09/13/24 for nebulization loratadine 10 mg tablet 10 mg PO DAILY 03/23/23 09/13/24 fexofenadine 180 mg tablet 180 mg PO DAILY 05/17/23 09/13/24 Previous Rx's ?Medication ?Instructions ?Recorded tiotropium bromide 2.5 2 puff inhalation DAILY 30 days #4 01/05/23 mcg/actuation mist for inhalation grams (Spiriva Respimat) albuterol sulfate 90 mcg/actuation 2 puff inhalation Q4-6H PRN 05/17/23 aerosol inhaler (ProAir HFA) Wheezing 30 days #8.5 grams allopurinol 100 mg tablet 100 mg PO DAILY #90 tabs 01/26/24 ipratropium 0.5 mg-albuterol 3 mg 3 ml inhalation Q6H PRN wheezing 04/09/24 (2.5 mg base)/3 mL nebulization 30 days #180 mL soln budesonide-formoterol HFA 160 2 puff inhalation BID 30 days 10/03/24 mcg-4.5 mcg/actuation aerosol #10.2 grams inhaler (Symbicort) modafinil 200 mg tablet 200 mg PO DAILY 90 days #90 tabs 10/11/24 roflumilast 500 mcg tablet 500 mcg PO DAILY #90 tabs 11/27/24 gabapentin 300 mg capsule 300 mg PO BEDTIME 30 days #30 caps 01/08/25 methocarbamol 750 mg tablet 750 mg PO Q8H pain/spams #20 tabs 01/24/25 albuterol sulfate 2.5 mg/3 mL 2.5 mg (3 mL) inhalation Q6H PRN 02/11/25 (0.083 %) solution for nebulization shortness of breath or wheezing 30 days #180 mL cefpodoxime 200 mg tablet 200 mg PO BID 8 days #16 tabs 02/11/25 doxycycline hyclate 100 mg capsule 100 mg PO BID 10 days #20 caps 02/11/25 prednisone 10 mg tablet See Rx Instructions PO DAILY 12 02/11/25 days #42 tabs pyridoxine (vitamin B6) 50 mg 50 mg PO DAILY 90 days #90 tabs 02/11/25 tablet Allergies Allergy/AdvReac Type Severity Reaction Status Date / Time acetaminophen [Percocet] Allergy Severe Rash and Verified 02/16/25 13:57 Hives amlodipine Allergy Severe Rash and Verified 02/16/25 13:57 Hives aspirin Allergy Severe Rash and Verified 02/16/25 13:57 Hives benzonatate Allergy Severe Rash and Verified 02/16/25 13:57 Hives fexofenadine Allergy Severe Rash and Verified 02/16/25 13:57 Hives hydrocodone Allergy Severe Rash and Verified 02/16/25 13:57 Hives hydroxyzine Allergy Severe Rash and Verified 02/16/25 13:57 Hives lisinopril Allergy Severe Rash and Verified 02/16/25 13:57 Hives lorazepam Allergy Severe Rash and Verified 02/16/25 13:57 Hives meperidine [Demerol] Allergy Severe Rash and Verified 02/16/25 13:57 Hives morphine Allergy Severe Rash and Verified 02/16/25 13:57 Hives naproxen [Aleve] Allergy Severe Rash and Verified 02/16/25 13:57 Hives oxycodone [From PERCOCET] Allergy Severe SWELLING Verified 02/16/25 13:57 penicillin G Allergy Severe Rash and Verified 02/16/25 13:57 Hives Sulfa (Sulfonamide Allergy Severe Rash and Verified 02/16/25 13:57 Antibiotics) Hives valsartan Allergy Severe Rash and Verified 02/16/25 13:57 Hives codeine [CODEINE] Allergy Intermediate RASH Verified 02/16/25 13:57 ibuprofen [From MOTRIN] Allergy Intermediate RASH Verified 02/16/25 13:57 montelukast [From SINGULAIR] Allergy Intermediate HIVES Verified 02/16/25 13:57 sulfamethoxazole Allergy Intermediate HIVES Verified 02/16/25 13:57 [From BACTRIM] tramadol [TRAMADOL] Allergy Intermediate SWELLING, Verified 02/16/25 13:57 RASH loratadine [From CLARITIN] Allergy Mild HIVES Verified 02/16/25 13:57 ranitidine [From ZANTAC] Allergy Mild HIVES Verified 02/16/25 13:57 diphenhydramine Allergy Swelling Verified 02/16/25 13:57 [From Tylenol PM] fluticasone furoate Allergy Unknown Verified 02/16/25 13:57 [From Trelegy Ellipta] umeclidinium Allergy Unknown Verified 02/16/25 13:57 [From Trelegy Ellipta] vilanterol Allergy Unknown Verified 02/16/25 13:57 [From Trelegy Ellipta] Review of Systems 2 Review of Systems: Constitutional : No Fever, No Chills ENT/Mouth : No Hoarseness, No sore throat, No Rhinorrhea Eyes: No Redness, No Discharge, No Vision Changes Cardiovascular : No Chest Pain, positive SOB, positive Dyspnea on Exertion, No Edema Respiratory : positive Cough, No Sputum, positive Wheezing, Gastrointestinal : No Nausea, No Vomiting, No Diarrhea, No abdominal Pain Genitourinary : No Dysuria, No Hematuria Musculoskeletal : No joint pain, No Myalgias Skin : No rash Neuro : No Weakness, No Numbness, No Headache Psych : No anxiety, depression All other systems reviewed and are negative PMFSH Past Medical History Attestation statement: The following information was validated with the patient. Source: old records reviewed Medical History Hx of ectopic Multiple pulmonary nodules Kidney stone Microhematuria WADE (nonalcoholic steatohepatitis) Abnormal LFTs (liver function tests) Hypothyroidism Mixed hyperlipidemia Lumbar radiculopathy GERD (gastroesophageal reflux disease) HTN (hypertension) Microalbuminuria Anxiety Diabetes Asthma 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 KEVIN on CPAP COVID-19 Surgical History Hx of endoscopy History of back surgery History of surgical removal of ganglion cyst Hx of bilateral breast reduction surgery History of placement of ear tubes H/O colonoscopy Hx of section History of ankle surgery Social History Social History Household Members: Family Housing: Apartment Are you a primary wound care coordinator to a significant other at home: No Do you presently have visiting nurse or other home services: No Alcohol intake: current Alcohol intake frequency: does not drink Comment: Pt. sleeping Patient Tobacco Use Status: Never used Tobacco Second Hand Smoke Exposure: No Advance Directives: No Advance Directives Information Provided: No Advance Directives Date on File: 04/17/22 service: No Current occupational status: employed Physical Exam ED Vital Signs: Vital Signs - 24 hr 02/16/25 13:54 02/16/25 14:16 02/16/25 14:27 Temperature 98.1 F 98.1 F Pulse Rate 104 H 111 H 104 H Respiratory Rate 16 22 H 26 H Blood Pressure 97/78 160/75 H Pulse Oximetry 96 96 Oxygen Delivery Method Room Air Room Air BMI result Body Mass Index 39.0 Appearance: Alert. Oriented X3. Mild acute distress. Eyes: Pupils equal, round and reactive to light. ENT: Pharynx normal. Neck: Normal inspection. Neck supple. CVS: Normal heart rate and rhythm. Pulses normal. Respiratory: Mild respiratory distress tachypnea short phrases. Breath sounds diffuse audbiel insp and exp wheezes throughout Abdomen: Soft and nontender. Skin: Skin warm and dry. Normal skin color. Normal skin turgor. Extremities: No lower extremity edema. No calf ttp Neuro: Oriented X 3. No motor deficit. No sensory deficit. CN2-12 intact Course Course Course Narrative: This is a rapid medical exam performed by Kenna Kuo NP: Additional HPI, ROS, PE not included below will be deferred to primary provider. 02/16/25 13:54 Patient is a 64-year-old female with history of asthma, KEVIN on CPAP presenting from for shortness of breath. Pt states she saw Dr. Arias on Tuesday, started on steroids, doxy, nebs but she is not feeling better. Plan: EKG, labs, CXR Medications Administered Discontinued Medications Generic Name Dose Route Start Last Admin Trade Name Freq PRN Reason Stop Dose Admin Ceftriaxone Sodium 1 gm 02/16/25 14:19 02/16/25 15:21 Ceftriaxone Sodium 1 Gm Vial IVPUSH 02/16/25 14:20 1 gm ONCE ONE Administration Albuterol Sulfate 5 mg/ 0 mg 02/16/25 14:25 02/16/25 14:41 Albuterol/Ipratropium 3 ml INHALE 02/16/25 14:26 7.5 each ONCE ONE Administration Magnesium Sulfate 2 gm in 50 mls @ 150 mls/hr 02/16/25 14:19 02/16/25 16:18 Magnesium Sulfate/H2o IV 02/16/25 14:38 Infused ONCE ONE Infusion Sodium Chloride 500 mls @ 500 mls/hr 02/16/25 15:14 02/16/25 15:21 Ns IV 02/16/25 16:13 500 mls/hr .Q1H ONE Administration Methylprednisolone Sodium Succinate 60 mg 02/16/25 14:19 02/16/25 15:21 Methylprednisolone Sod Succ 125 Mg/2 Ml Vial IVPUSH 02/16/25 14:20 60 mg ONCE ONE Administration Medical Decision Making Medical Decision Making MDM Narrative: 64 yo female with PMH of asthma-COPD overlap syndrome, kidney stones, bronchopneumonia, HLD, HTN currently on doxy/vantin and 40mg prednisone but still having wheezes and chest congestion. At this time given the wheezes and lack of chest pain I doubt she has VTE. Will obtain labs, vbg, start on IV steroids/IV magnesium, empiric ceftriaxone. Admission pending improvement Differential Diagnosis Differential Diagnoses: The differential diagnosis associated with the presentation includes COPD, pneumonia, bronchospasm, viral syndrome Admission/Observation Consideration of admission/observation: Escalation of care including admission/observation considered still tight and wheezy with tachypnea will admit just trialed outpatient therapy without improvement Consult Healthcare Provider Management of the patient was discussed with: Hospitalist (will admit) Lab Data [facility] Lab Attestation statement: I reviewed the patient's lab results. 02/16/25 14:33 02/16/25 14:33 Labs: Lab Results 02/16/25 02/16/25 Range/Units 14:33 14:38 WBC 12.0 H (4.8-10.8) X10*3/uL RBC 4.19 L (4.20-5.50) X10*6/uL Hgb 12.3 (12.0-16.0) g/dl Hct 36.6 L (37.0-47.0) % MCV 87.4 (80.0-98.0) fL MCH 29.4 (27.0-33.0) pg MCHC 33.6 (31.0-35.0) g/dl RDW 14.6 (11.0-16.0) % Plt Count 485 H D (160-400) X10*3/uL MPV 9.4 (9.4-12.3) fL Immature Gran % (Auto) 1.5 H (0.0-0.4) % Neut % (Auto) 73.5 H (45-73) % Lymph % (Auto) 22.2 (20-40) % [place] % (Auto) 2.3 (2-11) % Eos % (Auto) 0.2 (0-4) % Baso % (Auto) 0.3 (0-2) % Lymph # (Auto) 2.7 (1.2-4.9) X10*3/uL [place] # (Auto) 0.3 (0.1-1.2) X10*3/uL Eos # (Auto) 0.0 (0.0-0.4) X10*3/uL Baso # (Auto) 0.0 (0.0-0.2) X10*3/uL Abs Immat Gran (auto) 0.18 H (0.00-0.03) X10*3/uL Absolute Neuts (auto) 8.8 H (2.0-8.3) x10*3/uL Absolute Nucleated RBC 0.000 (0.0-0.012) X10*3/uL Nucleated RBC % (auto) 0.0 (0.0-0.2) /100WBC VBG pH 7.44 H (7.32-7.43) VBG pCO2 42 mmHg VBG pO2 123 mmHg VBG HCO3 29 H (22-26) mmol/L VBG O2 Saturation 99.0 % VBG Base Excess 5.0 mmol/L Sodium 141 (135-145) mmol/L Potassium 3.9 (3.3-5.1) mmol/L Chloride 106 (96-108) mmol/L Carbon Dioxide 25 (22-29) mmol/L Anion Gap 14 (12-20) BUN 16 (9-16) mg/dL Creatinine 0.79 (0.5-1.4) mg/dL Estim Creat Clear Calc 62.6 Estimated GFR > 60 Random Glucose 218 H (60-115) mg/dL Lactic Acid 2.9 H* (0.5-2.0) mmol/L Calcium 9.3 D (8.4-10.2) mg/dL Total Bilirubin 0.3 (0.0-1.0) mg/dL AST 49 H (5-31) U/L ALT 75 H (0-31) U/L Alkaline Phosphatase 104 (39-117) U/L Troponin I High Sens 4.2 (<3.5-17.0) ng/L B-Natriuretic Peptide 17 (<100) pg/mL Total Protein 7.3 (6.5-8.0) g/dL Albumin 4.0 (3.5-5.0) g/dL Influenza Type A (PCR) NEGATIVE (Negative) Influenza Type B (PCR) NEGATIVE (Negative) RSV RNA Qual (PCR) NEGATIVE (Negative) SARS-CoV-2 RNA (RT-PCR) NEGATIVE (Negative) Independent Interpretation I performed an independent interpretation of an: EKG and Plain X-Ray (no pneumonia) Interpretation: Rate: 102 Rhythm: sinus tach [place]: normal Normal P waves. Normal CONTRERAS. RBBB ST T wave : no YESSICA, inverted t waves V1 and V2 qTC: 503 prior studies: prior RBBB The study has been interpreted contemporaneously by me. . Radiology Impression Discussion of test interpretation with radiology: I have reviewed the radiologist's reading. External Record Review External record reviewed: Outpatient record Critical Care Time Critical Care Time Critical Care Time: Yes Total Critical Care Time: 45 Attestation: Time is exclusive of separately billable procedures. Time includes: direct patient care, patient reassessment, coordination of patient care, interpretation of data (laboratory data, pulse oximetry, venous blood gases and chest xrays), review of patient's medical records, documentation of patient care. IV magnesium for bronchospasm and resp distress. Procedures excluded from critical care time: and electrocardiography. Discharge Plan Discharge Clinical Impression: Acute exacerbation of chronic obstructive pulmonary disease, Acidosis, lactic Patient Disposition: Admitted As Inpatient Prescriptions: No Action Spiriva Respimat 2.5 mcg/actuation mist 2 puff inhalation DAILY 30 Days Qty: 4 11RF ipratropium-albuterol 0.5 mg-3 mg(2.5 mg base)/3 mL solution for nebulization 3 ml inhalation Q6H PRN (Reason: wheezing) 30 Days Qty: 180 6RF budesonide-formoterol [Symbicort] 160-4.5 mcg/actuation HFA aerosol inhaler 2 puff inhalation BID 30 Days Qty: 10.2 11RF modafinil 200 mg tablet 200 mg PO DAILY 90 Days Qty: 90 3RF roflumilast 500 mcg tablet 500 mcg PO DAILY Qty: 90 0RF gabapentin 300 mg capsule 300 mg PO BEDTIME 30 Days Qty: 30 6RF pyridoxine (vitamin B6) 50 mg tablet 50 mg PO DAILY 90 Days Qty: 90 3RF albuterol sulfate 2.5 mg /3 mL (0.083 %) solution for nebulization 2.5 mg inhalation Q6H PRN (Reason: shortness of breath or wheezing) 30 Days Qty: 180 11RF methocarbamol 750 mg tablet 750 mg PO Q8H Qty: 20 0RF loratadine 10 mg Tablet 10 mg PO DAILY budesonide 0.5 mg/2 mL Suspension For Nebulization 0.5 mg INHALATION DAILY albuterol sulfate [Proventil] 2.5 mg /3 mL (0.083 %) Solution For Nebulization 1 inhalation Q4-5H PRN (Reason: Wheezing) hydrochlorothiazide 25 mg tablet 25 mg PO DAILY verapamil 100 mg capsule, [address] 100 mg PO BEDTIME omeprazole 20 mg capsule,delayed release(DR/EC) 20 mg PO DAILY levothyroxine 50 mcg tablet 50 mcg PO DAILY atorvastatin 40 mg tablet 40 mg PO DAILY duloxetine 30 mg capsule,delayed release(DR/EC) 30 mg PO DAILY ([facility] [place]) nebulizers [facility] See Rx Instructions .Route Rx Instructions: As directed fexofenadine 180 mg tablet 180 mg PO DAILY albuterol sulfate [ProAir HFA] 90 mcg/actuation HFA aerosol inhaler 2 puff INHALATION Q4-6H PRN (Reason: Wheezing) 30 Days Qty: 8.5 11RF allopurinol 100 mg tablet 100 mg PO DAILY Qty: 90 3RF prednisone 10 mg tablet See Rx Instructions PO DAILY 12 Days Qty: 42 0RF Rx Instructions: PO daily; Take 6 tabs daily x 2 days, then 5 tabs x 2 days, then 4 tabs x 2 days, then 3 tabs x 2 days, then 2 tabs daily x 2 days, then 1 tab x 2 days to complete. doxycycline hyclate 100 mg capsule 100 mg PO BID 10 Days Qty: 20 0RF cefpodoxime 200 mg tablet 200 mg PO BID 8 Days Qty: 16 0RF Rx Instructions: must administer with a meal/food Print Language: Icelandic
--- NOTE | 2025-02-16 13:56 | ECG_ITS ---
Test Reason : sob Blood Pressure : */* mmHG Vent. Rate : 102 BPM Atrial Rate : 102 BPM P-R Int : 124 ms QRS Dur : 126 ms QT Int : 386 ms P-R-T Axes : 51 40 32 degrees QTcB Int : 503 ms Sinus tachycardia with Premature atrial complexes Right bundle branch block Abnormal ECG When compared with ECG of 03-May-2024 08:37, Premature atrial complexes are now Present Referred By: Patricia Kuo Electronically Signed By: Osmar Lemos
[2025-02-16 14:37] LABS: MANUAL DIFF FLAG NO
[2025-02-16 14:40] LABS: Basophils Percent Auto 0.3 % (0-2); Eosinophils Percent Auto 0.2 % (0-4); Hematocrit 36.6 % (37.0-47.0); Hemoglobin 12.3 g/dl (12.0-16.0); Imm Gran Abs Auto 0.18 X10*3/uL (0.00-0.03); Imm Gran Pct Auto 1.5 % (0.0-0.4); Lymphocytes Absolute Auto 2.7 X10*3/uL (1.2-4.9); Lymphocytes Percent Auto 22.2 % (20-40); Mean Corpuscular HGB Conc 33.6 g/dl (31.0-35.0); Mean Corpuscular Hemoglobin 29.4 pg (27.0-33.0); Mean Corpuscular Volume 87.4 fL (80.0-98.0); Mean Platelet Volume 9.4 fL (9.4-12.3); Monocytes Absolute Auto 0.3 X10*3/uL (0.1-1.2); Monocytes Percent Auto 2.3 % (2-11); Neutrophils Absolute Auto 8.8 x10*3/uL (2.0-8.3); Neutrophils Percent Auto 73.5 % (45-73); Platelet Count 485 X10*3/uL (160-400); Red Blood Count 4.19 X10*6/uL (4.20-5.50); Red Cell Distribution Width 14.6 % (11.0-16.0)
[2025-02-16 14:41] LABS: Venous Blood Gas Refer to POC result
[2025-02-16] MEDS: Albuterol Sulfate 5 MG, Albuterol/Iprat 2.5/0.5MG 3 ML 3 ML INHALE (14:41)
[2025-02-16 14:42] LABS: VBG HCO3 29 mmol/L (22-26); VBG pCO2 42 mmHg; VBG pH 7.44 (7.32-7.43); VBG pO2 123 mmHg
[2025-02-16 14:53] LABS: Alanine Aminotransferase 75 U/L (0-31); Alkaline Phosphatase 104 U/L (39-117); Anion Gap 14 (12-20); Aspartate Amino Transferase 49 U/L (5-31); Bilirubin Total 0.3 mg/dL (0.0-1.0); Blood Urea Nitrogen 16 mg/dL (9-16); Calcium 9.3 mg/dL (8.4-10.2); Carbon Dioxide 25 mmol/L (22-29); Chloride 106 mmol/L (96-108); Creatinine Clr Calc Pharmacy 62.6; Estimated Glomerular Filt Rate > 60; Glucose Random 218 mg/dL (60-115); Potassium 3.9 mmol/L (3.3-5.1); Sodium 141 mmol/L (135-145); Total Protein 7.3 g/dL (6.5-8.0)
[2025-02-16 14:55] LABS: Lactic Acid 2.9 mmol/L (0.5-2.0)
[2025-02-16 14:58] LABS: B Type Natriuretic Peptide 17 pg/mL (<100); Troponin-I High Sensitivity 4.2 ng/L (<3.5-17.0)
[2025-02-16] MEDS: Magnesium Sulfate/H2O 2 GM/50 ML PIGGYBACK IV (15:21)
[2025-02-16] MEDS: 0.9 % Sodium Chloride 500 ML IV (15:21)
[2025-02-16] MEDS: methylPREDNISolone Sod Succ 125 MG/2 ML VIAL 60 MG IVPUSH (15:21)
[2025-02-16] MEDS: cefTRIAXone sodium 1 GM VIAL IVPUSH (15:21)
[2025-02-16 15:27] LABS: Influenza A PCR NEGATIVE (Negative); Influenza B PCR NEGATIVE (Negative); Resp Syncy Virus RNA Qual PCR NEGATIVE (Negative); SARS COV2 PCR INHOUSE NEGATIVE (Negative)
[2025-02-16 16:36] LABS: Reflex Lactate? Lactic Acid Added
--- NOTE | 2025-02-16 17:05 | P.HPHOSP_ITS ---
History of Present Illness Date of Service: 02/16/25 Chief Complaint: Cough 64-year-old woman with a history of asthma presents to the ER with complaints of worsening cough. She was seen by her billing associate on 02/11/2025 where she reported that she had fever chills and sore throat as well as a dry cough. She developed wheezing and chest tightness and has been using her nebulizers. In the office she was given a dose of IM Solu-Medrol and then started on prednisone taper as well as doxycycline, Vantin. Unfortunately she did not feel better and she continued to have persistent wheezing, dyspnea, chest congestion. She was worsening cough and wheezing as well as shortness of breath with ambulation and has not improved since starting antibiotics and steroids. In the ER, chest x- ray is negative for consolidation or effusion. She was not noted to be hypoxic which has not mildly elevated white blood cell count but likely related to steroids., lactic acid 2.9 also likely secondary to DuoNeb treatments. She was given a dose of Solu-Medrol, magnesium, Rocephin, albuterol and 500 mL of IV fluid. She will be admitted for further management and treatment of acute asthma exacerbation. Review of Systems 2 Review of Systems: Denies any recent fever chills or decrease in appetite respiratory see HPI cardiovascular denied chest pain gastrointestinal denies any dysphagia abdominal pain nausea vomiting or diarrhea genitourinary denies any dysuria frequency or hematuria musculoskeletal denies any joint pain or swelling neuropsych denies any weakness or seizures all other systems reviewed are negative [facility] Medical History Hx of ectopic Multiple pulmonary nodules Kidney stone Microhematuria WADE (nonalcoholic steatohepatitis) Abnormal LFTs (liver function tests) Hypothyroidism Mixed hyperlipidemia Lumbar radiculopathy GERD (gastroesophageal reflux disease) HTN (hypertension) Microalbuminuria Anxiety Diabetes Asthma 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 KEVIN on CPAP COVID-19 Surgical History Hx of endoscopy History of back surgery History of surgical removal of ganglion cyst Hx of bilateral breast reduction surgery History of placement of ear tubes H/O colonoscopy Hx of section History of ankle surgery Social History Household Members: Family Housing: Apartment Are you a primary medicare interviewer to a significant other at home: No Do you presently have visiting nurse or other home services: No Alcohol intake: current Alcohol intake frequency: does not drink Comment: Pt. sleeping Patient Tobacco Use Status: Never used Tobacco Second Hand Smoke Exposure: No Advance Directives: No Advance Directives Information Provided: No Advance Directives Date on File: 04/17/22 service: No Current occupational status: employed Meds Allergies Allergy/AdvReac Type Severity Reaction Status Date / Time acetaminophen [Percocet] Allergy Severe Rash and Verified 02/16/25 13:57 Hives amlodipine Allergy Severe Rash and Verified 02/16/25 13:57 Hives aspirin Allergy Severe Rash and Verified 02/16/25 13:57 Hives benzonatate Allergy Severe Rash and Verified 02/16/25 13:57 Hives fexofenadine Allergy Severe Rash and Verified 02/16/25 13:57 Hives hydrocodone Allergy Severe Rash and Verified 02/16/25 13:57 Hives hydroxyzine Allergy Severe Rash and Verified 02/16/25 13:57 Hives lisinopril Allergy Severe Rash and Verified 02/16/25 13:57 Hives lorazepam Allergy Severe Rash and Verified 02/16/25 13:57 Hives meperidine [Demerol] Allergy Severe Rash and Verified 02/16/25 13:57 Hives morphine Allergy Severe Rash and Verified 02/16/25 13:57 Hives naproxen [Aleve] Allergy Severe Rash and Verified 02/16/25 13:57 Hives oxycodone [From PERCOCET] Allergy Severe SWELLING Verified 02/16/25 13:57 penicillin G Allergy Severe Rash and Verified 02/16/25 13:57 Hives Sulfa (Sulfonamide Allergy Severe Rash and Verified 02/16/25 13:57 Antibiotics) Hives valsartan Allergy Severe Rash and Verified 02/16/25 13:57 Hives codeine [CODEINE] Allergy Intermediate RASH Verified 02/16/25 13:57 ibuprofen [From MOTRIN] Allergy Intermediate RASH Verified 02/16/25 13:57 montelukast [From SINGULAIR] Allergy Intermediate HIVES Verified 02/16/25 13:57 sulfamethoxazole Allergy Intermediate HIVES Verified 02/16/25 13:57 [From BACTRIM] tramadol [TRAMADOL] Allergy Intermediate SWELLING, Verified 02/16/25 13:57 RASH loratadine [From CLARITIN] Allergy Mild HIVES Verified 02/16/25 13:57 ranitidine [From ZANTAC] Allergy Mild HIVES Verified 02/16/25 13:57 diphenhydramine Allergy Swelling Verified 02/16/25 13:57 [From Tylenol PM] fluticasone furoate Allergy Unknown Verified 02/16/25 13:57 [From Trelegy Ellipta] umeclidinium Allergy Unknown Verified 02/16/25 13:57 [From Trelegy Ellipta] vilanterol Allergy Unknown Verified 02/16/25 13:57 [From Trelegy Ellipta] Active Medications: Current Medications Acetaminophen (Acetaminophen 325 Mg Tablet) 650 mg PO Q6H PRN PRN Reason: Pain, Mild 1-3,fever,headache Albuterol/Ipratropium (Albuterol/Iprat 2.5/0.5mg 3 Ml Ampul.Neb) 3 ml INHALE RQ4H WHILE AWAKE [facility] Calcium Carbonate (Calcium Carbonate 750 Mg Tab.Chew) 750 mg PO Q4H PRN PRN Reason: Heartburn Enoxaparin Sodium (Enoxaparin Sodium 40 Mg/0.4 Ml Syringe) 40 mg SUBCUT Q24H [facility] Guaifenesin (Guaifenesin La 600 Mg Tab.Er.12h) 600 mg PO BID [facility] Doxycycline Hyclate 100 mg/ (Sodium Chloride) 250 mls @ 166.67 mls/hr IV Q12H [facility] Magnesium Hydroxide (Milk Of Magnesia 30 Ml Oral.Susp) 30 ml PO DAILY PRN PRN Reason: Constipation Melatonin (Melatonin 3 Mg Tablet) 6 mg PO BEDTIME PRN PRN Reason: Insomnia Methylprednisolone Sodium Succinate (Methylprednisolone Sod Succ 40 Mg/Ml Vial) 40 mg IVPUSH Q12H [facility] Sodium Chloride (0.9 % Sodium Chloride Flush 3 Ml Syringe) 3 ml IVFLUSH QSHIFT [facility] Home Medications ?Medication ?Instructions ?Recorded ?Confirmed ?Last Taken ?Type atorvastatin 40 mg tablet 40 mg PO DAILY 11/19/20 09/13/24 04/16/22 History hydrochlorothiazide 25 mg tablet 25 mg PO DAILY 11/19/20 09/13/24 04/16/22 History levothyroxine 50 mcg tablet 50 mcg PO DAILY 11/19/20 09/13/24 04/16/22 History omeprazole 20 mg capsule,delayed 20 mg PO DAILY 11/19/20 09/13/24 04/16/22 History release verapamil 100 mg capsule 24hr 100 mg PO BEDTIME 11/19/20 09/13/24 04/15/[address],ext[address]release duloxetine 30 mg capsule,delayed 30 mg PO DAILY 04/30/21 09/13/24 04/16/22 History release nebulizers 11/16/22 08/03/23 Unknown History albuterol sulfate 2.5 mg/3 mL 1 inhalation Q4-5H PRN Wheezing 03/23/23 09/13/24 Unknown History (0.083 %) solution for nebulization budesonide 0.5 mg/2 mL suspension 0.5 mg inhalation DAILY 03/23/23 09/13/24 Unknown History for nebulization loratadine 10 mg tablet 10 mg PO DAILY 03/23/23 09/13/24 Unknown History fexofenadine 180 mg tablet 180 mg PO DAILY 05/17/23 09/13/24 Unknown History Physical Exam 2 Vital Signs and Narrative: Vital Signs: Last Vital Signs Temp 98.1 F 02/16/25 14:16 Pulse 104 H 02/16/25 14:27 Resp 26 H 02/16/25 14:27 BP 160/75 H 02/16/25 14:16 Pulse Ox 96 02/16/25 14:16 O2 Del Method Room Air 02/16/25 14:16 BMI result Body Mass Index 39.0 Appearing in no acute distress head is normocephalic atraumatic eyes pupils are PERRLA sclera is anicteric mouth throat mucous membranes are intact and moist neck is supple no lymphadenopathy, no JVD noted lung sounds expiratory wheezes and chest congestion heart regular rate rhythm, clear S1, S2 positive bowel sounds, abdomen is soft, nontender neuro patient is alert x3, no focal deficits Results Labs 02/16/25 14:33 02/16/25 14:33 Labs: Laboratory Results - last 24 hr 02/16/25 02/16/25 14:33 14:38 MCV 87.4 MCH 29.4 MCHC 33.6 RDW 14.6 Plt Count 485 H D MPV 9.4 Immature Gran % (Auto) 1.5 H Neut % (Auto) 73.5 H Lymph % (Auto) 22.2 Vernon % (Auto) 2.3 Eos % (Auto) 0.2 Baso % (Auto) 0.3 Lymph # (Auto) 2.7 Vernon # (Auto) 0.3 Eos # (Auto) 0.0 Baso # (Auto) 0.0 Abs Immat Gran (auto) 0.18 H Absolute Neuts (auto) 8.8 H Absolute Nucleated RBC 0.000 Nucleated RBC % (auto) 0.0 VBG pH 7.44 H VBG pCO2 42 VBG pO2 123 VBG HCO3 29 H VBG O2 Saturation 99.0 VBG Base Excess 5.0 Anion Gap 14 Estim Creat Clear Calc 62.6 Estimated GFR > 60 Random Glucose 218 H Lactic Acid 2.9 H* Calcium 9.3 D Total Bilirubin 0.3 AST 49 H ALT 75 H Alkaline Phosphatase 104 B-Natriuretic Peptide 17 Total Protein 7.3 Albumin 4.0 Influenza Type A (PCR) NEGATIVE Influenza Type B (PCR) NEGATIVE RSV RNA Qual (PCR) NEGATIVE SARS-CoV-2 RNA (RT-PCR) NEGATIVE Assessment and Plan (1) Asthma-COPD overlap syndrome: Status: Acute (2) Bronchopneumonia: Status: Acute Plan 64-year-old woman with a history of asthma exacerbation, recently seen by her billing associate and started on antibiotics and steroid taper, unfortunately has not gotten better and came to the ER for worsening symptoms. Acute asthma exacerbation with clinical pneumonia No hypoxia Negative flu, RSV or COVID Check full respiratory pathogen panel IV Solu-Medrol Scheduled DuoNebs Rocephin, doxycycline Oxygen supplementation as needed to keep saturations greater than 90% Acute lactic acidosis Likely secondary to asthma exacerbation, DuoNeb treatments and steroids Mild transaminitis with history of WADE Stable Hypertension Mildly elevated Continue home medications med rec is completed GERD Continue PPI Hypothyroidism Continue levothyroxine DVT prophylaxis with Lovenox Full code Quality Stroke Does the patient have a stroke diagnosis?: No VTE Prior VTE?: No VTE Risk Level:: Medical - moderate - high VTE Device Contraindication: Treatment Not Indicated VTE Drug Contraindication: N/A - Med Ordered
[2025-02-16] MEDS: guaiFENesin LA 600 MG TAB.ER.12H PO (17:19)
[2025-02-16] MEDS: Doxycycline Hyclate 100 MG in 0.9 % Sodium Chloride 250 ML 166.67 MG IV (17:20)
--- NOTE | 2025-02-16 17:32 | PHA.MEDREC ---
Addendum entered by Ilda Belcher RPh 02/16/25 17:47: med rec reviewed by [facility] Original Note: Pharmacy Consult ? Medication Reconciliation Pharmacy has completed the medication reconciliation. Spoke with patient to confirm and she had a list from home. She had prednisone and antibiotics written down with directions on the back. Cefpodoxime was written as q8h and patient confirmed that is how she has been taking it. She took the second dose of prednisone 40 mg today and starts 30 mg tomorrow. she started prednisone taper on Tuesday. She uses symbicort prn. Daliresp is once daily. She had all morning medications today except for gabapentin, loratadine, and atorvastatin (takes at bedtime). She is no longer taking verapamil.
[2025-02-16 17:43] LABS: ~Lactic Acid-LAB USE ONLY 3.7 mmol/L (0.5-2.0)
[2025-02-16] MEDS: Enoxaparin Sodium 40 MG/0.4 ML SYRINGE SUBCUT (17:49)
--- NOTE | 2025-02-16 18:39 | PC.NURSE ---
Patient alert and oriented x 3. ambulates independently. tele: sinus rythym Patient denies any chest pain and dizziness. Patient c/o sob with exertion. Patient on doxycycline and rocephin iv for Asthma exacerbation ? PNA. Patient has an IV right hand 20g. Patient on lovenox for anticoagulation.
[2025-02-16 19:13] LABS: Reflex Lactate? 2 Y
--- NOTE | 2025-02-16 19:20 | PC.NURSE ---
this rn assumed care of pt, pt a&ox4, respirations even and unlabored. pt ambulatory to bathroom with steady gait, offers no complaints at this time.
[2025-02-16 20:07] LABS: ~Lactic Acid-LAB USE ONLY 5.3 mmol/L (0.5-2.0)
[2025-02-16] MEDS: Lactated Ringers 1,000 ML 100 ML IVCONT (20:25)
[2025-02-16] MEDS: Albuterol/Iprat 2.5/0.5MG 3 ML AMPUL.NEB INHALE (20:46)
[2025-02-17] VITALS (10 sets, daily range): BP systolic 117–148; BP diastolic 59–80; PULSE 71–109; RESP 14–20; TEMP 35.7–36.8; O2SAT 94–98; BMI 39.7
--- NOTE | 2025-02-17 00:08 | PC.NURSE ---
Pt a&ox4, no signs of distress Pt sitting up at the edge of the bed Pt requested and given a cold wash cloth Pt hooked back up to LR Plan of care ongoing.
[2025-02-17] MEDS: 0.9 % Sodium Chloride Flush 3 ML SYRINGE IVFLUSH ×2 (00:10→21:40)
[2025-02-17] MEDS: Doxycycline Hyclate 100 MG in 0.9 % Sodium Chloride 250 ML 166.67 MG IV ×2 (04:52→17:23)
[2025-02-17] MEDS: methylPREDNISolone Sod Succ 40 MG/ML VIAL IVPUSH ×2 (04:52→17:18)
[2025-02-17 06:06] LABS: Hematocrit 35.4 % (37.0-47.0); Hemoglobin 11.7 g/dl (12.0-16.0); Mean Corpuscular HGB Conc 33.1 g/dl (31.0-35.0); Mean Corpuscular Volume 87.8 fL (80.0-98.0); Mean Platelet Volume 9.6 fL (9.4-12.3); Platelet Count 431 X10*3/uL (160-400); Red Blood Count 4.03 X10*6/uL (4.20-5.50); Red Cell Distribution Width 14.7 % (11.0-16.0); White Blood Count 15.1 X10*3/uL (4.8-10.8)
[2025-02-17 06:12] LABS: Alanine Aminotransferase 72 U/L (0-31); Albumin Level 3.5 g/dL (3.5-5.0); Alkaline Phosphatase 92 U/L (39-117); Anion Gap 13 (12-20); Aspartate Amino Transferase 43 U/L (5-31); Bilirubin Total 0.4 mg/dL (0.0-1.0); Blood Urea Nitrogen 16 mg/dL (9-16); Calcium 8.9 mg/dL (8.4-10.2); Carbon Dioxide 24 mmol/L (22-29); Chloride 109 mmol/L (96-108); Creatinine Clr Calc Pharmacy 74.9; Estimated Glomerular Filt Rate > 60; Glucose Random 105 mg/dL (60-115); Potassium 4.3 mmol/L (3.3-5.1); Sodium 142 mmol/L (135-145); Total Protein 6.6 g/dL (6.5-8.0)
[2025-02-17] MEDS: Lactated Ringers 1,000 ML 100 ML IVCONT (06:17)
[2025-02-17] MEDS: Albuterol/Iprat 2.5/0.5MG 3 ML AMPUL.NEB INHALE ×4 (08:08→19:48)
[2025-02-17 08:39] LABS: Adenovirus PCR Not Detected (Not Detect.); Bordetella parapertussis PCR Not Detected (Not Detect.); Bordetella pertussis PCR Not Detected (Not Detect.); Chlamydia pneumoniae PCR Not Detected (Not Detect.); Coronavirus 229E PCR Not Detected (Not Detect.); Coronavirus HKU1 PCR Not Detected (Not Detect.); Coronavirus NL63 PCR Not Detected (Not Detect.); Coronavirus OC43 PCR Not Detected (Not Detect.); Human metapneumovirus PCR Not Detected (Not Detect.); Influenza A PCR Not Detected (Not Detect.); Influenza B PCR Not Detected (Not Detect.); Mycoplasma pneumoniae PCR Not Detected (Not Detect.); Parainfluenza 1 PCR Not Detected (Not Detect.); Parainfluenza 2 PCR Not Detected (Not Detect.); Parainfluenza 3 PCR Not Detected (Not Detect.); Parainfluenza 4 PCR Not Detected (Not Detect.); RSV PCR Not Detected (Not Detect.); Rhino/Enterovirus PCR Detected (Not Detect.)
[2025-02-17] MEDS: guaiFENesin LA 600 MG TAB.ER.12H PO ×2 (09:10→21:40)
[2025-02-17 09:33] LABS: Influenza A H1 PCR Not Detected (Not Detect.); Influenza A H1-2009 PCR Not Detected (Not Detect.); Influenza A H3 PCR Not Detected (Not Detect.); SARS-CoV-2 PCR Not Detected (Not Detect.)
--- NOTE | 2025-02-17 12:42 | MHC.CM.PN ---
IMM 02/17/25, Pt lives with her and son, she does not have home health services, for DME, she has a nebulizer. PCP confirmed: Janine Andrews, HCP discussed, she declined to complete at this time. Family to transport home at DC, DCP: home, self care, CM to follow for DC needs.
[2025-02-17] MEDS: Enoxaparin Sodium 40 MG/0.4 ML SYRINGE SUBCUT (17:18)
[2025-02-17] MEDS: cefTRIAXone sodium 1 GM VIAL IVPUSH (17:18)
[2025-02-17] MEDS: Gabapentin 300 MG CAPSULE PO (21:40)
[2025-02-17] MEDS: Loratadine 10 MG TABLET PO (21:40)
[2025-02-17] MEDS: Atorvastatin Calcium 40 MG TABLET PO (21:40)
[2025-02-18] VITALS (12 sets, daily range): BP systolic 104–149; BP diastolic 57–77; PULSE 60–111; RESP 15–20; TEMP 36.2–36.8; O2SAT 95–98
[2025-02-18] MEDS: methylPREDNISolone Sod Succ 40 MG/ML VIAL IVPUSH ×2 (03:44→16:00)
[2025-02-18] MEDS: Omeprazole 20 MG CAPSULE.DR PO (06:05)
[2025-02-18] MEDS: Doxycycline Hyclate 100 MG in 0.9 % Sodium Chloride 250 ML 166.67 MG IV ×2 (06:10→16:31)
[2025-02-18] MEDS: Albuterol/Iprat 2.5/0.5MG 3 ML AMPUL.NEB INHALE ×4 (08:03→19:28)
[2025-02-18] MEDS: allopurinoL 100 MG TABLET PO (08:20)
[2025-02-18] MEDS: guaiFENesin LA 600 MG TAB.ER.12H PO ×4 (08:20→20:13)
[2025-02-18] MEDS: Pyridoxine HCl (Vitamin B6) 50 MG TABLET PO (08:20)
[2025-02-18] MEDS: hydroCHLOROthiazide 25 MG TABLET PO (08:20)
[2025-02-18] MEDS: modafiniL 100 MG TABLET 200 MG PO (08:21)
[2025-02-18] MEDS: Levothyroxine Sodium 50 MCG TABLET PO (08:21)
[2025-02-18] MEDS: Roflumilast 500 MCG TABLET PO (08:21)
[2025-02-18] MEDS: DULoxetine HCl 30 MG CAPSULE.DR PO (08:21)
[2025-02-18] MEDS: 0.9 % Sodium Chloride Flush 3 ML SYRINGE IVFLUSH ×3 (08:25→21:58)
--- NOTE | 2025-02-18 09:13 | HO.PM.IMPN ---
Subjective Subjective Date of Service: 02/18/25 Review of Systems Follow up asthma exacerbation Still feeling some shortness of breath with wheezing and dry cough but better Now with nasal congestion and watery eyes Out of bed to the bathroom Physical Exam Vital Signs: Vital Signs: Last Vital Signs Temp 97.4 F 02/18/25 07:03 Pulse 75 02/18/25 08:03 Resp 15 02/18/25 08:03 BP 104/65 02/18/25 08:20 Pulse Ox 97 02/18/25 07:03 O2 Del Method Room Air 02/18/25 07:03 BMI result Body Mass Index 39.7 Appearing in no acute distress lung sounds are clear to auscultation heart regular rate rhythm, clear S1, S2 positive bowel sounds, abdomen is soft, nontender neuro patient is alert x3, no focal deficits Objective Data Active Medications Acetaminophen (Acetaminophen 325 Mg Tablet) 650 mg PO Q6H PRN PRN Reason: Pain, Mild 1-3,fever,headache Albuterol/Ipratropium (Albuterol/Iprat 2.5/0.5mg 3 Ml Ampul.Neb) 3 ml INHALE RQ4H WHILE AWAKE ON LICENSE OF [facility] Last Admin: 02/18/25 08:03 Dose: 3 ml Documented By: STEPHANIE Allopurinol (Allopurinol 100 Mg Tablet) 100 mg PO DAILY ON LICENSE OF [facility] Last Admin: 02/18/25 08:20 Dose: 100 mg Documented By: BOB Atorvastatin Calcium (Atorvastatin Calcium 40 Mg Tablet) 40 mg PO BEDTIME ON LICENSE OF [facility] Last Admin: 02/17/25 21:40 Dose: 40 mg Documented By: ANTOIC Calcium Carbonate (Calcium Carbonate 750 Mg Tab.Chew) 750 mg PO Q4H PRN PRN Reason: Heartburn Ceftriaxone Sodium (Ceftriaxone Sodium 1 Gm Vial) 1 gm IVPUSH Q24H ON LICENSE OF [facility] Last Admin: 02/17/25 17:18 Dose: 1 gm Documented By: JASON Duloxetine HCl (Duloxetine Hcl 30 Mg Capsule.) 30 mg PO DAILY ON LICENSE OF [facility] Last Admin: 02/18/25 08:21 Dose: 30 mg Documented By: BOB Enoxaparin Sodium (Enoxaparin Sodium 40 Mg/0.4 Ml Syringe) 40 mg SUBCUT Q24H ON LICENSE OF [facility] Last Admin: 02/17/25 17:18 Dose: 40 mg Documented By: JASON Gabapentin (Gabapentin 300 Mg Capsule) 300 mg PO BEDTIME ON LICENSE OF [facility] Last Admin: 02/17/25 21:40 Dose: 300 mg Documented By: RAMON Guaifenesin (Guaifenesin La 600 Mg Tab.Er.12h) 600 mg PO BID ON LICENSE OF [facility] Last Admin: 02/18/25 08:20 Dose: 600 mg Documented By: BOB Hydrochlorothiazide (Hydrochlorothiazide 25 Mg Tablet) 25 mg PO DAILY ON LICENSE OF [facility]; Protocol Last Admin: 02/18/25 08:20 Dose: 25 mg Documented By: BOB Doxycycline Hyclate 100 mg/ (Sodium Chloride) 250 mls @ 166.67 mls/hr IV Q12H ON LICENSE OF [facility] Last Infusion: 02/18/25 08:01 Dose: Infused Documented By: BOB Levothyroxine Sodium (Levothyroxine Sodium 50 Mcg Tablet) 50 mcg PO DAILY@0600 ON LICENSE OF [facility] Last Admin: 02/18/25 08:21 Dose: 50 mcg Documented By: BOB Loratadine (Loratadine 10 Mg Tablet) 10 mg PO BEDTIME ON LICENSE OF [facility] Last Admin: 02/17/25 21:40 Dose: 10 mg Documented By: RAMON Magnesium Hydroxide (Milk Of Magnesia 30 Ml Oral.Susp) 30 ml PO DAILY PRN PRN Reason: Constipation Melatonin (Melatonin 3 Mg Tablet) 6 mg PO BEDTIME PRN PRN Reason: Insomnia Methocarbamol (Methocarbamol 750 Mg Tablet) 750 mg PO Q8H PRN PRN Reason: pain/spams Methylprednisolone Sodium Succinate (Methylprednisolone Sod Succ 40 Mg/Ml Vial) 40 mg IVPUSH Q12H ON LICENSE OF [facility] Last Admin: 02/18/25 03:44 Dose: 40 mg Documented By: RAMON Modafinil (Modafinil 100 Mg Tablet) 200 mg PO DAILY ON LICENSE OF [facility] Last Admin: 02/18/25 08:21 Dose: 200 mg Documented By: BOB Omeprazole (Omeprazole 20 Mg Capsule.) 20 mg PO DAILY@0630 ON LICENSE OF [facility] Last Admin: 02/18/25 06:05 Dose: 20 mg Documented By: RAMON Pyridoxine HCl (Pyridoxine Hcl (Vitamin B6) 50 Mg Tablet) 50 mg PO DAILY ON LICENSE OF [facility] Last Admin: 02/18/25 08:20 Dose: 50 mg Documented By: BOB Roflumilast (Roflumilast 500 Mcg Tablet) 500 mcg PO DAILY ON LICENSE OF [facility] Last Admin: 02/18/25 08:21 Dose: 500 mcg Documented By: BOB Sodium Chloride (0.9 % Sodium Chloride Flush 3 Ml Syringe) 3 ml IVFLUSH QSHIFT ON LICENSE OF [facility] Last Admin: 02/18/25 08:25 Dose: 3 ml Documented By: BOB Labs 02/17/25 05:44 02/17/25 05:45 Labs: Laboratory Results - last 24 hr 02/16/25 17:18 Respiratory Panel Oseguera See Note Adenovirus (Rapid PCR) Not Detected B.pert (TEM-PCR) Not Detected B.parapertussis DNA PCR Not Detected C. pneumoniae DNA (PCR) Not Detected Coronavirus OC43 (PCR) Not Detected Coronavirus HKU1 (PCR) Not Detected Coronavirus 229E (PCR) Not Detected Coronavirus NL63 (PCR) Not Detected Human Metapneumovir PCR Not Detected Influenza A (RT-PCR) Not Detected Influenza A (H1) PCR Not Detected Influ A (H1/09) PCR Not Detected Influenza A (H3) PCR Not Detected Influenza B (RT-PCR) Not Detected M. pneumoniae (PCR) Not Detected Parainfluenza 1 (PCR) Not Detected Parainfluenza 2 (PCR) Not Detected Parainfluenza 3 (PCR) Not Detected Parainfluenza 4 (PCR) Not Detected RSV (PCR) Not Detected Entero/Rhino (PCR) Detected A SARS-CoV-2 RNA (RT-PCR) Not Detected Microbiology Microbiology Results: Microbiology 02/16/25 14:40 Blood Culture - Preliminary Blood - Venous No growth after 24 hours. 02/16/25 14:33 Blood Culture - Preliminary Blood - Venous No growth after 24 hours. Assessment and Plan (1) Right ureteral stone: Status: Resolved (2) KEVIN on CPAP: (3) Asthma: Status: Inactive Plan 64-year-old woman with a history of asthma exacerbation, recently seen by her freelance court stenographer and started on antibiotics and steroid taper, unfortunately has not gotten better and came to the ER for worsening symptoms. Acute asthma exacerbation with clinical pneumonia No hypoxia Negative flu, RSV or COVID IV Solu-Medrol Scheduled DuoNebs Rocephin, doxycycline Mucinex RPP positive for enterovirus/rhino virus Oxygen supplementation as needed to keep saturations greater than 90% Acute lactic acidosis Likely secondary to asthma exacerbation, DuoNeb treatments and steroids Mild transaminitis with history of WADE Stable Hypertension Mildly elevated Continue home medications GERD Continue PPI Hypothyroidism Continue levothyroxine DVT prophylaxis with Lovenox Full code Quality Stroke Does the patient have a stroke diagnosis?: No VTE Prior VTE?: No VTE Risk Level:: Medical - moderate - high VTE Device Contraindication: Treatment Not Indicated VTE Drug Contraindication: N/A - Med Ordered
--- NOTE | 2025-02-18 15:02 | MHC.CM.PN ---
PER MD ROUNDS, PT EXPECTED TO DC TOMORROW DCP: HOME VIA FAMILY TRANSPORT
[2025-02-18] MEDS: cefTRIAXone sodium 1 GM VIAL IVPUSH (16:00)
[2025-02-18] MEDS: Doxycycline Monohydrate 100 MG CAPSULE PO (17:30)
[2025-02-18] MEDS: Enoxaparin Sodium 40 MG/0.4 ML SYRINGE SUBCUT (17:30)
[2025-02-18] MEDS: Atorvastatin Calcium 40 MG TABLET PO (20:13)
[2025-02-18] MEDS: Loratadine 10 MG TABLET PO (20:13)
[2025-02-18] MEDS: Gabapentin 300 MG CAPSULE PO (20:13)
[2025-02-19] VITALS (11 sets, daily range): BP systolic 124–149; BP diastolic 59–79; PULSE 81–101; RESP 17–21; TEMP 36.1–36.8; O2SAT 94–97
[2025-02-19] MEDS: methylPREDNISolone Sod Succ 40 MG/ML VIAL IVPUSH ×2 (03:50→16:11)
[2025-02-19] MEDS: Omeprazole 20 MG CAPSULE.DR PO (05:59)
[2025-02-19] MEDS: Levothyroxine Sodium 50 MCG TABLET PO (05:59)
[2025-02-19] MEDS: Doxycycline Monohydrate 100 MG CAPSULE PO ×2 (05:59→16:11)
[2025-02-19] MEDS: Albuterol/Iprat 2.5/0.5MG 3 ML AMPUL.NEB INHALE ×4 (08:03→19:38)
[2025-02-19] MEDS: guaiFENesin LA 600 MG TAB.ER.12H PO ×2 (08:29→22:12)
[2025-02-19] MEDS: modafiniL 100 MG TABLET 200 MG PO (08:30)
[2025-02-19] MEDS: Roflumilast 500 MCG TABLET PO (08:30)
[2025-02-19] MEDS: hydroCHLOROthiazide 25 MG TABLET PO (08:30)
[2025-02-19] MEDS: allopurinoL 100 MG TABLET PO (08:30)
[2025-02-19] MEDS: 0.9 % Sodium Chloride Flush 3 ML SYRINGE IVFLUSH ×3 (08:30→22:12)
[2025-02-19] MEDS: DULoxetine HCl 30 MG CAPSULE.DR PO (08:30)
[2025-02-19] MEDS: Pyridoxine HCl (Vitamin B6) 50 MG TABLET PO (08:30)
--- NOTE | 2025-02-19 11:23 | HO.PM.IMPN ---
Subjective Subjective Date of Service: 02/19/25 Review of Systems Follow up asthma exacerbation Still feeling some shortness of breath with wheezing and dry cough but better Out of bed to the bathroom Physical Exam Vital Signs: Vital Signs: Last Vital Signs Temp 97 F 02/19/25 07:15 Pulse 86 02/19/25 08:05 Resp 18 02/19/25 08:05 BP 142/66 H 02/19/25 07:15 Pulse Ox 96 02/19/25 07:15 O2 Del Method Room Air 02/19/25 07:15 BMI result Body Mass Index 39.7 Appearing in no acute distress lung sounds mild exp wheezing heart regular rate rhythm, clear S1, S2 positive bowel sounds, abdomen is soft, nontender neuro patient is alert x3, no focal deficits Objective Data Active Medications Acetaminophen (Acetaminophen 325 Mg Tablet) 650 mg PO Q6H PRN PRN Reason: Pain, Mild 1-3,fever,headache Albuterol/Ipratropium (Albuterol/Iprat 2.5/0.5mg 3 Ml Ampul.Neb) 3 ml INHALE RQ4H WHILE AWAKE [facility] Last Admin: 02/19/25 11:23 Dose: 3 ml Documented By: MARCELLO Allopurinol (Allopurinol 100 Mg Tablet) 100 mg PO DAILY [facility] Last Admin: 02/19/25 08:30 Dose: 100 mg Documented By: STEPHANIA Atorvastatin Calcium (Atorvastatin Calcium 40 Mg Tablet) 40 mg PO BEDTIME [facility] Last Admin: 02/18/25 20:13 Dose: 40 mg Documented By: BOB Calcium Carbonate (Calcium Carbonate 750 Mg Tab.Chew) 750 mg PO Q4H PRN PRN Reason: Heartburn Ceftriaxone Sodium (Ceftriaxone Sodium 1 Gm Vial) 1 gm IVPUSH Q24H [facility] Last Admin: 02/18/25 16:00 Dose: 1 gm Documented By: BOB Doxycycline Monohydrate (Doxycycline Monohydrate 100 Mg Capsule) 100 mg PO Q12H [facility] Last Admin: 02/19/25 05:59 Dose: 100 mg Documented By: BRUNO Duloxetine HCl (Duloxetine Hcl 30 Mg Capsule.Dr) 30 mg PO DAILY [facility] Last Admin: 02/19/25 08:30 Dose: 30 mg Documented By: STEPHANIA Enoxaparin Sodium (Enoxaparin Sodium 40 Mg/0.4 Ml Syringe) 40 mg SUBCUT Q24H [facility] Last Admin: 02/18/25 17:30 Dose: 40 mg Documented By: BOB Gabapentin (Gabapentin 300 Mg Capsule) 300 mg PO BEDTIME [facility] Last Admin: 02/18/25 20:13 Dose: 300 mg Documented By: BOB Guaifenesin (Guaifenesin La 600 Mg Tab.Er.12h) 600 mg PO BID [facility] Last Admin: 02/18/25 20:13 Dose: 600 mg Documented By: BOB Hydrochlorothiazide (Hydrochlorothiazide 25 Mg Tablet) 25 mg PO DAILY [facility]; Protocol Last Admin: 02/19/25 08:30 Dose: 25 mg Documented By: STEPHANIA Levothyroxine Sodium (Levothyroxine Sodium 50 Mcg Tablet) 50 mcg PO DAILY@0600 [facility] Last Admin: 02/19/25 05:59 Dose: 50 mcg Documented By: BRUNO Loratadine (Loratadine 10 Mg Tablet) 10 mg PO BEDTIME [facility] Last Admin: 02/18/25 20:13 Dose: 10 mg Documented By: BOB Magnesium Hydroxide (Milk Of Magnesia 30 Ml Oral.Susp) 30 ml PO DAILY PRN PRN Reason: Constipation Melatonin (Melatonin 3 Mg Tablet) 6 mg PO BEDTIME PRN PRN Reason: Insomnia Methocarbamol (Methocarbamol 750 Mg Tablet) 750 mg PO Q8H PRN PRN Reason: pain/spams Methylprednisolone Sodium Succinate (Methylprednisolone Sod Succ 40 Mg/Ml Vial) 40 mg IVPUSH Q12H [facility] Last Admin: 02/19/25 03:50 Dose: 40 mg Documented By: BRUNO Modafinil (Modafinil 100 Mg Tablet) 200 mg PO DAILY [facility] Last Admin: 02/19/25 08:30 Dose: 200 mg Documented By: STEPHANIA Omeprazole (Omeprazole 20 Mg Capsule.Dr) 20 mg PO DAILY@0630 [facility] Last Admin: 02/19/25 05:59 Dose: 20 mg Documented By: BRUNO Pyridoxine HCl (Pyridoxine Hcl (Vitamin B6) 50 Mg Tablet) 50 mg PO DAILY [facility] Last Admin: 02/19/25 08:30 Dose: 50 mg Documented By: STEPHANIA Roflumilast (Roflumilast 500 Mcg Tablet) 500 mcg PO DAILY [facility] Last Admin: 02/19/25 08:30 Dose: 500 mcg Documented By: STEPHANIA Sodium Chloride (0.9 % Sodium Chloride Flush 3 Ml Syringe) 3 ml IVFLUSH QSHIFT [facility] Last Admin: 02/19/25 08:30 Dose: 3 ml Documented By: STEPHANIA Labs 02/17/25 05:44 02/17/25 05:45 Microbiology Microbiology Results: Microbiology 02/16/25 14:40 Blood Culture - Preliminary Blood - Venous No growth after 48 hours. 02/16/25 14:33 Blood Culture - Preliminary Blood - Venous No growth after 48 hours. Assessment and Plan (1) Right ureteral stone: Status: Resolved (2) KEVIN on CPAP: (3) Asthma: Status: Inactive Plan 64-year-old woman with a history of asthma exacerbation, recently seen by her overlay plastician and started on antibiotics and steroid taper, unfortunately has not gotten better and came to the ER for worsening symptoms. Acute asthma exacerbation with clinical pneumonia No hypoxia Negative flu, RSV or COVID IV Solu-Medrol>po prednisone tomorrow Scheduled DuoNebs Rocephin, doxycycline Mucinex RPP positive for enterovirus/rhino virus Oxygen supplementation as needed to keep saturations greater than 90% Acute lactic acidosis Likely secondary to asthma exacerbation, DuoNeb treatments and steroids Mild transaminitis with history of WADE Stable Hypertension Mildly elevated Continue home medications GERD Continue PPI Hypothyroidism Continue levothyroxine DVT prophylaxis with Lovenox Full code Quality Stroke Does the patient have a stroke diagnosis?: No VTE Prior VTE?: No VTE Risk Level:: Medical - moderate - high VTE Device Contraindication: Treatment Not Indicated VTE Drug Contraindication: N/A - Med Ordered
--- NOTE | 2025-02-19 14:40 | PM.DS ---
DS: Providers Provider Date of admission: 02/16/25 16:56 Primary care physician: Janine Villeda MD DS: Diagnosis Discharge Diagnosis (1) Right ureteral stone: Status: Resolved (2) KEVIN on CPAP: (3) Asthma: Status: Inactive DS: Summary Hospital Course Hospital Course: History and physical as per admitting provider. 64-year-old woman with a history of asthma presents to the ER with complaints of worsening cough. She was seen by her job developer for deaf adults on 02/11/2025 where she reported that she had fever chills and sore throat as well as a dry cough. She developed wheezing and chest tightness and has been using her nebulizers. In the office she was given a dose of IM Solu-Medrol and then started on prednisone taper as well as doxycycline, Vantin. Unfortunately she did not feel better and she continued to have persistent wheezing, dyspnea, chest congestion. She was worsening cough and wheezing as well as shortness of breath with ambulation and has not improved since starting antibiotics and steroids. In the ER, chest x-ray is negative for consolidation or effusion. She was not noted to be hypoxic which has not mildly elevated white blood cell count but likely related to steroids., lactic acid 2.9 also likely secondary to DuoNeb treatments. She was given a dose of Solu-Medrol, magnesium, Rocephin, albuterol and 500 mL of IV fluid. She will be admitted for further management and treatment of acute asthma exacerbation. Acute asthma exacerbation with clinical pneumonia with no hypoxia not requiring oxygen, negative flu, RSV or covid, treated with scheduled duonebs, solumedrol and Mucinex. RPP positive for enterovirus/rhino virus. Plan will be to discharge with prednisone taper and doxycycline. Acute lactic acidosis. Likely secondary to asthma exacerbation, DuoNeb treatments and steroids Mild transaminitis with history of WADE. Stable Hypertension. Mildly elevated. Continue home medications GERD. Continue PPI Hypothyroidism. Continue levothyroxine Physical Exam Vital Signs: Vital Signs: Last Vital Signs Temp 97.6 F 02/19/25 12:00 Pulse 88 02/19/25 12:00 Resp 20 02/19/25 12:00 BP 149/74 H 02/19/25 12:00 Pulse Ox 96 02/19/25 12:00 O2 Del Method Room Air 02/19/25 12:00 BMI result Body Mass Index 39.7 DS: Data Data Completed and Pending Completed studies during hospitalization [Text1]: Procedures Dilation of Right Ureter with Intraluminal Device, Via Natural or Artificial Opening Endoscopic (01/18/21) Fluoroscopy of Right Kidney, Ureter and Bladder (01/18/21) Labs on day of discharge: Preliminary micro results at discharge 02/16/25 14:40 Blood Culture - Preliminary Blood - Venous No growth after 48 hours. 02/16/25 14:33 Blood Culture - Preliminary Blood - Venous No growth after 48 hours. Discharge Plan Discharge Patient Disposition: Home, Self-Care Discharge Diagnosis: Asthma exacerbation Rhino virus/enterovirus Bronchopneumonia Referrals: Janine Villeda MD [Primary Care Provider] - 1 Week Discharge Medications: New doxycycline hyclate 100 mg tablet 100 mg PO BID Qty: 8 0RF guaifenesin [Mucinex] 600 mg tablet extended release 12hr 600 mg PO Q12H PRN (Reason: cough) Qty: 10 0RF prednisone 10 mg tablet See Taper PO DIRECTED Qty: 30 0RF Taper: Prednisone 40 mg daily for 3 Days and 0 Hour 30 mg daily for 3 Days and 0 Hour 20 mg daily for 3 Days and 0 Hour 10 mg daily for 3 Days and 0 Hour Rx Instructions: see taper instructions Continued ipratropium-albuterol 0.5 mg-3 mg(2.5 mg base)/3 mL solution for nebulization 3 ml inhalation Q6H PRN (Reason: wheezing) 30 Days Qty: 180 6RF modafinil 200 mg tablet 200 mg PO DAILY 90 Days Qty: 90 3RF roflumilast 500 mcg tablet 500 mcg PO DAILY Qty: 90 0RF gabapentin 300 mg capsule 300 mg PO BEDTIME 30 Days Qty: 30 6RF pyridoxine (vitamin B6) 50 mg tablet 50 mg PO DAILY 90 Days Qty: 90 3RF albuterol sulfate 2.5 mg /3 mL (0.083 %) solution for nebulization 2.5 mg inhalation Q6H PRN (Reason: shortness of breath or wheezing) 30 Days Qty: 180 11RF albuterol sulfate 90 mcg/actuation HFA aerosol inhaler 2 puff INHALATION Q6H PRN (Reason: wheezing) budesonide-formoterol [Symbicort] 160-4.5 mcg/actuation HFA aerosol inhaler 2 puff inhalation BID PRN (Reason: Shortness Of Breath Or Wheezing) methocarbamol 750 mg tablet 750 mg PO Q8H PRN (Reason: pain/spams) loratadine 10 mg Tablet 10 mg PO BEDTIME budesonide 0.5 mg/2 mL Suspension For Nebulization 0.5 mg INHALATION DAILY PRN (Reason: Shortness Of Breath Or Wheezing) hydrochlorothiazide 25 mg tablet 25 mg PO DAILY omeprazole 20 mg capsule,delayed release(DR/EC) 20 mg PO DAILY@0630 levothyroxine 50 mcg tablet 50 mcg PO DAILY atorvastatin 40 mg tablet 40 mg PO BEDTIME duloxetine 30 mg capsule,delayed release(DR/EC) 30 mg PO DAILY (DME) nebulizers Mis See Rx Instructions .Route Rx Instructions: As directed allopurinol 100 mg tablet 100 mg PO DAILY Qty: 90 3RF Discontinued prednisone 10 mg tablet See Taper PO DAILY Taper: Prednisone 60 mg daily for 2 Days and 0 Hour 50 mg daily for 2 Days and 0 Hour 40 mg daily for 2 Days and 0 Hour 30 mg daily for 2 Days and 0 Hour 20 mg daily for 2 Days and 0 Hour 10 mg daily for 2 Days and 0 Hour Rx Instructions: finished 40 mg on 02/16/25 and will start 30 mg on 02/17/25 Take 6 tabs daily x 2 days, then 5 tabs x 2 days, then 4 tabs x 2 days, then 3 tabs x 2 days, then 2 tabs daily x 2 days, then 1 tab x 2 days to complete. 02/16/25: Patient took second dose of 40 mg today. starts 30 mg tomorrow. She started taper on Tuesday. doxycycline hyclate 100 mg capsule 100 mg PO BID 10 Days Qty: 20 0RF cefpodoxime 200 mg tablet 200 mg PO BID 8 Days Qty: 16 0RF Rx Instructions: must administer with a meal/food Diet: Advance to usual diet Activity on Discharge: As tolerated Stand Alone Forms: Patient Portal Discharge page Print Language: Slovak Care Plan Goals: Complete antibiotics and steroid taper Health Concerns: Asthma exacerbation Rhino virus/enterovirus Bronchopneumonia Plan of Treatment: Follow-up with primary care provider as needed Take all medications as prescribed Assessment: See discharge summary
--- NOTE | 2025-02-19 15:57 | P.CDIM_ITS ---
PROVIDER RESPONSE TEXT: To clarify, the appropriate diagnosis supported by the clinical indicators: Mild intermittent QUERY TEXT: PHYSICIAN'S DOCUMENTATION REQUEST Date of Query: 02/18/2025 11:16 AM EDT Patient Name: Allyson Salamanca Admit Date: 02/16/2025 Dear Alis Arias LOSS PREVENTION AUDITOR, A review of the medical record indicates additional documentation may be needed. Please review below and update the documentation accordingly. Clinical indicators: Progress notes 02/18/25 - Acute asthma exacerbation No hypoxia IV Solumedrol Based on the above, please clarify in the Progress Notes further specificity regarding the type of as thma, if known: Mild intermittent Mild persistent Moderate persistent Severe persistent Other (explain) Clinically unable to determine (explain) Thank you, Sydney Cary, CCS, CDIS Use of terms such as suspected, likely, concern for, or probable (associated with a specific diagnosi s that is being evaluated, monitored, or treated as if it exists) are acceptable and can be coded in the inpatient se tting, when documented at the time of discharge. Please use your independent medical judgment in providing your response. THIS QUERY IS PART OF THE PERMANENT MEDICAL RECORD
--- NOTE | 2025-02-19 15:57 | P.CDIM_ITS ---
PROVIDER RESPONSE TEXT: To clarify, the appropriate diagnosis supported by the clinical indicators: Obesity Due to excess calories QUERY TEXT: PHYSICIAN'S DOCUMENTATION REQUEST Date of Query: 02/18/2025 11:36 AM EDT Patient Name: Allyson Salamanca Admit Date: 02/16/2025 Dear Alis Arias LABORATORY DIRECTOR, A review of the medical record indicates additional documentation may be needed. Please review below and update the documentation accordingly. Clinical Indicators: Height: 4ft 9in Weight: 83.3kg BMI: 39.7 Other Clinical Notes Supporting Significance of the BMI: Nursing notes Height and Weight: Class II Ob esity If possible, please provide an associated diagnosis related to the BMI, such as: Obesity Due to excess calories Obesity Other (explain) Clinically unable to determine (explain) Thank you, Sydney Cary, CCS, CDIS Use of terms such as suspected, likely, concern for, or probable (associated with a specific diagnosi s that is being evaluated, monitored, or treated as if it exists) are acceptable and can be coded in the inpatient se tting, when documented at the time of discharge. Please use your independent medical judgment in providing your response. THIS QUERY IS PART OF THE PERMANENT MEDICAL RECORD
[2025-02-19] MEDS: cefTRIAXone sodium 1 GM VIAL IVPUSH (16:11)
[2025-02-19] MEDS: Enoxaparin Sodium 40 MG/0.4 ML SYRINGE SUBCUT (17:52)
[2025-02-19] MEDS: Gabapentin 300 MG CAPSULE PO (22:11)
[2025-02-19] MEDS: Loratadine 10 MG TABLET PO (22:12)
[2025-02-19] MEDS: Atorvastatin Calcium 40 MG TABLET PO (22:12)
[2025-02-20 03:09] VITALS: BP 131/62; PULSE 67; RESP 18; TEMP 36.6; O2SAT 98
[2025-02-20] MEDS: Doxycycline Monohydrate 100 MG CAPSULE PO (05:36)
[2025-02-20] MEDS: Levothyroxine Sodium 50 MCG TABLET PO (05:36)
[2025-02-20] MEDS: Omeprazole 20 MG CAPSULE.DR PO (05:36)
[2025-02-20] MEDS: Albuterol/Iprat 2.5/0.5MG 3 ML AMPUL.NEB INHALE ×2 (07:29→11:22)
[2025-02-20 07:30] VITALS: PULSE 69; RESP 16; O2SAT 98
[2025-02-20 07:47] VITALS: BP 127/58; PULSE 78; RESP 20; TEMP 36.4; O2SAT 97
[2025-02-20] MEDS: modafiniL 100 MG TABLET 200 MG PO (08:06)
[2025-02-20] MEDS: hydroCHLOROthiazide 25 MG TABLET PO (08:06)
[2025-02-20] MEDS: guaiFENesin LA 600 MG TAB.ER.12H PO (08:06)
[2025-02-20] MEDS: Pyridoxine HCl (Vitamin B6) 50 MG TABLET PO (08:06)
[2025-02-20] MEDS: Roflumilast 500 MCG TABLET PO (08:06)
[2025-02-20] MEDS: allopurinoL 100 MG TABLET PO (08:07)
[2025-02-20] MEDS: DULoxetine HCl 30 MG CAPSULE.DR PO (08:07)
[2025-02-20] MEDS: predniSONE 20 MG TABLET 40 MG PO (08:07)
[2025-02-20] MEDS: 0.9 % Sodium Chloride Flush 3 ML SYRINGE IVFLUSH (08:10)
--- NOTE | 2025-02-20 11:07 | PM.DS ---
DS: Providers Provider Date of Service: 02/20/25 Date of admission: 02/16/25 16:56 Date of discharge: 02/20/25 Primary care physician: Janine Villeda MD DS: Diagnosis Discharge Diagnosis (1) Acute exacerbation of COPD with asthma: Status: Acute (2) Rhinovirus infection: Status: Acute (3) Acute bronchitis: Status: Acute DS: Summary Hospital Course Hospital Course: History and physical as per admitting hospitalist Alis Arias NP, 02/16/25: 64-year-old woman with a history of asthma presents to the ER with complaints of worsening cough. She was seen by her photovoltaic testing technician on 02/11/2025 where she reported that she had fever chills and sore throat as well as a dry cough. She developed wheezing and chest tightness and has been using her nebulizers. In the office she was given a dose of IM Solu-Medrol and then started on prednisone taper as well as doxycycline, Vantin. Unfortunately she did not feel better and she continued to have persistent wheezing, dyspnea, chest congestion. She was worsening cough and wheezing as well as shortness of breath with ambulation and has not improved since starting antibiotics and steroids. In the ER, chest x-ray is negative for consolidation or effusion. She was not noted to be hypoxic which has not mildly elevated white blood cell count but likely related to steroids., lactic acid 2.9 also likely secondary to DuoNeb treatments. She was given a dose of Solu-Medrol, magnesium, Rocephin, albuterol and 500 mL of IV fluid. She will be admitted for further management and treatment of acute asthma exacerbation. She was admitted to the medical-surgical unit and treated with Solu-medrol, doxycycline, and scheduled nebulizer treatments. Respiratory pathogen panel positive for enterovirus/rhinovirus. She was never hypoxic. She improved symptomatically and was discharged with prednisone taper and doxycycline. She should follow up with her primary care doctor and her photovoltaic testing technician in 1-2 weeks. Time Attestation Discharge Coordination Time (in mins): 40 Quality: Safe Use of Opioids Does Pt have an Active Cancer Diagnosis on the Problem List?: No Quality: Stroke Does the patient have a stroke diagnosis?: No Physical Exam Vital Signs: Vital Signs: Last Vital Signs Temp 97.5 F 02/20/25 07:47 Pulse 78 02/20/25 07:47 Resp 20 04/16/25 07:47 BP 127/58 L 02/20/25 07:47 Pulse Ox 97 02/20/25 07:47 O2 Del Method Room Air 02/20/25 07:47 BMI result Body Mass Index 39.7 Gen: in no acute distress HEENT: sclera anicteric, moist mucus membranes Neck: supple Lungs: clear to auscultation bilaterally Heart: regular rate and rhythm, no murmurs Abd: soft, non-tender, non-distended Ext: no edema Skin: warm/well-perfused Neuro: alert and oriented x3, no focal findings Psych: appropriate affect DS: Data Data Completed and Pending Completed studies during hospitalization [Text1]: Laboratory Results WBC 15.1 X10*3/uL (4.8-10.8) H 02/17/25 05:44 RBC 4.03 X10*6/uL (4.20-5.50) L 02/17/25 05:44 Hgb 11.7 g/dl (12.0-16.0) L 02/17/25 05:44 Hct 35.4 % (37.0-47.0) L 02/17/25 05:44 MCV 87.8 fL (80.0-98.0) 02/17/25 05:44 MCH 29.0 pg (27.0-33.0) 02/17/25 05:44 MCHC 33.1 g/dl (31.0-35.0) 02/17/25 05:44 RDW 14.7 % (11.0-16.0) 02/17/25 05:44 Plt Count 431 X10*3/uL (160-400) H 02/17/25 05:44 MPV 9.6 fL (9.4-12.3) 02/17/25 05:44 Immature Gran % (Auto) 1.5 % (0.0-0.4) H 02/16/25 14:33 Neut % (Auto) 73.5 % (45-73) H 02/16/25 14:33 Lymph % (Auto) 22.2 % (20-40) 02/16/25 14:33 [place] % (Auto) 2.3 % (2-11) 02/16/25 14:33 Eos % (Auto) 0.2 % (0-4) 02/16/25 14:33 Baso % (Auto) 0.3 % (0-2) 02/16/25 14:33 Lymph # (Auto) 2.7 X10*3/uL (1.2-4.9) 02/16/25 14:33 [place] # (Auto) 0.3 X10*3/uL (0.1-1.2) 02/16/25 14:33 Eos # (Auto) 0.0 X10*3/uL (0.0-0.4) 02/16/25 14:33 Baso # (Auto) 0.0 X10*3/uL (0.0-0.2) 02/16/25 14:33 Abs Immat Gran (auto) 0.18 X10*3/uL (0.00-0.03) H 02/16/25 14:33 Absolute Neuts (auto) 8.8 x10*3/uL (2.0-8.3) H 02/16/25 14:33 Absolute Nucleated RBC 0.000 X10*3/uL (0.0-0.012) 02/17/25 05:44 Nucleated RBC % (auto) 0.0 /100WBC (0.0-0.2) 02/17/25 05:44 VBG pH 7.44 (7.32-7.43) H 02/16/25 14:38 VBG pCO2 42 mmHg 02/16/25 14:38 VBG pO2 123 mmHg 02/16/25 14:38 VBG HCO3 29 mmol/L (22-26) H 02/16/25 14:38 VBG O2 Saturation 99.0 % 02/16/25 14:38 VBG Base Excess 5.0 mmol/L 02/16/25 14:38 Sodium 142 mmol/L (135-145) 02/17/25 05:45 Potassium 4.3 mmol/L (3.3-5.1) 02/17/25 05:45 Chloride 109 mmol/L (96-108) H 02/17/25 05:45 Carbon Dioxide 24 mmol/L (22-29) 02/17/25 05:45 Anion Gap 13 (12-20) 02/17/25 05:45 BUN 16 mg/dL (9-16) 02/17/25 05:45 Creatinine 0.66 mg/dL (0.5-1.4) 02/17/25 05:45 Estim Creat Clear Calc 74.9 02/17/25 05:45 Estimated GFR > 60 02/17/25 05:45 Random Glucose 105 mg/dL (60-115) 02/17/25 05:45 Lactic Acid 2.9 mmol/L (0.5-2.0) H* 02/16/25 14:33 Lactic Acid F/U @ 2Hr 3.7 mmol/L (0.5-2.0) H* 02/16/25 17:11 Lactic Acid F/U @ 4Hr 5.3 mmol/L (0.5-2.0) H* 02/16/25 19:40 Calcium 8.9 mg/dL (8.4-10.2) 02/17/25 05:45 Total Bilirubin 0.4 mg/dL (0.0-1.0) 02/17/25 05:45 AST 43 U/L (5-31) H 02/17/25 05:45 ALT 72 U/L (0-31) H 02/17/25 05:45 Alkaline Phosphatase 92 U/L (39-117) 02/17/25 05:45 Troponin I High Sens 4.2 ng/L (<3.5-17.0) 02/16/25 14:33 B-Natriuretic Peptide 17 pg/mL (<100) 02/16/25 14:33 Total Protein 6.6 g/dL (6.5-8.0) 02/17/25 05:45 Albumin 3.5 g/dL (3.5-5.0) 02/17/25 05:45 Respiratory Panel [place] See Note 02/16/25 17:18 Adenovirus (Rapid PCR) Not Detected (Not Detect.) 02/16/25 17:18 B.pert (TEM-PCR) Not Detected (Not Detect.) 02/16/25 17:18 B.parapertussis DNA PCR Not Detected (Not Detect.) 02/16/25 17:18 C. pneumoniae DNA (PCR) Not Detected (Not Detect.) 02/16/25 17:18 Coronavirus OC43 (PCR) Not Detected (Not Detect.) 02/16/25 17:18 Coronavirus HKU1 (PCR) Not Detected (Not Detect.) 02/16/25 17:18 Coronavirus 229E (PCR) Not Detected (Not Detect.) 02/16/25 17:18 Coronavirus NL63 (PCR) Not Detected (Not Detect.) 02/16/25 17:18 Human Metapneumovir PCR Not Detected (Not Detect.) 02/16/25 17:18 Influenza A (RT-PCR) Not Detected (Not Detect.) 02/16/25 17:18 Influenza A (H1) PCR Not Detected (Not Detect.) 02/16/25 17:18 Influ A (H1/09) PCR Not Detected (Not Detect.) 02/16/25 17:18 Influenza A (H3) PCR Not Detected (Not Detect.) 02/16/25 17:18 Influenza Type A (PCR) NEGATIVE (Negative) 02/16/25 14:33 Influenza B (RT-PCR) Not Detected (Not Detect.) 02/16/25 17:18 Influenza Type B (PCR) NEGATIVE (Negative) 02/16/25 14:33 M. pneumoniae (PCR) Not Detected (Not Detect.) 02/16/25 17:18 Parainfluenza 1 (PCR) Not Detected (Not Detect.) 02/16/25 17:18 Parainfluenza 2 (PCR) Not Detected (Not Detect.) 02/16/25 17:18 Parainfluenza 3 (PCR) Not Detected (Not Detect.) 02/16/25 17:18 Parainfluenza 4 (PCR) Not Detected (Not Detect.) 02/16/25 17:18 RSV (PCR) Not Detected (Not Detect.) 02/16/25 17:18 RSV RNA Qual (PCR) NEGATIVE (Negative) 02/16/25 14:33 Entero/Rhino (PCR) Detected (Not Detect.) A 02/16/25 17:18 SARS-CoV-2 RNA (RT-PCR) Not Detected (Not Detect.) 02/16/25 17:18 Impressions Chest X-Ray 02/19/25 07:40 IMPRESSION: No acute cardiopulmonary abnormality. Electronically signed by: Saravanan Randhawa MD 02/19/2025 09:39 AM EDT Labs on day of discharge: Preliminary micro results at discharge 02/16/25 14:40 Blood Culture - Preliminary Blood - Venous No growth after 48 hours. 02/16/25 14:33 Blood Culture - Preliminary Blood - Venous No growth after 48 hours. Discharge Plan Discharge Anticipated Discharge Date/Time: 02/20/25 11:05 Patient Disposition: Home, Self-Care Discharge Diagnosis: Asthma exacerbation Rhino virus/enterovirus Bronchitis Referrals: Janine Villeda MD [Primary Care Provider] - 1 Week Holland Arias MD [Physician] - 2 Weeks Discharge Medications: New doxycycline hyclate 100 mg tablet 100 mg PO BID Qty: 8 0RF prednisone 10 mg tablet See Taper PO DIRECTED Qty: 30 0RF Taper: Prednisone 40 mg daily for 3 Days and 0 Hour 30 mg daily for 3 Days and 0 Hour 20 mg daily for 3 Days and 0 Hour 10 mg daily for 3 Days and 0 Hour Rx Instructions: see taper instructions guaifenesin [Mucinex] 600 mg tablet extended release 12hr 600 mg PO Q12H PRN (Reason: cough) Qty: 10 0RF Continued ipratropium-albuterol 0.5 mg-3 mg(2.5 mg base)/3 mL solution for nebulization 3 ml inhalation Q6H PRN (Reason: wheezing) 30 Days Qty: 180 6RF modafinil 200 mg tablet 200 mg PO DAILY 90 Days Qty: 90 3RF roflumilast 500 mcg tablet 500 mcg PO DAILY Qty: 90 0RF gabapentin 300 mg capsule 300 mg PO BEDTIME 30 Days Qty: 30 6RF pyridoxine (vitamin B6) 50 mg tablet 50 mg PO DAILY 90 Days Qty: 90 3RF albuterol sulfate 2.5 mg /3 mL (0.083 %) solution for nebulization 2.5 mg inhalation Q6H PRN (Reason: shortness of breath or wheezing) 30 Days Qty: 180 11RF albuterol sulfate 90 mcg/actuation HFA aerosol inhaler 2 puff INHALATION Q6H PRN (Reason: wheezing) budesonide-formoterol [Symbicort] 160-4.5 mcg/actuation HFA aerosol inhaler 2 puff inhalation BID PRN (Reason: Shortness Of Breath Or Wheezing) methocarbamol 750 mg tablet 750 mg PO Q8H PRN (Reason: pain/spams) loratadine 10 mg Tablet 10 mg PO BEDTIME budesonide 0.5 mg/2 mL Suspension For Nebulization 0.5 mg INHALATION DAILY PRN (Reason: Shortness Of Breath Or Wheezing) hydrochlorothiazide 25 mg tablet 25 mg PO DAILY omeprazole 20 mg capsule,delayed release(DR/EC) 20 mg PO DAILY@0630 levothyroxine 50 mcg tablet 50 mcg PO DAILY atorvastatin 40 mg tablet 40 mg PO BEDTIME duloxetine 30 mg capsule,delayed release(DR/EC) 30 mg [place] [place] [facility] [place] See Rx Instructions .Route Rx Instructions: As directed allopurinol 100 mg tablet 100 mg PO DAILY Qty: 90 3RF Discontinued prednisone 10 mg tablet See Taper PO DAILY Taper: Prednisone 60 mg daily for 2 Days and 0 Hour 50 mg daily for 2 Days and 0 Hour 40 mg daily for 2 Days and 0 Hour 30 mg daily for 2 Days and 0 Hour 20 mg daily for 2 Days and 0 Hour 10 mg daily for 2 Days and 0 Hour Rx Instructions: finished 40 mg on 02/16/25 and will start 30 mg on 02/17/25 Take 6 tabs daily x 2 days, then 5 tabs x 2 days, then 4 tabs x 2 days, then 3 tabs x 2 days, then 2 tabs daily x 2 days, then 1 tab x 2 days to complete. 02/16/25: Patient took second dose of 40 mg today. starts 30 mg tomorrow. She started taper on Tuesday. doxycycline hyclate 100 mg capsule 100 mg PO BID 10 Days Qty: 20 0RF cefpodoxime 200 mg tablet 200 mg PO BID 8 Days Qty: 16 0RF Rx Instructions: must administer with a meal/food Discharge Orders: Discharge Order (Routine); Ordered 02/20/25 Ordered By: Gilda Sosa Diet: Advance to usual diet Activity on Discharge: As tolerated Stand Alone Forms: Patient Portal Discharge page Print Language: Cymro Care Plan Goals: Respiratory health Health Concerns: Asthma exacerbation Rhino virus/enterovirus Bronchitis Plan of Treatment: Follow-up with primary care provider as needed Take all medications as prescribed Assessment: See discharge summary
--- NOTE | 2025-02-20 11:22 | MHC.CM.PN ---
pt is dcd home self care
[2025-02-20 11:23] VITALS: PULSE 70; RESP 16; O2SAT 98
== END 2025-02-20 13:22 | disposition home or self-care (01) | DRG 202 ==
LOC: HO.ED 16:28 → HO.EDOVER 17:10 → HO.IMC 02-17 09:01 → HO.S3 02-18 21:13
PROVIDERS: Registered Nurse Emergency; Admitting Provider Nurse Practitioner Acute Care; Emergency Provider Emergency Medicine; PCP Internal Medicine; Visit Provider Family Medicine
DX: J45.21 Mild intermittent asthma with (acute) exacerbation (principal); E87.21 Acute metabolic acidosis; J44.0 Chronic obstructive pulmonary disease with (acute) lower respiratory infection; J44.1 Chronic obstructive pulmonary disease with (acute) exacerbation; J20.9 Acute bronchitis, unspecified; B97.89 Other viral agents as the cause of diseases classified elsewhere; B97.10 Unspecified enterovirus as the cause of diseases classified elsewhere; K75.81 Nonalcoholic steatohepatitis (NASH); K21.9 Gastro-esophageal reflux disease without esophagitis; Z20.822 Contact with and (suspected) exposure to COVID-19; Z79.890 Hormone replacement therapy; Z79.899 Other long term (current) drug therapy
CPT/HCPCS: 0241U; 36415; 71045; 71046; 80053; 82803; 83605; 83880; 84484; 85025; 85027; 87040; 87633; 93005; 94640; 99285; J0696; J1650; J2919; J3475; J7120

== ENCOUNTER → 2025-02-16 13:56 | Outpatient (BNV) | payer MEDICARE, MEDICAID, SELFPAY | PROVIDERS: Admitting Provider Nurse Practitioner Acute Care; Emergency Provider Emergency Medicine; PCP Internal Medicine; Visit Provider Internal Medicine Cardiovascular Disease | DX: I49.1 Atrial premature depolarization (principal); I45.10 Unspecified right bundle-branch block; R00.0 Tachycardia, unspecified | CPT/HCPCS: 93010 ==

== ENCOUNTER → 2025-02-16 13:57 | Outpatient (BNV) | payer MEDICARE, MEDICAID, SELFPAY | PROVIDERS: Emergency Provider Emergency Medicine; PCP Internal Medicine; Visit Provider Radiology Diagnostic Radiology | DX: R06.02 Shortness of breath (principal) | CPT/HCPCS: 71046 ==

== ENCOUNTER 2025-02-16 16:56 | Outpatient (BNV) | payer MEDICARE, SELFPAY | END 2025-02-19 07:40 | PROVIDERS: Admitting Provider Nurse Practitioner Acute Care; Emergency Provider Emergency Medicine; PCP Internal Medicine; Visit Provider Radiology Diagnostic Radiology | DX: R05.3 Chronic cough (principal) | CPT/HCPCS: 71045 ==

== ENCOUNTER → 2025-02-16 16:56 | Outpatient (BNV) | payer MEDICARE, MEDICAID, SELFPAY | PROVIDERS: Admitting Provider Nurse Practitioner Acute Care; Emergency Provider Emergency Medicine; PCP Internal Medicine; Visit Provider Nurse Practitioner Acute Care | DX: J44.9 Chronic obstructive pulmonary disease, unspecified (principal); J18.0 Bronchopneumonia, unspecified organism | CPT/HCPCS: 99223 ==

== ENCOUNTER 2025-03-21 13:09 | Outpatient (AMB) | payer OTHER, SELFPAY ==
--- NOTE | 2025-03-21 13:22 | A.OFFVIS_ITS ---
Vital Signs 03/21/25 13:23 Height 4 ft 9 in Weight 180 lb 12.465 oz BMI 39.1 BP 122/58 L Blood Pressure Location Lt brachial Position Sitting Pulse 112 H Pulse Source Pulse Oximeter Pulse Oximetry (%) 98 Oxygen Delivery Method Room Air Intake Visit Reasons: COPD Allergies acetaminophen [Percocet] Allergy (Severe, Verified 03/21/25 13:25) Rash and Hives amlodipine Allergy (Severe, Verified 03/21/25 13:25) Rash and Hives aspirin Allergy (Severe, Verified 03/21/25 13:25) Rash and Hives benzonatate Allergy (Severe, Verified 03/21/25 13:25) Rash and Hives fexofenadine Allergy (Severe, Verified 03/21/25 13:25) Rash and Hives hydrocodone Allergy (Severe, Verified 03/21/25 13:25) Rash and Hives hydroxyzine Allergy (Severe, Verified 03/21/25 13:25) Rash and Hives lisinopril Allergy (Severe, Verified 03/21/25 13:25) Rash and Hives lorazepam Allergy (Severe, Verified 03/21/25 13:25) Rash and Hives meperidine [Demerol] Allergy (Severe, Verified 03/21/25 13:25) Rash and Hives morphine Allergy (Severe, Verified 03/21/25 13:25) Rash and Hives naproxen [Aleve] Allergy (Severe, Verified 03/21/25 13:25) Rash and Hives oxycodone [From PERCOCET] Allergy (Severe, Verified 03/21/25 13:25) SWELLING penicillin G Allergy (Severe, Verified 03/21/25 13:25) Rash and Hives Sulfa (Sulfonamide Antibiotics) Allergy (Severe, Verified 03/21/25 13:25) Rash and Hives valsartan Allergy (Severe, Verified 03/21/25 13:25) Rash and Hives codeine [CODEINE] Allergy (Intermediate, Verified 03/21/25 13:25) RASH ibuprofen [From MOTRIN] Allergy (Intermediate, Verified 03/21/25 13:25) RASH montelukast [From SINGULAIR] Allergy (Intermediate, Verified 03/21/25 13:25) HIVES sulfamethoxazole [From BACTRIM] Allergy (Intermediate, Verified 03/21/25 13:25) HIVES tramadol [TRAMADOL] Allergy (Intermediate, Verified 03/21/25 13:25) SWELLING, RASH loratadine [From CLARITIN] Allergy (Mild, Verified 03/21/25 13:25) HIVES ranitidine [From ZANTAC] Allergy (Mild, Verified 03/21/25 13:25) HIVES diphenhydramine [From Tylenol PM] Allergy (Verified 03/21/25 13:25) Swelling fluticasone furoate [From Trelegy Ellipta] Allergy (Verified 03/21/25 13:25) Unknown umeclidinium [From Trelegy Ellipta] Allergy (Verified 03/21/25 13:25) Unknown vilanterol [From Trelegy Ellipta] Allergy (Verified 03/21/25 13:25) Unknown HPI Comments Details: The patient is a 64-year-old woman with known moderate persistent asthma and obstructive sleep apnea on CPAP. pt says the cough is worse at night and she has to take out her emergency inhaler. pt continues to take inhalers as usual. Her cough tends to be dry and worse at night time. Moderate severity. Denies any reflux symptoms. Denies any significant postnasal drip or nasal congestion at t his time. In the meantime she has been using the CPAP. The CPAP therapy continues to be effective in beneficial. She does get supplies through [facility]. Will send another prescription to [facility] to make sure that she is getting the proper mask which is the P 10. 11/16/2022 the patient is here for a pulmonary follow-up visit. The patient overall has been doing well. She still have episodes of chest tightness and wheezing. Has been having to use her rescue inhaler more than twice a week. She also continues with her respiratory regimen. Denies any sick contacts. She has been on Breo and also Spiriva. I do believe that she will do better on Trelegy inhaler. I will request that at the pharmacy. Like to maximize her respiratory therapy with the synergistic affect. In addition to that she should continue with her allergy medicine. She continues uses CPAP. CPAP therapy continues to be affecting beneficial. She also benefits from using the gabapentin at nighttime. This has been helpful. She should continue for now. She is also using Provigil in the morning. Will going to see about trying to decrease the dose to 100 once she completes her current prescription. If the patient has complaints of daytime drowsiness with the lower dose she will call and I will resend the higher dose to the pharmacy. I am hopeful that we can try to simplify her medical regimen at this time. 05/17/2023 the patient is here for pulmonary follow-up visit. Recently she did have a brief exacerbation. She did call the office. We did send her prednisone antibiotics and she did recover. She has been having difficulties getting her inhalers. Initially she had a reaction to the Trelegy so she stopped it. She has to get Breo. I do believe that we can send her Symbicort instead as it may be more effective for her. In the meantime she continues uses CPAP at nighttime. CPAP therapy continues to be affecting beneficial. She does use it for more than 4 hours a night. She also is dependent on the modafinil. This has been very effective for her. We are hoping to decrease her dose down to 100 mg but for some reason she is still on 200 mg. Will decrease it during the next visit. 09/26/2023 the patient is here for a pulmonary follow-up visit. the patient is doing well from a respiratory status. She is responding well to the current respiratory regimen. She is been off prednisone since we last spoke. The patient continues on the Symbicort inhaler. This has been affecting beneficial. Has not had to use her rescue inhaler. She continues also on Bunny iresp. This also has improved her chronic bronchitis. She is been on modafinil now for some time at the 200 mg dose. The patient is is feeling better so it is a good opportunity to try to decrease the medication down to 100 mg. The patient becomes more symptomatic she can always call we can increase it. I did request that she can try for a month to make sure she gives enough time to try to adjust to the lower dose. She is not using her CPAP. She is sleeping with positional therapy on her side. She denies any significant daytime drowsiness. [place] score is low elevated it over 24. she is working on weight loss. She continues to lose weight and hopefully will consider repeating the sleep study in the near future to make sure that she does not need her CPAP.\ 03/22/2024 the patient is here for a pulmonary follow-up visit. She is struggles with breathing. She has had issues with asthma symptoms and she feels is related to stress. She has been having to use her rescue inhaler more regularly. In addition to that she has been having hard time sleeping. She has been using her CPAP at nighttime. It has been helpful. Although right now she has not getting supplies from the [facility]. She will need another sleep study. She will consider that in the future. Right now her elevated [place] score is at 11/24. She does respond to the Provigil. We did try to decrease it down to the 100 mg dose but she became more symptomatic. Therefore, will go ahead and increase it again to 200 mg dose. The patient also is having significant stress because of her apartment situation. She has a 2 bedroom apartment for her . She does need a separate room because of her significant asthma and sleep apnea. Will provide her a letter to document the necessity. Specially with worsening respiratory symptoms she needs that separate space. 11/10/2023 the patient is here for a sick visit. The patient started developing worsening respiratory symptoms for last week. Krishna of chest tightness she had then taking her inhalers and respiratory therapy to see if she could improve her symptoms. However seem to be getting worse. Moderate severity. She has co ngested cough but difficult to expectorate. She feels significant chest tightness. She did call we did call in a prescription for prednisone 40 mg that she started yesterday. The patient denies any fevers or chills. Not sure about sick contacts. She has significant wheezing on examination. We did give her Solu-Medrol 125 mg IM x1. She is going to start antibiotics and also continue the prednisone taper. If the patient does not improve she has to call the office. If she worsens she needs to go to the hospital. Meantime she continues use her respiratory therapy as prescribed. 09/13/2024 the patient is here for a pulmonary follow-up visit. The patient overall has been doing okay from a breathing standpoint. The respiratory regimen right now is working well for her. The patient has not required any additional steroids. She also continues to use the Provigil during the daytime this also appears to be working well for her. She is not using her CPAP any longer but she is continuing positional therapy and she is waking up rested which is reassuring. As far as imaging studies she did have a CT scan of the abdomen pelvis which demonstrated normal lung bases. Also had a chest x-ray back in 2022 demonstrating no acute disease. No additional imaging warranted at this time. 02/11/2025 the patient is here for a sick visit. She started developing worsening respiratory symptoms last week. Ultimately had some fevers and chills. Sore throat. Cough. Over the weekend she started developing worsening chest tightness and wheezing. She has been using her nebulizer often. He still coughing difficult to expectorate. Moderate in severity. He has not been able to sleep well. Today on exam she does have significant rhonchi and wheezing bilaterally. No crackles appreciated. The patient may have early pneumonia though. Will go ahead and treat her as if she was having community-acquired pneumonia. Because her significant wheezing she will receive Solu-Medrol today. Then after that she can start of prednisone taper. She will start antibiotics for the lower respiratory infection. She will continue with current respiratory therapy and will provide her with additional nebulized medicine. If he has any worsening symptoms or she is no better in 48 hours she may need to seek additional medical evaluation. 03/21/2025 the patient is here for a pulmonary follow-up visit. Since we last spoke she had a bad respiratory viral infection. We initially treated here in the office but she worsened she went to the ER. She was kept in the hospital for about 5 days. She came out feeling very tired. She continues to have cough and chest congestion. She still feels like her asthma is not controlled. Looking at the results her x-ray was okay. The patient did have a positive enterovirus respiratory viral panel. Will go ahead and maximize her respiratory therapy by switching her Symbicort to Breztri. The patient also needs cough medication. She has multiple allergies though. No additional antibiotics required at this time. Will follow-up in 4 months. If she is not feeling well she can always call for an earlier assessment. [facility] Medical History Hx of ectopic Multiple pulmonary nodules Kidney stone Microhematuria WADE (nonalcoholic steatohepatitis) Abnormal LFTs (liver function tests) Hypothyroidism Mixed hyperlipidemia Lumbar radiculopathy GERD (gastroesophageal reflux disease) HTN (hypertension) Microalbuminuria Anxiety Diabetes Asthma 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 KEVIN on CPAP COVID-19 Surgical History Hx of endoscopy History of back surgery History of surgical removal of ganglion cyst Hx of bilateral breast reduction surgery History of placement of ear tubes H/O colonoscopy Hx of section History of ankle surgery Social History Household Members: Spouse and Children Housing: Apartment Are you a primary field care advocate to a significant other at home: No Do you presently have visiting nurse or other home services: No Alcohol intake: current Alcohol intake frequency: holidays/special occasions only Alcohol type: hard liquor Comment: low fall Patient Tobacco Use Status: Never used Tobacco Second Hand Smoke Exposure: No Advance Directives Date on File: 04/17/22 service: No Current occupational status: employed Review of Systems Const Denies chills, Denies fatigue, Denies fever(s), Denies weight gain and Denies weight loss ENT Denies dizziness, Denies lip swelling and Denies tongue swelling Card Denies chest pain, Denies leg edema, Denies lightheadedness, Denies palpitations, Denies dyspnea on exertion, Denies orthopnea and Denies other Resp Denies cough, Denies dyspnea on exertion and Reports wheezing GI Denies hematochezia and Denies change in stool character Musc Denies abnormal gait, Denies muscle weakness, Denies numbness, Denies radiating pain into limb and Denies tingling Neuro Denies abnormal gait, Denies dizziness, Denies numbness and Denies tingling Endo Denies fatigue and Denies palpitations Paul/Lymph Denies easy bleeding and Denies lymphadenopathy Aller/Immun Denies lip swelling, Denies tongue swelling and Reports wheezing Physical Exam Vital Signs: Last Vital Signs Pulse 112 H 03/21/25 13:23 BP 122/58 L 03/21/25 13:23 Pulse Ox 98 03/21/25 13:23 Oxygen Delivery Method Room Air 03/21/25 13:23 BMI result Body Mass Index 39.1 Const General: alert Neck Neck: Yes normal visual inspection, Yes full ROM and Yes no lymphadenopathy Chest Chest palpation & inspection: normal inspection of the chest Resp Effort & Inspection: normal respiratory effort Auscultation: no wheezes and diminished lung sounds Cardio Rate: regular rate Rhythm: regular rhythm Heart sounds: S1 normal heart sound present and S2 normal heart sound present GI Palpation (GI): Soft to palpation and nontender Auscultation: normal bowel sounds Skin General skin exam: rashes and/or lesions noted Assessment & Plan Assessment & Plan (1) Hypersomnia with sleep apnea: Code(s): G47.10 - Hypersomnia, unspecified; G47.30 - Sleep apnea, unspecified Category: Medical (2) Asthma: Code(s): J45.909 - Unspecified asthma, uncomplicated Category: Medical Qualifiers: Asthma complication type: with acute exacerbation Asthma persistence: persistent Asthma severity: moderate Qualified Code(s): J45.41 - Moderate persistent asthma with (acute) exacerbation (3) Bronchopneumonia: Code(s): J18.0 - Bronchopneumonia, unspecified organism Category: Medical Plan stop Symbicort, start Breztri Benzonates for cough continue Nebs Continue Daliresp 500 mcg daily continue Gabapentin for sleep not using CPAP therapy, continue positional therapy ?repeat home sleep study continue Provigil 200mg daily follow-up in 6-8 months. Will need to go to the ED if worsens or no better Medications: New podfrxmrpg-akjassox-eingeotxsw 160-9-4.8 mcg/actuation (Breztri Aerosphere) 2 inhalations inhalation BID 10.7 grams 0RF benzonatate 200 mg PO BID PRN 60 caps 4RF cough 30 days Coding Level of Care Code Est Pt Level 4 (76955) Complex EM visit Add On G2211 Diagnoses Hypersomnia with sleep apnea G47.10; G47.30 Moderate persistent asthma with acute exacerbation J45.41 Asthma complication type: with acute exacerbation Asthma persistence: persistent Asthma severity: moderate Bronchopneumonia J18.0 Time Spent (min) 17
[2025-03-21 13:23] VITALS: BP 122/58; PULSE 112; O2SAT 98; BMI 39.1
--- OUTSIDE RECORDS SUMMARY | 2025-03-21 13:44 | XMS_ITS | Encounter Summary ---
Author Organization [facility] Address [address] [place] [address] Care Team Providers Care Physical Ther Name Role Phone Rashi Grigsby MD Primary Care Provider Unavail able Janine Villeda MD Primary Care Provider [phone] Halle Pierson MD Unavailable [phone] Rashi Antoine PA-C Unavailable [phone] Indy Senior PA-C Unavailable [phone] Encounter Details Date Type Department Care Team Description 09/06/2019 Client Service And Consulting Manager Report Medical Records [address] [place] [id number] Abstract, Provider Social History Tobacco Use Types Packs/Day Years Used Date Smoking Tobacco: Never Smokeless Tobacco: Never Alcohol Use Standard Drinks/Week Comments Yes 0 (1 standard drink = 0.6 oz pur e alcohol) Sex Assigned at Date Recorded Not on file Job Start Date Occupation Industry Not on file Not on file Not on file documented as of this encounter Plan of Treatment Not on file documented as of this encounter Visit Diagnoses Not on filedocumented in this encounter Care Teams Physical Ther Relationship Specialty Start Date End Date Rashi Grigsby MD PCP - General Internal Medicine 04/06/19 05/13/20 Janine Villeda MD [address] [place] [id number] PCP - General Internal Medicine 05/14/20 Halle Pierson MD [address] [facility] [address] [place] [address] Surgeon Neurosurgery 12/29/21 Rashi Antoine PA-C 175 [facility] [address] [place] [address] Specialist Neurosurgery 12/29/21 Indy Senior PA-C 175 [facility] [address] [place] [address] Specialist Neurosurgery 12/29/21 documented as of this encounter
--- OUTSIDE RECORDS SUMMARY | 2025-03-21 13:44 | XMS_ITS | Encounter Summary ---
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 Report Medical Records [address] [place] [address] Nupur Arshad NP Social History Tobacco Use Types Packs/Day Years Used Date Smoking Tobacco: Never Smokeless Tobacco: Never Alcohol Use Standard Drinks/Week Comments Not Currently 0 (1 standard drink = 0.6 oz pur e alcohol) once a irina Sex Assigned at Date Recorded Not on file Job Start Date Occupation Industry Not on file Not on file Not on file documented as of this encounter Plan of Treatment Not on file documented as of this encounter Visit Diagnoses Not on filedocumented in this encounter Care Teams Physician Relations Specialist Relationship Specialty Start Date End Date Janine Villeda MD [address] [place], [place] [phone] PCP - General Internal Medicine 05/14/20 Halle Pierson MD 175 [facility] [address] [place] [address] Surgeon Neurosurgery 12/29/21 Rashi Antoine PA-C [address] [address] Specialist Neurosurgery 12/29/21 Indy Senior PA-C [address] [address] Specialist Neurosurgery 12/29/21 documented as of this encounter
--- OUTSIDE RECORDS SUMMARY | 2025-03-21 13:44 | XMS_ITS | Encounter Summary ---
Author Organization [facility] Address [address] [place] [address] Care Team Providers Care Integration Solution Architect Name Role Phone Rashi Grigsby MD Primary Care Provider Unavail able Janine Villeda MD Primary Care Provider Halle Pierson MD Unavailable [phone] Rashi Antoine PA-C Unavailable Indy Senior PA-C Unavailable [phone] Encounter Details Date Type Department Care Team Description 08/23/2019 Change Control Coordinator Report Medical Records [address] [place] [id number] Holland Arias MD Social History Tobacco Use Types Packs/Day Years [...] on filedocumented in this encounter Care Teams Integration Solution Architect Relationship Specialty Start Date End Date Rashi Grigsby MD PCP - General Internal Medicine 04/06/19 05/13/20 Janine Villeda MD [address] [place], [place] [phone] PCP - General Internal Medicine 05/14/20 Halle Pierson MD 175 [facility] [address] [place] [address] Surgeon Neurosurgery 12/29/21 Rashi Antoine PA-C 175 [facility] [address] [place] [address] Specialist Neurosurgery 12/29/21 Indy Senior PA-C [address] [address] Specialist Neurosurgery 12/29/21 documented as of this encounter
--- OUTSIDE RECORDS SUMMARY | 2025-03-21 13:44 | XMS_ITS | Encounter Summary ---
Author Organization [facility] Address [address] [place] [address] Care Team Providers Care Supervisor Contact Lens Name Role Phone Janine Villeda MD Primary Care Provider [phone] Halle Pierson MD Unavailable [phone] Rashi Antoine PA-C Unavailable [phone] Indy Senior PA-C Unavailable [phone] Encounter Details Date Type Department Care Team Description 04/13/2022 Refill Pulmonology - [address] [place] [id number] Holland Arias MD Social History Tobacco Use [...] on file documented as of this encounter Miscellaneous Notes * Telephone Encounter - Dora Martinez PA-C - 04/13/2022 4:40 PM EDT She shoulder call her pulmonology Dr Arias. Swelling is a known side effect of prednisone. Thank you Dora Martinez PA-C * Telephone Encounter - Simeon Guerra - 04/13/2022 4:27 PM EDT Patient was seen at [facility] yesterday for allergy, asthma, and cough. She is requesting budesonide and asking if we can prescribe an alternative to prednisone as she is very sensitive to this medication and her face swells up. Please advise. JOSE ANTONIO 02/25/2022. Next OV- . * Telephone Encounter - Vania Welch M.A. - 04/13/2022 12:44 PM EDT Patient need to call the office to schedule an appoinment to establish care with one of our provider last time seen was 06/2019 documented in this encounter Plan of Treatment Not on file documented as of this encounter Visit Diagnoses Not on filedocumented in this encounter Care Teams Supervisor Contact Lens Relationship Specialty Start Date End Date Janine Villeda MD [address] [place] [address] PCP - General Internal Medicine 05/14/20 Halle Pierson MD [address] [address] Surgeon Neurosurgery 12/29/21 Rashi Antoine PA-C [address] [address] Specialist Neurosurgery 12/29/21 Indy Senior PA-C [address] [address] Specialist Neurosurgery 12/29/21 documented as of this encounter
--- OUTSIDE RECORDS SUMMARY | 2025-03-21 13:44 | XMS_ITS | Encounter Summary ---
Author Organization [facility] Address [address] [place] [address] Care Team Providers Care Flarer Name Role Phone Janine Villeda MD Primary Care Provider [phone] Halle Pierson MD Unavailable [phone] Rashi Antoine PA-C Unavailable [phone] Indy Senior PA-C Unavailable Encounter Details Date Type Department Care Team Description 04/09/2021 Mill Beam Fitter Report Medical Records [address] [place] [address] Holland Arias MD Social History Tobacco Use [...] on filedocumented in this encounter Care Teams Flarer Relationship Specialty Start Date End Date Janine Villeda MD [address] [place] [address] PCP - General Internal Medicine 05/14/20 Halle Pierson MD [address] [address] Surgeon Neurosurgery 12/29/21 Rashi Antoine PA-C [address] [address] Specialist Neurosurgery 12/29/21 Indy Senior PA-C [address] [address] Specialist Neurosurgery 12/29/21 documented as of this encounter
--- OUTSIDE RECORDS SUMMARY | 2025-03-21 13:44 | XMS_ITS | Encounter Summary ---
Author Organization [facility] Address [address] [place] [address] Care Team Providers Care Mortgage Loan Coordinator Name Role Phone Rashi Grigsby MD Primary Care Provider Unavail able Janine Villeda MD Primary Care Provider [phone] Halle Pierson MD Unavailable [phone] Rashi Antoine PA-C Unavailable [phone] Indy Senior PA-C Unavailable [phone] Encounter Details Date Type Department Care Team Description 12/21/2019 Client Onboarding Analyst Report Medical Records [address] [place] [address] Holland Arias MD Social History Tobacco Use [...] on filedocumented in this encounter Care Teams Mortgage Loan Coordinator Relationship Specialty Start Date End Date Rashi Grigsby MD PCP - General Internal Medicine 04/06/19 05/13/20 Janine Villeda MD [address] [place] [id number] PCP - General Internal Medicine 05/14/20 Halle Pierson MD 175 [facility] [address] [place] [address] Surgeon Neurosurgery 12/29/21 Rashi Antoine PA-C 175 [facility] [address] [place] [address] Specialist Neurosurgery 12/29/21 Indy Senior PA-C [address] [address] Specialist Neurosurgery 12/29/21 documented as of this encounter
--- OUTSIDE RECORDS SUMMARY | 2025-03-21 13:44 | XMS_ITS | Encounter Summary ---
Author Organization [facility] Address [address] [place] [address] Care Team Providers Care Ham Stringer Name Role Phone Janine Villeda MD Primary Care Provider [phone] Halle Pierson MD Unavailable [phone] Rashi Antoine PA-C Unavailable Indy Senior PA-C Unavailable Encounter Details Date Type Department Care Team Description 05/07/2021 Cow Puncher Report Medical Records [address] [place] [address] Holland Arias MD Social History Tobacco Use [...] on filedocumented in this encounter Care Teams Ham Stringer Relationship Specialty Start Date End Date Janine Villeda MD [address] [place] [address] PCP - General Internal Medicine 05/14/20 Halle Pierson MD [address] [address] Surgeon Neurosurgery 12/29/21 Rashi Antoine PA-C [address] [address] Specialist Neurosurgery 12/29/21 Indy Senior PA-C [address] [address] Specialist Neurosurgery 12/29/21 documented as of this encounter
--- OUTSIDE RECORDS SUMMARY | 2025-03-21 13:44 | XMS_ITS | Encounter Summary ---
Author Organization [facility] Address [address] [place] [address] Care Team Providers Care Supervisor Production Department Name Role Phone Janine Villeda MD Primary Care Provider [phone] Halle Pierson MD Unavailable [phone] Rashi Antoine PA-C Unavailable [phone] Indy Senior PA-C Unavailable [phone] Encounter Details Date Type Department Care Team Description 12/04/2021 Orders Only Medical Records [address] [place] [address] Lynsey Carlson MD Social History Tobacco Use Types Packs/Day Years Used Date Smoking Tobacco: Never Smokeless Tobacco: Never Alcohol Use Standard Drinks/Week Comments Not Currently 0 (1 standard drink = 0.6 oz pur e alcohol) once a irina Sex Assigned at Date Recorded Not on file Job Start Date Occupation Industry Not on file Not on file Not on file COVID-19 Exposure Response Date Recorded In the last month, have you been in contact with someone who was confirmed or suspected to have Coronavirus / COVID-19? No / Unsure 11/11/2021 1:00 PM EST documented as of this encounter Plan of Treatment Not on file documented as of this encounter Procedures Procedure Name Priority Date/Time Associated Diagnosis Comments OUTSIDE LAB Routine 12/01/2021 documented in this encounter Results * OUTSIDE LAB (12/01/2021) Lynsey Carlson MD LAB documented in this encounter Visit Diagnoses Not on filedocumented in this encounter Care Teams Supervisor Production Department Relationship Specialty Start Date End Date Janine Villeda MD [address] [place] [address] PCP - General Internal Medicine 05/14/20 Halle Pierson MD [address] [address] Surgeon Neurosurgery 12/29/21 Rashi Antoine PA-C [address] [address] Specialist Neurosurgery 12/29/21 Indy Senior PA-C [address] [address] Specialist Neurosurgery 12/29/21 documented as of this encounter
--- OUTSIDE RECORDS SUMMARY | 2025-03-21 13:44 | XMS_ITS | Encounter Summary ---
Author Organization [facility] Address [address] [place] [address] Care Team Providers Care Lawn And Garden Technician Name Role Phone Janine Villeda MD Primary Care Provider [phone] Halle Pierson MD Unavailable [phone] Rashi Antoine PA-C Unavailable [phone] Indy Senior PA-C Unavailable [phone] Encounter Details Date Type Department Care Team Description 12/07/2021 Orders Only Medical Records [address] [place] [address] Lynsey Carlson MD Social History Tobacco Use [...] PM EST documented as of this encounter Progress Notes * Lynsey Carlson MD - 12/07/2021 7:56 PM EST Recommend repeat colonoscopy in 5 years. documented in this encounter Plan of Treatment Not on file documented as of this encounter Procedures Procedure Name Priority Date/Time Associated Diagnosis Comments OUTSIDE PATHOLOGY Routine 12/03/2021 documented in this encounter Results * OUTSIDE PATHOLOGY (12/03/2021) Lynsey Carlson MD OUTSIDE LAB documented in this encounter Visit Diagnoses Not on filedocumented in this encounter Care Teams Lawn And Garden Technician Relationship Specialty Start Date End Date Janine Villeda MD [address] [place] [address] PCP - General Internal Medicine 05/14/20 Halle Pierson MD [address] [address] Surgeon Neurosurgery 12/29/21 Rashi Antoine PA-C [address] [address] Specialist Neurosurgery 12/29/21 Indy Senior PA-C [address] [address] Specialist Neurosurgery 12/29/21 documented as of this encounter
--- OUTSIDE RECORDS SUMMARY | 2025-03-21 13:44 | XMS_ITS | Encounter Summary ---
Author Organization [facility] Address [address] [place] [address] Care Team Providers Care Concaving Machine Operator Name Role Phone Janine Villeda MD Primary Care Provider [phone] Halle Pierson MD Unavailable [phone] Rashi Antoine PA-C Unavailable [phone] Indy Senior PA-C Unavailable Encounter Details Date Type Department Care Team Description 12/16/2021 Biology Faculty Member Report Medical Records [address] [place] [address] Nupur Arshad NP Social History Tobacco Use [...] on filedocumented in this encounter Care Teams Concaving Machine Operator Relationship Specialty Start Date End Date Janine Villeda MD [address] [place], [place] [id number] PCP - General Internal Medicine 05/14/20 Halle Pierson MD 175 [facility] [address] [place] [address] Surgeon Neurosurgery 12/29/21 Rashi Antoine PA-C [address] [address] Specialist Neurosurgery 12/29/21 Indy Senior PA-C [address] [address] Specialist Neurosurgery 12/29/21 documented as of this encounter
--- OUTSIDE RECORDS SUMMARY | 2025-03-21 13:44 | XMS_ITS | Encounter Summary ---
Author Organization [facility] Address [address] [place] [address] Care Team Providers Care Protection Consultant Name Role Phone Rashi Grigsby MD Primary Care Provider Unavail able Janine Villeda MD Primary Care Provider [phone] Halle Pierson MD Unavailable [phone] Rashi Antoine PA-C Unavailable [phone] Indy Senior PA-C Unavailable [phone] Encounter Details Date Type Department Care Team Description 09/13/2019 Refinisher Report Medical Records [address] [place] [address] Shalini Arias [address] [place], [place] [id number] Social History Tobacco Use Types Packs/Day Years [...] on filedocumented in this encounter Care Teams Protection Consultant Relationship Specialty Start Date End Date Rashi Grigsby MD PCP - General Internal Medicine 04/06/19 05/13/20 Janine Villeda MD [address] [place] [address] PCP - General Internal Medicine 05/14/20 Halle Pierson MD 175 [facility] [address] [place] [id number] Surgeon Neurosurgery 12/29/21 Rashi Antoine PA-C [address] [phone] Specialist Neurosurgery 12/29/21 Indy Senior PA-C [address] [phone] Specialist Neurosurgery 12/29/21 documented as of this encounter
--- OUTSIDE RECORDS SUMMARY | 2025-03-21 13:44 | XMS_ITS | Encounter Summary ---
Author Organization [facility] Address [address] [place] [address] Care Team Providers Care Railway Signal Operator Name Role Phone Janine Villeda MD Primary Care Provider Halle Pierson MD Unavailable [phone] Rashi Antoine PA-C Unavailable Indy Senior PA-C Unavailable Encounter Details Date Type Department Care Team Description 04/13/2022 Refill Adult Medicine [address] [id number] Janine Villeda MD [address] [place] [id number] Social History Tobacco Use Types Packs/Day Years [...] on filedocumented in this encounter Care Teams Railway Signal Operator Relationship Specialty Start Date End Date Janine Villeda MD [address] [place] [id number] PCP - General Internal Medicine 05/14/20 Halle Pierson MD [address] [address] Surgeon Neurosurgery 12/29/21 Rashi Antoine PA-C 175 [facility] [address] [place] [address] Specialist Neurosurgery 12/29/21 Indy Senior PA-C [address] [address] Specialist Neurosurgery 12/29/21 documented as of this encounter
--- OUTSIDE RECORDS SUMMARY | 2025-03-21 13:44 | XMS_ITS | Encounter Summary ---
Author Organization [facility] Address [address] [place] [address] Care Team Providers Care Logistics Operations Director Name Role Phone Janine Villeda MD Primary Care Provider [phone] Halle Pierson MD Unavailable [phone] Rashi Antoine PA-C Unavailable [phone] Indy Senior PA-C Unavailable [phone] Encounter Details Date Type Department Care Team Description 10/27/2021 Senior Software Analyst Report Medical Records [address] [place] [address] Nupur Arshad NP Social History Tobacco Use [...] have Coronavirus / COVID-19? No / Unsure 10/13/2021 10:52 AM EST documented as of this encounter Plan of Treatment Not on file documented as of this encounter Visit Diagnoses Not on filedocumented in this encounter Care Teams Logistics Operations Director Relationship Specialty Start Date End Date Janine Villeda MD [address] [place] [address] [id number] PCP - General Internal Medicine 05/14/20 Halle Pierson MD [address] [phone] Surgeon Neurosurgery 12/29/21 Rashi Antoine PA-C [address] [phone] Specialist Neurosurgery 12/29/21 Indy Senior PA-C [address] [phone] Specialist Neurosurgery 12/29/21 documented as of this encounter
--- OUTSIDE RECORDS SUMMARY | 2025-03-21 13:44 | XMS_ITS | Encounter Summary ---
Author Organization [facility] Address [address] [place] [address] Care Team Providers Care Laundry Pricing Clerk Name Role Phone Janine Villeda MD Primary Care Provider Halle Pierson MD Unavailable [phone] Rashi Antoine PA-C Unavailable Indy Senior PA-C Unavailable [phone] Encounter Details Date Type Department Care Team Description 06/25/2021 Fish Hatchery Assistant Report Medical Records [address] [place] [address] Abstract, Provider Social History Tobacco Use Types [...] on filedocumented in this encounter Care Teams Laundry Pricing Clerk Relationship Specialty Start Date End Date Janine Villeda MD [address] [place] [address] PCP - General Internal Medicine 05/14/20 Halle Pierson MD [address] [address] Surgeon Neurosurgery 12/29/21 Rashi Antoine PA-C [address] [address] Specialist Neurosurgery 12/29/21 Indy Senior PA-C [address] [address] Specialist Neurosurgery 12/29/21 documented as of this encounter
--- OUTSIDE RECORDS SUMMARY | 2025-03-21 13:44 | XMS_ITS | Encounter Summary ---
Author Organization [facility] Address [address] [place] [address] Care Team Providers Care Drug Clerk Name Role Phone Janine Villeda MD Primary Care Provider Halle Pierson MD Unavailable [phone] Rashi Antoine PA-C Unavailable [phone] Indy Senior PA-C Unavailable [phone] Encounter Details Date Type Department Care Team Description 08/27/2021 Wall Scraper Report Medical Records [address] [place] [address] Abstract, Provider Social History Tobacco Use Types [...] on filedocumented in this encounter Care Teams Drug Clerk Relationship Specialty Start Date End Date Janine Villeda MD [address] [place] [address] PCP - General Internal Medicine 05/14/20 Halle Pierson MD [address] [address] Surgeon Neurosurgery 12/29/21 Rashi Antoine PA-C [address] [address] Specialist Neurosurgery 12/29/21 Indy Senior PA-C [address] [address] Specialist Neurosurgery 12/29/21 documented as of this encounter
--- OUTSIDE RECORDS SUMMARY | 2025-03-21 13:44 | XMS_ITS | Encounter Summary ---
Author Organization [facility] Address [address] [place] [address] Care Team Providers Care Supercharger Mechanic Name Role Phone Rashi Grigsby MD Primary Care Provider Unavail able Eliezer Wagner MD Primary Care Provider UnavailRashi Wolfe MD Primary Care Provider Unavail able Eliezer Wagner MD Primary Care Provider Unavaila Rashi Zarate MD Primary Care Provider Unavail able Janine Villdea MD Primary Care Provider [phone] Halle Pierson MD Unavailable [phone] Rashi Antoine PA-C Unavailable [phone] Indy Senior PA-C Unavailable [phone] Encounter Details Date Type Department Care Team Description 11/23/2016 Hospital Medical Records [address] [place] [address] Ayala Colon Social History Tobacco Use Types Packs/Day Years [...] on filedocumented in this encounter Care Teams Supercharger Mechanic Relationship Specialty Start Date End Date Rashi Grigsby MD PCP - General Internal Medicine 01/13/15 11/29/18 Eliezer Wagner MD PCP - General Pediatrics 11/30/18 03/25/19 Rashi Grigsby MD PCP - General Internal Medicine 03/26/19 03/28/19 Eliezer Wagner MD PCP - General Pediatrics 03/29/19 04/05/19 Rashi Grigsby MD PCP - General Internal Medicine 04/06/19 05/13/20 Janine Villeda MD [address] [place] [address] PCP - General Internal Medicine 05/14/20 Halle Pierson MD [address] [address] Surgeon Neurosurgery 12/29/21 Rashi Antoine PA-C [address] [address] Specialist Neurosurgery 12/29/21 Indy Senior PA-C [address] [address] Specialist Neurosurgery 12/29/21 documented as of this encounter
--- OUTSIDE RECORDS SUMMARY | 2025-03-21 13:44 | XMS_ITS | Encounter Summary ---
Author Organization [facility] Address [address] [place] [address] Care Team Providers Care Ceramic Tiler Name Role Phone Janine Villeda MD Primary Care Provider [phone] Halle Pierson MD Unavailable [phone] Rashi Antoine PA-C Unavailable Indy Senior PA-C Unavailable Encounter Details Date Type Department Care Team Description 04/16/2022 Hospital Medical Records [address] [place] [address] [facility] Social History Tobacco Use Types Packs/Day Years [...] on filedocumented in this encounter Care Teams Ceramic Tiler Relationship Specialty Start Date End Date Janine Villeda MD [address] [place] [address] PCP - General Internal Medicine 05/14/20 Halle Pierson MD 175 [facility] [address] [place] [address] Surgeon Neurosurgery 12/29/21 Rashi Antoine PA-C 175 [facility] [address] [place] [address] Specialist Neurosurgery 12/29/21 Indy Senior PA-C [address] [address] Specialist Neurosurgery 12/29/21 documented as of this encounter
--- OUTSIDE RECORDS SUMMARY | 2025-03-21 13:44 | XMS_ITS | Clinical Summary ---
Author Organization [facility] Address [address] [place] [address] Care Team Providers Care Assembler Surgical Garment Name Role Phone Janine Villeda MD Primary Care Provider Halle Pierson MD Unavailable [phone] Rashi AntoineC Unavailable [phone] Indy Senior PA-C Unavailable Allergies Active Allergy Reactions Severity Noted Date Comments Aspartame-Fd&C Blue #2 Al Lopez-Ibuprofen Itching/Pruritus,Swe lling/Edema 05/06/2009 Naproxen Sodium Hives/Urticaria,Itch ing/Pruritus 10/07/2006 Amlodipine Itching/Pruritus 03/04/2020 Aspirin Hives/Urticaria,Itch ing/Pruritus,Swellin g/Edema 12/10/2010 Sulfamethoxazole W/Trimethoprim Hives/Urticaria High 02/17/2016 Benzonatate Hives/Urticaria,SOB, Wheezing 10/07/2006 Codeine Rash/Dermatitis,Itch ing/Pruritus,Swellin g/Edema 01/06/2006 Cortisone Rash/Dermatitis High 02/05/2022 And prednisone Meperidine Hcl Hives/Urticaria,Itch ing/Pruritus 10/07/2006 Hydrocodone-Acetaminophen Rash/Dermatiti s,Itch ing/Pruritus,Swellin g/Edema 01/06/2006 Anx Hives/Urticaria High 07/23/2016 Ibuprofen Itching/Pruritus 10/07/2006 Lisinopril Itching/Pruritus,Cou gh 03/04/2020 Lorazepam Hives/Urticaria 07/23/2016 Morphine Sulfate Hives/Urticaria,Itch ing/Pruritus,Swellin g/Edema 12/10/2010 Penicillins Hives/Urticaria,Itch ing/Pruritus,Swellin g/Edema 12/10/2010 Oxycodone-Acetaminophen Rash/Dermatitis, Itch ing/Pruritus,Swellin g/Edema 01/06/2006 Singulair Rash/Dermatitis 05/29/2015 Tramadol Hcl Rash/Dermatitis,Itch ing/Pruritus,Swellin g/Edema 01/06/2006 Bqxianyrnbd-Uhdvecsok-Slmvli 023 Tylenol Pm Extra Itching/Pruritus,Swe lling/Edema 05/06/2009 Valsartan Itching/Pruritus 02/08/2020 Medications Medication Sig Dispensed Refills Start Date End Date Status Fluticasone-Salmet nancy (AIRDUO RESPICLICK 113/14) 113-14 MCG/ACT AEROSOL POWDER,BREATH ACTIVATED Inhale 1 Puff into the lungs 2 times daily for 30 days. 1 Each 11 06/07/2019 Active budesonide (PULMICORT) 0.5 MG/2ML nebulizer solution Take 2 mL by nebulization daily. 30 Ampule 06/07/2019 Active albuterol (PROVENTIL) (2.5 MG/3ML) 0.083% nebulizer solution Take 1 Vial by nebulization every 4 hours as needed for Wheezing for up to 30 days. 120 Vial 06/07/2019 Active modafinil (PROVIGIL) 200 MG tablet Take 1 Tab by mouth daily for 30 days. 30 Tab 11 06/07/2019 Active Pyridoxine HCl (vitamin B-6) 100 MG tablet Take 1 tablet by mouth daily. 0 05/12/2021 Active Daliresp 500 MCG Tab Take 1 tablet by mouth every other day. 0 05/08/2021 Active FreeStyle Lancets Misc Test blood sugar once a day prior to breakfast 100 Each 3 04/30/2022 Active Glucose Blood (FREESTYLE LITE) Strip Test blood sugar once a day prior to breakfast 100 Strip 3 04/30/2022 Active Ipratropium-Albute rol 0.5-2.5 (3) MG/3ML Solution USE 3ML VIA NEBULIZER EVERY 6 TO 8 HOURS NEEDED FOR WHEEZING 0 04/14/2022 Active gabapentin (NEURONTIN) 300 MG capsule TAKE ONE CAPSULE BY MOUTH AT BEDTIME 0 07/16/2022 Active ALBUTEROL SULFATE (ProAir HFA) 108 (90 Base) MCG/ACT Aero Soln Inhale 2 Puffs into the lungs every 6 hours as needed for Cough or Wheezing. 8.5 g 0 11/03/2023 Active allopurinol (ZYLOPRIM) 100 MG tablet TAKE ONE TABLET BY MOUTH EVERY DAY 90 Tablet 1 05/17/2024 Active atorvastatin (LIPITOR) 40 MG tablet Take 1 Tablet by mouth at bedtime. 90 Tablet 1 05/17/2024 Active duloxetine (CYMBALTA) 30 MG capsule Take 1 Capsule by mouth daily. 90 Capsule 1 05/17/2024 Active hydrochlorothiazid e (HYDRODIURIL) 25 MG tablet Take 1 Tablet by mouth daily. 90 Tablet 1 05/17/2024 Active levothyroxine (SYNTHROID, LEVOTHROID) 50 MCG tablet Take 1 Tablet by mouth every morning (before breakfast). 90 Tablet 1 05/17/2024 Active omeprazole (PRILOSEC) 20 MG capsule Take 1 Capsule by mouth every morning (before breakfast). 90 Capsule 1 05/17/2024 Active loratadine (Claritin) 10 MG tablet Take 1 Tablet by mouth daily. 90 Tablet 1 05/17/2024 Active verapamil (VERELAN) 100 MG 24 hr capsule Take 1 Capsule by mouth at bedtime. 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 pulmonology (Dr. Arias) Morbid obesity with body mass index of 4 0.0-44.9 in adult 12/18/2015 Kidney stone 10/11/2013 Microhematuria 10/11/2013 WADE (nonalcoholic steatohepatitis) 03/08 Obstructive sleep apnea 12/04/2009 Overview: On CPAP; [facility] (Dr. Arias) LFTs abnormal 07/29/2009 Hypothyroidism 04/13/2006 Mixed hyperlipidemia 04/13/2006 Lumbar radiculopathy 01/06/2006 Last Assessment & Plan: Patient is 11 days s/p left L5-S1 decompression and foraminotomy. She states the left leg pain is much better than preop, however at nighttime she still notes pain primarily in the left calf, describes it as feeling like a pulled muscle . She rates her daytime pain 3/10 now, preop was 10/10. She rates her nighttime pain 10/10, states preop it was 10+/10. She denies any fever, sweats chills, wound drainage. She has been ambulating and active. She is planning to return to work on 08/16/2022. She does not have to do heavy lifting at work. She does not tolerate any pain meds, Tylenol or NSAIDs. She has not been using any pain meds. Ms. Salamanca has residual left leg pain, is improved compared to preop, should note continued improvement as the nerve root heals. We scheduled a 6-week follow-up appointment with Dr. Pierson. I asked her to call with any concerns or questions prior to her visit. All postop questions answered. Asthma 01/06/2006 Overview: [facility] (Dr. Arias) Gastroesophageal reflux disease without esophagitis 01/06/2006 Resolved Problems Problem Noted Date Resolved Date Lumbar radiculopathy 06/25/2022 06/25/2022 Elevated transaminase level 11/13/2020 03/0 06/2021 Drug reaction 03/11/2020 09/23/2020 Seasonal allergic conjunctivitis 03/11/2020 05/14/2021 PEG-inhibitor cough 03/04/2020 09/23/2020 RBBB 12/13/2017 05/05/2021 Prediabetes 12/06/2017 06/29/2019 Overview: Hemoglobin A1c of 6.3% Fatty liver disease, nonalcoholic 01/27/2012 01/12/2021 Obesity 05/21/2010 12/18/2015 hypercholesteremia 01/06/2006 11/15/2017 Immunizations Name Administration Dates Next Due COVID-19 (Pfizer) 05/30/2022, 1,12/02/2020,11/11 Covid-19 Bivalent (Pfizer) 09/09/2022 Influenza (> 6 Months) 08/12/2021,2015,07/30/2013,09/03,08/11/2011,07/16/2010 Influenza Flu (PT Reported) 07/16/2023, 2,08/03/2021 Influenza H1N1 Pandemic Flu Vaccine 09/24/2009 Pneumoccoccal(Adult) Polysac charide PPSV23 06/07/2019,01/24/2014 Pneumococcal Conjugate PCV-20 11/16/2022 Shingrix (Recombinant zoster vaccine) 05/13/2020 ,01/07/2020 TD (STATE SUPPLIED FOR ADULT S AND CHILDREN) 10/01/2019 Tdap 01/02/2008 Family History Medical History Relation Name Comments Hypertension Brother s/p stent Stroke Father [place] Maternal Grandfather [place] Maternal Grandmother Hypertension Mother [place] Mother Cataract Sister CA Breast Negative Hx CA Colon Negative Hx Relation Name Status Comments Brother Alive [...] file Not on file Not on file Last Filed Vital Signs Vital Sign Reading Time Taken Comments Blood Pressure 120/60 05/17/2024 12:48 PM EDT Pulse 82 05/17/2024 12:48 PM EDT Temperature 36.2 ??C (97.2 ??F) 05/17/2024 12:48 PM E DT Respiratory Rate 16 05/17/2024 12:48 PM EDT Oxygen Saturation 98% 02/14/2023 2:51 PM EDT Inhaled Oxygen Concentration - - Weight 77.6 kg (171 lb) 05/17/2024 12:48 PM EDT Height 144.8 cm (4' 9 ) 05/17/2024 12:48 PM EDT Body Mass Index 37 05/17/2024 12:48 PM EDT Plan of Treatment Health Maintenance Due Date Last Done Comments CERVICAL CANCER SCREENING 06/23/20202016, 08/24/2012, 08/19/2011, Additional history exists DIABETES: ANNUAL FOOT EXAM 09/14/202309/14 (Completed), 05/14/2021, 11/16/2019 Covid-19 Vaccine (2022-12 4 season) 2024 09/09/2022, 05/30/2022, 09/17/2021, Additional history exists DIABETES: BLOOD SUGAR CONTRO L TEST (HGBA1C) 08/17/2024 05/17/2024, 09/15/2023, 06/02/2023, Additional history exists BONE DENSITY SCREENING 2024 DIABETES/HEART DISEASE: ESTIVEN SOLIZ CHOLESTEROL (LDL) 09/15/2024 09/15/2023, 09/28/2022, 02/25/2022, Additional history exists DIABETES: ANNUAL URINE PROTE IN TEST (MICROALBUMIN) 09/15/2024 09/15/2023, 09/28/2022, 11/11/2021, Additional history exists BMI CHECK/ADVISE 11/07/2024 05/17/2024, , 11/03/2023, Additional history exists DEPRESSION SCREENING/FOLLOWUP 11/07/2024, 11/03/2023, 06/02/2023, Additional history exists MAMMOGRAM 05/24/2025 05/24/2024, 04/0 04/2023, 02/04/2022, Additional history exists DIABETES: ANNUAL EYE EXAM 06/05/20252023, 01/05/2023 (External Completion), 12/08/2021 (External Completion of test per patient (Patient reports normal results)), Additional history exists INFLUENZA (Season Ended) 2025 023, 09/07/2022, 08/12/2021, Additional history exists COLON CANCER SCREENING 12/03/2026 2, 12/03/2021 (Completed), 08/07/2020, Additional history exists DTAP/TDAP/TD (3 - Td or Tdap) 10/01/2029 10/01/2019, 01/02/2008 SHINGLES VACCINE Completed 05/13/2020, 01/07/2020 HEPATITIS C SCREENING Completed 11/28/2020, 009 PNEUMOCOCCAL VACCINE Completed 11/16/2022, 06/07/2019, 01/24/2014 Care Teams Assembler Surgical Garment Relationship Specialty Start Date End Date Janine Villeda MD [address] [place] [address] [id number] PCP - General Internal Medicine 05/14/20 Halle Pierson MD [address] [place] [address] [address] [place] [address] Surgeon Neurosurgery 12/29/21 Rashi Antoine PA-C [address] [employer] [address] [place] [address] Specialist Neurosurgery 12/29/21 Indy Senior PA-C [address] [address] Specialist Neurosurgery 12/29/21
--- OUTSIDE RECORDS SUMMARY | 2025-03-21 13:44 | XMS_ITS | Encounter Summary ---
Author Organization [facility] Address [address] [place] [address] Care Team Providers Care Sr. Unix System Administrator Name Role Phone Rashi Grigsby MD Primary Care Provider Unavail able Eliezer Wagner MD Primary Care Provider UnavailRashi Wolfe MD Primary Care Provider Unavail able Eliezer Wagner MD Primary Care Provider Unavaila Rashi Zarate MD Primary Care Provider Unavail able Janine Villeda MD Primary Care Provider [phone] Halle Pierson MD Unavailable [phone] Rashi Antoine PA-C Unavailable [phone] Indy Senior PA-C Unavailable [phone] Encounter Details Date Type Department Care Team Description 06/29/2016 WHARF TENDER/MassPat Report Medical Records [address] [place] [address] Abstract, Provider Social History Tobacco Use Types Packs/Day Years Used Date Smoking Tobacco: Never Smokeless Tobacco: Never Alcohol Use Standard Drinks/Week Comments Yes 4.2 (1 standard drink = 0.6 oz p ure alcohol) Sex Assigned at Date Recorded Not on file Job Start Date Occupation Industry Not on file Not on file Not on file documented as of this encounter Plan of Treatment Not on file documented as of this encounter Visit Diagnoses Not on filedocumented in this encounter Care Teams Sr. Unix System Administrator Relationship Specialty Start Date End Date Rashi Grigsby MD PCP - General Internal Medicine 01/13/15 11/29/18 Eliezer Wagner MD PCP - General Pediatrics 11/30/18 03/25/19 Rashi Grigsby MD PCP - General Internal Medicine 03/26/19 03/28/19 Eliezer Wagner MD PCP - General Pediatrics 03/29/19 04/05/19 Rashi Grigsby MD PCP - General Internal Medicine 04/06/19 05/13/20 Janine Villeda MD [address] [place] [address] PCP - General Internal Medicine 05/14/20 Halle Pierson MD [address] [address] Surgeon Neurosurgery 12/29/21 Rashi Antoine PA-C [address] [address] Specialist Neurosurgery 12/29/21 Indy Senior PA-C [address] [address] Specialist Neurosurgery 12/29/21 documented as of this encounter
--- OUTSIDE RECORDS SUMMARY | 2025-03-21 13:44 | XMS_ITS | Encounter Summary ---
Author Organization [facility] Address [address] [place] [address] Care Team Providers Care Garland Machine Operator Name Role Phone Janine Villeda MD Primary Care Provider [phone] Halle Pierson MD Unavailable [phone] Rashi Antoine PA-C Unavailable [phone] Indy Senior PA-C Unavailable [phone] Encounter Details Date Type Department Care Team Description 04/23/2022 Orders Only Medical Records [address] [place] [address] Abstract, Provider Social History Tobacco Use Types [...] Name Priority Date/Time Associated Diagnosis Comments OUTSIDE MRI/MRA Routine 12/04/2021 documented in this encounter Results * OUTSIDE MRI/MRA (12/04/2021) Provider Abstract RADIOLOGY documented in this encounter Visit Diagnoses Not on filedocumented in this encounter Care Teams Garland Machine Operator Relationship Specialty Start Date End Date Janine Villeda MD [address] [place] [address] PCP - General Internal Medicine 05/14/20 Halle Pierson MD 175 [facility] [address] [place] [address] Surgeon Neurosurgery 12/29/21 Rashi Antoine PA-C [address] [id number] Specialist Neurosurgery 12/29/21 Indy Senior PA-C [address] [address] Specialist Neurosurgery 12/29/21 documented as of this encounter
--- OUTSIDE RECORDS SUMMARY | 2025-03-21 13:44 | XMS_ITS | Encounter Summary ---
Author Organization [facility] Address [address] [place] [address] Care Team Providers Care Blanket Winder Operator Name Role Phone Janine Villeda MD Primary Care Provider [phone] Halle Pierson MD Unavailable [phone] Rashi Antoine PA-C Unavailable [phone] Indy Senior PA-C Unavailable [phone] Encounter Details Date Type Department Care Team Description 09/15/2021 Reed Man Report Medical Records [address] [place] [address] Holland Arias MD Social History Tobacco Use [...] have Coronavirus / COVID-19? No / Unsure 09/17/2021 10:12 AM EST documented as of this encounter Plan of Treatment Not on file documented as of this encounter Visit Diagnoses Not on filedocumented in this encounter Care Teams Blanket Winder Operator Relationship Specialty Start Date End Date Janine Villeda MD [address] [place] [address] PCP - General Internal Medicine 05/14/20 Halle Pierson MD [address] [address] Surgeon Neurosurgery 12/29/21 Rashi Antoine PA-C [address] [id number] Specialist Neurosurgery 12/29/21 Indy Senior PA-C [address] [address] Specialist Neurosurgery 12/29/21 documented as of this encounter
--- OUTSIDE RECORDS SUMMARY | 2025-03-21 13:44 | XMS_ITS | Encounter Summary ---
Author Organization [facility] Address [address] [place] [address] Care Team Providers Care Erp Technical Lead Name Role Phone Janine Villeda MD Primary Care Provider [phone] Halle Pierson MD Unavailable [phone] Rashi Antoine PA-C Unavailable Indy Senior PA-C Unavailable [phone] Reason for Visit * Reason Onset Date Comments APPOINTMENT 09/25/2020 Encounter Details Date Type Department Care Team Description 09/25/2020 Telephone Nephrology - [address] [address] Shakeel Cardona MD [address] [place] [address] [id number] APPOINTMENT Social History Tobacco Use Types Packs/Day Years [...] or suspected to have Coronavirus / COVID-19? Unable to assess 09/25/2020 8:23 AM EST documented as of this encounter Miscellaneous Notes * Telephone Encounter - Adela Cee M.A. - 09/25/2020 4:37 PM EST Alesia, Please schedule this pt. Thanks * Telephone Encounter - Paris Quevedo - 09/25/2020 3:32 PM EST Patient is looking to reschedule her appointment that she said she never received a call from today documented in this encounter Plan of Treatment Not on file documented as of this encounter Visit Diagnoses Not on filedocumented in this encounter Care Teams Erp Technical Lead Relationship Specialty Start Date End Date Janine Villeda MD [address] [place] [address] PCP - General Internal Medicine 05/14/20 Halle Pierson MD [address] [address] Surgeon Neurosurgery 12/29/21 Rashi Antoine PA-C [address] [address] Specialist Neurosurgery 12/29/21 Indy Senior PA-C [address] [address] Specialist Neurosurgery 12/29/21 documented as of this encounter
--- OUTSIDE RECORDS SUMMARY | 2025-03-21 13:44 | XMS_ITS | Encounter Summary ---
Author Organization [facility] Address [address] [place] [address] Care Team Providers Care Hand Stonecutter Name Role Phone Janine Villeda MD Primary Care Provider [phone] Halle Pierson MD Unavailable [phone] Rashi Antoine PA-C Unavailable [phone] Indy Senior PA-C Unavailable [phone] Encounter Details Date Type Department Care Team Description 01/08/2022 Release of Information Medical Records [address] [place] [id number] Abstract, Provider Social History Tobacco Use Types [...] have Coronavirus / COVID-19? No / Unsure 12/30/2021 12:55 PM EST documented as of this encounter Plan of Treatment Not on file documented as of this encounter Visit Diagnoses Not on filedocumented in this encounter Care Teams Hand Stonecutter Relationship Specialty Start Date End Date Janine Villeda MD [address] [place] [address] PCP - General Internal Medicine 05/14/20 Halle Pierson MD [address] [address] Surgeon Neurosurgery 12/29/21 Rashi Antoine PA-C [address] [address] Specialist Neurosurgery 12/29/21 Indy Senior PA-C [address] [id number] Specialist Neurosurgery 12/29/21 documented as of this encounter
--- OUTSIDE RECORDS SUMMARY | 2025-03-21 13:44 | XMS_ITS | Encounter Summary ---
Author Organization [facility] Address [address] [place] [address] Care Team Providers Care Income Tax Expert Name Role Phone Rashi Grigsby MD Primary Care Provider Unavail able Eliezer Wagner MD Primary Care Provider UnavailRashi Wolfe MD Primary Care Provider Unavail able Eliezer Wagner MD Primary Care Provider Unavaila Rashi Zarate MD Primary Care Provider Unavail able Janine Villeda MD Primary Care Provider [phone] Halle Pierson MD Unavailable [phone] Rashi Antoine PA-C Unavailable [phone] Indy Senior PA-C Unavailable [phone] Encounter Details Date Type Department Care Team Description 09/24/2016 Industrial Machine Assembler Report Medical Records [address] [place] [address] Mati Botello Social History Tobacco Use Types Packs/Day Years [...] on filedocumented in this encounter Care Teams Income Tax Expert Relationship Specialty Start Date End Date Rashi Grigsby MD PCP - General Internal Medicine 01/13/15 11/29/18 Eliezer Wagner MD PCP - General Pediatrics 11/30/18 03/25/19 Rashi Grigsby MD PCP - General Internal Medicine 03/26/19 03/28/19 Eliezer Wagner MD PCP - General Pediatrics 03/29/19 04/05/19 Rashi Grigsby MD PCP - General Internal Medicine 04/06/19 05/13/20 Janine Villeda MD [address] [place] [address] PCP - General Internal Medicine 05/14/20 Halle Pierson MD [address] [address] Surgeon Neurosurgery 12/29/21 Rashi Antoine PA-C [address] [address] Specialist Neurosurgery 12/29/21 Indy Senior PA-C [address] [address] Specialist Neurosurgery 12/29/21 documented as of this encounter
--- OUTSIDE RECORDS SUMMARY | 2025-03-21 13:45 | XMS_ITS | Encounter Summary ---
Author Organization [facility] Address [address] [place] [address] Care Team Providers Care Box Loader Name Role Phone Rashi Grigsby MD Primary Care Provider Unavail able Eliezer Wagner MD Primary Care Provider UnavailRashi Wolfe MD Primary Care Provider Unavail able Eliezer Wagner MD Primary Care Provider Unavaila Rashi Zarate MD Primary Care Provider Unavail able Janine Villeda MD Primary Care Provider [phone] Halle Pierson MD Unavailable [phone] Rashi Antoine PA-C Unavailable [phone] Indy Senior PA-C Unavailable [phone] Encounter Details Date Type Department Care Team Description 11/26/2016 Golf Sales Manager Report Medical Records [address] [place] [address] Mati Botello Social History Tobacco Use Types [...] on filedocumented in this encounter Care Teams Box Loader Relationship Specialty Start Date End Date Rashi Grigsby MD PCP - General Internal Medicine 01/13/15 11/29/18 Eliezer Wagner MD PCP - General Pediatrics 11/30/18 03/25/19 Rashi Grigsby MD PCP - General Internal Medicine 03/26/19 03/28/19 Eliezer Wagner MD PCP - General Pediatrics 03/29/19 04/05/19 Rashi Grigsby MD PCP - General Internal Medicine 04/06/19 05/13/20 Janine Villeda MD [address] [place] [address] PCP - General Internal Medicine 05/14/20 Halle Pierson MD [address] [address] Surgeon Neurosurgery 12/29/21 Rashi Antoine PA-C [address] [address] Specialist Neurosurgery 12/29/21 Indy Senior PA-C [address] [address] Specialist Neurosurgery 12/29/21 documented as of this encounter
--- OUTSIDE RECORDS SUMMARY | 2025-03-21 13:45 | XMS_ITS | Encounter Summary ---
Author Organization [facility] Address [address] [place] [address] Care Team Providers Care Plisse Machine Operator Name Role Phone Rashi Grigsby MD Primary Care Provider Unavail able Felipa Felix Primary Care Provider Unavailab Rashi Seay MD Primary Care Provider Unavail able Eliezer Wagner MD Primary Care Provider Unavaila Rashi Zarate MD Primary Care Provider Unavail able Eliezer Wagner MD Primary Care Provider Unavaila Rashi Zarate MD Primary Care Provider Unavail able Janine Villeda MD Primary Care Provider [phone] Halle Pierson MD Unavailable [phone] Rashi Antoine PA-C Unavailable Indy Senior PA-C Unavailable [phone] Reason for Visit * Reason Onset Date Comments Error 10/24/2013 opened in error Encounter Details Date Type Department Care Team Description 10/24/2013 Telephone Adult Medicine [address] [address] Rashi Grigsby MD Error (opened in error) Social History Tobacco Use Types Packs/Day Years [...] encounter Miscellaneous Notes * Telephone Encounter - Kat Dakota - 10/24/2013 10:19 AM EST documented in this encounter Plan of Treatment Not on file documented as of this encounter Visit Diagnoses Not on filedocumented in this encounter Care Teams Plisse Machine Operator Relationship Specialty Start Date End Date Rashi Grigsby MD PCP - General 10/02/05 01/11/15 Felipa Felix PCP - General Family Practice 01/12/15 01/12/15 Rashi Grigsby MD PCP - General Internal Medicine 01/13/15 11/29/18 Eliezer Wagner MD PCP - General Pediatrics 11/30/18 03/25/19 Rashi Grigsby MD PCP - General Internal Medicine 03/26/19 03/28/19 Eliezer Wagner MD PCP - General Pediatrics 03/29/19 04/05/19 Rashi Grigsby MD PCP - General Internal Medicine 04/06/19 05/13/20 Janine Villeda MD [address] [place] [address] PCP - General Internal Medicine 05/14/20 Halle Pierson MD [address] [address] Surgeon Neurosurgery 12/29/21 Rashi Antoine PA-C [address] [address] Specialist Neurosurgery 12/29/21 Indy Senior PA-C [address] [address] Specialist Neurosurgery 12/29/21 documented as of this encounter
--- OUTSIDE RECORDS SUMMARY | 2025-03-21 13:45 | XMS_ITS | Encounter Summary ---
Author Organization [facility] Address [address] [place] [address] Care Team Providers Care Print Shop Manager Name Role Phone Janine Villeda MD Primary Care Provider [phone] Halle Pierson MD Unavailable [phone] Rashi Antoine PA-C Unavailable [phone] Indy Senior PA-C Unavailable [phone] Encounter Details Date Type Department Care Team Description 09/23/2020 Refill Pulmonology - [address] [place] [address] Holland Arias MD Social History Tobacco [...] encounter Miscellaneous Notes * Telephone Encounter - Janine Villeda MD - 09/23/2020 2:30 PM EST This medication has been managed by pulmonary. She is not on a contract and I will not fill it. documented in this encounter Plan of Treatment Not on file documented as of this encounter Visit Diagnoses Not on filedocumented in this encounter Care Teams Print Shop Manager Relationship Specialty Start Date End Date Janine Villeda MD [address] [place] [address] PCP - General Internal Medicine 05/14/20 Halle Pierson MD [address] [address] Surgeon Neurosurgery 12/29/21 Rashi Antoine PA-C 175 [facility] [address] [place] [address] Specialist Neurosurgery 12/29/21 Indy Senior PA-C [address] [address] Specialist Neurosurgery 12/29/21 documented as of this encounter
--- OUTSIDE RECORDS SUMMARY | 2025-03-21 13:45 | XMS_ITS | Encounter Summary ---
Author Organization [facility] Address [address] [place] [address] Care Team Providers Care Roving Tester Laboratory Name Role Phone Rashi Grigsby MD Primary Care Provider Unavail able Eliezer Wagner MD Primary Care Provider UnavailRashi Wolfe MD Primary Care Provider Unavail able Eliezer Wagner MD Primary Care Provider Unavaila Rashi Zarate MD Primary Care Provider Unavail able Janine Villeda MD Primary Care Provider [phone] Halle Pierson MD Unavailable [phone] Rashi Antoine PA-C Unavailable [phone] Indy Senior PA-C Unavailable [phone] Reason for Visit * Reason Onset Date Comments TEST RESULTS 12/07/2017 Encounter Details Date Type Department Care Team Description 12/07/2017 Telephone Adult Medicine [address] [address] Rashi Grigsby MD TEST RESULTS Social History Tobacco Use Types Packs/Day Years [...] encounter Miscellaneous Notes * Telephone Encounter - Eveline Britton C.M.A. - 12/07/2017 3:42 PM EST Spoke to pt and left a message to call back * Telephone Encounter - Ondina Tobar - 12/07/2017 12:18 PM EST Inform patient: ANY URGENT OR ABNORMAL RESULTS WIILL RESULT IN A CALL BACK TO THE PATIENT CORNELL. Pt is requesting results Before 2:00 pm Type of test: :blood/urine Date test was performed: 12/06/17 Where was the test performed: [facility] Who ordered this test?: smith jeronimo Is the doctor here today?: YES Can the message wait until the doctor returns?: NO IF PATIENT'S PCP IS NOT IN INSTRUCT PATIENT THAT THEY WILL RECEIVE A CALL BACK WHEN THE PCP IS IN THE OFFICE NEXT. documented in this encounter Plan of Treatment Not on file documented as of this encounter Visit Diagnoses Not on filedocumented in this encounter Care Teams Roving Tester Laboratory Relationship Specialty Start Date End Date Rashi Grigsby MD PCP - General Internal Medicine 01/13/15 11/29/18 Eliezer Wagner MD PCP - General Pediatrics 11/30/18 03/25/19 Rashi Grigsby MD PCP - General Internal Medicine 03/26/19 03/28/19 Eliezer Wagner MD PCP - General Pediatrics 03/29/19 04/05/19 Rashi Grigsby MD PCP - General Internal Medicine 04/06/19 05/13/20 Janine Villeda MD [address] [place] [address] PCP - General Internal Medicine 05/14/20 Halle Pierson MD [address] [address] Surgeon Neurosurgery 12/29/21 Rashi Antoine PA-C [address] [address] Specialist Neurosurgery 12/29/21 Indy Senior PA-C [address] [address] Specialist Neurosurgery 12/29/21 documented as of this encounter
--- OUTSIDE RECORDS SUMMARY | 2025-03-21 13:45 | XMS_ITS | Encounter Summary ---
Author Organization [facility] Address [address] [place] [address] Care Team Providers Care Immigration Manager Name Role Phone Janine Villeda MD Primary Care Provider [phone] Halle Pierson MD Unavailable [phone] Rashi Antoine PA-C Unavailable [phone] Indy Senior PA-C Unavailable [phone] Encounter Details Date Type Department Care Team Description 01/20/2021 Hospital Medical Records [address] [place] [address] Stanley Duran MD Social History Tobacco Use Types Packs/Day [...] have Coronavirus / COVID-19? No / Unsure 01/12/2021 10:35 AM EST documented as of this encounter Plan of Treatment Not on file documented as of this encounter Visit Diagnoses Not on filedocumented in this encounter Care Teams Immigration Manager Relationship Specialty Start Date End Date Janine Villeda MD [address] [place] [address] [phone] PCP - General Internal Medicine 05/14/20 Halle Pierson MD [address] [phone] Surgeon Neurosurgery 12/29/21 Rashi Antoine PA-C [address] [id number] Specialist Neurosurgery 12/29/21 Indy Senior PA-C [address] [phone] Specialist Neurosurgery 12/29/21 documented as of this encounter
--- OUTSIDE RECORDS SUMMARY | 2025-03-21 13:45 | XMS_ITS | Encounter Summary ---
Author Organization [facility] Address [address] [place] [address] Care Team Providers Care Paper Feeder Name Role Phone Rashi Grigsby MD Primary [...] Primary Care Provider Halle Pierson MD Unavailable [phone] Rashi Antoine PA-C Unavailable [phone] Indy Senior PA-C Unavailable [phone] Reason for Visit * Reason Onset Date Comments asthma 08/29/2014 Encounter Details Date Type Department Care Team Description 08/29/2014 Telephone Adult Medicine [address] [address] Rashi Grigsby MD asthma Social History Tobacco Use Types Packs/Day Years [...] encounter Miscellaneous Notes * Telephone Encounter - Jaida Monk R.N. - 08/29/2014 10:14 AM EDT CAll from patient, She is c/o wheezing, headache , fever, labored breathing since she had flu vac on 08/13/14. She has hx asthma, states inhalers not working.Appt scheduled for this morning with Debbie Giron * Telephone Encounter - Jeannette Lobo - 08/29/2014 10:12 AM EDT [place]OLA: Effective 08/14/14 If patient complains of a temperature greater than 101.5 ask if they have traveled to [place], [place], [place] or [place] or been in contact with anyone who has. Document responses in this message and send to triage. Symptoms patient is presenting: Asthma, labored breathing (4 days) inhaler not working, difficulty swallowing, sore throat, fever How long has patient had these symptoms?: 2 weeks PCP: Rashi Grigsby Payor: REPLACED BY [facility] / Plan: [facility] TYPE II $10/$18 [place] [id number] / Product Type: HMO [id number]nx[employer]um[employer] documented in this encounter Plan of Treatment Not on file documented as of this encounter Visit Diagnoses Not on filedocumented in this encounter Care Teams Paper Feeder Relationship Specialty Start Date End Date Rashi [...] Internal Medicine 04/06/19 05/13/20 Janine Villeda MD [address] [place] [address] PCP - General Internal Medicine 05/14/20 Halle Pierson MD [address] [phone] Surgeon Neurosurgery 12/29/21 Rashi Antoine PA-C [address] [phone] Specialist Neurosurgery 12/29/21 Indy Senior PA-C [address] [address] Specialist Neurosurgery 12/29/21 documented as of this encounter
--- OUTSIDE RECORDS SUMMARY | 2025-03-21 13:45 | XMS_ITS | Encounter Summary ---
Author Organization [facility] Address [address] [place] [address] Care Team Providers Care Steam And Power Superintendent Name Role Phone Rashi Grigsby MD Primary Care Provider Unavail able Janine Villeda MD Primary Care Provider Halle Pierson MD Unavailable [phone] Rashi Antoine PA-C Unavailable Indy Senior PA-C Unavailable [phone] Encounter Details Date Type Department Care Team Description 03/13/2020 Release of Information Medical Records [address] [place] [address] Abstract, Provider Social History Tobacco Use Types [...] on filedocumented in this encounter Care Teams Steam And Power Superintendent Relationship Specialty Start Date End Date Rashi Grigsby MD PCP - General Internal Medicine 04/06/19 05/13/20 Janine Villeda MD [address] [place] [address] [phone] PCP - General Internal Medicine 05/14/20 Halle Pierson MD 175 [facility] [address] [place] [address] Surgeon Neurosurgery 12/29/21 Rashi Antoine PA-C 175 [facility] [address] [place] [address] Specialist Neurosurgery 12/29/21 Indy Senior PA-C 175 [facility] [address] [place] [phone] Specialist Neurosurgery 12/29/21 documented as of this encounter
--- OUTSIDE RECORDS SUMMARY | 2025-03-21 13:45 | XMS_ITS | Encounter Summary ---
Author Organization [facility] Address [address] [place] [address] Care Team Providers Care Sales Representative Meats Name Role Phone Janine Villeda MD Primary Care Provider [phone] Halle Pierson MD Unavailable [phone] Rashi Antoine PA-C Unavailable [phone] Indy Senior PA-C Unavailable [phone] Reason for Visit * Reason Onset Date Comments REFERRAL 02/18/2022 Encounter Details Date Type Department Care Team Description 02/18/2022 Telephone Adult Medicine [address] [address] Dora Martinez PA-C REFERRAL Social History Tobacco Use Types Packs/Day Years [...] Exposure Response Date Recorded In the last 10 days, have yo u been in contact with someone who was confirmed or suspected to have Coronavirus/COVID-19? No / Unsure 02/05/2022 1:58 PM EDT documented as of this encounter Miscellaneous Notes * Telephone Encounter - Neha Medina M.A. - 02/22/2022 1:35 PM EDT Patient called back all information from Dr Osorio's office was given to the patient. * Telephone Encounter - Neha Medina M.A. - 02/22/2022 12:59 PM EDT Left voice message for patient to call me back, so I can relay the message from Dora Murillo and give the patient Dr Keller's number. * Telephone Encounter - Dora Martinez PA-C - 02/22/2022 11:[address] Osorio. * Telephone Encounter - Neha Medina M.A. - 02/22/2022 11:00 AM EDT Ani John In your last message you stated that the patient should contact Dr Osorio's office ([facility] But the referral that was generated on February 05 2022 is for [facility] [place]. Which office do you want the patient to go? * Telephone Encounter - Dora Martinez PA-C - 02/18/2022 4:45 PM EDT There is nothing else I can offer her. She is allergic to prednisone and could not tolerate the hydrozyzine.She is allergic to everything else. She can keep taking the claritin. Please have her call Dr. Osorio's office in [place]. Please give her the number * Telephone Encounter - Delma Reyes R.N. - 02/18/2022 3:04 PM EDT Please see message and advise. * Telephone Encounter - Dayana Henry - 02/18/2022 2:14 PM EDT Caller requesting call back from provider: Dora Martinez Is the caller the patient? YES If caller is not the patient, what is the callers name? N/A Callers relationship to patient? N/A If person calling is not the patient themselves, is there a verbal release in FYI or permanent comments for this person: NO Reason for call back: Pt calling stating she was referred to an cracker dough mixer by Dora Martinez re: diffuse pruritus and rash following cortisone injection 3 weeks ago and they are unable to see her until June and pt has been trying OTC medication to help her with itchiness and nothing is working and driving her crazy, pt requests call back from Dora Martinez or her nurse on her home tel# as to what she can do in the meantime. Caller offered to speak with the nurse for assistance: YES Response: Patient offered to speak with nurse for assistance and patient agreed. Message forwarded to nurse. documented in this encounter Plan of Treatment Not on file documented as of this encounter Visit Diagnoses Not on filedocumented in this encounter Care Teams Sales Representative Meats Relationship Specialty Start Date End Date Janine Villeda MD [address] [place] [address] PCP - General Internal Medicine 05/14/20 Halle Pierson MD [address] [address] Surgeon Neurosurgery 12/29/21 Rashi Antoine PA-C [address] [address] Specialist Neurosurgery 12/29/21 Indy Senior PA-C [address] [address] Specialist Neurosurgery 12/29/21 documented as of this encounter
--- OUTSIDE RECORDS SUMMARY | 2025-03-21 13:45 | XMS_ITS | Encounter Summary ---
Author Organization [facility] Address [address] [place] [address] Care Team Providers Care Geomatics Professor Name Role Phone Janine Villeda MD Primary Care Provider [phone] Halle Pierson MD Unavailable [phone] Rahsi Antoine PA-C Unavailable [phone] Indy Senior PA-C Unavailable [phone] Encounter Details Date Type Department Care Team Description 06/09/2020 Orders Only Adult Medicine [address] [phone] Dora Martinez PA-C Social History Tobacco Use Types Packs/Day Years [...] on filedocumented in this encounter Care Teams Geomatics Professor Relationship Specialty Start Date End Date Janine Villeda MD [address] [place] [address] [phone] PCP - General Internal Medicine 05/14/20 Halle Pierson MD [address] [address] Surgeon Neurosurgery 12/29/21 Rashi Antoine PA-C 175 [facility] [address] [place] [address] Specialist Neurosurgery 12/29/21 Indy Senior PA-C 175 [facility] [address] [place] [address] Specialist Neurosurgery 12/29/21 documented as of this encounter
--- OUTSIDE RECORDS SUMMARY | 2025-03-21 13:45 | XMS_ITS | Encounter Summary ---
Author Organization [facility] Address [address] [place] [address] Care Team Providers Care Gear Straightener Name Role Phone Janine Villeda MD Primary Care Provider Halle Pierson MD Unavailable [phone] Rashi Antoine PA-C Unavailable Indy Senior PA-C Unavailable Reason for Visit * Reason Comments E-prescribe Rx Request Encounter Details Date Type Department Care Team Description 03/25/2023 Refill Adult Medicine [address] [address] Alanna Adame PA [address] [place] [address] E-prescribe Rx Request Social History Tobacco Use Types Packs/Day Years [...] suspected to have Coronavirus/COVID-19? No / Unsure 03/16/2023 9:23 AM EDT documented as of this encounter Miscellaneous Notes * Telephone Encounter - Walt Murphy 03/25/2023 4:38 PM EDT Last ov 03/16/2023 next ov 05/23/2023 Lab Results Component Value Date NA 142 03/07/2023 K 4.0 03/07/2023 CO2 29 03/07/2023 CL 106 03/07/2023 BUN 17 03/07/2023 CREAT 0.70 03/07/2023 GLU 102 03/07/2023 CA 9.8 03/07/2023 GFR 97 03/07/2023 * Telephone Encounter - Gisselle Blair - 03/25/2023 11:24 AM EDT Patient would like script to be: E-PRESCRIBED/FAXED TO PHARMACY WHEN WAS THE PATIENT'S LAST APPOINTMENT IN ADULT MEDICINE? 03/16/23 WHEN WAS THE LAST TIME THE PATIENT SAW THEIR PCP? Same as above Does patient have an upcoming appointment? Yes 05/23/23 (THE MEDICATION REQUESTED IS ON THE MED LIST ABOVE) All of the medications requested were on the CURRENT MEDS list Did you check the Pharmacy information above?: YES Patient wants: 90 -day supply Is this a mail order prescription request ? NO If the refill is from a FAXED refill request what is the RX # listed on the fax? N/A Patients current insurance carrier is: Payor: [facility] FFS / Plan: [facility] / Product Type: MEDICAID RISK documented in this encounter Plan of Treatment Not on file documented as of this encounter Visit Diagnoses Not on filedocumented in this encounter Care Teams Gear Straightener Relationship Specialty Start Date End Date Janine Villeda MD [address] [place] [address] PCP - General Internal Medicine 05/14/20 Halle Pierson MD [address] [address] Surgeon Neurosurgery 12/29/21 Rashi Antoine PA-C [address] [address] Specialist Neurosurgery 12/29/21 Indy Senior PA-C [address] [address] Specialist Neurosurgery 12/29/21 documented as of this encounter
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
--- OUTSIDE RECORDS SUMMARY | 2025-03-21 13:45 | XMS_ITS | Encounter Summary ---
Author Organization [facility] Address [address] [place] [address] Care Team Providers Care Superintendent [employer] Name Role Phone Rashi Grigsby MD Primary Care Provider Unavail able Felipa Felix Primary Care Provider Unavailab Rashi Seay MD Primary Care Provider Unavail able Eliezer Wagner MD Primary Care Provider UnavailRashi Wolfe MD Primary Care Provider Unavail able Eliezer Wagner MD Primary Care Provider Unavaila Rashi Zarate MD Primary Care Provider Unavail able Janine Villeda MD Primary Care Provider [phone] Halle Pierson MD Unavailable [phone] Rashi Antoine PA-C Unavailable [phone] Indy Senior PA-C Unavailable [phone] Encounter Details Date Type Department Care Team Description 11/07/2012 Hospital Medical Records [address] [place] [id number] Naveed Lemus Social History Tobacco Use Types Packs/Day Years [...] on filedocumented in this encounter Care Teams Superintendent [employer] Relationship Specialty Start Date End Date Rashi [...] Internal Medicine 04/06/19 05/13/20 Janine Villeda MD [address] [place] [address] PCP - General Internal Medicine 05/14/20 Halle Pierson MD [address] [address] Surgeon Neurosurgery 12/29/21 Rashi Antoine PA-C 175 [facility] [address] [place] [address] Specialist Neurosurgery 12/29/21 Indy Senior PA-C [address] [address] Specialist Neurosurgery 12/29/21 documented as of this encounter
--- OUTSIDE RECORDS SUMMARY | 2025-03-21 13:45 | XMS_ITS | Encounter Summary ---
Author Organization [facility] Address [address] [place] [address] Care Team Providers Care Courtroom Clerk Name Role Phone Rashi Grigsby MD Primary Care Provider Unavail able Eliezer Wagner MD Primary Care Provider UnavailRashi Wolfe MD Primary Care Provider Unavail able Eliezer Wagner MD Primary Care Provider Unavaila Rashi Zarate MD Primary Care Provider Unavail able Janine Villeda MD Primary Care Provider [phone] Halle Pierson MD Unavailable [phone] Rashi Antoine PA-C Unavailable [phone] Indy Senior PA-C Unavailable [phone] Encounter Details Date Type Department Care Team Description 08/04/2017 Seismograph Observer Report Medical Records [address] [place] [id number] Holland Arias MD Social History Tobacco Use [...] on filedocumented in this encounter Care Teams Courtroom Clerk Relationship Specialty Start Date End Date Rashi Grigsby MD PCP - General Internal Medicine 01/13/15 11/29/18 Eliezer Wagner MD PCP - General Pediatrics 11/30/18 03/25/19 Rashi Grigsby MD PCP - General Internal Medicine 03/26/19 03/28/19 Eliezer Wagner MD PCP - General Pediatrics 03/29/19 04/05/19 Rashi Grigsby MD PCP - General Internal Medicine 04/06/19 05/13/20 Janine Villeda MD [address] [place] [address] PCP - General Internal Medicine 05/14/20 Halle Pierson MD [address] [address] Surgeon Neurosurgery 12/29/21 Rashi Antoine PA-C [address] [address] Specialist Neurosurgery 12/29/21 Indy Senior PA-C [address] [address] Specialist Neurosurgery 12/29/21 documented as of this encounter
--- OUTSIDE RECORDS SUMMARY | 2025-03-21 13:45 | XMS_ITS | Encounter Summary ---
Author Organization [facility] Address [address] [place] [address] Care Team Providers Care Assistant Product Manager Name Role Phone Janine Villeda MD Primary Care Provider [phone] Halle Pierson MD Unavailable [phone] Rashi Antoine PA-C Unavailable Indy Senior PA-C Unavailable Encounter Details Date Type Department Care Team Description 01/18/2022 [facility] Neurosurgery [place] [address] [phone] Indy Senior PA-C [address] [phone] Social History Tobacco Use Types Packs/Day Years [...] on filedocumented in this encounter Care Teams Assistant Product Manager Relationship Specialty Start Date End Date Janine Villeda MD [address] [place] [address] PCP - General Internal Medicine 05/14/20 Halle Pierson MD [address] [address] Surgeon Neurosurgery 12/29/21 Rashi Antoine PA-C [address] [address] Specialist Neurosurgery 12/29/21 Indy Senior PA-C [address] [address] Specialist Neurosurgery 12/29/21 documented as of this encounter
--- OUTSIDE RECORDS SUMMARY | 2025-03-21 13:45 | XMS_ITS | Encounter Summary ---
Author Organization [facility] Address [address] [place] [address] Care Team Providers Care Pan Tank Worker Name Role Phone Rashi Grigsby MD Primary Care Provider Unavail able Eliezer Wagner MD Primary Care Provider UnavailRashi Wolfe MD Primary Care Provider Unavail able Eliezer Wagner MD Primary Care Provider Unavaila Rashi Zarate MD Primary Care Provider Unavail able Janine Villeda MD Primary Care Provider [phone] Halle Pierson MD Unavailable [phone] Rashi Antoine PA-C Unavailable [phone] Indy Senior PA-C Unavailable [phone] Reason for Visit * Reason Onset Date Comments dedra 02/17/2015 Encounter Details Date Type Department Care Team Description 02/17/2015 Telephone Adult Medicine [address] [address] Rashi Grigsby MD hives Social History Tobacco Use Types Packs/Day Years [...] encounter Miscellaneous Notes * Telephone Encounter - Nilam Duenas M.A. - 02/20/2015 8:38 AM EDT When pt calls back please schedule with any provider. Thank you * Telephone Encounter - Rashi Grigsby MD - 02/19/2015 5:11 PM EDT Message left for patient, unable to reach patient. It would be reasonable to call patient and schedule patient with an available provider. Please call patient. * Telephone Encounter - Rashi Grigsby MD - 02/18/2015 5:25 PM EDT Message left. * Telephone Encounter - Susanna Baumann - 02/18/2015 3:01 PM EDT Patient is returning a call, asked if she can get a call back before 6:00. * Telephone Encounter - Rashi Grigsby MD - 02/17/2015 5:27 PM EDT Message left. * Telephone Encounter - Rashi Grigsby MD - 02/17/2015 3:24 PM EDT Message left. * Telephone Encounter - Talib Holman L.P.NAdriana - 02/17/2015 2:16 PM EDT Patient reports her Singular pill is now a different follow it used to be off white now it is blue She did check with the pharmacist He told her it was the same medication just a different color She states she takes it a HS and about 1 hour later breaks out with very itchy hives and don't leave until the morning She would like another medication called to pharmacy * Telephone Encounter - Mine Laguna - 02/17/2015 1:27 PM EDT Caller requesting call back from provider: Rashi Grigsby Is the caller the patient? YES If caller is not the patient, what is the callers name? Callers relationship to patient? If person calling is not the patient themselves, is there a verbal release in FYI or permanent comments for this person: Reason for call back: She takes singular at night and every time about 2 hours later she gets hiveson her hands mostly extremely itchy, she stopped taking this because of it Caller offered to speak with the nurse for assistance: YES Response: Patient offered to speak with nurse for assistance and patient agreed. Message forwarded to nurse. documented in this encounter Plan of Treatment Not on file documented as of this encounter Visit Diagnoses Not on filedocumented in this encounter Care Teams Pan Tank Worker Relationship Specialty Start Date End Date Rasih Grigsby MD PCP - General Internal Medicine 01/13/15 11/29/18 Eliezer Wagner MD PCP - General Pediatrics 11/30/18 03/25/19 Rashi Grigsby MD PCP - General Internal Medicine 03/26/19 03/28/19 Eliezer Wagner MD PCP - General Pediatrics 03/29/19 04/05/19 Rashi Grigsby MD PCP - General Internal Medicine 04/06/19 05/13/20 Janine Villeda MD [address] [place] [address] PCP - General Internal Medicine 05/14/20 Halle Pierson MD [address] [address] Surgeon Neurosurgery 12/29/21 Rashi Antoine PA-C [address] [address] Specialist Neurosurgery 12/29/21 Indy Senior PA-C [address] [place] [address] Specialist Neurosurgery 12/29/21 documented as of this encounter
--- OUTSIDE RECORDS SUMMARY | 2025-03-21 13:45 | XMS_ITS | Encounter Summary ---
Author Organization [facility] Address [address] [place] [address] Care Team Providers Care Rest Room Matron Name Role Phone Rashi Grigsby MD Primary Care Provider Unavail able Eliezer Wagner MD Primary Care Provider UnavailRashi Wolfe MD Primary Care Provider Unavail able Eliezer Wagner MD Primary Care Provider Unavaila Rashi Zarate MD Primary Care Provider Unavail able Janine Villeda MD Primary Care Provider [phone] Halle Pierson MD Unavailable [phone] Rashi Antoine PA-C Unavailable [phone] Indy Senoir PA-C Unavailable [phone] Reason for Visit * Reason Comments E-prescribe Rx Request Encounter Details Date Type Department Care Team Description 10/03/2017 Refill Adult Medicine [address] [address] Josee Herrera NP E-prescribe Rx Request Social History Tobacco Use [...] encounter Miscellaneous Notes * Telephone Encounter - Rashi Grigsby MD - 10/04/2017 12:33 PM EST Patient allergic. * Telephone Encounter - Aleah Pugh - 10/03/2017 5:21 PM EST Patient would like script to be: E-PRESCRIBED/FAXED TO PHARMACY WHEN WAS THE PATIENT'S LAST APPOINTMENT IN ADULT MEDICINE? 06/23/17 WHEN WAS THE LAST TIME THE PATIENT SAW THEIR PCP? 02/10/17 Does patient have an upcoming appointment? Yes 12/29/17 (THE MEDICATION REQUESTED IS ON THE MED LIST ABOVE) All of the medications requested were on the CURRENT MEDS list Did you check the Pharmacy information above?: YES Patient wants: 30 -day supply Is this a mail order prescription request ? NO Patients current insurance carrier is: Payor: [facility] MEDICAID / Plan: [facility] MEDICAID [facility] $0 SALAS / Product Type: HMO [id number] documented in this encounter Plan of Treatment Not on file documented as of this encounter Visit Diagnoses Not on filedocumented in this encounter Care Teams Rest Room Matron Relationship Specialty Start Date End Date Rashi Grigsby MD PCP - General Internal Medicine 01/13/15 11/29/18 Eliezer Wagner MD PCP - General Pediatrics 11/30/18 03/25/19 Rashi Grigsby MD PCP - General Internal Medicine 03/26/19 03/28/19 Eliezer Wagner MD PCP - General Pediatrics 03/29/19 04/05/19 Rashi Grigsby MD PCP - General Internal Medicine 04/06/19 05/13/20 Janine Villeda MD [address] [place] [address] PCP - General Internal Medicine 05/14/20 Halle Pierson MD 175 [facility] [address] [place] [id number] Surgeon Neurosurgery 12/29/21 Rashi Antoine PA-C [address] [id number] Specialist Neurosurgery 12/29/21 Indy Senior PA-C [address] [id number] Specialist Neurosurgery 12/29/21 documented as of this encounter
--- OUTSIDE RECORDS SUMMARY | 2025-03-21 13:45 | XMS_ITS | Encounter Summary ---
Author Organization [facility] Address [address] [place] [address] Care Team Providers Care Client Experience Specialist Name Role Phone Janine Villeda MD Primary Care Provider [phone] Halle Pierson MD Unavailable [phone] Rashi Antoine PA-C Unavailable [phone] Indy Senior PA-C Unavailable [phone] Encounter Details Date Type Department Care Team Description 01/18/2021 Hospital Medical Records [address] [place] [address] Gagandeep Tatum Social History Tobacco Use Types Packs/Day Years [...] on filedocumented in this encounter Care Teams Client Experience Specialist Relationship Specialty Start Date End Date Janine Villeda MD [address] [place] [id number] PCP - General Internal Medicine 05/14/20 Halle Pierson MD [address] [phone] Surgeon Neurosurgery 12/29/21 Rashi Antoine PA-C [address] [phone] Specialist Neurosurgery 12/29/21 Indy Senior PA-C [address] [id number] Specialist Neurosurgery 12/29/21 documented as of this encounter
--- OUTSIDE RECORDS SUMMARY | 2025-03-21 13:45 | XMS_ITS | Encounter Summary ---
Author Organization [facility] Address [address] [place] [address] Care Team Providers Care Patient Relations Manager Name Role Phone Rashi Grigsby MD Primary [...] Primary Care Provider Halle Pierson MD Unavailable [phone] Rashi Antoine PA-C Unavailable [phone] Indy Senior PA-C Unavailable [phone] Encounter Details Date Type Department Care Team Description 10/05/2013 Fire Patrol Report Medical Records [address] [place] [address] [facility] Social History Tobacco Use Types [...] on filedocumented in this encounter Care Teams Patient Relations Manager Relationship Specialty Start Date End Date Rashi [...] Internal Medicine 04/06/19 05/13/20 Janine Villeda MD [address] [place] [address] PCP - General Internal Medicine 05/14/20 Halle Pierson MD [address] [address] Surgeon Neurosurgery 12/29/21 Rashi Antoine PA-C [address] [address] Specialist Neurosurgery 12/29/21 Indy Senior PA-C [address] [address] Specialist Neurosurgery 12/29/21 documented as of this encounter
--- OUTSIDE RECORDS SUMMARY | 2025-03-21 13:45 | XMS_ITS | Encounter Summary ---
Author Organization [facility] Address [address] [place] [address] Care Team Providers Care Combined Rail Operator Name Role Phone Janine Villeda MD Primary Care Provider Halle Pierson MD Unavailable [phone] Rashi Antoine PA-C Unavailable Indy Senior PA-C Unavailable Encounter Details Date Type Department Care Team Description 01/27/2022 SCAN [facility] Medical [facility] Neurosurgery [place] [address] [phone] Indy Senior PA-C [address] [phone] Social History Tobacco Use Types Packs/Day Years [...] on filedocumented in this encounter Care Teams Combined Rail Operator Relationship Specialty Start Date End Date Janine Villeda MD [address] [place] [address] PCP - General Internal Medicine 05/14/20 Halle Pierson MD [address] [address] Surgeon Neurosurgery 12/29/21 Rashi Antoine PA-C [address] [address] Specialist Neurosurgery 12/29/21 Indy Senior PA-C [address] [address] Specialist Neurosurgery 12/29/21 documented as of this encounter
--- OUTSIDE RECORDS SUMMARY | 2025-03-21 13:45 | XMS_ITS | Encounter Summary ---
Author Organization [facility] Address [address] [place] [address] Care Team Providers Care Tax Compliance Representative Name Role Phone Rashi Grigsby MD Primary Care Provider Unavail able Eliezer Wagner MD Primary Care Provider UnavailRashi Wolfe MD Primary Care Provider Unavail able Eliezer Wagner MD Primary Care Provider Unavaila Rashi Zarate MD Primary Care Provider Unavail able Janine Villeda MD Primary Care Provider [phone] Halle Pierson MD Unavailable [phone] Rashi Antoine PA-C Unavailable [phone] Indy Senior PA-C Unavailable [phone] Encounter Details Date Type Department Care Team Description 12/22/2017 Hospital Medical Records [address] [place] [address] Jaspreet Phoenix MD Social History Tobacco Use Types Packs/Day [...] on filedocumented in this encounter Care Teams Tax Compliance Representative Relationship Specialty Start Date End Date Rashi Grigsby MD PCP - General Internal Medicine 01/13/15 11/29/18 Eliezer Wagner MD PCP - General Pediatrics 11/30/18 03/25/19 Rashi Grigsby MD PCP - General Internal Medicine 03/26/19 03/28/19 Eliezer Wagner MD PCP - General Pediatrics 03/29/19 04/05/19 Rashi Grigsby MD PCP - General Internal Medicine 04/06/19 05/13/20 Janine Villeda MD [address] [place] [address] PCP - General Internal Medicine 05/14/20 Halle Pierson MD [address] [address] Surgeon Neurosurgery 12/29/21 Rashi Antoine PA-C [address] [address] Specialist Neurosurgery 12/29/21 Indy Senior PA-C [address] [address] Specialist Neurosurgery 12/29/21 documented as of this encounter
--- OUTSIDE RECORDS SUMMARY | 2025-03-21 13:45 | XMS_ITS | Encounter Summary ---
Author Organization [facility] Address [address] [place] [address] Care Team Providers Care Plastics Fabricator Or Welder Name Role Phone Rashi Grigsby MD Primary Care Provider Unavail able Felipa Felix Primary Care Provider Unavailab Rashi Seay MD Primary Care Provider Unavail able Eliezer Wagner MD Primary Care Provider UnavailRashi Wolfe MD Primary Care Provider Unavail able Eliezer Wagner MD Primary Care Provider Unavaila Rashi Zarate MD Primary Care Provider Unavail able Janine Villeda MD Primary Care Provider [phone] Halle Pierson MD Unavailable [phone] Rashi Antoine PA-C Unavailable [phone] Indy Senior PA-C Unavailable [phone] Encounter Details Date Type Department Care Team Description 05/14/2009 Hospital Medical Records [address] [place] [address] Tori Gruber [address] [place] [address] Social History Tobacco Use Types Packs/Day Years [...] on filedocumented in this encounter Care Teams Plastics Fabricator Or Welder Relationship Specialty Start Date End Date Rashi [...] Internal Medicine 04/06/19 05/13/20 Janine Villeda MD [address] [place] [address] PCP - General Internal Medicine 05/14/20 Halle Pierson MD [address] [address] Surgeon Neurosurgery 12/29/21 Rashi Antoine PA-C [address] [address] Specialist Neurosurgery 12/29/21 Indy Senior PA-C [address] [address] Specialist Neurosurgery 12/29/21 documented as of this encounter
--- OUTSIDE RECORDS SUMMARY | 2025-03-21 13:45 | XMS_ITS | Encounter Summary ---
Author Organization [facility] Address [address] [place] [address] Care Team Providers Care Hospital Technician Name Role Phone Rashi Grigsby MD Primary Care Provider Unavail able Eliezer Wagner MD Primary Care Provider UnavailRashi Wolfe MD Primary Care Provider Unavail able Eliezer Wagner MD Primary Care Provider Unavaila Rashi Zarate MD Primary Care Provider Unavail able Janine Villeda MD Primary Care Provider [phone] Halle Pierson MD Unavailable [phone] Rashi Antoine PA-C Unavailable [phone] Indy Senior PA-C Unavailable [phone] Encounter Details Date Type Department Care Team Description 11/24/2017 Orders Only Adult Medicine [address] [address] Rashi Grigsby MD Preoperative examination; Screening for deficiency anemia Social History Tobacco Use Types Packs/Day Years [...] on file documented as of this encounter Results * (ABNORMAL) BASIC METABOLIC PANEL (12/02/2017 11:15 AM EST) GLUCOSE 141(H) 70 - 100 mg/dL 12/02/2017 1:13 PM [facility] Comment: Reference range applicable to fasting specimens only Based on recommendations from the ADA and AACE, the fasting glucose reference range has been changed to 70-100 mg/dL. ??This change is effective March 23, 2010 BUN 9 5 - 25 mg/dL 12/02/2017 1:13 PM [facility] CREAT 0.7 0.7 - 1.5 mg/dL 12/02/2017 1:13 PM [facility] GFR > 60 >60 12/02/2017 1:13 PM [facility] Comment: If patient is -E[place]ian, multiply result by 1.21 Chronic Kidney Disease: < 60 ml/min/1.73 square meters Kidney Failure: < 15 ml/min/1.73 square meters Sodium 145 133 - 145 mEq/L 12/02/2017 1:13 PM [facility] Potassium 3.8 3.5 - 5.5 mEq/L 12/02/2017 1:13 PM [facility] Chloride 107 96 - 108 mEq/L 12/02/2017 1:13 PM [facility] CO2 24.3 21.0 - 32.0 mEq/L 12/02/2017 1:13 PM [facility] CALCIUM 9.7 8.5 - 10.5 mg/dL 12/02/2017 1:13 PM [facility] 12/02/2017 11:1 5 AM EST 12/02/2017 11:16 AM EST Rashi Grigsby MD LAB [facility] [address] [facility] * (ABNORMAL) CBC (AUTO DIFF PLATELET) (12/02/2017 11:15 AM EST) WBC 6.5 4.8 - 10.8 x10-3 12/02/2017 11:55 AM EST [facility] RBC 4.2 3.8 - 4.8 x10-6 12/02/2017 11:55 AM [facility] HGB 12.7 11.5 - 16.0 g/dl 12/02/2017 11:55 AM EST [facility] HCT 39.1 35 - 47 % 12/02/2017 11:55 AM EST [facility] MCV 93.1 79 - 98 fl 12/02/2017 11:55 AM EST [facility] MCH 30.2 27 - 32 pg 12/02/2017 11:55 AM EST [facility] MCHC 32.5 32 - 37 g/dl 12/02/2017 11:55 AM EST [facility] RDW 14.1 11 - 15 % 12/02/2017 11:55 AM EST [facility] PLT COUNT 305 130 - 400 x10-3 12/02/2017 11:55 AM EST [facility] MEAN PLATELET VOLUME 10.3 7 - 11 fl 12/02/2017 11:55 AM EST [facility] NEUT % 37.7(L) 41 - 85 % 12/02/2017 11:55 AM EST [facility] LYMPH % 48.9(H) 15 - 48 % 12/02/2017 11:55 AM EST [facility] MONO % 8.6 0 - 12 % 12/02/2017 11:55 AM EST [facility] EOS % 4.2 0 - 5 % 12/02/2017 11:55 AM EST [facility] BASO % 0.6 0 - 2 % 12/02/2017 11:55 AM EST [facility] 12/02/2017 11:1 5 AM EST 12/02/2017 11:16 AM EST Rashi Grigsby MD LAB Performing Organization Address City/State/[facility] Co de Phone Number [facility] [address] [facility] documented in this encounter Visit Diagnoses Diagnosis Preoperative examination Preoperative examination, unspecified Screening for deficiency anemia Screening for other and unspecified deficiency anemia documented in this encounter Care Teams Hospital Technician Relationship Specialty Start Date End Date Rashi Grigsby MD PCP - General Internal Medicine 01/13/15 11/29/18 Eliezer Wagner MD PCP - General Pediatrics 11/30/18 03/25/19 Rashi Grigsby MD PCP - General Internal Medicine 03/26/19 03/28/19 Eliezer Wagner MD PCP - General Pediatrics 03/29/19 04/05/19 Rashi Grigsby MD PCP - General Internal Medicine 04/06/19 05/13/20 Janine Villeda MD [address] [place] [address] PCP - General Internal Medicine 05/14/20 Halle Pierson MD [address] [address] Surgeon Neurosurgery 12/29/21 Rashi Antoine PA-C [address] [address] Specialist Neurosurgery 12/29/21 Indy Senior PA-C [address] [address] Specialist Neurosurgery 12/29/21 documented as of this encounter
--- OUTSIDE RECORDS SUMMARY | 2025-03-21 13:45 | XMS_ITS | Encounter Summary ---
Author Organization [facility] Address [address] [place] [address] Care Team Providers Care Comfort Station Supervisor Name Role Phone Rashi Grigsby MD Primary Care Provider Unavail able Eliezer Wagner MD Primary Care Provider UnavailRashi Wolfe MD Primary Care Provider Unavail able Eliezer Wagner MD Primary Care Provider Unavaila Rashi Zarate MD Primary Care Provider Unavail able Janine Villeda MD Primary Care Provider [phone] Halle Pierson MD Unavailable [phone] Rashi Antoine PA-C Unavailable [phone] Indy Senior PA-C Unavailable [phone] Encounter Details Date Type Department Care Team Description 12/03/2016 Entry Level Drafter Report Medical Records [address] [place] [address] Mati Botello Social History Tobacco Use Types [...] on filedocumented in this encounter Care Teams Comfort Station Supervisor Relationship Specialty Start Date End Date Rashi Grigsby MD PCP - General Internal Medicine 01/13/15 11/29/18 Eliezer Wagner MD PCP - General Pediatrics 11/30/18 03/25/19 Rashi Grigsby MD PCP - General Internal Medicine 03/26/19 03/28/19 Eliezer Wagner MD PCP - General Pediatrics 03/29/19 04/05/19 Rashi Grigsby MD PCP - General Internal Medicine 04/06/19 05/13/20 Janine Villeda MD [address] [place] [address] PCP - General Internal Medicine 05/14/20 Halle Pierson MD [address] [address] Surgeon Neurosurgery 12/29/21 Rashi Antoine PA-C [address] [address] Specialist Neurosurgery 12/29/21 Indy Senior PA-C [address] [address] Specialist Neurosurgery 12/29/21 documented as of this encounter
== END 2025-03-21 13:51 | disposition home or self-care (01) ==
LOC: HO.HPS 13:10
PROVIDERS: PCP Internal Medicine; Visit Provider Hospitalist
DX: G47.10 Hypersomnia, unspecified (principal); G47.30 Sleep apnea, unspecified; J45.41 Moderate persistent asthma with (acute) exacerbation; J18.0 Bronchopneumonia, unspecified organism
CPT/HCPCS: 99214; G2211

== ENCOUNTER → 2025-03-21 13:09 | Outpatient (BNVA) | payer MEDICARE, OTHER, SELFPAY | PROVIDERS: PCP Internal Medicine; Visit Provider Hospitalist | DX: J44.9 Chronic obstructive pulmonary disease, unspecified (principal); J45.41 Moderate persistent asthma with (acute) exacerbation; J18.0 Bronchopneumonia, unspecified organism; G47.33 Obstructive sleep apnea (adult) (pediatric); G47.10 Hypersomnia, unspecified; Z99.89 Dependence on other enabling machines and devices; Z79.899 Other long term (current) drug therapy | CPT/HCPCS: 99212 ==

== ENCOUNTER 2025-08-02 10:47 | Outpatient (AMB) | payer MEDICARE, MEDICAID, SELFPAY ==
--- NOTE | 2025-08-02 11:09 | A.OFFVIS_ITS ---
Vital Signs 08/02/25 11:10 Height 4 ft 9 in Weight 179 lb 10.828 oz BMI 38.9 BP 150/64 H Blood Pressure Location Lt brachial Position Sitting Pulse 105 H Pulse Source Pulse Oximeter Pulse Oximetry (%) 98 Oxygen Delivery Method Room Air Intake Visit Reasons: COPD Estimator Jewelry Required: No Allergies acetaminophen (Percocet) Allergy (Severe, Verified 08/02/25 11:12) Rash and Hives amlodipine Allergy (Severe, Verified 08/02/25 11:12) Rash and Hives aspirin Allergy (Severe, Verified 08/02/25 11:12) Rash and Hives benzonatate Allergy (Severe, Verified 08/02/25 11:12) Rash and Hives fexofenadine Allergy (Severe, Verified 08/02/25 11:12) Rash and Hives hydrocodone Allergy (Severe, Verified 08/02/25 11:12) Rash and Hives hydroxyzine Allergy (Severe, Verified 08/02/25 11:12) Rash and Hives lisinopril Allergy (Severe, Verified 08/02/25 11:12) Rash and Hives lorazepam Allergy (Severe, Verified 08/02/25 11:12) Rash and Hives meperidine (Demerol) Allergy (Severe, Verified 08/02/25 11:12) Rash and Hives morphine Allergy (Severe, Verified 08/02/25 11:12) Rash and Hives naproxen (Aleve) Allergy (Severe, Verified 08/02/25 11:12) Rash and Hives oxycodone (From PERCOCET) Allergy (Severe, Verified 08/02/25 11:12) SWELLING penicillin G Allergy (Severe, Verified 08/02/25 11:12) Rash and Hives Sulfa (Sulfonamide Antibiotics) Allergy (Severe, Verified 08/02/25 11:12) Rash and Hives valsartan Allergy (Severe, Verified 08/02/25 11:12) Rash and Hives codeine (CODEINE) Allergy (Intermediate, Verified 08/02/25 11:12) RASH ibuprofen (From MOTRIN) Allergy (Intermediate, Verified 08/02/25 11:12) RASH montelukast (From SINGULAIR) Allergy (Intermediate, Verified 08/02/25 11:12) HIVES sulfamethoxazole (From BACTRIM) Allergy (Intermediate, Verified 08/02/25 11:12) HIVES tramadol (TRAMADOL) Allergy (Intermediate, Verified 08/02/25 11:12) SWELLING, RASH loratadine (From CLARITIN) Allergy (Mild, Verified 08/02/25 11:12) HIVES ranitidine (From ZANTAC) Allergy (Mild, Verified 08/02/25 11:12) HIVES diphenhydramine (From Tylenol PM) Allergy (Verified 08/02/25 11:12) Swelling fluticasone furoate (From Trelegy Ellipta) Allergy (Verified 08/02/25 11:12) Unknown umeclidinium (From Trelegy Ellipta) Allergy (Verified 08/02/25 11:12) Unknown vilanterol (From Trelegy Ellipta) Allergy (Verified 08/02/25 11:12) Unknown HPI Comments Details: The patient is a 64-year-old woman with known moderate persistent asthma and obstructive sleep apnea on CPAP. pt says the cough is worse at night and she has to take out her emergency inhaler. pt continues to take inhalers as usual. Her cough tends to be dry and worse at night time. Moderate severity. Denies any reflux symptoms. Denies any significant postnasal drip or nasal congestion at this time. In the meantime she has been using the CPAP. The CPAP therapy continues to be effective in beneficial. She does get supplies through [facility]. Will send another prescription to [facility] to make sure that she is getting the proper mask which is the P 10. 11/16/2022 the patient is here for a pulmonary follow-up visit. The patient chandler jeronimo has been doing well. She still have episodes of chest tightness and wheezing. Has been having to use her rescue inhaler more than twice a week. She also continues with her respiratory regimen. Denies any sick contacts. She has been on Breo and also Spiriva. I do believe that she will do better on Trelegy inhaler. I will request that at the pharmacy. Like to maximize her respiratory therapy with the synergistic affect. In addition to that she should continue with her allergy medicine. She continues uses CPAP. CPAP therapy continues to be affecting beneficial. She also benefits from using the gabapentin at nighttime. This has been helpful. She should continue for now. She is also using Provigil in the morning. Will going to see about trying to decrease the dose to 100 once she completes her current prescription. If the patient has complaints of daytime drowsiness with the lower dose she will call and I will resend the higher dose to the pharmacy. I am hopeful that we can try to simplify her medical regimen at this time. 05/17/2023 the patient is here for pulmonary follow-up visit. Recently she did have a brief exacerbation. She did call the office. We did send her prednisone antibiotics and she did recover. She has been having difficulties getting her inhalers. Initially she had a reaction to the Trelegy so she stopped it. She has to get Breo. I do believe that we can send her Symbicort instead as it may be more effective for her. In the meantime she continues uses CPAP at nighttime. CPAP therapy continues to be affecting beneficial. She does use it for more than 4 hours a night. She also is dependent on the modafinil. This has been very effective for her. We are hoping to decrease her dose down to 100 mg but for some reason she is still on 200 mg. Will decrease it during the next visit. 09/26/2023 the patient is here for a pulmonary follow-up visit. the patient is doing well from a respiratory status. She is responding well to the current respiratory regimen. She is been off prednisone since we last spoke. The patient continues on the Symbicort inhaler. This has been affecting beneficial. Has not had to use her rescue inhaler. She continues also on Daliresp. This also has improved her chronic bronchitis. She is been on modafinil now for some time at the 200 mg dose. The patient is is feeling oscar r so it is a good opportunity to try to decrease the medication down to 100 mg. The patient becomes more symptomatic she can always call we can increase it. I did request that she can try for a month to make sure she gives enough time to try to adjust to the lower dose. She is not using her CPAP. She is sleeping with positional therapy on her side. She denies any significant daytime drowsin ess. [place] score is low elevated it over 24. she is working on weight loss. She continues to lose weight and hopefully will consider repeating the sleep study in the near future to make sure that she does not need her CPAP.\ 03/22/2024 the patient is here for a pulmonary follow-up visit. She is struggles with breathing. She has had issues with asthma symptoms and she feels is related to stress. She has been having to use her rescue inhaler more regularly. In addition to that she has been having hard time sleeping. She has been using her CPAP at nighttime. It has been helpful. Although right now she has not getting supplies from the [employer]. She will need another sleep study. She will consider that in the future. Right now her elevated [place] score is at 09/30. She does respond to the Provigil. We did try to decrease it down to the 100 mg dose but she became more symptomatic. Therefore, will go ahead and increase it again to 200 mg dose. The patient also is having significant stress because of her apartment situation. She has a 2 bedroom apartment for her . She does need a separate room because of her significant asthma and sleep apnea. Will provide her a letter to document the necessity. Specially with worsening respiratory symptoms she needs that separate space. 11/10/2023 the patient is here for a sick visit. The patient started developing worsening respiratory symptoms for last week. Krishna of chest tightness she had then taking her inhalers and respiratory therapy to see if she could improve her symptoms. However seem to be getting worse. Moderate severity. She has congested cough but difficult to expectorate. She feels significant chest tightness. She did call we did call in a prescription for prednisone 40 mg that she started yesterday. The patient denies any fevers or chills. Not sure about sick contacts. She has significant wheezing on examination. We did give her Solu-Medrol 125 mg IM x1. She is going to start antibiotics and also continue the prednisone taper. If the patient does not improve she has to call the office. If she worsens she needs to go to the hospital. Meantime she continues use her respiratory therapy as prescribed. 09/13/2024 the patient is here for a pulmonary follow-up visit. The patient overall has been doing okay from a breathing standpoint. The respiratory regimen right now is working well for her. The patient has not required any additional steroids. She also continues to use the Provigil during the daytime this also appears to be working well for her. She is not using her CPAP any longer but she is continuing positional therapy and she is waking up rested which is reassuring. As far as imaging studies she did have a CT scan of the abdomen pelvis which demonstrated normal lung bases. Also had a chest x-ray back in 2022 demonstrating no acute disease. No additional imaging warranted at this time. 02/11/2025 the patient is here for a sick visit. She started developing worsening respiratory symptoms last week. Ultimately had some fevers and chills. Sore throat. Cough. Over the weekend she started developing worsening chest tightness and wheezing. She has been using her nebulizer often. He still coughing difficult to expectorate. Moderate in severity. He has not been able to sleep well. Today on exam she does have significant rhonchi and wheezing bilaterally. No crackles appreciated. The patient may have early pneumonia though. Will go ahead and treat her as if she was having community-acquired pneumonia. Because her significant wheezing she will receive Solu-Medrol today. Then after that she can start of prednisone taper. She will start antibiotics for the lower respiratory infection. She will continue with current respiratory therapy and will provide her with additional nebulized medicine. If he has any worsening symptoms or she is no better in 48 hours she may need to seek additional medical evaluation. 03/21/2025 the patient is here for a pulmonary follow-up visit. Since we last spoke she had a bad respiratory viral infection. We initially treated here in the office but she worsened she went to the ER. She was kept in the hospital for about 5 days. She came out feeling very tired. She continues to have cough and chest congestion. She still feels like her asthma is not controlled. Looking at the results her x-ray was okay. The patient did have a positive enterovirus respiratory viral panel. Will go ahead and maximize her respiratory therapy by switching her Symbicort to Breztri. The patient also needs cough medication. She has multiple allergies though. No additional antibiotics required at this time. Will follow-up in 4 months. If she is not feeling well she can always call for an earlier assessment. 08/02/2025 the patient is here for pulmonary follow-up visit. Overall she is doing better. Respiratory gandara she is stable. She continues use her respiratory inhalers as prescribed. She has not required any prednisone antibiotics. The patient has not required her rescue inhaler. She continues on the Provigil. She does find it helps. She is tolerating it well. Although she does have a history of sleep apnea. She is no longer using her CPAP. She is using positional therapy. I did recommend she have a home sleep study at least to address the question sleep apnea specially with the increased cardiovascular risk factors. She declined getting a sleep study this time. Will discuss it again next year when she comes back. Meantime will continue with the current respiratory therapy. The patient is having issues with radiculopathy. She is getting physical therapy for that. [facility] Medical History Hx of ectopic Multiple pulmonary nodules Kidney stone Microhematuria WADE (nonalcoholic steatohepatitis) Abnormal LFTs (liver function tests) Hypothyroidism Mixed hyperlipidemia Lumbar radiculopathy GERD (gastroesophageal reflux disease) HTN (hypertension) Microalbuminuria Anxiety Diabetes Asthma 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 KEVIN on CPAP COVID-19 Surgical History Hx of endoscopy History of back surgery History of surgical removal of ganglion cyst Hx of bilateral breast reduction surgery History of placement of ear tubes H/O colonoscopy Hx of section History of ankle surgery Social History Household Members: Spouse and Children Housing: Apartment Are you a primary animal care service worker to a significant other at home: No Do you presently have visiting nurse or other home services: No Alcohol intake: current Alcohol intake frequency: holidays/special occasions only Alcohol type: hard liquor Comment: low fall Patient Tobacco Use Status: Never used Tobacco Second Hand Smoke Exposure: No Advance Directives Date on File: 04/17/22 service: No Current occupational status: employed Review of Systems Const Denies chills, Denies fatigue, Denies fever(s), Denies weight gain and Denies weight loss ENT Denies dizziness, Denies lip swelling and Denies tongue swelling Card Denies chest pain, Denies leg edema, Denies lightheadedness, Denies palpitations, Denies dyspnea on exertion, Denies orthopnea and Denies other Resp Denies cough, Denies dyspnea on exertion and Reports wheezing GI Denies hematochezia and Denies change in stool character Musc Denies abnormal gait, Denies muscle weakness, Denies numbness, Denies radiating pain into limb and Denies tingling Neuro Denies abnormal gait, Denies dizziness, Denies numbness and Denies tingling Endo Denies fatigue and Denies palpitations Paul/Lymph Denies easy bleeding and Denies lymphadenopathy Aller/Immun Denies lip swelling, Denies tongue swelling and Reports wheezing Physical Exam Vital Signs: Last Vital Signs Pulse 105 H 08/02/25 11:10 BP 150/64 H 08/02/25 11:10 Pulse Ox 98 08/02/25 11:10 Oxygen Delivery Method Room Air 08/02/25 11:10 BMI result Body Mass Index 38.9 Const General: alert Neck Neck: Yes normal visual inspection, Yes full ROM and Yes no lymphadenopathy Chest Chest palpation & inspection: normal inspection of the chest Resp Effort & Inspection: normal respiratory effort Auscultation: no wheezes and diminished lung sounds Cardio Rate: regular rate Rhythm: regular rhythm Heart sounds: S1 normal heart sound present and S2 normal heart sound present GI Palpation (GI): Soft to palpation and nontender Auscultation: normal bowel sounds Skin General skin exam: rashes and/or lesions noted Assessment & Plan Assessment & Plan (1) Hypersomnia with sleep apnea: Code(s): G47.10 - Hypersomnia, unspecified; G47.30 - Sleep apnea, unspecified Category: Medical (2) Asthma: Code(s): J45.909 - Unspecified asthma, uncomplicated Category: Medical Qualifiers: Asthma complication type: with acute exacerbation Asthma persistence: persistent Asthma severity: moderate Qualified Code(s): J45.41 - Moderate persistent asthma with (acute) exacerbation (3) Bronchopneumonia: Code(s): J18.0 - Bronchopneumonia, unspecified organism Category: Medical Plan continue Breztri Benzonates for cough continue Nebs Continue Daliresp 500 mcg daily continue Gabapentin for sleep not using CPAP therapy, continue positional therapy ?repeat home sleep study continue Provigil 200mg daily follow-up in 6-8 months. Coding Level of Care Code Est Pt Level 4 (15396) Complex EM visit Add On G2211 Diagnoses Hypersomnia with sleep apnea G47.10; G47.30 Moderate persistent asthma with acute exacerbation J45.41 Asthma complication type: with acute exacerbation Asthma persistence: persistent Asthma severity: moderate Bronchopneumonia J18.0 Time Spent (min) 16
[2025-08-02 11:10] VITALS: BP 150/64; PULSE 105; O2SAT 98; BMI 38.9
--- OUTSIDE RECORDS SUMMARY | 2025-08-02 12:28 | XMS_ITS ---
Author Name [facility] Organization Unknown Care Team Organization Name Specialty Phone Email Start Date End Da nikolay [facility] 09/14/2022 4
--- OUTSIDE RECORDS SUMMARY | 2025-08-02 12:29 | XMS_ITS | Clinical Summary ---
Author Organization [facility] [address] [place] [address] [address] [place] [address] Phone Care Team Providers Care Radiation Protection Technician Name Role Phone Janine Villeda MD Primary Care Provider [phone] Allergies Active Allergy Reactions Criticality Noted Date Comments Amlodipine Itching 03/04/2020 Anx Hives High 07/23/2016 Aspirin Hives,Itching,Swelli n g 12/10/2010 Benzonatate Hives,Wheezing 10/07/2006 Codeine Itching,Rash,Swelling 01/06/2006 Cortisone Rash High 02/05/2022 And prednisone Diphenhydramine-Acetamin ophen Itching,Swelling 05/06/2009 Mfwtbmkrcrv-Yzsxmovch-Sh lanter 01/20/2023 Hydrocodone-Acetaminophe n Itching,Rash,Swelling 01/06/2006 Ibuprofen [...] once a day prior to breakfast 04/30/20 Active blood sugar diagnostic (FreeStyle Lite Strips) test strip Test blood sugar once a day prior to breakfast 04/30/20 Active albuterol 2.5 mg /3 mL (0.083 %) nebulizer solution Take 3 mL (2.5 mg total) by nebulization every 4 (four) hours if needed for wheezing. for up to 30 days 06/07/20 19 Active budesonide (PULMICORT) 0.5 mg/2 mL nebulizer solution Take 2 mL (0.5 mg total) by nebulization 1 (one) time each day. 06/07/20 19 Active fluticasone propion-salmet Barber (AIRDUO RESPICLICK) 113-14 mcg/actuation aerosol powdr breath activated inhaler Inhale 1 puff by mouth 2 (two) times a day. for 30 days 06/07/20 19 Active ipratropium-al buteroL (DUONEB) 0.5-2.5 mg/3 mL nebulizer solution Take 3 mL by nebulization. 6 TO 8 HOURS NEEDED FOR WHEEZING 04/14/20 Active modafiniL (PROVIGIL) 200 mg tablet Take [...] or Wheezing). 6.7 g 11/12/19 25 Active pyridoxine (B-6) 50 mg tablet Take 1 tablet (50 mg total) by mouth 1 (one) time each day. 11/27/19 25 Active omeprazole (PriLOSEC) [address] capsule Take 1 capsule (40 mg total) by mouth 1 (one) time each day. Do not crush or chew. 90 each 1 02/27/20 25 Active atorvastatin (LIPITOR) 40 mg tablet Take 1 tablet (40 mg total) by mouth at bedtime. at bedtime 90 tablet 1 05/21/20 25 Active hydroCHLOROthi azide (HYDRODIURIL) 25 mg tablet Take 1 tablet (25 mg total) by mouth 1 (one) time each day. 90 tablet 1 05/21/20 25 Active levothyroxine (SYNTHROID, LEVOTHROID) 50 mcg tablet Take 1 tablet (50 mcg total) by mouth 1 (one) time each day before breakfast. 90 tablet 1 05/21/20 25 Active DULoxetine (CYMBALTA) [address] capsule Take 1 capsule (30 mg total) by mouth 1 (one) time each day. 90 capsule 1 05/21/20 25 Active gabapentin (NEURONTIN) 300 mg capsule Take 1 capsule (300 mg total) by mouth 2 (two) times a day. 180 capsule 1 05/21/20 25 Active Allergy Relief, loratadine, 10 mg tablet TAKE ONE TABLET BY MOUTH EVERY DAY 90 tablet 1 06/07/20 25 Active allopurinoL (ZYLOPRIM) 100 mg tablet TAKE ONE TABLET BY MOUTH EVERY DAY 90 tablet 1 07/09/20 25 Active allopurinoL (ZYLOPRIM) 100 mg tablet Take 1 tablet (100 mg total) by mouth 1 (one) time each day. 05/17/20 24 025 Discontinued Active Problems Problem Noted Date Diagnosed Date Osteopenia 03/07/2025 Overview (03/07/2025): 03/31 T score spine +0.4 hip -1.9 FRAX score 14% 10 year fracture risk Type 2 diabetes mellitus wit h cataract ([facility] V24, [facility] V28) 03/16/2023 Anxiety 11/11/2021 History of COVID-19 11/15/2020 Overview (10/09/2024): November 2020 Seasonal allergic rhinitis 03/11/2020 Hypertension 01/24/2020 Microalbuminuria 10/01/2019 Type II diabetes mellitus wi th renal manifestations ([facility] V24, [facility] V28) 06/29/2019 Hypersomnia 06/07/2019 Multiple pulmonary nodules [...] Encounters Date Type Department Care Team Description 07/15/2025 10:30 AM EDT Treatment [address] [phone] Ileana Cardoza, PT Lumbar radiculopathy (Primary Dx) 07/11/2025 10:00 AM EDT Treatment [facility] [address] [phone] Godfrey Tavares, RAUDEL Lumbar radiculopathy (Primary Dx) 07/09/2025 10:00 AM EDT Treatment [facility] [address] [phone] Godfrey Tavares, RAUDEL Lumbar radiculopathy (Primary Dx) 06/25/2025 10:00 AM EDT Treatment [address] [phone] Ileana Cardoza, PT Lumbar radiculopathy (Primary Dx) 06/20/2025 11:00 AM EDT Treatment [address] [phone] Leo Inman, VINEYARD SUPERVISOR Lumbar radiculopathy (Primary Dx) 05/28/2025 1:30 PM EDT Evaluation [facility] [address] [phone] Ileana Cardoza PT Lumbar radiculopathy 05/28/2025 Plan of Care Documentation [facility] [address] [phone] 05/21/2025 8:15 AM EDT Office Visit [address] [phone] Janine Villeda MD Primary hypertension (Primary Dx); Acquired hypothyroidism; Type 2 diabetes mellitus with stage 3 chronic kidney disease, without long-term current use of insulin, unspecified whether stage 3a or 3b CKD ([facility] V24, [facility] V28); Mixed hyperlipidemia; Mild intermittent asthma without complication; Gastroesophageal reflux disease without esophagitis; Lumbar radiculopathy from Last 3 Months Immunizations Name Administration [...] (hypertension) Type 2 diabetes mellitus with cataract ([facility] V24, [facility] V28) 03/16/2023 Type II diabetes mellitus wi th renal manifestations ([facility] V24, [facility] V28) 06/29/2019 Family History Medical History Relation [...] drink = 0.6 oz pur e alcohol) Housing Instability Answer Date Recorde d Are you worried that in the next 2 months you may not have stable housing? No 05/15/2025 Food Access & Nutrition Answer Date Rec orded Do you have access to a vari ety of food including fruits and vegetables? Yes 05/15/2025 Health Literacy Answer Date Recorded How often do you need to hav e someone help you when you read instructions, pamphlets, or other written material from your doctor or pharmacy? Never 05/15/2025 Caregiver: How often do you need to have someone help you when you read instructions, pamphlets, or other written material from your doctor or pharmacy? Not on file 05/15/2025 Financial Risk Answer Date Recorded How hard is it for you to pa y for the very basics like food, housing, medical care, and air conditioning / heating? Somewhat hard 05/15/2025 Transportation Answer Date Recorded Has the lack of transportati on kept you from meetings, work, or from getting things needed for daily living? No Has the lack of transportati on kept you from medical appointments or from getting medications? No 05/15/2025 Social Isolation Answer Date Recorded How often do you feel lonely or isolated from th ose around you? Often 05/15/2025 Food Risk Answer Date Recorded Within the past 12 months we worried whether our food would run out before we got money to buy more. Sometimes true 025 Within the past 12 months th e food we bought just didn't last and we didn't have money to get more. Sometimes true 05/15/2025 Dependent Care Answer Date Recorded Do you need help finding or paying for care for your loved ones. For example, children's aide or elderly care for an older adult? No 05/15/2025 Education Answer Date Recorded Do you think completing more education or training, like finishing a GED, going to college, or learning a trade, would be helpful for you? Yes 05/15/2025 Employment and Income Answer Date Recor ded During the last four weeks, have you been actively looking for work? No 05/15/2025 Living Situation Answer Date Recorded What is your living situation? 0 05/15/2025 Comments Unknown Sex and Gender Information Value Date Recorded Sex Assigned at Female 06/14/2025 9:38 AM EDT Legal Sex Female 1:02 AM EST Gender Identity Female 06/14/2025 9:38 AM EDT Sexual Orientation Choose not to disclose 2024 9:38 AM EDT Obstetrics History Last Filed Vital Signs Vital Sign Reading Time Taken Comments Blood Pressure 132/70 05/21/2025 7:45 AM EDT Pulse 105 05/21/2025 7:45 AM EDT Temperature 35.9 C (96.7 F) 05/21/2025 7:45 AM EDT Respiratory Rate 16 05/21/2025 7:45 AM EDT Oxygen Saturation 96% 05/21/2025 7:45 AM EDT Inhaled Oxygen Concentration - - Weight 82.7 kg (182 lb 4.8 oz) 05/21/2025 7:45 A M EDT Height 144.8 cm (4' 9 ) 05/21/2025 7:45 AM EDT Body Mass Index 39.45 05/21/2025 7:45 AM EDT Plan of Treatment Upcoming Encounters Date Type Department Care Team (Late st Contact Info) Description 08/06/2025 10:00 AM EDT Consult Adult Medicine [address] [phone] Joni Khan MD [address] [place] [address] 09/23/2025 8:30 AM EST Office Visit Adult Medicine [address] [phone] Janine Villeda MD [address] [place] [address] 09/26/2025 1:10 PM EST Appointment Radiology Department - [address] [phone] Health Maintenance Due Date Last Done Comments Diabetes: Annual Foot Exam 1970 Cervical Cancer Screening: Pap Smear 06/23/2020 06/23/2017, 06/23/2017 Medicare Annual Wellness Visit 10/16/2022 Diabetes: Annual Retina Eye Exam 06/05/2025 06/05/2024 COVID-19 Vaccine ( season) 2025 09/09/2022, 05/30/2022, 09/17/2021, Additional history exists Influenza Vaccine (#1) 2025 , 07/20/2023, 07/16/2023, Additional history exists Diabetes: Annual Urine Albumin-Creatinine Ratio (uACR) 11/21/2025 11/21/2024, 09/15/2023 Diabetes: Annual GFR (Glomerular Filtration Rate) 11/21/2025 11/21/2024, 05/17/2024, 05/17/2024 Hypertension/CHF/CAD Annual BMP Blood Test 11/21/2025 11/21/2024, 05/17/2024, 05/17/2024 Diabetes: Blood Sugar Control Test (HGBA1C) 01/13/2026 07/16/2025, 02/26/2025, 11/21/2024, Additional history exists Social Influencers of Health Screening 05/15/2026 05/15/2025 Falls Risk Assessment 05/21/2026 05/21/2025 Breast Cancer Screening 05/24/2026 05/24/20 24, 05/24/2024, 02/10/2023, Additional history exists Colorectal Cancer Screening: Colonoscopy 12/03/2026 12/03/2021 DTaP,Tdap,and Td Vaccines (3 - Td or Tdap) 10/01/2029 10/01/2019, 01/02/2008 Cholesterol Screening (Lipid Panel) 11/21/2029 11/21/2024, 09/15/2023 Osteoporosis Screening (Bone Density Screening) 03/07/2035 03/07/2025 Zoster Vaccines Completed 05/13/2020, 01/07/2020 Hepatitis C Screening Completed 11/28/2020 Pneumococcal Vaccine: 50+ Years Completed 11/16/2022, 06/07/2019, 01/24/2014 RSV Immunization Adult Patients Completed 10/03/2024 Depression Screening Completed 05/15/2025, 05/17/20 24 HIB Vaccines Aged Out No longer eligi [...] Procedure Name Priority Date/Time Associated Diagnosis Comments HEMOGLOBIN A1C Routine 07/16/2025 9:53 AM EDT Type 2 diabetes mellitus with stage 3 chronic kidney disease, without long-term current use of insulin, unspecified whether stage 3a or 3b CKD (CMS/HCC V24, CMS/HCC V28) BD BONE DENSITY DXA AXIAL SKELETON Routine 03/07/2025 10:05 AM EDT Menopause MICROALBUMIN CREATININE URINE RATIO Routine 11/21/2024 10:15 AM EST Type 2 diabetes mellitus with stage 3 chronic kidney disease, without long-term current use of insulin, unspecified whether stage 3a or 3b CKD (CMS/HCC V24, CMS/HCC V28) COMPREHENSIVE METABOLIC PANEL Routine 11/21/2024 10:15 AM EST Type 2 diabetes mellitus with stage 3 chronic kidney disease, without long-term current use of insulin, unspecified whether stage 3a or 3b CKD (CMS/HCC V24, CMS/HCC V28) Primary hypertension LIPID PANEL WITH REFLEX [...] Relevant to Health Maintenance Results * (ABNORMAL) Hemoglobin A1c (07/16/2025 9:53 AM EDT) Hemoglobin A1C 6.7(H) <6.5 % LAB CHEMISTRY METHOD 07/16/2025 1:41 PM EDT [facility] Mean Bld Glu Estim. 146 mg/dL LAB CHEMISTRY METHOD 07/16/2025 1:41 PM EDT [facility] Blood Venous blood specimen / Unknown Venipuncture / Unknown 07/16/2025 9:53 AM EDT 07/16/2025 9:53 AM EDT us Janine Villeda MD LAB BLOOD ORDERABLES Final Resul t [facility] [address] [place] [address], [place] [phone] * BD Bone Density DXA Axial Skeleton [...] (World Health Organization Fracture Risk Assessment) [facility] Department of Internal Medicine recommends using [...] alternative screening schedule based on magdaleno Mon., [facility] November 25, 2011 for patients with osteopenia (based on hip BMD T-score) is as follows: * advanced osteopenia (T scores [...] Signed Date: 03/07/2025 10:40 ET Workstation ID: [id number] Transcribed By: Self Edit Transcribed Date: 03/07/2025 10:39 ET Narrative 03/07/2025 10:40 AM EDT BONE DENSITY (DEXA) Lumbar Spine T-score is [...] years. (World Health Organization FractureRisk Assessment) [facility] Department of Internal Medicine recommendsusing National [...] alternative screening schedule based [facility] magdaleno Mon., [facility] for [facility] with [facility]openia (based on [...] Signed Date: 03/07/2025 10:40 ET Workstation ID: [id number] Transcribed By: Self Edit Transcribed Date: 03/07/2025 10:39 ET us Janine Villeda MD [facility] DXA PROCEDURES Final Result * (ABNORMAL) Lipid panel with reflex to direct LDL (11/21/2024 10:15 AM EST) Cholesterol 210(H) 0 - 200 mg/dL LAB CHEMISTRY METHOD 11/21/2024 12:11 PM [facility] Triglycerides 147 0 - 150 mg/dL LAB CHEMISTRY METHOD 11/21/2024 12:11 PM [facility] HDL 54 >=40 mg/dL LAB CHEMISTRY METHOD 11/21/2024 12:11 PM [facility] LDL Calculated 127(H) 0 - 100 mg/dL LAB CHEMISTRY METHOD 11/21/2024 12:11 PM [facility] VLDL Cholesterol Stephen 29.4 mg/dL LAB CHEMISTRY METHOD 11/21/2024 12:11 PM [facility] Non HDL Chol. (LDL+VLDL) 156(H) <145 mg/dL LAB CHEMISTRY METHOD 11/21/2024 12:11 PM [facility] Chol/HDL Ratio 3.9 0.0 - 4.4 LAB CHEMISTRY METHOD 11/21/2024 12:11 PM [facility] Blood Venous blood specimen / Unknown Venipuncture / Unknown 11/21/2024 10:15 AM EST 11/21/2024 10:15 AM EST us Janine Villeda MD LAB BLOOD ORDERABLES Final Resul t [facility] [address] [place] [address], [place] [phone] * (ABNORMAL) Microalbumin creatinine urine ratio (11/21/2024 10:15 AM EST) Creatinine, Urine 22.0 mg/dL LAB CHEMISTRY METHOD 11/21/2024 1:21 PM [facility] Microalb, Ur 19.5 0.0 - 29.0 mg/L LAB CHEMISTRY METHOD 11/21/2024 1:21 PM [facility] Microalb/Creat Ratio 89(H) <30 mg/g creat LAB CHEMISTRY METHOD 11/21/2024 1:21 PM [facility] Urine Urine specimen obtained by clean catch procedure / Unknown Non-blood Collection / Unknown 11/21/2024 10:15 AM EST 11/21/2024 10:15 AM EST us Janine Villeda MD LAB URINE ORDERABLES Final Resul t [facility] [address] [place] [address], * (ABNORMAL) Comprehensive metabolic panel (11/21/2024 10:15 AM EST) Sodium 140 133 - 145 mmol/L LAB CHEMISTRY METHOD 11/21/2024 12:11 PM [facility] Potassium 4.5 3.5 - 5.5 mmol/L LAB CHEMISTRY METHOD 11/21/2024 12:11 PM [facility] Chloride 104 96 - 110 mmol/L LAB CHEMISTRY METHOD 11/21/2024 12:11 PM [facility] CO2 33(H) 21 - 32 mmol/L LAB CHEMISTRY METHOD 11/21/2024 12:11 PM [facility] Anion Gap 3 3 - 11 LAB CHEMISTRY METHOD 11/21/2024 12:11 PM [facility] Glucose 96 70 - 100 mg/dL LAB CHEMISTRY METHOD 11/21/2024 12:11 PM [facility] BUN 16 5 - 25 mg/dL LAB CHEMISTRY METHOD 11/21/2024 12:11 PM [facility] Creatinine 0.76 0.50 - 1.10 mg/dL LAB CHEMISTRY METHOD 11/21/2024 12:11 PM [facility] eGFR 87 >=60 mL/min/1. 73m2 LAB CHEMISTRY METHOD 11/21/2024 12:11 PM [facility] Comment:Calculation based on the Chronic Kidney Disease Epidemiology Collaboration (CKD-EPI) equation refit without adjustment for race. BUN/Creatinine Ratio 21.1 LAB CHEMISTRY METHOD 11/21/2024 12:11 PM [facility] Calcium 10.3 8.5 - 10.5 mg/dL LAB CHEMISTRY METHOD 11/21/2024 12:11 PM [facility] AST (SGOT) 40 10 - 42 unit/L LAB CHEMISTRY METHOD 11/21/2024 12:11 PM [facility] ALT (SGPT) 53 10 - 60 unit/L LAB CHEMISTRY METHOD 11/21/2024 12:11 PM [facility] Alkaline Phosphatase 102 42 - 121 unit/L LAB CHEMISTRY METHOD 11/21/2024 12:11 PM [facility] Total Protein 7.6 6.0 - 8.0 g/dL LAB CHEMISTRY METHOD 11/21/2024 12:11 PM [facility] Albumin 3.9 3.2 - 5.0 g/dL LAB CHEMISTRY METHOD 11/21/2024 12:11 PM [facility] Total Bilirubin 0.5 0.0 - 1.4 mg/dL LAB CHEMISTRY METHOD 11/21/2024 12:11 PM [facility] Blood Venous blood specimen / Unknown Venipuncture / Unknown 11/21/2024 10:15 AM EST 11/21/2024 10:15 AM EST Janine Villeda MD LAB BLOOD ORDERABLES Final Resul t [facility] [address] [place] [address], * Diabetes Eye Exam (06/05/2024) Diabetes: Annual [...] Relevant to Health Maintenance Insurance MEDICARE [place] MEDIC[place] - [place] Care Teams Radiation Protection Technician Relationship Specialty Start Date End Date Janine Villeda MD [address] [place] [address] PCP - General Internal Medicine 05/14/20
== END 2025-08-02 11:26 | disposition home or self-care (01) ==
LOC: HO.HPS 10:48
PROVIDERS: PCP Internal Medicine; Visit Provider Hospitalist
DX: G47.10 Hypersomnia, unspecified (principal); G47.30 Sleep apnea, unspecified; J45.41 Moderate persistent asthma with (acute) exacerbation; J18.0 Bronchopneumonia, unspecified organism
CPT/HCPCS: 99214; G2211

== ENCOUNTER → 2025-08-02 10:47 | Outpatient (BNVA) | payer MEDICARE, MEDICAID, SELFPAY | PROVIDERS: PCP Internal Medicine; Visit Provider Hospitalist | DX: G47.10 Hypersomnia, unspecified (principal); G47.30 Sleep apnea, unspecified; J45.41 Moderate persistent asthma with (acute) exacerbation; J18.0 Bronchopneumonia, unspecified organism | CPT/HCPCS: 99212 ==